=== PATIENT | male | born 1980 | race Caucasian/White ===

== ENCOUNTER 2021-08-10 03:30 | Emergency (ER) | payer OTHER, SELFPAY ==
[2021-08-10 04:04] VITALS: BP 128/78; PULSE 84; RESP 18; TEMP 37.3; O2SAT 98; BMI 24.3
[2021-08-10 04:29] LABS: MANUAL DIFF FLAG NO
[2021-08-10 04:30] LABS: Basophils Absolute Auto 0.1 X10*3/uL (0.0-0.2); Basophils Percent Auto 0.6 % (0-2); Eosinophils Absolute Auto 0.2 X10*3/uL (0.0-0.4); Eosinophils Percent Auto 2.1 % (0-4); Hematocrit 42.4 % (42.0-52.0); Hemoglobin 14.3 g/dl (14.0-18.0); Imm Gran Abs Auto 0.02 X10*3/uL (0.00-0.03); Imm Gran Pct Auto 0.2 % (0.0-0.4); Lymphocytes Absolute Auto 2.4 X10*3/uL (1.2-4.9); Lymphocytes Percent Auto 26.7 % (20-40); Mean Corpuscular HGB Conc 33.7 g/dl (31.0-36.0); Mean Corpuscular Hemoglobin 30.3 pg (27.0-33.0); Mean Corpuscular Volume 89.8 fL (80.0-98.0); Mean Platelet Volume 8.8 fL (9.4-12.4); Monocytes Absolute Auto 0.5 X10*3/uL (0.1-1.2); Monocytes Percent Auto 5.1 % (2-11); Neutrophils Absolute Auto 5.9 x10*3/uL (2.0-8.3); Neutrophils Percent Auto 65.3 % (45-73); Platelet Count 267 X10*3/uL (160-400); Red Blood Count 4.72 X10*6/uL (4.60-5.80); Red Cell Distribution Width 12.8 % (11.0-16.0)
[2021-08-10 04:46] LABS: COVID-19 Test Negative (Negative)
[2021-08-10 04:51] LABS: Ethanol < 10 mg/dL
[2021-08-10 04:53] LABS: Anion Gap 14 (12-20); Blood Urea Nitrogen 13 mg/dL (9-16); Calcium 9.6 mg/dL (8.4-10.2); Carbon Dioxide 25 mmol/L (22-29); Chloride 104 mmol/L (96-108); Creatinine Clr Calc Pharmacy 104.5; Estimated Glomerular Filt Rate > 60; Glucose Random 94 mg/dL (60-115); Potassium 4.3 mmol/L (3.3-5.1); Sodium 139 mmol/L (135-145)
--- NOTE | 2021-08-10 05:34 | ED.PSYCH ---
HPI - Psych General Chief Complaint: Psychiatric Symptoms Stated Complaint: Crisis Time Seen by Provider: 08/10/21 05:34 Source: patient Mode of arrival: ambulatory History of Present Illness HPI Narrative: 40-year-old male without significant past medical history presents with complaints of depression but denies suicidal ideation and states that he is so tired and simply wants to sleep. Patient states that he last used heroin yesterday. Otherwise, he denies any fever, chills, nausea, vomiting, GI or symptoms. Related Data Allergies Allergy/AdvReac Type Severity Reaction Status Date / Time No Known Allergies Allergy Unverified 02/05/20 16:34 Review of Systems Review of Systems: Pertinent positives and negatives as stated in HPI 10 point review of systems is otherwise negative. PMFSH Past Medical History Source: nursing notes reviewed Social History Social History Advance Directives: No Physical Exam Vital Signs: Vital Signs: Last Vital Signs Temp 99.2 F 08/10/21 04:04 Pulse 84 08/10/21 04:04 Resp 18 08/10/21 04:04 BP 128/78 08/10/21 04:04 Pulse Ox 98 08/10/21 04:04 BMI result Body Mass Index 24.3 VITAL SIGNS: Reviewed. GENERAL: Well developed, well nourished, in no acute distress. HEAD: Normocephalic/atraumatic EYES: PERRLA, EOMI OROPHARYNX: no oral lesions noted, posterior pharynx clear LUNGS: Normal breath sounds. SpO2<98> CARDIOVASCULAR: Regular rate and rhythm without noted murmurs ABDOMEN: Soft, non-tender, non-distended with bowel sounds. SKIN: Inspection of the skin reveals no rashes, but extensive tattoos NEUROLOGIC: Alert and oriented x 4. Strength and sensation to light touch were grossly intact x 4, cranial nerves 2-12 are grossly intact. Course Course Course Narrative: 40-year-old male with history of substance use, and review of all investigations other than GUDINO without acute findings. Patient reports depression but otherwise denies suicidal ideation which conflicts with history provided to triage nurse. He is otherwise medically clear for further evaluation by the crisis team. Reevaluation(s) Reevaluation #1: Patient placed in physician observation because the patient needed more time for evaluation by the crisis team. At the time observation was started the patient's vital signs were stable, patient is easily arousable and oriented, neuro: Nonfocal, CV RRR, lungs clear Time: 06:04 MDM - Psych Lab Data Result diagrams: 08/10/21 04:24 08/10/21 04:24 Labs: Lab Results 08/10/21 08/10/21 08/10/21 Range/Units 04:12 04:24 04:24 WBC 9.0 (4.8-10.8) X10*3/uL RBC 4.72 (4.60-5.80) X10*6/uL Hgb 14.3 (14.0-18.0) g/dl Hct 42.4 (42.0-52.0) % MCV 89.8 (80.0-98.0) fL MCH 30.3 (27.0-33.0) pg MCHC 33.7 (31.0-36.0) g/dl RDW 12.8 (11.0-16.0) % Plt Count 267 (160-400) X10*3/uL MPV 8.8 L (9.4-12.4) fL Immature Gran % (Auto) 0.2 (0.0-0.4) % Neut % (Auto) 65.3 (45-73) % Lymph % (Auto) 26.7 (20-40) % [place] % (Auto) 5.1 (2-11) % Eos % (Auto) 2.1 (0-4) % Baso % (Auto) 0.6 (0-2) % Lymph # (Auto) 2.4 (1.2-4.9) X10*3/uL [place] # (Auto) 0.5 (0.1-1.2) X10*3/uL Eos # (Auto) 0.2 (0.0-0.4) X10*3/uL Baso # (Auto) 0.1 (0.0-0.2) X10*3/uL Abs Immat Gran (auto) 0.02 (0.00-0.03) X10*3/uL Absolute Neuts (auto) 5.9 (2.0-8.3) x10*3/uL Absolute Nucleated RBC 0.000 (0.0-0.012) X10*3/uL Nucleated RBC % (auto) 0.0 (0.0-0.2) /100WBC Sodium (135-145) mmol/L Potassium (3.3-5.1) mmol/L Chloride (96-108) mmol/L Carbon Dioxide (22-29) mmol/L Anion Gap (12-20) BUN (9-16) mg/dL Creatinine (0.5-1.4) mg/dL Estim Creat Clear Calc Estimated GFR Random Glucose (60-115) mg/dL Calcium (8.4-10.2) mg/dL Ethyl Alcohol < 10 mg/dL COVID-19 ([facility]) Negative (Negative) COVID-19 Clin Com See Note 08/10/21 Range/Units 04:24 WBC (4.8-10.8) X10*3/uL RBC (4.60-5.80) X10*6/uL Hgb (14.0-18.0) g/dl Hct (42.0-52.0) % MCV (80.0-98.0) fL MCH (27.0-33.0) pg MCHC (31.0-36.0) g/dl RDW (11.0-16.0) % Plt Count (160-400) X10*3/uL MPV (9.4-12.4) fL Immature Gran % (Auto) (0.0-0.4) % Neut % (Auto) (45-73) % Lymph % (Auto) (20-40) % [place] % (Auto) (2-11) % Eos % (Auto) (0-4) % Baso % (Auto) (0-2) % Lymph # (Auto) (1.2-4.9) X10*3/uL [place] # (Auto) (0.1-1.2) X10*3/uL Eos # (Auto) (0.0-0.4) X10*3/uL Baso # (Auto) (0.0-0.2) X10*3/uL Abs Immat Gran (auto) (0.00-0.03) X10*3/uL Absolute Neuts (auto) (2.0-8.3) x10*3/uL Absolute Nucleated RBC (0.0-0.012) X10*3/uL Nucleated RBC % (auto) (0.0-0.2) /100WBC Sodium 139 (135-145) mmol/L Potassium 4.3 (3.3-5.1) mmol/L Chloride 104 (96-108) mmol/L Carbon Dioxide 25 (22-29) mmol/L Anion Gap 14 (12-20) BUN 13 (9-16) mg/dL Creatinine 0.96 (0.5-1.4) mg/dL Estim Creat Clear Calc 104.5 Estimated GFR > 60 Random Glucose 94 (60-115) mg/dL Calcium 9.6 (8.4-10.2) mg/dL Ethyl Alcohol mg/dL COVID-19 ([facility]) (Negative) COVID-19 Clin Com Discharge Plan Discharge Clinical Impression: Depression, Substance use disorder Patient Disposition: Still a Patient
--- NOTE | 2021-08-10 07:30 | PC.NURSE ---
patient appears to remain asleep at present respirations are even and unlabored patient appears in no distress
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
--- NOTE | 2021-08-10 14:24 | MHC.RECOVSUP ---
? Reason for consult:recovery Support o Current location:[facility] o Identified substance use concern:Crack/ETOH - Withdrawal - Seeking ATS (detox) - Support ? Intervention: o ATS bed search started/completed/in proces o Community resources provided o ? Plan: o Bed search in progress to o Patient to follow up with [facility] after discharge ? Additional information:Patient seeking detox,patient going to [facility]
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
--- NOTE | 2021-08-10 18:36 | MHC.RECOVSUP ---
? Reason for consult Recovery Support o Current location: [facility] o Identified substance use concern: Heroin - Seeking ATS (detox) - Support ? Intervention: o ATS bed search started 5pm/[id number] o Community resources provided o Harm reduction discussion ? Plan: o Patient to follow up with [facility] after discharge ? Additional information: Patient seeking help to get a bed in detox... Patient has a bed at 815pm @ [facility]... Patient has his girlfriend come pick him up to bring him clothes and give him a ride...
== END 2021-08-10 18:46 | disposition home or self-care (01) ==
PROVIDERS: Emergency Provider Student in an Organized Health Care Education/Training Program
DX: F33.1 Major depressive disorder, recurrent, moderate (principal); R45.851 Suicidal ideations; F11.19 Opioid abuse with unspecified opioid-induced disorder; Z79.899 Other long term (current) drug therapy; Z20.822 Contact with and (suspected) exposure to COVID-19
CPT/HCPCS: 36415; 80048; 82077; 85025; 87635; 99284

== ENCOUNTER 2021-09-04 02:07 | Emergency (ER) | payer OTHER, SELFPAY ==
--- NOTE | ~2021-09-04 | XR_ITS ---
EXAMINATION: XR HIP, RIGHT CLINICAL INFORMATION: Pain COMPARISON: None TECHNIQUE: Two views of the right hip. FINDINGS: No acute fracture or dislocation. Femoral heads are spherical. Small bilateral os acetabuli. Hip joint spaces preserved. Pelvic ring intact. Soft tissues unremarkable. XR/XR hip RT w [id number] IMPRESSION: No acute fracture or dislocation.
[2021-09-04 02:21] VITALS: BP 141/79; PULSE 80; RESP 14; TEMP 36.9; O2SAT 98; BMI 25.1
[2021-09-04 04:00] VITALS: RESP 18
[2021-09-04 04:39] VITALS: BP 134/84; PULSE 78; RESP 18; O2SAT 99
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
[2021-09-04 05:45] VITALS: BP 138/82; PULSE 82; RESP 18; O2SAT 98
[2021-09-04] MEDS: Ketorolac Tromethamine 15 MG/ML VIAL IM (05:59)
[2021-09-04] MEDS: Acetaminophen 325 MG TABLET 975 MG PO (05:59)
[2021-09-04 06:33] VITALS: BP 133/79; PULSE 72; RESP 16; O2SAT 100
== END 2021-09-04 06:37 | disposition home or self-care (01) ==
PROVIDERS: Emergency Provider Student in an Organized Health Care Education/Training Program
DX: M25.551 Pain in right hip (principal)
CPT/HCPCS: 73502; 96372; 99284; J1885

== ENCOUNTER 2021-09-06 00:42 | Emergency (ER) | payer OTHER, SELFPAY ==
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
[2021-09-06 00:47] VITALS: BP 139/79; PULSE 96; RESP 16; TEMP 36.4; O2SAT 96; BMI 24.3
--- NOTE | 2021-09-06 01:45 | PC.NURSE ---
PT willing to provide blood for labs. PT stated that he is unable to urinate at the time of arrival to pod.
--- NOTE | 2021-09-06 01:46 | ED_ITS ---
HPI - Psych General Chief Complaint: Psychiatric Symptoms Stated Complaint: crisis Time Seen by Provider: 09/06/21 01:06 Source: patient Mode of arrival: ambulatory History of Present Illness HPI Narrative: 40-year-old male who is requesting to speak to crisis and states ?I am not well in the head? and although does not explicitly state that he has suicidal ideation he says ?I have been thinking about?. Otherwise he denies any constitu tional symptoms. Related Data Home Medications Medication Instructions Recorded Confirmed No Known Home Meds 08/10/21 08/10/21 Allergies Allergy/AdvReac Type Severity Reaction Status Date / Time No Known Allergies Allergy Verified 09/06/21 00:49 Review of Systems Review of Systems: Pertinent positives and negatives as stated in HPI 10 point review of systems is otherwise negative. PMFSH Past Medical History Source: nursing notes reviewed Social History Social History Advance Directives: No Advance Directives Information Provided: Yes Physical Exam Vital Signs: Vital Signs: Last Vital Signs Temp 97.6 F 09/06/21 00:47 Pulse 96 09/06/21 00:47 Resp 16 09/06/21 00:47 BP 139/79 09/06/21 00:47 Pulse Ox 96 09/06/21 00:47 BMI result Body Mass Index 24.3 VITAL SIGNS: Reviewed. GENERAL: Well developed, well nourished, in no acute distress. HEAD: Normocephalic/atraumatic EYES: PERRLA, EOMI EARS: Ext canals without abnormality OROPHARYNX: no oral lesions noted, posterior pharynx clear LUNGS: Normal breath sounds. SpO2<96> CARDIOVASCULAR: Regular rate and rhythm without noted murmurs ABDOMEN: Soft, non-tender, non-distended with bowel sounds. SKIN: Inspection of the skin reveals no rashes NEUROLOGIC: Alert and oriented x 4. Strength and sensation to light touch were grossly intact x 4, cranial nerves 2-12 are grossly intact. Course Course Course Narrative: 40-year-old male with history and clinical presentation most consistent with depression, possible AVH and vague suicidal ideation. Care team evaluated the patient and recommends crisis. Reevaluation(s) Reevaluation #1: Patient placed in physician observation because the patient needed more time for crisis eval and results of GUDINO. At the time observation was started the patient's vital signs were stable, patient is alert and oriented, neuro: Nonfocal, CV RRR, lungs clear Time: 02:33 MDM - Psych Lab Data Labs: Lab Results 09/06/21 09/06/21 Range/Units 01:35 01:35 Ethyl Alcohol < 10 mg/dL COVID-19 ([facility]) Negative (Negative) COVID-19 Clin Com See Note Discharge Plan Discharge Clinical Impression: Depression, Suicidal ideation Patient Disposition: Still a Patient Prescriptions: No Action No Known Home Meds 0RF
[2021-09-06 01:54] LABS: COVID-19 Test Negative (Negative)
[2021-09-06 01:57] LABS: Ethanol < 10 mg/dL
--- NOTE | 2021-09-06 02:10 | MHC.CARE ---
CARE team consult received for 40 year old male who self presented to the ED endorsing increased depression, not feeling right in the head, and vague SI. This web content writer attempted to meet with pt. Pt was sleeping and difficult to rouse awake and provided slow, short responses. He stated that he is feeling depressed lately and asked to sleep. ED physician updated. Recommended placing consult for crisis eval in the morning.
--- NOTE | 2021-09-06 02:26 | PC.NURSE ---
PT stated that he is not on home meds at this time.
--- NOTE | 2021-09-06 02:30 | PC.NURSE ---
Pt transferred from the pod into room 22. Sitter at bedside. Pt awake and alert, ambulating with a steady gait, denies pain/discomfort. Pt resting easily in bed with sitter @ bedside.
--- NOTE | 2021-09-06 07:00 | PC.NURSE ---
Pt sleeping throughout the night in NAD with sitter @ bedside. Pt calm/cooperative with staff, denies pain/discomfort.
[2021-09-06 09:24] VITALS: BP 124/78; PULSE 85; RESP 16; TEMP 36.4; O2SAT 97
--- NOTE | 2021-09-06 09:41 | PC.NURSE ---
PT RESTING QUIETLY MOST OF THE MORNING. EATING BREAKFAST. AWAITING BHN CONSULT
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
[2021-09-06 11:45] LABS: Amphetamine Screen Urine Not Detected (Not Detect); Barbiturates, Urine Not Detected (Not Detect); Benzodiazepines Screen Urine Not Detected (Not Detect); Cannabinoid Screen Urine Not Detected (Not Detect); Cocaine Screen Urine POSITIVE (Not Detect); Fentanyl, urine Not Detected (Not Detect); Opiate Screen Urine Not Detected (Not Detect); Phencyclidine Screen Urine Not Detected (Not Detect)
--- NOTE | 2021-09-06 13:14 | MHC.RECOVRN ---
Pt accepted to [facility] for 1545 admission.
== END 2021-09-06 14:05 | disposition home or self-care (01) ==
PROVIDERS: Emergency Provider Student in an Organized Health Care Education/Training Program
DX: F33.1 Major depressive disorder, recurrent, moderate (principal); R45.851 Suicidal ideations; Z20.822 Contact with and (suspected) exposure to COVID-19; Z79.899 Other long term (current) drug therapy
CPT/HCPCS: 71045; 80307; 82077; 87635; 99284

== ENCOUNTER 2021-10-17 03:22 | Emergency (ER) | payer OTHER, SELFPAY ==
[2021-10-17 03:27] VITALS: BP 134/88; PULSE 92; RESP 18; TEMP 36.6; O2SAT 96; BMI 24.5
[2021-10-17 04:00] VITALS: BP 113/70; PULSE 84; RESP 16; O2SAT 98
--- NOTE | 2021-10-17 05:58 | ED.PSYCH ---
HPI - Psych General Chief Complaint: Psychiatric Symptoms Stated Complaint: crisis Time Seen by Provider: 10/17/21 05:58 Source: patient Mode of arrival: ambulatory History of Present Illness HPI Narrative: 41-year-old male who reports the recent loss of his mother, 10/14, and is battling his addictions and admits to using cocaine but denies alcohol use. Patient endorses ?wanting to be with his mother?. Related Data Home Medications Medication Instructions Recorded Confirmed No Known Home Meds 08/10/21 08/10/21 Allergies Allergy/AdvReac Type Severity Reaction Status Date / Time No Known Allergies Allergy Verified 10/17/21 03:27 Review of Systems Review of Systems: Pertinent positives and negatives as stated HPI 10 point review of systems is otherwise negative. PMFSH Past Medical History Source: nursing notes reviewed Social History Social History Alcohol intake: never Patient Tobacco Use Status: Never used Tobacco Use of substances other than those prescribed or required for medical reasons: Yes Substance Use Type: Crack/Cocaine Advance Directives: No Physical Exam Vital Signs: Vital Signs: Last Vital Signs Temp 97.9 F 10/17/21 03:27 Pulse 84 10/17/21 04:00 Resp 16 10/17/21 04:00 BP 113/70 10/17/21 04:00 Pulse Ox 98 10/17/21 04:00 BMI result Body Mass Index 24.5 VITAL SIGNS: Reviewed. GENERAL: Well developed, well nourished, in no acute distress. HEAD: Normocephalic/atraumatic EYES: PERRLA, EOMI LUNGS: Normal breath sounds. No adventitious sounds or accessory muscle use. SpO2<98> CARDIOVASCULAR: Regular rate and rhythm without noted murmurs ABDOMEN: Soft, non-tender, non-distended with bowel sounds. MUSCULOSKELETAL: No tenderness, deformities, or effusions noted on gross inspection. EXTREMITIES: No cyanosis, clubbing or edema. SKIN: Inspection of the skin reveals no rashes NEUROLOGIC: Alert and oriented x 4. Strength and sensation to light touch were grossly intact x 4, cranial nerves 2-12 grossly intact. Course Course Course Narrative: 41-year-old male with history and clinical presentation consistent with multiple times for depression, drug use. He is otherwise medically cleared for further evaluation by the crisis team. Reevaluation(s) Reevaluation #1: Patient placed in physician observation because the patient needed more time for evaluation by the crisis team. At the time observation was started the patient's vital signs were stable, patient is alert and oriented, neuro: Nonfocal, CV RRR, lungs clear Time: 06:10 Discharge Plan Discharge Clinical Impression: Substance use disorder, Suicidal ideation, Depression Patient Disposition: Still a Patient Prescriptions: No Action No Known Home Meds 0RF
[2021-10-17 06:00] VITALS: RESP 14
[2021-10-17 08:18] LABS: COVID-19 Test Negative (Negative)
[2021-10-17 08:22] VITALS: BP 135/78; PULSE 66; RESP 16; TEMP 36.6; O2SAT 98
[2021-10-17 09:44] LABS: MANUAL DIFF FLAG NO
[2021-10-17 09:46] LABS: Basophils Percent Auto 0.6 % (0-2); Eosinophils Absolute Auto 0.2 X10*3/uL (0.0-0.4); Eosinophils Percent Auto 3.3 % (0-4); Hematocrit 41.8 % (42.0-52.0); Hemoglobin 14.4 g/dl (14.0-18.0); Imm Gran Abs Auto 0.02 X10*3/uL (0.00-0.03); Imm Gran Pct Auto 0.3 % (0.0-0.4); Lymphocytes Absolute Auto 2.4 X10*3/uL (1.2-4.9); Lymphocytes Percent Auto 34.2 % (20-40); Mean Corpuscular HGB Conc 34.4 g/dl (31.0-36.0); Mean Corpuscular Volume 89.9 fL (80.0-98.0); Mean Platelet Volume 8.7 fL (9.4-12.4); Monocytes Absolute Auto 0.5 X10*3/uL (0.1-1.2); Neutrophils Absolute Auto 3.8 x10*3/uL (2.0-8.3); Neutrophils Percent Auto 54.6 % (45-73); Platelet Count 236 X10*3/uL (160-400); Red Blood Count 4.65 X10*6/uL (4.60-5.80); Red Cell Distribution Width 12.9 % (11.0-16.0); White Blood Count 6.9 X10*3/uL (4.8-10.8)
[2021-10-17 10:02] LABS: Alanine Aminotransferase 14 U/L (0-40); Albumin Level 3.8 g/dL (3.5-5.0); Alkaline Phosphatase 63 U/L (39-117); Anion Gap 12 (12-20); Aspartate Amino Transferase 15 U/L (5-37); Bilirubin Total 0.5 mg/dL (0.0-1.0); Blood Urea Nitrogen 11 mg/dL (9-16); Calcium 9.2 mg/dL (8.4-10.2); Carbon Dioxide 26 mmol/L (22-29); Chloride 106 mmol/L (96-108); Creatinine Clr Calc Pharmacy 118.2; Estimated Glomerular Filt Rate > 60; Glucose Random 107 mg/dL (60-115); Magnesium 2.3 mg/dL (1.6-2.6); Potassium 3.8 mmol/L (3.3-5.1); Sodium 140 mmol/L (135-145); Total Protein 6.2 g/dL (6.5-8.0)
--- NOTE | 2021-10-17 10:33 | PC.NURSE ---
pt seen by bhn, pt aware of plan of care.
--- NOTE | 2021-10-17 11:09 | PC.NURSE ---
bhn return to bedside, pt had refused visit. pt aware of plan of care.
[2021-10-17 13:51] VITALS: BP 128/76; PULSE 16; RESP 16; TEMP 36.7; O2SAT 98
== END 2021-10-17 14:26 | disposition home or self-care (01) ==
PROVIDERS: Emergency Medicine; Physician Assistant Medical; Emergency Provider Student in an Organized Health Care Education/Training Program
DX: F33.1 Major depressive disorder, recurrent, moderate (principal); R45.851 Suicidal ideations; R06.02 Shortness of breath; F14.10 Cocaine abuse, uncomplicated; Z20.822 Contact with and (suspected) exposure to COVID-19; Z79.899 Other long term (current) drug therapy
CPT/HCPCS: 36415; 80053; 83735; 85025; 87635; 99284; 99285

== ENCOUNTER 2021-12-16 03:29 | Emergency (ER) | payer OTHER, SELFPAY ==
[2021-12-16 03:45] VITALS: BP 153/93; PULSE 116; RESP 16; TEMP 36.5; O2SAT 98; BMI 26.5
[2021-12-16 04:31] LABS: COVID-19 Test Negative (Negative)
[2021-12-16] MEDS: LORazepam 1 MG TABLET PO (04:44)
[2021-12-16] MEDS: OLANZapine 10 MG TABLET PO (04:44)
--- NOTE | 2021-12-16 06:32 | PC.NURSE ---
Patient is currently in bed appears sleeping, patient reported at the time of arrival racing thought, provider notified/ordered/Ativan 1 mg po and [id number] mg po at 0444 with + effect, BHN referral completed/confirmed/pending, med rec completed/patient is currently not on any medication, VSS, will continue to monitor.
[2021-12-16 07:59] VITALS: RESP 16
--- NOTE | 2021-12-16 09:03 | PC.NURSE ---
pt is sleeping, resp even and unlabored.
--- NOTE | 2021-12-16 09:33 | PC.NURSE ---
PT REFUSED BLOOD WORK. ASKED IF WE CAN COME BACK LATER.
--- NOTE | 2021-12-16 10:11 | PC.NURSE ---
pt seen by mlp (december), pt aware of plan of care.
--- NOTE | 2021-12-16 10:40 | ED_ITS ---
HPI - Psych General Chief Complaint: Psychiatric Symptoms Stated Complaint: crisis Time Seen by Provider: 12/16/21 04:37 Source: patient Mode of arrival: ambulatory Limitations: no limitations History of Present Illness HPI Narrative: 41-year-old male presents to ED for depression. Patient states going through some things but would not specify. patient denies any suicide plan. Related Data Home Medications Medication Instructions Recorded Confirmed No Known Home Meds 12/16/21 12/16/21 Allergies Allergy/AdvReac Type Severity Reaction Status Date / Time No Known Allergies Allergy Verified 12/16/21 03:48 Review of Systems Review of Systems: Depression Yes all other systems are reviewed and are negative [facility] Social History Social History Alcohol intake: never Patient Tobacco Use Status: Never used Tobacco Substance Use Type: Crack/Cocaine Advance Directives: No Advance Directives Information Provided: Yes Physical Exam Vital Signs: Vital Signs: Last Vital Signs Temp 98.3 F 12/16/21 13:48 Pulse 85 12/16/21 13:48 Resp 16 12/16/21 13:48 BP 128/57 L 12/16/21 13:48 Pulse Ox 100 12/16/21 13:48 O2 Del Method 12/16/21 13:48 BMI result Body Mass Index 26.5 Const: General: cooperative, healthy appearing, comfortable, no acute d istress, well developed, alert, awake and Physically active Orientation/consciousness: patient oriented x3 HEENT: Head: Yes normal to inspection, Yes No palpable skull fracture present, Yes normocephalic, Yes atraumatic and No abrasion Eyes: General: appearance normal, both eyes and all related structures Neck: Neck: Yes normal visual inspection, Yes full ROM, Yes no lymphadenopathy, Yes no meningeal signs, Yes trachea midline, Yes supple, No anterior neck swelling and No tender Chest: Chest palpation & inspection: normal inspection of the chest and normal palpation of entire chest wall Resp: Effort & Inspection: normal respiratory effort and able to speak in complete sentences Auscultation: clear to auscultation bilaterally Cardio: Jugular venous distension: no JVD Heart sounds: S1 normal heart sound present and S2 normal heart sound present GI: Inspection: Yes normal to inspection and No abdominal wall ecchymosis Palpation (GI): Soft to palpation, not firm, nontender, no guarding and not rigid : General: No CVA tenderness and Yes no CVA tenderness Back/Spine/Pelvis: Back: no CVA tenderness, No CVA tenderness and No back tenderness Skin: General skin exam: no rashes or lesions noted and elasticity normal Neuro: General: patient oriented x3, gait normal and no meningeal signs Cranial nerves: Yes CN's II-XII intact bilaterally Extrem: General: Yes normal to inspection and Yes full ROM Psych: Other: depressed Appearance: grossly normal and well kempt Course Course Course Narrative: labs ordered. Crisis consult placed Reevaluation(s) Reevaluation #1: patient labs at baseline. Patient evaluated by care team consulted Chandni who states patient is safe for discharge. Patient is not suicidal homicidal. Patient will be going to detox at [facility]. Time: 15:[address] [facility] - Psych Lab Data Result diagrams: 12/16/21 10:38 12/16/21 10:38 Labs: Lab Results 12/16/21 12/16/21 12/16/21 Range/Units 03:49 10:38 10:38 WBC 7.1 (4.8-10.8) X10*3/uL RBC 4.66 (4.60-5.80) X10*6/uL Hgb 14.0 (14.0-18.0) g/dl Hct 40.3 L (42.0-52.0) % MCV 86.5 (80.0-98.0) fL MCH 30.0 (27.0-33.0) pg MCHC 34.7 (31.0-36.0) g/dl RDW 13.0 (11.0-16.0) % Plt Count 200 (160-400) X10*3/uL MPV 9.2 L (9.4-12.4) fL Immature Gran % (Auto) 0.4 (0.0-0.4) % Neut % (Auto) 53.2 (45-73) % Lymph % (Auto) 33.3 (20-40) % [place] % (Auto) 11.7 H (2-11) % Eos % (Auto) 1.0 (0-4) % Baso % (Auto) 0.4 (0-2) % Lymph # (Auto) 2.4 (1.2-4.9) X10*3/uL [place] # (Auto) 0.8 (0.1-1.2) X10*3/uL Eos # (Auto) 0.1 (0.0-0.4) X10*3/uL Baso # (Auto) 0.0 (0.0-0.2) X10*3/uL Abs Immat Gran (auto) 0.03 (0.00-0.03) X10*3/uL Absolute Neuts (auto) 3.8 (2.0-8.3) x10*3/uL Absolute Nucleated RBC 0.000 (0.0-0.012) X10*3/uL Nucleated RBC % (auto) 0.0 (0.0-0.2) /100WBC Sodium 140 (135-145) mmol/L Potassium 3.9 (3.3-5.1) mmol/L Chloride 103 (96-108) mmol/L Carbon Dioxide 29 (22-29) mmol/L Anion Gap 12 (12-20) BUN 16 (9-16) mg/dL Creatinine 0.88 (0.5-1.4) mg/dL Estim Creat Clear Calc 112.9 Estimated GFR > 60 Random Glucose 91 (60-115) mg/dL Calcium 9.6 (8.4-10.2) mg/dL Total Bilirubin 0.7 (0.0-1.0) mg/dL AST 26 D (5-37) U/L ALT 56 H (0-40) U/L Alkaline Phosphatase 58 (39-117) U/L Total Protein 6.8 (6.5-8.0) g/dL Albumin 4.4 (3.5-5.0) g/dL Salicylates (15-30) mg/dL Acetaminophen (<30) mcg/mL Ethyl Alcohol mg/dL COVID-19 ([facility]) Negative (Negative) COVID-19 Clin Com See Note 12/16/21 Range/Units 10:38 WBC (4.8-10.8) X10*3/uL RBC (4.60-5.80) X10*6/uL Hgb (14.0-18.0) g/dl Hct (42.0-52.0) % MCV (80.0-98.0) fL MCH (27.0-33.0) pg MCHC (31.0-36.0) g/dl RDW (11.0-16.0) % Plt Count (160-400) X10*3/uL MPV (9.4-12.4) fL Immature Gran % (Auto) (0.0-0.4) % Neut % (Auto) (45-73) % Lymph % (Auto) (20-40) % [place] % (Auto) (2-11) % Eos % (Auto) (0-4) % Baso % (Auto) (0-2) % Lymph # (Auto) (1.2-4.9) X10*3/uL [place] # (Auto) (0.1-1.2) X10*3/uL Eos # (Auto) (0.0-0.4) X10*3/uL Baso # (Auto) (0.0-0.2) X10*3/uL Abs Immat Gran (auto) (0.00-0.03) X10*3/uL Absolute Neuts (auto) (2.0-8.3) x10*3/uL Absolute Nucleated RBC (0.0-0.012) X10*3/uL Nucleated RBC % (auto) (0.0-0.2) /100WBC Sodium (135-145) mmol/L Potassium (3.3-5.1) mmol/L Chloride (96-108) mmol/L Carbon Dioxide (22-29) mmol/L Anion Gap (12-20) BUN (9-16) mg/dL Creatinine (0.5-1.4) mg/dL Estim Creat Clear Calc Estimated GFR Random Glucose (60-115) mg/dL Calcium (8.4-10.2) mg/dL Total Bilirubin (0.0-1.0) mg/dL AST (5-37) U/L ALT (0-40) U/L Alkaline Phosphatase (39-117) U/L Total Protein (6.5-8.0) g/dL Albumin (3.5-5.0) g/dL Salicylates < 5.0 L (15-30) mg/dL Acetaminophen < 1 (<30) mcg/mL Ethyl Alcohol < 10 mg/dL COVID-19 ([facility]) (Negative) COVID-19 Clin Com Discharge Plan Discharge Clinical Impression: Substance abuse Patient Disposition: Home, Self-Care Instructions: Polysubstance Abuse (ED) Additional Instructions: return to the ED for any suicidal / homicidal ideation, any auditory / visual hallucinations, any physical complaints, or any other concerning symptoms. Please follow-up with [facility] for detox. Please follow-up with primary care provider and therapist also Prescriptions: No Action No Known Home Meds Referrals: [facility] [Other] Interventions: ED Discharge Assessment Last Done: 12/16/21 15:41 Discharge Date/Time: 12/16/21 15:45 Print Language: Slovenian
[2021-12-16 10:44] LABS: MANUAL DIFF FLAG NO
[2021-12-16 10:45] LABS: Basophils Percent Auto 0.4 % (0-2); Eosinophils Absolute Auto 0.1 X10*3/uL (0.0-0.4); Hematocrit 40.3 % (42.0-52.0); Imm Gran Abs Auto 0.03 X10*3/uL (0.00-0.03); Imm Gran Pct Auto 0.4 % (0.0-0.4); Lymphocytes Absolute Auto 2.4 X10*3/uL (1.2-4.9); Lymphocytes Percent Auto 33.3 % (20-40); Mean Corpuscular HGB Conc 34.7 g/dl (31.0-36.0); Mean Corpuscular Volume 86.5 fL (80.0-98.0); Mean Platelet Volume 9.2 fL (9.4-12.4); Monocytes Absolute Auto 0.8 X10*3/uL (0.1-1.2); Monocytes Percent Auto 11.7 % (2-11); Neutrophils Absolute Auto 3.8 x10*3/uL (2.0-8.3); Neutrophils Percent Auto 53.2 % (45-73); Platelet Count 200 X10*3/uL (160-400); Red Blood Count 4.66 X10*6/uL (4.60-5.80); White Blood Count 7.1 X10*3/uL (4.8-10.8)
[2021-12-16 11:05] LABS: Acetaminophen LAB < 1 mcg/mL (<30); Ethanol < 10 mg/dL; Salicylate < 5.0 mg/dL (15-30)
[2021-12-16 11:06] LABS: Alanine Aminotransferase 56 U/L (0-40); Albumin Level 4.4 g/dL (3.5-5.0); Alkaline Phosphatase 58 U/L (39-117); Anion Gap 12 (12-20); Aspartate Amino Transferase 26 U/L (5-37); Bilirubin Total 0.7 mg/dL (0.0-1.0); Blood Urea Nitrogen 16 mg/dL (9-16); Calcium 9.6 mg/dL (8.4-10.2); Carbon Dioxide 29 mmol/L (22-29); Chloride 103 mmol/L (96-108); Creatinine Clr Calc Pharmacy 112.9; Estimated Glomerular Filt Rate > 60; Glucose Random 91 mg/dL (60-115); Potassium 3.9 mmol/L (3.3-5.1); Sodium 140 mmol/L (135-145); Total Protein 6.8 g/dL (6.5-8.0)
--- NOTE | 2021-12-16 11:15 | PC.NURSE ---
cesar (care team) at bedside, pt aware of plan of care.
--- NOTE | 2021-12-16 12:07 | MHC.CARE ---
CARE Team met with Pt who reported feeling tired. Pt expressed interest in going to detox. ?Pt denies current SI/HI/AH/VH. Pt reports crack cocaine use. Pt stated a recent relapse a few days ago and wants helping getting back into treatment. Plan for recovery team to work with Pt.
[2021-12-16 13:48] VITALS: BP 128/57; PULSE 85; RESP 16; TEMP 36.8; O2SAT 100
--- NOTE | 2021-12-16 14:07 | MHC.RECOVRN ---
This manual writer met w/ pt, pt sleeping, wakeful to this writers voice. Pt states had reoccurrence yesterday crack cocain. Pt states not interested in treatment facilities in this area, interested in detox in [place]. This manual writer called [facility], whom does not take ANIBAL/crack detox pts. This manual writer met w/ pt, pt states not interested in [facility] whom does take pts for ANIBAL. Pt spoke with Care Team, requested [facility], as pt had been there in the past. This manual writer has put in referral for pt to [facility], is waiting hear back from [facility].
--- NOTE | 2021-12-16 15:05 | MHC.RECOVRN ---
This science writer received notification from [facility] that they cannot admit for ANIBAL, [facility] also does not admit for ANIBAL use. This science writer discussed w/ pt outpatient as an option for treatment, pt is not interested at this time. This science writer offered information for the [facility], pt states not interested at this time. Care team aware.
--- NOTE | 2021-12-16 15:41 | MHC.CARE ---
Pt continues to deny SI/HI/VH/AH. Pt is requesting to be discharged and follow up with [facility] in the community. Pt is aware of how to utilize [facility] Crisis services.
== END 2021-12-16 15:45 | disposition home or self-care (01) ==
PROVIDERS: Emergency Provider Student in an Organized Health Care Education/Training Program
DX: F19.10 Other psychoactive substance abuse, uncomplicated (principal); F32.A Depression, unspecified; Z20.822 Contact with and (suspected) exposure to COVID-19
CPT/HCPCS: 36415; 80053; 80143; 80179; 82077; 85025; 87635; 99282; 99284

== ENCOUNTER 2021-12-22 01:15 | Emergency (ER) | payer OTHER, SELFPAY ==
--- NOTE | 2021-12-22 | ECG_ITS ---
Test Reason : CHESTPAIN Blood Pressure : / mmHG Vent. Rate : 096 BPM Atrial Rate : 096 BPM P-R Int : 154 ms QRS Dur : 092 ms QT Int : 370 ms P-R-T Axes : 073 083 040 degrees QTc Int : 467 ms Normal sinus rhythm Normal ECG When compared with ECG of 14-APR-2010 07:50, No significant change was found Referred By: Ana Rosa Lopez Electronically Signed By:JANETH FLOWERS MD
[2021-12-22 01:25] VITALS: BMI 28.7
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
[2021-12-22 01:56] LABS: MANUAL DIFF FLAG NO
[2021-12-22 01:57] LABS: Basophils Percent Auto 0.5 % (0-2); Eosinophils Absolute Auto 0.2 X10*3/uL (0.0-0.4); Eosinophils Percent Auto 2.4 % (0-4); Hematocrit 37.3 % (42.0-52.0); Hemoglobin 13.1 g/dl (14.0-18.0); Imm Gran Abs Auto 0.02 X10*3/uL (0.00-0.03); Imm Gran Pct Auto 0.3 % (0.0-0.4); Lymphocytes Absolute Auto 1.5 X10*3/uL (1.2-4.9); Lymphocytes Percent Auto 24.4 % (20-40); Mean Corpuscular HGB Conc 35.1 g/dl (31.0-36.0); Mean Corpuscular Hemoglobin 30.2 pg (27.0-33.0); Mean Corpuscular Volume 85.9 fL (80.0-98.0); Mean Platelet Volume 8.9 fL (9.4-12.4); Monocytes Absolute Auto 0.5 X10*3/uL (0.1-1.2); Monocytes Percent Auto 8.3 % (2-11); Neutrophils Percent Auto 64.1 % (45-73); Platelet Count 243 X10*3/uL (160-400); Red Blood Count 4.34 X10*6/uL (4.60-5.80); Red Cell Distribution Width 12.4 % (11.0-16.0); White Blood Count 6.2 X10*3/uL (4.8-10.8)
[2021-12-22] MEDS: 0.9 % Sodium Chloride 500 ML 999 ML IV (02:15)
[2021-12-22 02:16] VITALS: PULSE 86; RESP 18
[2021-12-22 02:17] LABS: Ethanol < 10 mg/dL
[2021-12-22 02:22] LABS: Alanine Aminotransferase 33 U/L (0-40); Albumin Level 4.2 g/dL (3.5-5.0); Alkaline Phosphatase 66 U/L (39-117); Anion Gap 16 (12-20); Aspartate Amino Transferase 40 U/L (5-37); Bilirubin Direct 0.2 mg/dL (0.0-0.5); Bilirubin Total 0.4 mg/dL (0.0-1.0); Blood Urea Nitrogen 14 mg/dL (9-16); Carbon Dioxide 23 mmol/L (22-29); Chloride 109 mmol/L (96-108); Creatinine Clr Calc Pharmacy 95.1; Estimated Glomerular Filt Rate > 60; Glucose Random 79 mg/dL (60-115); Potassium 3.6 mmol/L (3.3-5.1); Sodium 144 mmol/L (135-145); Total Protein 6.6 g/dL (6.5-8.0)
--- NOTE | 2021-12-22 02:23 | PC.NURSE ---
two attempts at collecting bloodwork unsuccessful by this nurse
--- NOTE | 2021-12-22 02:25 | PC.NURSE ---
pt asleep at this time resp effort unlabored reg no use of accessory muscles present, resting comfortably, vitals WNLs. will continue to monitor pt at this time
[2021-12-22 04:00] VITALS: BP 124/75; PULSE 72; RESP 16; TEMP 36.3; O2SAT 98
[2021-12-22 05:25] VITALS: BP 124/84; PULSE 70; RESP 16; TEMP 36.6; O2SAT 98
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
== END 2021-12-22 06:21 | disposition home or self-care (01) ==
PROVIDERS: Emergency Provider Emergency Medicine Emergency Medical Services
DX: F14.10 Cocaine abuse, uncomplicated (principal); F19.10 Other psychoactive substance abuse, uncomplicated; F17.200 Nicotine dependence, unspecified, uncomplicated
CPT/HCPCS: 36415; 80048; 80076; 82077; 82550; 85025; 93005; 96360; 99283; 99284; 99285

== ENCOUNTER 2021-12-31 01:56 | Emergency (ER) | payer OTHER, SELFPAY ==
--- NOTE | ~2021-12-31 | XR_ITS ---
EXAMINATION: XR HIP, LEFT CLINICAL INFORMATION: Pain COMPARISON: 09/04/2021 TECHNIQUE: Two views of the left hip. Frontal view of the pelvis. FINDINGS: No fracture or dislocation. Alignment is anatomic at both hips. Joint spaces are maintained. The pelvic rim is intact. The sacroiliac joints and pubic symphysis are intact. XR/XR hip LT w PEL1V IMPRESSION: No acute abnormality of the pelvis/left hip.
[2021-12-31 02:05] VITALS: BP 130/78; PULSE 82; RESP 16; TEMP 36.6; O2SAT 97; BMI 25.8
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
[2021-12-31 05:09] VITALS: BP 118/65; PULSE 64; RESP 18; O2SAT 100
== END 2021-12-31 05:12 | disposition home or self-care (01) ==
PROVIDERS: Emergency Provider Emergency Medicine
DX: G89.29 Other chronic pain (principal); M25.552 Pain in left hip
CPT/HCPCS: 73502; 99283

== ENCOUNTER 2022-01-16 01:03 | Emergency (ER) | payer OTHER, SELFPAY ==
[2022-01-16 01:11] VITALS: BP 140/88; PULSE 84; RESP 17; TEMP 36.7; O2SAT 98; BMI 25.1
--- NOTE | 2022-01-16 01:53 | ED.PSYCH ---
HPI - Psych General Chief Complaint: Psychiatric Symptoms Stated Complaint: crisis Time Seen by Provider: 01/16/22 01:46 Source: patient Mode of arrival: ambulatory Limitations: no limitations History of Present Illness HPI Narrative: Patient comes to the emergency room complaining of suicidal thoughts. Patient states that he had thoughts of killing himself but no attempts were made. Patient states that for the last 3 months, he has been having significant depression since his mother . Patient admits to using crack cocaine. Denies homicidal ideation. Related Data Previous Rx's Medication Instructions Recorded ibuprofen 600 mg tablet 600 mg PO Q8H PRN pain #20 tabs 12/31/21 Allergies Allergy/AdvReac Type Severity Reaction Status Date / Time No Known Allergies Allergy Verified 01/16/22 01:10 Review of Systems Review of Systems: Constitutional : No Weight loss, No Fever, No Chills, No Night Sweats, No Fatigue, No Malaise ENT/Mouth : No Hearing loss, No Ear Pain, No Nasal Congestion, No Sinus Pain, No Hoarseness, No sore throat, No Rhinorrhea, No Swallowing Difficulty Eyes: No Eye Pain, No Swelling, No Redness, No Foreign Body, No Discharge, No Vision Changes Cardiovascular : No Chest Pain, No SOB, No Dyspnea on Exertion, No Orthopnea, No Edema, No Palpitations Respiratory : No Cough, No Sputum, No Wheezing, No Smoke Exposure, No Dyspnea Gastrointestinal : No Nausea, No Vomiting, No Diarrhea, No Constipation, No abdominal Pain, No Hematochezia, No Melena Genitourinary : no irregular bleeding, No Dysuria, No Urinary Frequency, No Hematuria, No Urinary Incontinence, No Urgency, No Flank Pain, No Urinary Flow Changes, No Hesitancy Musculoskeletal : No joint pain, No Myalgias, No Joint Swelling Skin : No Skin Lesions, No rash Neuro : No Weakness, No Numbness, No Paresthesias, No Loss of Consciousness, No Dizziness, No Headache Psych : Complaining of depression and suicidal thoughts, no attempts, no homicidal ideation Heme/Lymph: No Bruising, No Bleeding,No Lymphadenopathy Endocrine : No Polyuria, No Polydipsia, No Temperature Intolerance PMFSH Past Medical History Medical History Substance abuse Suicidal ideation Social History Social History Alcohol intake: former Patient Tobacco Use Status: Current everyday Tobacco user Smoked in Last 30 Days: Yes Use of substances other than those prescribed or required for medical reasons: Yes Substance Use Type: Crack/Cocaine Substance Use Frequency: Chronic Longstanding Last Used Substance: Days (ago) Advance Directives: No Advance Directives Information Provided: Yes Physical Exam Vital Signs: Vital Signs: Last Vital Signs Temp 98.0 F 01/16/22 01:11 Pulse 80 01/16/22 03:57 Resp 15 01/16/22 03:57 BP 138/74 01/16/22 03:57 Pulse Ox 100 01/16/22 03:57 O2 Del Method 01/16/22 03:57 BMI result Body Mass Index 25.1 Const: Other: Appearance: Alert. Oriented X3. No acute distress. Eyes: Pupils equal, round and reactive to light. ENT: Pharynx normal. Neck: Normal inspection. Neck supple. No lymph nodes noted. No crepitus CVS: Normal heart rate and rhythm. Pulses normal. Normal S1 and S2 Respiratory: No respiratory distress. Breath sounds normal. No Wheezing. No rales Abdomen: Soft and nontender. No rigidity. No distention. Skin: Skin warm and dry. Normal skin color. Normal skin turgor. Extremities: No lower extremity edema. No Lacerations. No Rash Neuro: Oriented X 3. No motor deficit. No sensory deficit. Moving all extremities. No slurred speech. CN 2 through 12 grossly intact Psych: calm, cooperative, normal affect Course Course Course Narrative: [facility] consult pending. Patient is on a Section 12 at this time. Physician observe patient started at 01:55 Reevaluation(s) Reevaluation #1: No events overnight, are stable, patient has not provided a urine sample. Patient remains on a Section 12, waiting to be seen by [facility]. COVID negative. Time: 05:17 MDM - Psych Lab Data Labs: Lab Results 01/16/22 Range/Units 02:16 COVID-19 ([facility]) Negative (Negative) COVID-19 Clin Com See Note Discharge Plan Discharge Clinical Impression: Suicidal ideation, Depression Prescriptions: No Action ibuprofen 600 mg tablet 600 mg PO Q8H PRN (Reason: pain) Qty: 20 0RF
--- NOTE | 2022-01-16 02:12 | PC.NURSE ---
pt a&ox3, vss, pt reports increased life stressors - homeless/mother a few months ago, hx depression w SI, pt is not currently on any medication or in therapy. pt recently stopped drinking alcohol ~1w ago, denies any hx of ETOH withdrawal, pt reports smoking crack daily. pt reporting 6/10 hip pain.
[2022-01-16 02:42] LABS: COVID-19 Test Negative (Negative)
[2022-01-16 03:57] VITALS: BP 138/74; PULSE 80; RESP 15; O2SAT 100
--- NOTE | 2022-01-16 07:53 | PC.NURSE ---
pt a/o x 3 no sob;/karen noted skin pink warm dry speaks in full sentences. amb (i) gait steady. sitter at bedside.
--- NOTE | 2022-01-16 07:59 | MHC.CARE ---
CARE Team met with PT who self presented to [facility] ED reporting SI and crack coaine use. Pt is known to t/w from similar presentation, presenting to the ED in the context of SI and wanting substance use treatment. Pt currently denies SI/HI/VH/AH. Pt reports interest in going to detox. Pt reports ongoing alcohol and crack cocaine use. CARE Team spoke with Dr. Hayes who is in agreement with plan. CARE Team to be referred to the recovery team for detox bedsearch
[2022-01-16 08:21] LABS: Amphetamine Screen Urine Not Detected (Not Detect); Barbiturates, Urine Not Detected (Not Detect); Benzodiazepines Screen Urine Not Detected (Not Detect); Cannabinoid Screen Urine Not Detected (Not Detect); Cocaine Screen Urine POSITIVE (Not Detect); Fentanyl, urine Not Detected (Not Detect); Opiate Screen Urine Not Detected (Not Detect); Phencyclidine Screen Urine Not Detected (Not Detect)
--- NOTE | 2022-01-16 10:32 | MHC.RECOVRN ---
Spoke with Maryann from [facility], was informed pt needs [facility] level of care and they do not have availability.
[2022-01-16 10:51] VITALS: BP 140/74; PULSE 73; RESP 12; TEMP 36.4; O2SAT 99
== END 2022-01-16 12:00 | disposition other institution (70) ==
PROVIDERS: Emergency Provider Emergency Medicine
DX: R45.851 Suicidal ideations (principal); F32.A Depression, unspecified; Z20.822 Contact with and (suspected) exposure to COVID-19; F19.10 Other psychoactive substance abuse, uncomplicated; F17.200 Nicotine dependence, unspecified, uncomplicated; Z72.89 Other problems related to lifestyle; Z63.4 Disappearance and death of family member
CPT/HCPCS: 80307; 87635; 99284; 99285

== ENCOUNTER 2022-02-02 01:59 | Emergency (ER) | payer OTHER, SELFPAY ==
--- NOTE | ~2022-02-02 | CT_ITS ---
EXAMINATION: NONCONTRAST HEAD CT NONCONTRAST CERVICAL SPINE CT INDICATION INFORMATION: Fall. Pain. COMPARISON: None TECHNIQUE: Separate noncontrast CT examinations of the head and cervical spine were performed. Coronal and sagittal images were created for each examination at the technologist workstation. This CT examination was performed using dose optimization techniques as appropriate, variously including the following: *Automated exposure control *Adjustment of mA and/or kV according to patient size (this includes techniques or standardized protocols for targeted exams where dose is matched to indication/reason for exam; i.e. extremities or head) *Use of iterative reconstruction technique DLP: 1488 mGy-cm FINDINGS: Head: There is no evidence of acute intracranial hemorrhage or territorial infarction. No abnormal mass effect or midline shift is seen. Howe to white matter differentiation is well preserved. No extra-axial fluid collections are identified. No hydrocephalus. No significant volume loss. There is no abnormal attenuation within the brain parenchyma. No acute osseous or soft tissue abnormality. The mastoid air cells and visualized portions of the paranasal sinuses are well aerated. Cervical spine: There is anatomic alignment of the vertebral bodies and posterior elements. The atlantoaxial and atlantooccipital articulations are intact. Vertebral body heights are maintained. There is multilevel intervertebral disc space narrowing with endplate osteophyte formation and facet arthropathy. No evidence of acute fracture. No prevertebral soft tissue swelling. Mild paraseptal emphysema at the lung apices.. The thyroid gland is unremarkable. CT/CT head/brain wo IV con IMPRESSION: 1. No acute intracranial finding. 2. No acute fracture or malalignment of the cervical spine. Mild degenerative changes.
--- NOTE | ~2022-02-02 | CT_ITS ---
EXAMINATION: NONCONTRAST HEAD CT NONCONTRAST CERVICAL SPINE CT INDICATION INFORMATION: Fall. Pain. COMPARISON: None TECHNIQUE: Separate noncontrast CT examinations of the head and cervical spine were performed. Coronal and sagittal images were created for each examination at the technologist workstation. This CT examination was performed using dose optimization techniques as appropriate, variously including the following: *Automated exposure control *Adjustment of mA and/or kV according to patient size (this includes techniques or standardized protocols for targeted exams where dose is matched to indication/reason for exam; i.e. extremities or head) *Use of iterative reconstruction technique DLP: 1488 mGy-cm FINDINGS: Head: There is no evidence of acute intracranial hemorrhage or territorial infarction. No abnormal mass effect or midline shift is seen. Howe to white matter differentiation is well preserved. No extra-axial fluid collections are identified. No hydrocephalus. No significant volume loss. There is no abnormal attenuation within the brain parenchyma. No acute osseous or soft tissue abnormality. The mastoid air cells and visualized portions of the paranasal sinuses are well aerated. Cervical spine: There is anatomic alignment of the vertebral bodies and posterior elements. The atlantoaxial and atlantooccipital articulations are intact. Vertebral body heights are maintained. There is multilevel intervertebral disc space narrowing with endplate osteophyte formation and facet arthropathy. No evidence of acute fracture. No prevertebral soft tissue swelling. Mild paraseptal emphysema at the lung apices.. The thyroid gland is unremarkable. CT/CT cervical spine wo IV con IMPRESSION: 1. No acute intracranial finding. 2. No acute fracture or malalignment of the cervical spine. Mild degenerative changes.
[2022-02-02 02:26] VITALS: BP 121/92; PULSE 78; RESP 15; TEMP 36.8; O2SAT 99; BMI 24.3
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
== END 2022-02-02 06:38 | disposition home or self-care (01) ==
PROVIDERS: Emergency Provider Internal Medicine
DX: S09.90XA Unspecified injury of head, initial encounter (principal); R51.9 Headache, unspecified; M54.2 Cervicalgia; W07.XXXA Fall from chair, initial encounter; Y93.9 Activity, unspecified; Y92.009 Unspecified place in unspecified non-institutional (private) residence as the place of occurrence of the external cause; Y99.9 Unspecified external cause status
CPT/HCPCS: 70450; 72125; 99282; 99284

== ENCOUNTER 2022-02-13 01:32 | Emergency (ER) | payer OTHER, SELFPAY ==
[2022-02-13 02:08] VITALS: BP 153/94; PULSE 114; RESP 20; TEMP 36.6; O2SAT 97; BMI 24.3
[2022-02-13 04:15] VITALS: BP 150/91; PULSE 80; RESP 14; O2SAT 98
[2022-02-13 07:54] VITALS: BP 140/89; PULSE 78; RESP 20; O2SAT 98
== END 2022-02-13 12:08 | disposition left against medical advice (07) ==
PROVIDERS: Emergency Provider Emergency Medicine
DX: S01.512A Laceration without foreign body of oral cavity, initial encounter (principal); Y04.2XXA Assault by strike against or bumped into by another person, initial encounter; Y93.9 Activity, unspecified; Y92.9 Unspecified place or not applicable; Y99.9 Unspecified external cause status
CPT/HCPCS: 99281; 99283

== ENCOUNTER 2022-02-15 02:20 | Emergency (ER) | payer OTHER, SELFPAY ==
[2022-02-15 02:23] VITALS: BP 124/65; PULSE 87; RESP 18; TEMP 36.4; O2SAT 98; BMI 24.3
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
[2022-02-15 04:00] VITALS: BP 125/68; PULSE 74; RESP 16; TEMP 36.8; O2SAT 98
[2022-02-15] MEDS: Amoxicillin/Potassium Clav 875 MG TABLET PO ×2 (04:06→11:06)
[2022-02-15 04:20] LABS: COVID-19 Test Negative (Negative)
--- NOTE | 2022-02-15 06:28 | PC.NURSE ---
Patient slept through the night, no distress observed/reported, behavior calm and quiet, non concerning, [facility] referral completed/confirmed/pending ETA, care team made aware, VSS, pending urine sample for UTOX, med rec completed/patient is currently not on any medication, will continue to monitor.
--- NOTE | 2022-02-15 09:58 | PC.NURSE ---
client asks what is this pointing to breakfast, t/w responds it eggs and toast its better food in [facility] .
[2022-02-15 10:38] VITALS: BP 121/69; PULSE 62; RESP 16; TEMP 36.6; O2SAT 98
--- NOTE | 2022-02-15 10:59 | MHC.CARE ---
CARE Team met with patient in 8 for risk assessment, he requested to discharge to seek detox from the community. Patient denied suicidal ideation, plan or intention stated he want treatment for addiction. [employer] met with patient and he will follow patient in after discharge and continue the relationship after detox.
--- NOTE | 2022-02-15 11:04 | MHC.RECOVSUP ---
? Reason for consult:Support o Current location:[facility] o Identified substance use concern: - Support ? Intervention: o Community resources provided o Harm reduction discussion ? Plan:PT will go to detox on his own ? Additional information:Care Team asked me to speak to pt regarding ats bedsearch, pt asked to go home to see his family, then he'd go to detox treatment.
== END 2022-02-15 11:07 | disposition home or self-care (01) ==
PROVIDERS: Emergency Provider Internal Medicine
DX: R45.851 Suicidal ideations (principal); F32.A Depression, unspecified; L03.211 Cellulitis of face; F19.10 Other psychoactive substance abuse, uncomplicated; F17.200 Nicotine dependence, unspecified, uncomplicated; Z72.89 Other problems related to lifestyle; Z63.4 Disappearance and death of family member
CPT/HCPCS: 87635; 99283; 99284

== ENCOUNTER 2022-02-19 23:51 | Emergency (ER) | payer OTHER, SELFPAY ==
[2022-02-20 00:08] VITALS: BP 145/98; PULSE 100; RESP 18; TEMP 37.2; O2SAT 98; BMI 24.3
--- OUTSIDE RECORDS SUMMARY | 2022-02-20 01:01 | XMS_ITS | Continuity of Care Document ---
:[address] [facility] Address [address] [place] [id number]- Care Team Providers Name Role Phone Not on Staff, PCP Primary Care Physician Unavailable Encounter [facility] [place] Date(s): 02/17/21 - 03/19/[address] [id number] Attending Physician: Louie Xiong Admitting Physician: Louie Xiong Referring Physician: Louie Xiong Allergies, Adverse Reactions, Alerts No Known Medication Allergies Medications mirtazapine 15 mg oral tablet 1 tablet = 15 mg, By Mouth, Daily at bedtime, # 30 tablet, 0 Refills, Maintenance, 01/10/21 11:45:00EDT, Tablet, Partial fill upon patient request if the prescription is for a schedule II opioid drug. Start Date: 01/10/21 Status: Ordered
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
--- OUTSIDE RECORDS SUMMARY | 2022-02-20 01:01 | XMS_ITS | Continuity of Care Document ---
:1980 Author Organization [facility] Address [address] [place] [id number]- Care Team Providers Name Role Phone Not on Staff, PCP Primary Care Physician Unavailable Encounter [facility] [place] Date(s): 02/11/21 - 03/19/[address] [address] Attending Physician: Tracy Stevens Admitting Physician: Tracy Stevens Referring Physician: Tracy Stevens Allergies, Adverse Reactions, Alerts No Known Medication Allergies Medications mirtazapine 15 mg oral tablet 1 tablet = 15 mg, By Mouth, Daily at bedtime, # 30 tablet, 0 Refills, Maintenance, 01/10/21 11:45:00EDT, Tablet, Partial fill upon patient request if the prescription is for a schedule II opioid drug. Start Date: 01/10/21 Status: Ordered
--- OUTSIDE RECORDS SUMMARY | 2022-02-20 01:01 | XMS_ITS | Continuity of Care Document ---
:1980 Author Organization [facility] Address [address] [place] [address]- Care Team Providers Name Role Phone Not on Staff, PCP Primary Care Physician Unavailable Encounter [facility] [place] Date(s): 01/06/21 - 01/10/21 [facility] [address] [place], [place] [address] Discharge Disposition: A-Transfer SNF Attending Physician: Lexi Sousa MD Admitting Physician: Nieves Bal MD Referring Physician: Not on Staff, Referring [...] Exam Date Time Procedure Performing Provider Status 01/06/21 1:03 PM Chest Portable Yolanda Cardona; Auth (Verifie d) Notes:(Chest Portable) Reason For Exam: Shortness of BreathRESULT: Chest Portable Chest Portable Hx of Present Illness: Pt tested + for covid last week, c o body aches and shortness of breath, states he is homeless and was told a social work assistant would be able to place him in a hotel; Reason: Shortness of Breath; Clinical Question(s): CHF COMPARISON: 06/25/2016 FINDINGS: LINES AND TUBES: None. LUNGS AND PLEURA: Clear lungs. Normal pulmonary vascularity. No pleural effusion. No pneumothorax. HEART, MEDIASTINUM AND ABDON: Heart is normal in size. Normal upper mediastinal and hilar contour. BONES AND SOFT TISSUES: Unchanged metallic foreign bodies projecting over the left axilla. IMPRESSION: No acute abnormality. WSN: [id number] Ordering Physician: Marlene Carrillo Dictated By: Kenny Laws MD Dictated Date/Time: 01/06/21 1:08 pm Reviewed By: Kenny Laws MD Signed By: Kenny Laws MD Signed Date/Time: 01/06/21 1:08 pm Transcribed By: SHEYLA Transcribed Date/Time: 01/06/21 1:06 pm Vital Signs Most recent to oldest 1 2 3 [Reference Range]: Oxygen Saturation [94-100 %] 98 % 100 % 100 % (01/10/21 8:00 AM) (01/10/21 5:00 AM) (01/10/21 12: 00 AM) Pulse Rate [55-90 bpm] 65 bpm 60 bpm 72 bpm (01/10/21 8:00 AM) (01/10/21 5:00 AM) (01/10/21 12: 00 AM) Blood Pressure [90-138/55-84 125/70 mm Hg 121/83 mm Hg 135 /80 mm Hg mm Hg] (01/10/21 8:00 AM) (01/10/21 5:00 AM) (01/10/21 12: 00 AM) Respiratory Rate [16-30 16 br/min 16 br/min 16 br/mi n br/min] (01/10/21 8:00 AM) (01/10/21 5:00 AM) (01/10/21 12: 00 AM) Temperature [96.8-100.4 DegF] 98.2 DegF 97.8 DegF 97 .1 DegF (01/10/21 8:00 AM) (01/10/21 5:00 AM) (01/10/21 12: 00 AM) Mode of Delivery (Oxygen) Room air Room air Room a ir (01/10/21 8:00 AM) (01/10/21 5:00 AM) (01/10/21 12: 00 AM) Blood pressure sites Arm, left Arm, left Arm, right (01/10/21 8:00 AM) (01/10/21 5:00 AM) (01/10/21 12: 00 AM) Temperature Route Oral Oral Oral (01/10/21 8:00 AM) (01/10/21 5:00 AM) (01/10/21 12: 00 AM)
--- OUTSIDE RECORDS SUMMARY | 2022-02-20 01:01 | XMS_ITS | Continuity of Care Document ---
:1980 Author Organization [facility] Address [address] [place] [address]- Care Team Providers Name Role Phone Not on Staff, PCP Primary Care Physician Unavailable [place] [facility] [place] 08/[place]/21 [facility] [address] [place] [address]- Discharge Disposition: A-D/C Home Referring Physician: Not on Staff, Referring MD Allergies, Adverse Reactions, Alerts No Known Medication Allergies Medications mirtazapine 15 mg oral tablet 1 tablet = 15 mg, By Mouth, Daily at bedtime, # 30 tablet, 0 Refills, Maintenance, 01/10/21 11:45:00EDT, Tablet, Partial fill upon patient request if the prescription is for a schedule II opioid drug. Start Date: 01/10/21 Status: Ordered Vital Signs Most recent to oldest [Reference 1 2 3 Range]: Oxygen Saturation [94-100 %] 100 % 100 % 98 % (08/19/21 8:10 AM) (08/19/21 5:45 AM) (08/19/21 1:08 A M) Pulse Rate [55-90 bpm] 78 bpm 81 bpm 88 bpm (08/19/21 8:10 AM) (08/19/21 5:45 AM) (08/19/21 1:08 A M) Blood Pressure [90-138/55-84 mm 136/72 mm Hg 131/80 mm Hg 138/78 mm Hg Hg] (08/19/21 8:10 AM) (08/19/21 5:45 AM) (08/19/21 1:08 A M) Respiratory Rate [16-30 br/min] 18 br/min 20 br/min 18 br/min (08/19/21 8:10 AM) (08/19/21 5:45 AM) (08/19/21 1:08 A M) Temperature [96.8-100.4 DegF] 97.8 DegF 97.8 DegF (08/19/21 8:10 AM) (08/19/21 1:08 AM) Mode of Delivery (Oxygen) Room air Room air Room a ir (08/19/21 8:10 AM) (08/19/21 5:45 AM) (08/19/21 1:08 A M) Temperature Route Oral (08/19/21 1:08 AM)
--- OUTSIDE RECORDS SUMMARY | 2022-02-20 01:01 | XMS_ITS | Continuity of Care Document ---
:1980 Author Organization [facility] Address [address] [place] [address]- Care Team Providers Name Role Phone Not on Staff, PCP Primary Care Physician Unavailable [place] [facility] [place] [facility] [address] [place] [address]- Encounter Diagnosis COVID-19 (Final) - 11/20/21 Discharge Disposition: A-D/C Home Attending Physician: Елена Tesfaye MD Admitting Physician: Елена Tesfaye MD Referring Physician: Not on Staff, Referring MD Allergies, Adverse Reactions, Alerts No Known Medication Allergies Medications mirtazapine 15 mg oral tablet 1 tablet = 15 mg, By Mouth, Daily at bedtime, # 30 tablet, 0 Refills, Maintenance, 01/10/21 11:45:00EDT, Tablet, Partial fill upon patient request if the prescription is for a schedule II opioid drug. Start Date: 01/10/21 Status: Ordered Problem List Condition Effective Dates Status Health Status Informant COVID-19(Confirmed)1 11/23/21 Active 1Problem added by Discern Expert Vital Signs Most recent to oldest [Reference 1 2 3 Range]: Oxygen Saturation [94-100 %] 100 % 100 % 95 % (11/23/21 2:45 PM) (11/23/21 10:41 AM) (11/23/21 7:40 AM) Pulse Rate [55-90 bpm] 95 bpm 73 bpm 57 bpm *H* (11/23/21 10:41 AM) (11/23/21 7:40 A M) (11/23/21 2:45 PM) Blood Pressure [90-138/55-84 mm 167/91 mm Hg 132/82 mm Hg 152/86 mm Hg Hg] *H* (11/23/21 10:41 AM) *H* (11/23/21 2:45 PM) (11/23/21 7:40 AM ) Respiratory Rate [16-30 br/min] 14 br/min 20 br/min 20 br/min *L* (11/23/21 10:41 AM) (11/23/21 7:40 A M) (11/23/21 2:45 PM) Temperature [96.8-100.4 DegF] 98.3 DegF 99.1 DegF 97 .4 DegF (11/23/21 2:45 PM) (11/23/21 10:41 AM) (11/23/21 7:40 AM) Mode of Delivery (Oxygen) Room air Room air Room a ir (11/23/21 2:45 PM) (11/23/21 10:41 AM) (11/23/21 6:50 AM) Blood pressure sites Arm, left Arm, left Arm, left (11/23/21 2:45 PM) (11/23/21 10:41 AM) (11/23/21 7:40 AM) Temperature Route Oral Oral Oral (11/23/21 2:45 PM) (11/23/21 10:41 AM) (11/23/21 7:40 AM)
--- NOTE | 2022-02-20 01:07 | ED_ITS ---
HPI - General Adult General Chief complaint: Extremity Injury, Lower Stated complaint: Bilateral foot pain Time Seen by Provider: 02/20/22 00:45 Source: patient Mode of arrival: ambulatory Limitations: no limitations History of Present Illness HPI narrative: Patient is a 41 year old male presenting to the emergency department today with bilateral foot pain. Patient states that he is currently homeless so he is not changing his socks daily. Patient states that both of his feet hurt. Patient denies any dizziness, lightheadedness, abdominal pain, nausea, vomiting, fever, chills, blurry vision, double vision, loss of vision, chest pain, difficulty breathing, shortness of breath, back pain, night sweats, pain with urination, increased urinary frequency, increased urinary urgency, blood in his urine or stool, syncope or a near syncopal episode, recent trauma or falls, bowel incontinence, bladder incontinence, bowel retention, bladder retention, or any other complaints at this time. Onset (ago): day(s) Location: left, right and lower extremity Radiation: non-radiation Severity: mild Severity scale (1-10): 3 Quality: aching and dull Pain Consistency: constant Relieving factors: none Exacerbating factors: none Associated symptoms: denies other symptoms Treatments prior to arrival: none Related Data Previous Rx's Medication Instructions Recorded amoxicillin 875 mg-potassium 1 tab PO BID #14 tabs 02/15/22 clavulanate 125 mg tablet doxycycline hyclate 100 mg tablet 100 mg PO BID 7 days #14 tabs 02/20/22 fluconazole 150 mg tablet 150 mg PO Q3D 2 doses #2 tabs 02/20/22 (Diflucan) nystatin 100,000 unit/gram topical 1 appl topical QID #15 grams 02/20/22 powder Allergies Allergy/AdvReac Type Severity Reaction Status Date / Time No Known Allergies Allergy Verified 02/02/22 02:28 Review of Systems Constitutional: Constitutional: Reports no additional constitutional complaints, Denies chills, Denies fever(s) and Denies night sweats Eyes: Eyes: Reports no additional eye complaints, Denies blurry vision, Denies change in vision, Denies diplopia, Denies eye discharge, Denies loss of vision and Denies eye pain ENT: Denies dizziness Cardiovascular: Cardiovascular: Reports no additional cardiovascular complaints, Denies chest pain, Denies lightheadedness, Denies Loss of Consciousness and Denies dyspnea Respiratory: Respiratory: Reports no additional respiratory complaints and Denies dyspnea Gastrointestinal: Gastrointestinal: Reports no additional gastrointestinal complaints, Denies abdominal pain, Denies melena, Denies hematochezia, Denies change in bowel habits and Denies change in stool character Genitourinary: Genitourinary: Reports no additional male genitourinary complaints, Denies hematuria, Denies oliguria, Denies difficulty urinating, Denies dysuria, Denies urinary frequency, Denies urinary hesitancy, Denies urinary incontinence and Denies urinary urgency Musculoskeletal: Musculoskeletal: Reports no additional musculoskeletal com plaints, Denies numbness and Denies tingling Comments: bilateral foot pain Neurologic: Denies dizziness, Denies loss of vision, Denies numbness and Denies tingling Psychiatric: Psychiatric: Reports no additional psychiatric complaints Endocrine: Endocrine: Reports no additional endocrine complaints Hematologic/Lymphatic: Hematologic/Lymphatic: Reports no additional hematologic/lymphatic complaints Allergic/Immunologic: Allergic/Immunologic: Reports no additional allergic/immunologic complaints PMFSH Past Medical History Attestation statement: The following information was validated with the patient. Source: old records reviewed Medical History (Updated 02/20/22 @ 01:15 by TONY Baeza) COVID-19 (11/23/21) Substance abuse Suicidal ideation Social History Social History Alcohol intake: former Patient Tobacco Use Status: Current everyday Tobacco user Substance Use Type: Crack/Cocaine Advance Directives: No Physical Exam ED Vital Signs: Vital Signs - 24 hr 02/20/22 00:08 Temperature 98.9 F Pulse Rate 100 Respiratory Rate 18 Blood Pressure 145/98 H Pulse Oximetry 98 Oxygen Delivery Method Room Air BMI result Body Mass Index 24.3 Const General: cooperative, no acute distress, alert and awake Nutritional Appearance: well nourished Orientation/consciousness: patient oriented x3 Limitations: no limitations HENMT Head: Yes normal to inspection and Yes atraumatic Ears: hearing grossly normal bilaterally and external ears normal General nose exam: Normal external nose present, no nasal discharge noted and no epistaxis Face and sinus: Yes normal facial exam, No abrasion and No laceration Mouth: Normal oral and palatal mucosa present, no drooling and no muffled voice Eyes General: appearance normal, both eyes and all related structures Periorbital: periorbital findings normal Eyelids: Yes eyelids normal Conjunctivae: conjunctivae normal Pupils: Equal, round and reactive pupils present EOM: EOMs intact bilaterally Neck Neck: Yes normal visual inspection, Yes full ROM and Yes no lymphadenopathy Chest Chest palpation & inspection: normal inspection of the chest Resp Effort & Inspection: normal respiratory effort and able to speak in complete sentences Auscultation: clear to auscultation bilaterally Cardio Rate: regular rate Rhythm: regular rhythm GI Inspection: Yes normal to inspection Skin Other: mild redness to the upper aspect of the bilateral feet with obvious yeast infection present to the plantar aspects of the bilateral feet Neuro General: patient oriented x3 and moves all extremities Cranial nerves: Yes Equal, round and reactive pupils present Cognition (Neuro): normal cognition Motor exam (neuro): 5/5 motor strength present throughout Sensory Exam: Normal double simultaneous stimulation for sensation Coordination: [id number] test normal Extrem General: Yes normal to inspection, Yes full ROM and Yes capillary refill normal Psych Appearance: grossly normal Mental Status: mental status grossly normal Affect: normal affect Attitude: cooperative Thought process: Normal thought process present Thought content: Normal thought content present Insight: Good insight present (Psych) Medical Decision Making MDM Narrative Medical decision making narrative: Patient is a 41 year old male presenting to the emergency department today with bilateral foot pain. Patient's physical exam showed bilateral redness to the upper aspect of the feet and obvious yeast to the plantar aspect of both feet. I explained my physical exam findings to the patient. I answered all questions asked by the patient. Patient was given his first dose of antibiotic and anti- fungal medication here in the department. Patient was given multiple pairs of new, clean, socks. I stressed the importance of the patient taking his medication as prescribed. I stressed the importance of the patient following up with his primary care provider and a assistant floor covering printer. I stressed the importance of the patient returning to the emergency department immediately if his symptoms were to worsen or if he were to develop any dizziness, shortness of breath, difficulty breathing, chest pain, blurry vision, loss of vision, nausea, vomiting, abdominal pain, fever, chills, back pain, or any other complaints. Patient verbalized agreement and understanding with this treatment plan and discharge. Medical Records Medical records reviewed: Yes I reviewed the patient's medical records. Discharge Plan Discharge Clinical Impression: Athlete's foot, Cellulitis Patient Disposition: Home, Self-Care Instructions: Athlete's Foot (ED), Cellulitis (ED), Skin Yeast Infection (ED) Additional Instructions: KEEP YOUR FEET DRY POSSIBLE. Perform daily sock changes. Follow up with your primary care provider. Return to the emergency department immediately if your symptoms worsen or if you develop any dizziness, shortness of breath, difficulty breathing, chest pain, blurry vision, loss of vision, nausea, vomiting, abdominal pain, fever, chills, back pain, or any other complaints. Prescriptions: New fluconazole [Diflucan] 150 mg tablet 150 mg PO Q3D Qty: 2 0RF doxycycline hyclate 100 mg tablet 100 mg PO BID 7 Days Qty: 14 0RF nystatin 100,000 unit/gram powder 1 appl topical QID Qty: 15 0RF No Action amoxicillin-pot clavulanate 875-125 mg tablet 1 tab PO BID Qty: 14 0RF [place] [facility] [facility] [place] (Call to establish and follow up with a primary care provider. If you already have a primary care provider, please follow up with them. ) [facility] [place] Group] (Call to establish and follow up with a primary care provider. If you already have a primary care provider, please follow up with them. ) [facility] [place] Group] (Call to establish and follow up with a primary care provider. If you already have a primary care provider, please follow up with them. ) Pete Huynh DPM [Physician] - (Call to establish and follow up with a assistant floor covering printer. ) Print Language: Malagasy
[2022-02-20] MEDS: Fluconazole 100 MG TABLET PO (01:51)
[2022-02-20] MEDS: Acetaminophen 325 MG TABLET 650 MG PO (01:52)
== END 2022-02-20 01:54 | disposition home or self-care (01) ==
PROVIDERS: Emergency Provider Internal Medicine
DX: B35.3 Tinea pedis (principal); L03.116 Cellulitis of left lower limb; L03.115 Cellulitis of right lower limb; M79.672 Pain in left foot; M79.671 Pain in right foot
CPT/HCPCS: 99283

== ENCOUNTER 2022-03-18 20:03 | Emergency (ER) | payer OTHER, SELFPAY ==
[2022-03-18 20:09] VITALS: BP 156/98; PULSE 132; RESP 16; TEMP 36.7; O2SAT 96; BMI 27.2
--- NOTE | 2022-03-18 20:38 | PC.NURSE ---
Patient states he's going to use the restroom and then is unable to be found in either ED waiting room restroom or in waiting room. Will await to see if patient returns.
--- NOTE | 2022-03-18 20:54 | PC.NURSE ---
second attempt to locate patient for bloodwork and EKG. patient is unable to be located.
--- NOTE | 2022-03-18 21:01 | PC.NURSE ---
pt not in waiting room after 3 calls.
== END 2022-03-18 21:02 | disposition left against medical advice (07) ==
PROVIDERS: Emergency Provider Emergency Medicine
DX: R10.9 Unspecified abdominal pain (principal); R11.0 Nausea
CPT/HCPCS: 99282; 99283

== ENCOUNTER 2022-03-19 01:52 | Emergency (ER) | payer OTHER, SELFPAY ==
[2022-03-19 01:58] VITALS: BP 138/89; PULSE 117; RESP 18; TEMP 36.1; O2SAT 98; BMI 27.2
--- NOTE | 2022-03-19 02:08 | PC.NURSE ---
Patient states that while he's here for abdominal pain, he doesn't want any bloodwork or abdominal pain workup. He states he mainly presented today to see crisis.
[2022-03-19 02:25] LABS: MANUAL DIFF FLAG NO
[2022-03-19 02:26] LABS: Basophils Percent Auto 0.1 % (0-2); Eosinophils Percent Auto 0.1 % (0-4); Hematocrit 43.3 % (42.0-52.0); Hemoglobin 14.8 g/dl (14.0-18.0); Imm Gran Abs Auto 0.07 X10*3/uL (0.00-0.03); Imm Gran Pct Auto 0.5 % (0.0-0.4); Lymphocytes Absolute Auto 1.1 X10*3/uL (1.2-4.9); Mean Corpuscular HGB Conc 34.2 g/dl (31.0-36.0); Mean Corpuscular Volume 87.8 fL (80.0-98.0); Mean Platelet Volume 8.9 fL (9.4-12.4); Monocytes Absolute Auto 0.7 X10*3/uL (0.1-1.2); Monocytes Percent Auto 5.2 % (2-11); Neutrophils Absolute Auto 11.5 x10*3/uL (2.0-8.3); Neutrophils Percent Auto 86.1 % (45-73); Platelet Count 250 X10*3/uL (160-400); Red Blood Count 4.93 X10*6/uL (4.60-5.80); Red Cell Distribution Width 13.4 % (11.0-16.0); White Blood Count 13.4 X10*3/uL (4.8-10.8)
[2022-03-19 02:44] LABS: Alanine Aminotransferase 58 U/L (0-40); Albumin Level 4.9 g/dL (3.5-5.0); Alkaline Phosphatase 56 U/L (39-117); Anion Gap 20 (12-20); Aspartate Amino Transferase 34 U/L (5-37); Bilirubin Total 0.4 mg/dL (0.0-1.0); Blood Urea Nitrogen 16 mg/dL (9-16); Calcium 10.1 mg/dL (8.4-10.2); Carbon Dioxide 23 mmol/L (22-29); Chloride 103 mmol/L (96-108); Creatinine Clr Calc Pharmacy 99.3; Estimated Glomerular Filt Rate > 60; Ethanol < 10 mg/dL; Glucose Random 121 mg/dL (60-115); Lipase 9 U/L (8-78); Potassium 4.9 mmol/L (3.3-5.1); Sodium 141 mmol/L (135-145); Total Protein 7.7 g/dL (6.5-8.0)
[2022-03-19 02:59] LABS: Appearance Urine Clear; Color Urine Dark Yellow; Glucose Urine UA Negative (Negative); Leukocyte Esterase Urine Negative (Negative); Nitrite Urine Negative (Negative); Specific Gravity - Urine >= 1.030 (1.005-1.025); UMIC TRIGGER UACC YES; Urine Blood Negative (Negative); Urine Ketones Trace mg/dL (Negative); Urine Protein 30 (1+) mg/dL (Neg-Trace)
[2022-03-19 03:04] LABS: Bacteria Urine None Seen (None Seen); RBC Urine 0-2 /HPF (0-2); Squamous Epithelial Cell Urine 0-2 /HPF (0-2); WBC Urine 0-5 /HPF (0-5)
[2022-03-19 03:10] LABS: COVID-19 Test Negative (Negative)
[2022-03-19 03:13] LABS: Amphetamine Screen Urine Not Detected (Not Detect); Barbiturates, Urine Not Detected (Not Detect); Benzodiazepines Screen Urine Not Detected (Not Detect); Cannabinoid Screen Urine Not Detected (Not Detect); Cocaine Screen Urine POSITIVE (Not Detect); Fentanyl, urine POSITIVE (Not Detect); Opiate Screen Urine Not Detected (Not Detect); Phencyclidine Screen Urine Not Detected (Not Detect)
[2022-03-19] MEDS: LORazepam 1 MG TABLET 2 MG PO (03:15)
[2022-03-19] MEDS: Magnesium Hydrox/Alum Hydrox 30 ML ORAL.SUSP PO (05:23)
--- NOTE | 2022-03-19 05:43 | ED_ITS ---
HPI - Psych General Chief Complaint: Psychiatric Symptoms Stated Complaint: abd pain Time Seen by Provider: 03/19/22 05:32 Source: patient Mode of arrival: ambulatory Limitations: no limitations History of Present Illness HPI Narrative: 41-year-old male who presents emergency department for evaluation of abdominal pain and suicidal ideation. The patient presented to the emergency department earlier today but eloped prior to being seen, at that time he complained of abdominal pain. Patient return to the emergency department and complained of abdominal pain and stating that he wanted to kill himself. The patient states that he developed abdominal pain yesterday afternoon. He points to his epigastric area when asked to localize the pain. Describes the pain is a constant, pressure-like sensation which is 8/10 at its worst. He states that he had nausea and vomited 3 times yesterday. The patient states he has had similar pain in the past. States the pain feels like his heartburn pain. The patient also states that he is depressed. He states that he wants to kill himself by either overdosing on pills or taking a lot of ?dope ?. He states that he did use crack cocaine prior to coming to the emergency department. He states that he wants to so that he can join his mother who . Related Data Previous Rx's Medication Instructions Recorded amoxicillin 875 mg-potassium 1 tab PO BID #14 tabs 02/15/22 clavulanate 125 mg tablet doxycycline hyclate 100 mg tablet 100 mg PO BID 7 days #14 tabs 02/20/22 fluconazole 150 mg tablet 150 mg PO Q3D 2 doses #2 tabs 02/20/22 (Diflucan) nystatin 100,000 unit/gram topical 1 appl topical QID #15 grams 02/20/22 powder Allergies Allergy/AdvReac Type Severity Reaction Status Date / Time No Known Allergies Allergy Verified 02/02/22 02:28 Review of Systems Review of Systems: Yes all other systems are reviewed and are negative PMFSH Past Medical History PMFSH Narrative: Social history: The patient smokes 1 pack of cigarettes per day times 30 years. He states he occasionally drinks alcohol. He states that he does use crack cocaine in use crack cocaine prior to coming to the emergency department. Medical History COVID-19 (11/23/21) Substance abuse Suicidal ideation Social History Social History Alcohol intake: former Patient Tobacco Use Status: Current everyday Tobacco user Substance Use Type: Crack/Cocaine Advance Directives: No Physical Exam Vital Signs: Vital Signs: Last Vital Signs Temp 96.9 F 03/19/22 01:58 Pulse 117 H 03/19/22 01:58 Resp 18 03/19/22 01:58 BP 138/89 03/19/22 01:58 Pulse Ox 98 03/19/22 01:58 O2 Del Method 03/19/22 01:58 BMI result Body Mass Index 27.2 Const: General: cooperative and no acute distress Orientation/consciousness: oriented to person and oriented to place Limitations: no limitations HEENT: Head: Yes normal to inspection, Yes normocephalic and Yes atraumatic Ears: external ears normal General nose exam: Normal external nose present Face and sinus: Yes normal facial exam Mouth: Normal oral and palatal mucosa present Throat: Yes posterior oropharynx normal Eyes: General: appearance normal, both eyes and all related structures Pupils: Equal, round and reactive pupils present Neck: Neck: Yes normal visual inspection, Yes no lymphadenopathy, Yes trachea midline and Yes supple Chest: Chest palpation & inspection: normal inspection of the chest and normal palpation of entire chest wall Resp: Effort & Inspection: normal respiratory effort and able to speak in complete sentences Auscultation: clear to auscultation bilaterally Cardio: Rate: regular rate Rhythm: regular rhythm Heart sounds: S1 normal heart sound present, S2 normal heart sound present and no murmurs GI: Inspection: Yes normal to inspection Palpation (GI): Soft to palpation, Tenderness to palpation present (GI) in the epigastrum ([id number]) and no guarding Auscultation: normal bowel sounds : General: Yes no CVA tenderness Back/Spine/Pelvis: Back: no CVA tenderness Skin: General skin exam: no rashes or lesions noted Neuro: General: oriented to person and oriented to place Cranial nerves: Yes CN's II-XII intact bilaterally and Yes Equal, round and reactive pupils present Cognition (Neuro): normal cognition Motor exam (neuro): 5/5 motor strength present throughout Extrem: General: Yes normal to inspection Psych: Appearance: grossly normal Speech and movement: Normal speech and movement present Affect: normal affect Attitude: cooperative Thought process: Normal thought process present Thought content: Suicidality present Course Course Course Narrative: 41-year-old male who presents emergency department for evaluation of abdominal pain which began yesterday, he describes the pain is a constant pressure-like pain located in his epigastric area which was 8/10. He had nausea and 3 episodes of vomiting yesterday. Patient's physical examination did reveal epigastric tenderness. Patient's laboratory evaluation revealed an elevated WBC 56161, negative urinalysis, negative COVID-19, urine tox screen positive for cocaine and fentanyl. Patient's abdominal pain is consistent with gastritis and he was given Maalox 30 mL orally with improvement his pain. Patient was started on omeprazole 20 mg once a day. I did discuss the positive urinalysis with the patient and the fact that he was exposed to fentanyl despite thinking the only used cocaine. Patient also presented to emergency department for evaluation of suicidal ideation. Patient does have a plan to overdose on pills or to overdose on ?dope ?. The patient is medically cleared to be evaluated [facility]. Patient will be kept on one-to-one observation and placed in physician observation. Patient is awake alert, cooperative, lungs clear, heart regular rate rhythm, abdomen soft nontender, extremities normal, neurologic exam nonfocal 0549: Start physician observation: The patient was placed on a Section 12 for suicidal ideation with a plan. The patient will be kept in physician observation to the can be evaluated by [facility] to determine disposition. MDM - Psych Lab Data Result diagrams: 03/19/22 02:19 03/19/22 02:19 Labs: Lab Results 03/19/22 03/19/22 03/19/22 Range/Units 02:19 02:19 02:50 WBC 13.4 H (4.8-10.8) X10*3/uL RBC 4.93 (4.60-5.80) X10*6/uL Hgb 14.8 (14.0-18.0) g/dl Hct 43.3 (42.0-52.0) % MCV 87.8 (80.0-98.0) fL MCH 30.0 (27.0-33.0) pg MCHC 34.2 (31.0-36.0) g/dl RDW 13.4 (11.0-16.0) % Plt Count 250 (160-400) X10*3/uL MPV 8.9 L (9.4-12.4) fL Immature Gran % (Auto) 0.5 H (0.0-0.4) % Neut % (Auto) 86.1 H (45-73) % Lymph % (Auto) 8.0 L (20-40) % Stevens % (Auto) 5.2 (2-11) % Eos % (Auto) 0.1 (0-4) % Baso % (Auto) 0.1 (0-2) % Lymph # (Auto) 1.1 L (1.2-4.9) X10*3/uL Stevens # (Auto) 0.7 (0.1-1.2) X10*3/uL Eos # (Auto) 0.0 (0.0-0.4) X10*3/uL Baso # (Auto) 0.0 (0.0-0.2) X10*3/uL Abs Immat Gran (auto) 0.07 H (0.00-0.03) X10*3/uL Absolute Neuts (auto) 11.5 H (2.0-8.3) x10*3/uL Absolute Nucleated RBC 0.000 (0.0-0.012) X10*3/uL Nucleated RBC % (auto) 0.0 (0.0-0.2) /100WBC Sodium 141 (135-145) mmol/L Potassium 4.9 D (3.3-5.1) mmol/L Chloride 103 (96-108) mmol/L Carbon Dioxide 23 (22-29) mmol/L Anion Gap 20 (12-20) BUN 16 (9-16) mg/dL Creatinine 1.00 (0.5-1.4) mg/dL Estim Creat Clear Calc 99.3 Estimated GFR > 60 Random Glucose 121 H D (60-115) mg/dL Calcium 10.1 D (8.4-10.2) mg/dL Total Bilirubin 0.4 (0.0-1.0) mg/dL AST 34 (5-37) U/L ALT 58 H (0-40) U/L Alkaline Phosphatase 56 (39-117) U/L Total Protein 7.7 (6.5-8.0) g/dL Albumin 4.9 (3.5-5.0) g/dL Lipase 9 (8-78) U/L Urine Color Dark Yellow Urine Appearance Clear Urine pH 5.0 (5.0-9.0) Ur Specific [place] >= 1.030 H (1.005-1.025) Urine Protein 30 (1+) H (Neg-Trace) mg/dL Urine Glucose (UA) Negative (Negative) mg/dL Urine Ketones Trace (Negative) mg/dL Urine Blood Negative (Negative) Urine Nitrite Negative (Negative) Ur Leukocyte Esterase Negative (Negative) Urine RBC 0-2 (0-2) /HPF Urine WBC 0-5 (0-5) /HPF Ur Squamous Epith Cells 0-2 (0-2) /HPF Urine Bacteria None Seen (None Seen) Hyaline Casts 3-5 (0-2) /LPF Urine Opiates Screen (Not Detect) Urine Fentanyl Screen (Not Detect) Ur Barbiturates Screen (Not Detect) Ur Phencyclidine Scrn (Not Detect) Ur Amphetamines Screen (Not Detect) U Benzodiazepines Scrn (Not Detect) Urine Cocaine Screen (Not Detect) U Marijuana (THC) Screen (Not Detect) Ethyl Alcohol < 10 mg/dL COVID-19 ([facility]) (Negative) COVID-19 Clin Com 03/19/22 03/19/22 Range/Units 02:50 02:50 WBC (4.8-10.8) X10*3/uL RBC (4.60-5.80) X10*6/uL Hgb (14.0-18.0) g/dl Hct (42.0-52.0) % MCV (80.0-98.0) fL MCH (27.0-33.0) pg MCHC (31.0-36.0) g/dl RDW (11.0-16.0) % Plt Count (160-400) X10*3/uL MPV (9.4-12.4) fL Immature Gran % (Auto) (0.0-0.4) % Neut % (Auto) (45-73) % Lymph % (Auto) (20-40) % Stevens % (Auto) (2-11) % Eos % (Auto) (0-4) % Baso % (Auto) (0-2) % Lymph # (Auto) (1.2-4.9) X10*3/uL Stevens # (Auto) (0.1-1.2) X10*3/uL Eos # (Auto) (0.0-0.4) X10*3/uL Baso # (Auto) (0.0-0.2) X10*3/uL Abs Immat Gran (auto) (0.00-0.03) X10*3/uL Absolute Neuts (auto) (2.0-8.3) x10*3/uL Absolute Nucleated RBC (0.0-0.012) X10*3/uL Nucleated RBC % (auto) (0.0-0.2) /100WBC Sodium (135-145) mmol/L Potassium (3.3-5.1) mmol/L Chloride (96-108) mmol/L Carbon Dioxide (22-29) mmol/L Anion Gap (12-20) BUN (9-16) mg/dL Creatinine (0.5-1.4) mg/dL Estim Creat Clear Calc Estimated GFR Random Glucose (60-115) mg/dL Calcium (8.4-10.2) mg/dL Total Bilirubin (0.0-1.0) mg/dL AST (5-37) U/L ALT (0-40) U/L Alkaline Phosphatase (39-117) U/L Total Protein (6.5-8.0) g/dL Albumin (3.5-5.0) g/dL Lipase (8-78) U/L Urine Color Urine Appearance Urine pH (5.0-9.0) Ur Specific [place] (1.005-1.025) Urine Protein (Neg-Trace) mg/dL Urine Glucose (UA) (Negative) mg/dL Urine Ketones (Negative) mg/dL Urine Blood (Negative) Urine Nitrite (Negative) Ur Leukocyte Esterase (Negative) Urine RBC (0-2) /HPF Urine WBC (0-5) /HPF Ur Squamous Epith Cells (0-2) /HPF Urine Bacteria (None Seen) Hyaline Casts (0-2) /LPF Urine Opiates Screen Not Detected (Not Detect) Urine Fentanyl Screen POSITIVE H (Not Detect) Ur Barbiturates Screen Not Detected (Not Detect) Ur Phencyclidine Scrn Not Detected (Not Detect) Ur Amphetamines Screen Not Detected (Not Detect) U Benzodiazepines Scrn Not Detected (Not Detect) Urine Cocaine Screen POSITIVE H (Not Detect) U Marijuana (THC) Screen Not Detected (Not Detect) Ethyl Alcohol mg/dL COVID-19 ([facility]) Negative (Negative) COVID-19 Clin Com See Note Discharge Plan Discharge Clinical Impression: Suicidal ideation, Gastritis, Cocaine use Patient Disposition: Still a Patient Prescriptions: No Action amoxicillin-pot clavulanate 875-125 mg tablet 1 tab PO BID Qty: 14 0RF fluconazole [Diflucan] 150 mg tablet 150 mg PO Q3D Qty: 2 0RF doxycycline hyclate 100 mg tablet 100 mg PO BID 7 Days Qty: 14 0RF nystatin 100,000 unit/gram powder 1 appl topical QID Qty: 15 0RF
--- NOTE | 2022-03-19 07:19 | MHC.CARE ---
Smart sheet submitted
--- NOTE | 2022-03-19 09:30 | PC.NURSE ---
patient a/o x4 . pearrla . lungs clear . heart rat regular at 90 beats per minute . skin pink warm and dry . reports leaving detox center yesterday and using crack , previously sober for 20 days prior . reports having several SI plans but did not go into details of them . Patient remains on 1-1 sitter .
--- NOTE | 2022-03-19 09:39 | PC.NURSE ---
patient breathing even and unlabored . patient is sleeping . continues on 05-21 with sitter .
[2022-03-19] MEDS: Omeprazole 20 MG CAPSULE.DR PO (10:12)
--- NOTE | 2022-03-19 11:00 | PC.NURSE ---
patient adamantly making statements about leaving saying previous statements of SI are untrue . Notified patient he needed to talk to and be cleared by N prior to discharge . Contacted N Eloy made aware patient requesting to be seen when there is availability to be seen . Made patient available . Patient aware of conversation with N . Patient remains 1-1.
--- NOTE | 2022-03-19 13:33 | MHC.CARE ---
Pt is a 41 y/o , Vietnamese speaking, male who is previously known to the CARE Team through prior risk assessments.? Today, pt presented to the emergency department with a complaint of SI and depression with a plan to overdose.? Pt stated that he lost his mother approximately 5 months ago.? Pt stated that he was at [facility] and signed himself out yesterday.? He stated that he used after discharge.? Pt states that his relapse, loss of his Mother, and marital issues surrounding his substance use had become overwhelming.? He reports that in his sobriety, he has difficulty processing all his prior transgressions. Pt reports that his relapse was hard for him and he made statements out of frustration and being overwhelmed that he is now regretting.? Pt denies SI, HI, and self-harm urges.? He denies AVH.? His affect is broad; he smiles frequently and makes humorous statements.? He is eating cake at the time of the risk assessment.? He engages easily and is forward thinking, speaking of his son, his desire to pursue sobriety and his immediate plans to seek care at [facility] or [facility].? He declines the offer to stay in the ED while a detox bedsearch takes place. Plan is for pt to be discharged home to follow up with detox facilities and his recovery assistant.? This plan was discussed with and agreed upon by CARE Team systems integration analyst clinician Pedro HUBBARD and ED provider Dr. Bauer.
--- NOTE | 2022-03-19 14:00 | PC.NURSE ---
Patient cleared by Eloy ERICKSON . patient ready for discharge . patient stating he is no longer having SI . provider aware .
== END 2022-03-19 14:36 | disposition home or self-care (01) ==
PROVIDERS: Emergency Medicine Emergency Medical Services; Emergency Provider Emergency Medicine
DX: R45.851 Suicidal ideations (principal); F32.A Depression, unspecified; K29.70 Gastritis, unspecified, without bleeding; F19.10 Other psychoactive substance abuse, uncomplicated; F17.210 Nicotine dependence, cigarettes, uncomplicated; Z20.822 Contact with and (suspected) exposure to COVID-19; Z79.899 Other long term (current) drug therapy
CPT/HCPCS: 36415; 80053; 80307; 81001; 81003; 82077; 83690; 85025; 87635; 99284

== ENCOUNTER 2022-03-26 21:29 | Emergency (ER) | payer OTHER, SELFPAY ==
[2022-03-26 21:35] VITALS: BP 130/72; PULSE 84; RESP 14; TEMP 36.8; O2SAT 98; BMI 25.8
[2022-03-26 22:00] VITALS: RESP 16
--- NOTE | 2022-03-26 22:14 | ED.PSYCH ---
HPI - Psych General Chief Complaint: Psychiatric Symptoms Stated Complaint: crisis Time Seen by Provider: 03/26/22 21:49 Source: patient Mode of arrival: ambulatory Limitations: no limitations History of Present Illness HPI Narrative: Patient comes to emergency room complaining of depression, suicidal ideation. Patient left detox 2 days ago, relapsed using cocaine. Patient unable to sleep, crying, says that he does not want to live like this anymore. Related Data Previous Rx's Medication Instructions Recorded amoxicillin 875 mg-potassium 1 tab PO BID #14 tabs 02/15/22 clavulanate 125 mg tablet doxycycline hyclate 100 mg tablet 100 mg PO BID 7 days #14 tabs 02/20/22 fluconazole 150 mg tablet 150 mg PO Q3D 2 doses #2 tabs 02/20/22 (Diflucan) nystatin 100,000 unit/gram topical 1 appl topical QID #15 grams 02/20/22 powder Allergies Allergy/AdvReac Type Severity Reaction Status Date / Time No Known Allergies Allergy Verified 02/02/22 02:28 Review of Systems Review of Systems: Constitutional : No Weight loss, No Fever, No Chills, No Night Sweats, No Fatigue, No Malaise ENT/Mouth : No Hearing loss, No Ear Pain, No Nasal Congestion, No Sinus Pain, No Hoarseness, No sore throat, No Rhinorrhea, No Swallowing Difficulty Eyes: No Eye Pain, No Swelling, No Redness, No Foreign Body, No Discharge, No Vision Changes Cardiovascular : No Chest Pain, No SOB, No Dyspnea on Exertion, No Orthopnea, No Edema, No Palpitations Respiratory : No Cough, No Sputum, No Wheezing, No Smoke Exposure, No Dyspnea Gastrointestinal : No Nausea, No Vomiting, No Diarrhea, No Constipation, No abdominal Pain, No Hematochezia, No Melena Genitourinary : no irregular bleeding, No Dysuria, No Urinary Frequency, No Hematuria, No Urinary Incontinence, No Urgency, No Flank Pain, No Urinary Flow Changes, No Hesitancy Musculoskeletal : No joint pain, No Myalgias, No Joint Swelling Skin : No Skin Lesions, No rash Neuro : No Weakness, No Numbness, No Paresthesias, No Loss of Consciousness, No Dizziness, No Headache Psych : Complaining of anxiety, depression, suicidal ideation, relapsed using drugs Heme/Lymph: No Bruising, No Bleeding,No Lymphadenopathy Endocrine : No Polyuria, No Polydipsia, No Temperature Intolerance [facility] Past Medical History Medical History COVID-19 (11/23/21) Substance abuse Suicidal ideation Social History Social History Alcohol intake: former Patient Tobacco Use Status: Never used Tobacco Substance Use Type: Crack/Cocaine Physical Exam Vital Signs: Vital Signs: Last Vital Signs Temp 98.3 F 03/26/22 21:35 Pulse 84 03/26/22 21:35 Resp 14 03/26/22 21:35 BP 130/72 03/26/22 21:35 Pulse Ox 98 03/26/22 21:35 O2 Del Method 03/26/22 21:35 BMI result Body Mass Index 25.8 Const: Other: Appearance: Alert. Oriented X3. No acute distress. Eyes: Pupils equal, round and reactive to light. ENT: Pharynx normal. Neck: Normal inspection. Neck supple. No lymph nodes noted. No crepitus CVS: Normal heart rate and rhythm. Pulses normal. Normal S1 and S2 Respiratory: No respiratory distress. Breath sounds normal. No Wheezing. No rales Abdomen: Soft and nontender. No rigidity. No distention. Skin: Skin warm and dry. Normal skin color. Normal skin turgor. Extremities: No lower extremity edema. No Lacerations. No Rash Neuro: Oriented X 3. No motor deficit. No sensory deficit. Moving all extremities. No slurred speech. CN 2 through 12 grossly intact Psych: calm, cooperative, crying Course Course Course Narrative: U tox pending. Behavioral health network consult pending. Physician observation started at 22:20 Discharge Plan Discharge Clinical Impression: Suicidal ideation, Substance abuse Patient Disposition: Still a Patient Prescriptions: No Action amoxicillin-pot clavulanate 875-125 mg tablet 1 tab PO BID Qty: 14 0RF fluconazole [Diflucan] 150 mg tablet 150 mg PO Q3D Qty: 2 0RF doxycycline hyclate 100 mg tablet 100 mg PO BID 7 Days Qty: 14 0RF nystatin 100,000 unit/gram powder 1 appl topical QID Qty: 15 0RF
[2022-03-26 22:23] LABS: COVID-19 Test Negative (Negative)
--- OUTSIDE RECORDS SUMMARY | 2022-03-26 22:27 | XMS_ITS | Continuity of Care Document ---
:1980 Author Organization [facility] Address [address] [place] [address]- Care Team Providers Name Role Phone Not on Staff, PCP Primary Care Physician Unavailable [place] [facility] [place]): 03/20/22 - 03/20/22 [facility] [address] [place] [address]- Discharge Disposition: A-D/C Walkout Attending Physician: Not on Staff, Attending MD Admitting Physician: Not on Staff, Admitting MD Referring Physician: Not on Staff, Referring [...] Date: 01/10/21 Status: Ordered Problem List Condition Confirmation Course Effective Dates Status Health Stat us Informant COVID-191 Confirmed 11/23/21 Active 1Problem added by Discern Expert Vital Signs Most recent to oldest [Reference Range]: 1 Oxygen Saturation [94-100 %] 97 % (03/20/22 2:21 AM) Pulse Rate [55-90 bpm] 123 bpm *H* (03/20/22 2:21 AM) Blood Pressure [90-138/55-84 mm Hg] 167/96 mm Hg *H* (03/20/22 2:21 AM) Respiratory Rate [16-30 br/min] 19 br/min (03/20/22 2:21 AM) Temperature [96.8-100.4 DegF] 98.6 DegF (03/20/22 2:21 AM) Mode of Delivery (Oxygen) Room air (03/20/22 2:21 AM) Blood pressure sites Arm, left (03/20/22 2:21 AM) Temperature Route Oral (03/20/22 2:21 AM) Patient Care team information PersonnelName: Not on Staff, PCP
--- NOTE | 2022-03-27 00:16 | PC.NURSE ---
Addendum entered by Kat Geiger RN 03/27/22 06:57: report given to GHAZALA Toledo Original Note: referral submitted
--- NOTE | 2022-03-27 00:16 | MHC.CARE ---
Smart sheet submitted
[2022-03-27 07:46] VITALS: BP 129/72; PULSE 69; RESP 20; TEMP 36.5; O2SAT 99
[2022-03-27 08:35] LABS: Amphetamine Screen Urine Not Detected (Not Detect); Barbiturates, Urine Not Detected (Not Detect); Benzodiazepines Screen Urine Not Detected (Not Detect); Cannabinoid Screen Urine Not Detected (Not Detect); Cocaine Screen Urine POSITIVE (Not Detect); Fentanyl, urine Not Detected (Not Detect); Opiate Screen Urine Not Detected (Not Detect); Phencyclidine Screen Urine Not Detected (Not Detect)
--- NOTE | 2022-03-27 08:52 | MHC.CARE ---
CARE Team met with Pt who is requesting to go to [facility]. Pt is denying current SI/HI/VH/AH. Pt would like help getting into substance use treatment. Plan for Pt to be seen by the recovery team.
--- NOTE | 2022-03-27 12:30 | PC.NURSE ---
Cleared by Care team-plan for transport [facility] for 1400. Plan that route sales representative will sit with patient for ride at 1345.
--- NOTE | 2022-03-27 15:22 | MHC.RECOVRN ---
This tech writer met w/ pt. Pt reports reoccurrence with ANIBAL/ETOH, pt reports daily use of ANIBAL and 1/2 pint daily ETOH. Pt expressed interest in Detox at [facility]. This tech writer sent referral, pt completed phone intake. Pt did get bed at [facility] detox, [facility] to provide transportation to facility. This tech writer assisting with coordination of transportation currently. CM and Pod RN aware.
== END 2022-03-27 13:51 | disposition home or self-care (01) ==
PROVIDERS: Emergency Provider Emergency Medicine
DX: F33.1 Major depressive disorder, recurrent, moderate (principal); R45.851 Suicidal ideations; Z79.899 Other long term (current) drug therapy; Z20.822 Contact with and (suspected) exposure to COVID-19
CPT/HCPCS: 80307; 87635; 99285

== ENCOUNTER 2022-05-04 23:13 | Inpatient (IN) | payer OTHER, SELFPAY ==
--- NOTE | 2022-05-04 23:20 | ED.GENADULT ---
HPI - General Adult General Chief complaint: Psychiatric Symptoms Stated complaint: crisis Time Seen by Provider: 05/04/22 23:15 Source: patient and EMS Mode of arrival: EMS Limitations: no limitations History of Present Illness HPI narrative: Patient comes to the emergency room complaining of substance abuse, relapsed using cocaine yesterday, complaining of vague suicidal ideation. Patient states that he has been having problems at home with his and with his [id number]. Patient went to a police station and asked them to call EMS. Patient states that he is not homicidal, complaining of vague suicidal ideation, no plan. Patient requesting to see [facility]. Related Data Previous Rx's Medication Instructions Recorded amoxicillin 875 mg-potassium 1 tab PO BID #14 tabs 02/15/22 clavulanate 125 mg tablet doxycycline hyclate 100 mg tablet 100 mg PO BID 7 days #14 tabs 02/20/22 fluconazole 150 mg tablet 150 mg PO Q3D 2 doses #2 tabs 02/20/22 (Diflucan) nystatin 100,000 unit/gram topical 1 appl topical QID #15 grams 02/20/22 powder Allergies Allergy/AdvReac Type Severity Reaction Status Date / Time No Known Allergies Allergy Verified 02/02/22 02:28 Review of Systems Review of Systems: Constitutional : No Weight loss, No Fever, No Chills, No Night Sweats, No Fatigue, No Malaise ENT/Mouth : No Hearing loss, No Ear Pain, No Nasal Congestion, No Sinus Pain, No Hoarseness, No sore throat, No Rhinorrhea, No Swallowing Difficulty Eyes: No Eye Pain, No Swelling, No Redness, No Foreign Body, No Discharge, No Vision Changes Cardiovascular : No Chest Pain, No SOB, No Dyspnea on Exertion, No Orthopnea, No Edema, No Palpitations Respiratory : No Cough, No Sputum, No Wheezing, No Smoke Exposure, No Dyspnea Gastrointestinal : No Nausea, No Vomiting, No Diarrhea, No Constipation, No abdominal Pain, No Hematochezia, No Melena Genitourinary : no irregular bleeding, No Dysuria, No Urinary Frequency, No Hematuria, No Urinary Incontinence, No Urgency, No Flank Pain, No Urinary Flow Changes, No Hesitancy Musculoskeletal : No joint pain, No Myalgias, No Joint Swelling Skin : No Skin Lesions, No rash Neuro : No Weakness, No Numbness, No Paresthesias, No Loss of Consciousness, No Dizziness, No Headache Psych : Complaining of anxiety, depression, vague suicidal ideation, complaining of family problems at home with patient's and [id number] Heme/Lymph: No Bruising, No Bleeding,No Lymphadenopathy Endocrine : No Polyuria, No Polydipsia, No Temperature Intolerance PMFSH Past Medical History Medical History COVID-19 (11/23/21) Substance abuse Suicidal ideation Social History Social History Alcohol intake: former Patient Tobacco Use Status: Never used Tobacco Smoked in Last 30 Days: Yes Use of substances other than those prescribed or required for medical reasons: Yes Substance Use Type: Crack/Cocaine Last Used Substance: Weeks (ago) Advance Directives: No Advance Directives Information Provided: No Physical Exam ED Vital Signs: Vital Signs - 24 hr 05/04/22 23:22 05/05/22 00:07 Temperature 98.7 F Pulse Rate 113 H 95 Respiratory Rate 14 18 Blood Pressure 152/96 H 132/69 Pulse Oximetry 96 98 Oxygen Delivery Method Room Air Room Air BMI result Body Mass Index 25.8 Const Other: Appearance: Alert. Oriented X3. No acute distress. Eyes: Pupils equal, round and reactive to light. ENT: Pharynx normal. Neck: Normal inspection. Neck supple. No lymph nodes noted. No crepitus CVS: Normal heart rate and rhythm. Pulses normal. Normal S1 and S2 Respiratory: No respiratory distress. Breath sounds normal. No Wheezing. No rales Abdomen: Soft and nontender. No rigidity. No distention. Skin: Skin warm and dry. Normal skin color. Normal skin turgor. Extremities: No lower extremity edema. No Lacerations. No Rash Neuro: Oriented X 3. No motor deficit. No sensory deficit. Moving all extremities. No slurred speech. CN 2 through 12 grossly intact Psych: calm, cooperative, normal affect Course Course Course Narrative: Urine toxicology, COVID test and [facility] consult pending. Physician observation started at 23:23 03:40, [facility] evaluated the patient. Recommendations: Section 12 an inpatient bed search. Likely to be admitted here at [facility]. Medical Decision Making Medical Decision Making [facility] Narrative: Patient to be seen by [facility]. At this time, patient has a perla, he is here voluntarily. Not on a Section 12. Patient does not verbalize suicidal ideation, patient states that he is not sure, states I just do not get it , referring to his relapse Differential Diagnosis Substance abuse, social difficulty Admission/Observation Patient is on observation status. Patient does not seem to be intoxicated. [facility] consult pending per patient's request Lab Data Labs: Lab Results 05/04/22 05/05/22 05/05/22 Range/Units 23:36 00:12 00:37 Urine Opiates Screen Not Detected (Not Detect) Urine Fentanyl Screen Not Detected (Not Detect) Ur Barbiturates Screen Not Detected (Not Detect) Ur Phencyclidine Scrn Not Detected (Not Detect) Ur Amphetamines Screen Not Detected (Not Detect) U Benzodiazepines Scrn Not Detected (Not Detect) Urine Cocaine Screen POSITIVE H (Not Detect) U Marijuana (THC) Screen Not Detected (Not Detect) Ethyl Alcohol < 10 mg/dL COVID-19 ([facility]) Negative (Negative) COVID-19 Clin Com See Note Social Determinants Patient?s care significantly limited by Social Determinants of Health including: Inadequate housing (Patient lives at home with his , however, patient's [id number] lives there as well. Patient states that his [id number] does not want him at home, unclear if patient was kicked out of his house or if he left by his own means) Discharge Plan Discharge Clinical Impression: Suicidal ideation, Substance abuse Patient Disposition: Still a Patient Prescriptions: No Action amoxicillin-pot clavulanate 875-125 mg tablet 1 tab PO BID Qty: 14 0RF fluconazole [Diflucan] 150 mg tablet 150 mg PO Q3D Qty: 2 0RF doxycycline hyclate 100 mg tablet 100 mg PO BID 7 Days Qty: 14 0RF nystatin 100,000 unit/gram powder 1 appl topical QID Qty: 15 0RF Interventions: [facility]-Suicide Risk Severity Scale Last Done: 05/04/22 23:24
[2022-05-04 23:22] VITALS: BP 152/96; PULSE 113; RESP 14; O2SAT 96; BMI 25.8
--- NOTE | 2022-05-04 23:27 | PC.NURSE ---
Pt presented to ER by EMS for reports of SI. Pt has been sober from cocaine and alcohol for a month but relapsed and has been depressed since. Pt denies a plan and denies HI. Pt is A&Ox4, GCS 15. Pt has been changed over and already been seen by Dr. ERICKSON consult will be put in.
[2022-05-04 23:58] LABS: COVID-19 Test Negative (Negative); IDNOW Serial# BCCEAD1C
[2022-05-05] VITALS (8 sets, daily range): BP systolic 119–142; BP diastolic 47–77; PULSE 68–95; RESP 12–20; TEMP 36.6–37.1; O2SAT 94–98
--- NOTE | 2022-05-05 00:25 | PC.NURSE ---
Spoke with CARE Team who reported [facility] will likely have a rep visit tonight. CARE team requested a BAL done, order has been put in to be collected
[2022-05-05 00:36] LABS: Amphetamine Screen Urine Not Detected (Not Detect); Barbiturates, Urine Not Detected (Not Detect); Benzodiazepines Screen Urine Not Detected (Not Detect); Cannabinoid Screen Urine Not Detected (Not Detect); Cocaine Screen Urine POSITIVE (Not Detect); Fentanyl, urine Not Detected (Not Detect); Opiate Screen Urine Not Detected (Not Detect); Phencyclidine Screen Urine Not Detected (Not Detect)
[2022-05-05 01:04] LABS: Ethanol < 10 mg/dL
--- NOTE | 2022-05-05 01:07 | MHC.EDTECH ---
offered pt something to eat he excepted 2 turkey sandwiches and drink, he is sitting quietly
--- NOTE | 2022-05-05 03:15 | PC.NURSE ---
Spoke with Steven from CARE Team who recommends pt go to inpatient and hopefully end up in a sober living house. Decision must be cleared by CARE supervisor chassis assembly but pt will be kept in the ED.
[2022-05-05] MEDS: Acetaminophen 325 MG TABLET 975 MG PO ×2 (04:06→13:34)
--- NOTE | 2022-05-05 07:00 | PC.NURSE ---
report given to GHAZALA Marcelo
--- NOTE | 2022-05-05 08:28 | PC.NURSE ---
care team (cesar) at bedside, pt aware of plan of care.
--- NOTE | 2022-05-05 08:46 | MHC.CARE ---
CARE Team met with Pt to review plan of care.
--- NOTE | 2022-05-05 12:02 | ECG_ITS ---
Test Reason : M3 admission Blood Pressure : / mmHG Vent. Rate : 068 BPM Atrial Rate : 068 BPM P-R Int : 158 ms QRS Dur : 090 ms QT Int : 388 ms P-R-T Axes : 061 071 034 degrees QTc Int : 412 ms Normal sinus rhythm Normal ECG When compared with ECG of 22-DEC-2021 01:15, QT has shortened Referred By: Generic ED Physician Electronically Signed By:ELIZABETH GREEN
[2022-05-05 12:34] LABS: Hematocrit 41.1 % (42.0-52.0); Hemoglobin 14.3 g/dl (14.0-18.0); Mean Corpuscular HGB Conc 34.8 g/dl (31.0-36.0); Mean Corpuscular Volume 86.2 fL (80.0-98.0); Mean Platelet Volume 8.9 fL (9.4-12.4); Platelet Count 203 X10*3/uL (160-400); Red Blood Count 4.77 X10*6/uL (4.60-5.80); Red Cell Distribution Width 12.3 % (11.0-16.0); White Blood Count 5.4 X10*3/uL (4.8-10.8)
[2022-05-05 12:48] LABS: Anion Gap 12 (12-20); Blood Urea Nitrogen 15 mg/dL (9-16); Carbon Dioxide 26 mmol/L (22-29); Chloride 102 mmol/L (96-108); Creatinine Clr Calc Pharmacy 118.2; Estimated Glomerular Filt Rate > 60; Glucose Random 95 mg/dL (60-115); Potassium 3.9 mmol/L (3.3-5.1); Sodium 136 mmol/L (135-145)
--- NOTE | 2022-05-05 13:24 | PC.NURSE ---
pt aware of plan of care for admission to m3.
--- NOTE | 2022-05-05 13:45 | PC.NURSE ---
rn to rn given to ronaldo. pt aware of plan of care for admission to m3.
[2022-05-05] MEDS: Ibuprofen 600 MG TABLET PO (15:34)
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
[2022-05-05] MEDS: Acetaminophen 325 MG TABLET 650 MG PO (20:09)
[2022-05-05] MEDS: hydrOXYzine HCL 50 MG TABLET PO (20:10)
[2022-05-05] MEDS: Melatonin 3 MG TABLET 6 MG PO (20:10)
[2022-05-05] MEDS: Cyclobenzaprine HCl 10 MG TABLET PO (20:10)
[2022-05-06 08:10] VITALS: BP 120/72; PULSE 68; RESP 18; TEMP 36.5; O2SAT 96
[2022-05-06 10:38] LABS: Estimated Average Glucose 97 mg/dL
[2022-05-06 10:57] LABS: Alanine Aminotransferase 16 U/L (0-40); Albumin Level 4.2 g/dL (3.5-5.0); Alkaline Phosphatase 61 U/L (39-117); Anion Gap 12 (12-20); Aspartate Amino Transferase 17 U/L (5-37); Bilirubin Total 0.5 mg/dL (0.0-1.0); Blood Urea Nitrogen 13 mg/dL (9-16); Calcium 9.2 mg/dL (8.4-10.2); Carbon Dioxide 27 mmol/L (22-29); Chloride 104 mmol/L (96-108); Cholesterol 118 mg/dL; Creatinine Clr Calc Pharmacy 115.5; Estimated Glomerular Filt Rate > 60; Glucose Fasting 100 mg/dL (60-99); HDL Cholesterol 52 mg/dL; LDL Cholesterol Calculated 53 mg/dl; Sodium 139 mmol/L (135-145); Thyroid Stimulating Hormone 0.99 uIU/mL (0.32-4.0); Total Protein 6.4 g/dL (6.5-8.0); Triglycerides 65 mg/dL
[2022-05-06 11:04] LABS: Vitamin B12 394 pg/mL (200-900)
[2022-05-06] MEDS: Gabapentin 100 MG CAPSULE 200 MG PO ×2 (11:37→20:11)
[2022-05-06] MEDS: Ibuprofen 600 MG TABLET PO ×2 (11:46→19:14)
[2022-05-06] MEDS: Cyclobenzaprine HCl 10 MG TABLET PO ×2 (12:59→19:14)
[2022-05-06] MEDS: Acetaminophen 325 MG TABLET 650 MG PO ×2 (13:00→20:10)
--- NOTE | 2022-05-06 15:33 | HO.PSYADMNOT ---
HPI Date of Service: 05/06/22 Chief Complaint: SI Sources of Information: patient interviewed, chart reviewed and crisis/core team assessment reviewed HPI Subjective Notes: Conditional Voluntary Healthcare Proxy: No Narrative: 41 yo male with depression and SI in context of relapse on alcohol and cocaine. Pt self presented to Ed due to suicidal ideation with plan ot overdose; he r reports depression and grief especially since his mother in September 2021. Past Psychiatric History: pt has had many admissions to detox and substance recovery program in 2021. He was incarcerated at early age of 13. Has spent 16 out of the last 22 years in care home. He reports he was sober for 30 days until he relapsed on 05/04 and had suicidal ideation of overdosing. Medical Evaluation Reviewed: Yes medically cleared in ED. EKG normal sinus. QTC 412 Vitals stable; history of TBI; covid in november 2021 [facility] Medical History COVID-19 (11/23/21) Substance abuse Suicidal ideation Family History: lives with Social History: Mother September 2021 Substance History: long history of alcohol and cocaine; attended several detoox in 2021. reports one month sober until relapse 05/04 Trauma History: incarcerated age 13 Diagnostics Vital Signs (24Hr): Vital Signs - 24 hr 05/05/22 20:12 05/06/22 08:10 Temperature 98.5 F 97.7 F Pulse Rate 68 68 Respiratory Rate 16 18 Blood Pressure 119/69 120/72 Pulse Oximetry 97 96 Oxygen Delivery Method Room Air Room Air BMI result Body Mass Index 25.8 Labs Results: 05/05/22 12:28 05/06/22 10:11 Labs: Laboratory Results - last 48 hr 05/04/22 05/05/22 05/05/22 23:36 00:12 00:37 WBC RBC Hgb Hct MCV MCH MCHC RDW Plt Count MPV Absolute Nucleated RBC Nucleated RBC % (auto) Sodium Potassium Chloride Carbon Dioxide Anion Gap BUN Creatinine Estim Creat Clear Calc Estimated GFR Random Glucose Fasting Glucose Estimat Average Glucose Hemoglobin A1c % Calcium Total Bilirubin AST ALT Alkaline Phosphatase Total Protein Albumin Triglycerides Cholesterol LDL Cholesterol, Calc HDL Cholesterol Vitamin B12 TSH Urine Opiates Screen Not Detected Urine Fentanyl Screen Not Detected Ur Barbiturates Screen Not Detected Ur Phencyclidine Scrn Not Detected Ur Amphetamines Screen Not Detected U Benzodiazepines Scrn Not Detected Urine Cocaine Screen POSITIVE H U Marijuana (THC) Screen Not Detected Ethyl Alcohol < 10 COVID-19 ([facility]) Negative COVID-[employer] See Note 05/05/22 05/05/22 05/06/22 12:28 12:28 10:11 WBC 5.4 RBC 4.77 Hgb 14.3 Hct 41.1 L MCV 86.2 MCH 30.0 MCHC 34.8 RDW 12.3 Plt Count 203 MPV 8.9 L Absolute Nucleated RBC 0.000 Nucleated RBC % (auto) 0.0 Sodium 136 139 Potassium 3.9 D 4.0 Chloride 102 104 Carbon Dioxide 26 27 Anion Gap 12 12 BUN 15 13 Creatinine 0.84 0.86 Estim Creat Clear Calc 118.2 115.5 Estimated GFR > 60 > 60 Random Glucose 95 Fasting Glucose 100 H Estimat Average Glucose Hemoglobin A1c % Calcium 9.0 D 9.2 Total Bilirubin 0.5 AST 17 ALT 16 Alkaline Phosphatase 61 Total Protein 6.4 L Albumin 4.2 Triglycerides 65 Cholesterol 118 LDL Cholesterol, Calc 53 HDL Cholesterol 52 Vitamin B12 TSH 0.99 Urine Opiates Screen Urine Fentanyl Screen Ur Barbiturates Screen Ur Phencyclidine Scrn Ur Amphetamines Screen U Benzodiazepines Scrn Urine Cocaine Screen U Marijuana (THC) Screen Ethyl Alcohol COVID-19 ([facility]) COVID-19 [employer] 05/06/22 05/06/22 10:11 10:11 WBC RBC Hgb Hct MCV MCH MCHC RDW Plt Count MPV Absolute Nucleated RBC Nucleated RBC % (auto) Sodium Potassium Chloride Carbon Dioxide Anion Gap BUN Creatinine Estim Creat Clear Calc Estimated GFR Random Glucose Fasting Glucose Estimat Average Glucose 97 Hemoglobin A1c % 5.0 Calcium Total Bilirubin AST ALT Alkaline Phosphatase Total Protein Albumin Triglycerides Cholesterol LDL Cholesterol, Calc HDL Cholesterol Vitamin B12 394 TSH Urine Opiates Screen Urine Fentanyl Screen Ur Barbiturates Screen Ur Phencyclidine Scrn Ur Amphetamines Screen U Benzodiazepines Scrn Urine Cocaine Screen U Marijuana (THC) Screen Ethyl Alcohol COVID-19 ([facility]) COVID-19 [employer] EKG EKG: reviewed EKG Comment: normal sinus QTC 412 Meds/Allergies Meds Home Medications Medication Instructions Recorded Confirmed Type No Known Home Meds 05/05/22 05/05/22 History Allergies Allergies Allergy/AdvReac Type Severity Reaction Status Date / Time No Known Allergies Allergy Verified 02/02/22 02:28 Mental Status Exam Mental Status Exam Patient Appearance: Appropriate Patient Orientation: Person, Place, Time and Situation Level of Consciousness: Appropriate and Drowsy Patient Behavior: Appropriate Mood Description: Depressed and Flat Affect Description: Flat Patient Cognition Impaired: No Ability to Follow Directions: Good Speech Pattern: Impoverished and Difficulty Finding Words Memory Description: Intact Hallucinations: None Delusions: Not Present Thought Process: Distracted Thought Content: positive for Intact and positive for Suicidal Ideation Depressive Symptoms: Insomnia, Diff. Making Decisions, Difficulty Sleeping, Loss of Int. in Activity, Feelings of Worthlessness, Hopelessness, Feelings of Guilt, Unhappiness, Increased Fatigue, Thoughts of /Suicide, Loss of Energy and Difficulty Concentrating Judgement: Fair Assessment & Plan Assessment & Plan (1) Major depression: Status: Acute Code(s): F32.9 - Major depressive disorder, single episode, unspecified (2) Substance abuse: Status: Acute Code(s): F19.10 - Other psychoactive substance abuse, uncomplicated (3) Suicidal ideation: Status: Acute Code(s): R45.851 - Suicidal ideations Plan 41 year old with Major depression with SI in context of grief and substance abuse in need of inpatient level of care with step down to IOP or PHP and recovery program Plan: 1) CV 2.) 15 min checks 3) clonidine 0.1 mg bid prn opiate wd 4.) gabapentin 200mg bid prn for neuropathic pain 5) dual groups 6)collect collateral and discharge planning with team/sw Patient educated on: diagnosis and medication risk/benefits Informed Consent: further education needed Reason for continued inpatient stay Substantial Risk for: harm to self, inability to function and rapid decompensation Statement Statement: I have reviewed the history and physical and performed a pertinent examination on my patient. No changes have occurred unless specified. Time Spent With Patient Time: Total time managing care of this patient today _60___ minutes. Current Meds Current Medications Home Medications No Known Home Meds 05/05/22 [History Confirmed 05/05/22] Active Medications Acetaminophen (Acetaminophen 325 Mg Tablet) 650 mg PO Q6H PRN PRN Reason: Headache/Pain Mild Scale (1-3) Last Admin: 05/06/22 13:00 Dose: 650 mg Al Hydroxide/Mg Hydroxide (Magnesium Hydrox/Alum Hydrox 30 Ml Oral.Susp) 30 ml PO Q6H PRN PRN Reason: Heartburn/Nausea Clonidine HCl (Clonidine Hcl 0.1 Mg Tablet) 0.1 mg PO TID PRN; Protocol PRN Reason: opioid withdrawal Cyclobenzaprine HCl (Cyclobenzaprine Hcl 10 Mg Tablet) 10 mg PO TID PRN PRN Reason: Muscle Spasm Last Admin: 05/06/22 12:59 Dose: 10 mg Gabapentin (Gabapentin 100 Mg Capsule) 200 mg PO BID [facility] Last Admin: 05/06/22 11:37 Dose: 200 mg Hydroxyzine HCl (Hydroxyzine Hcl 50 Mg Tablet) 50 mg PO Q6H PRN PRN Reason: Anxiety Last Admin: 05/05/22 20:10 Dose: 50 mg Ibuprofen (Ibuprofen 600 Mg Tablet) 600 mg PO Q6H PRN PRN Reason: Pain, Moderate (Pain Scale 4-6 Last Admin: 05/06/22 11:46 Dose: 600 mg Loperamide HCl (Loperamide Hcl 2 Mg Capsule) 2 mg PO Q4H PRN PRN Reason: loose stools Magnesium Hydroxide (Milk Of Magnesia 30 Ml Oral.Susp) 30 ml PO DAILY PRN PRN Reason: Constipation Melatonin (Melatonin 3 Mg Tablet) 6 mg PO BEDTIME [facility] Last Admin: 05/05/22 20:10 Dose: 6 mg Trazodone HCl (Trazodone Hcl 50 Mg Tablet) 50 mg PO BEDTIME PRN PRN Reason: Insomnia
--- NOTE | 2022-05-06 16:29 | P.HPPS_ITS ---
HPI Date of Service: 05/06/22 Chief Complaint: SI Sources of Information: patient interviewed, chart reviewed and crisis/core team assessment reviewed HPI Subjective Notes: [place] Warning and Conditional Voluntary Healthcare Proxy: No Guardianship: No Past Psychiatric History: pt has had many admissions to detox and substance recovery program in 2021. He was incarcerated at early age of 13. Has spent 16 o ut of the last 22 years in [facility]. He reports he was sober for 30 days until he relapsed on 05/04 and had suicidal ideation of overdosing. [facility] Medical History COVID-19 (11/23/21) Substance abuse Suicidal ideation Family History: lives with Social History: Mother September 2021 Trauma History: incarcerated age 13 Diagnostics Vital Signs (24Hr): Vital Signs - 24 hr 05/05/22 20:12 05/06/22 08:10 Temperature 98.5 F 97.7 F Pulse Rate 68 68 Respiratory Rate 16 18 Blood Pressure 119/69 120/72 Pulse Oximetry 97 96 Oxygen Delivery Method Room Air Room Air BMI result Body Mass Index 25.8 Labs Results: 05/05/22 12:28 05/06/22 10:11 Labs: Laboratory Results - last 48 hr 05/04/22 05/05/22 05/05/22 23:36 00:12 00:37 WBC RBC Hgb Hct MCV MCH MCHC RDW Plt Count MPV Absolute Nucleated RBC Nucleated RBC % (auto) Sodium Potassium Chloride Carbon Dioxide Anion Gap BUN Creatinine Estim Creat Clear Calc Estimated GFR Random Glucose Fasting Glucose Estimat Average Glucose Hemoglobin A1c % Calcium Total Bilirubin AST ALT Alkaline Phosphatase Total Protein Albumin Triglycerides Cholesterol LDL Cholesterol, Calc HDL Cholesterol Vitamin B12 TSH Urine Opiates Screen Not Detected Urine Fentanyl Screen Not Detected Ur Barbiturates Screen Not Detected Ur Phencyclidine Scrn Not Detected Ur Amphetamines Screen Not Detected U Benzodiazepines Scrn Not Detected Urine Cocaine Screen POSITIVE H U Marijuana (THC) Screen Not Detected Ethyl Alcohol < 10 COVID-19 ([facility]) Negative COVID-19 [facility] See Note 05/05/22 05/05/22 05/06/22 12:28 12:28 10:11 WBC 5.4 RBC 4.77 Hgb 14.3 Hct 41.1 L MCV 86.2 MCH 30.0 MCHC 34.8 RDW 12.3 Plt Count 203 MPV 8.9 L Absolute Nucleated RBC 0.000 Nucleated RBC % (auto) 0.0 Sodium 136 139 Potassium 3.9 D 4.0 Chloride 102 104 Carbon Dioxide 26 27 Anion Gap 12 12 BUN 15 13 Creatinine 0.84 0.86 Estim Creat Clear Calc 118.2 115.5 Estimated GFR > 60 > 60 Random Glucose 95 Fasting Glucose 100 H Estimat Average Glucose Hemoglobin A1c % Calcium 9.0 D 9.2 Total Bilirubin 0.5 AST 17 ALT 16 Alkaline Phosphatase 61 Total Protein 6.4 L Albumin 4.2 Triglycerides 65 Cholesterol 118 LDL Cholesterol, Calc 53 HDL Cholesterol 52 Vitamin B12 TSH 0.99 Urine Opiates Screen Urine Fentanyl Screen Ur Barbiturates Screen Ur Phencyclidine Scrn Ur Amphetamines Screen U Benzodiazepines Scrn Urine Cocaine Screen U Marijuana (THC) Screen Ethyl Alcohol COVID-19 ([facility]) COVID-19 [facility] 05/06/22 05/06/22 10:11 10:11 WBC RBC Hgb Hct MCV MCH MCHC RDW Plt Count MPV Absolute Nucleated RBC Nucleated RBC % (auto) Sodium Potassium Chloride Carbon Dioxide Anion Gap BUN Creatinine Estim Creat Clear Calc Estimated GFR Random Glucose Fasting Glucose Estimat Average Glucose 97 Hemoglobin A1c % 5.0 Calcium Total Bilirubin AST ALT Alkaline Phosphatase Total Protein Albumin Triglycerides Cholesterol LDL Cholesterol, Calc HDL Cholesterol Vitamin B12 394 TSH Urine Opiates Screen Urine Fentanyl Screen Ur Barbiturates Screen Ur Phencyclidine Scrn Ur Amphetamines Screen U Benzodiazepines Scrn Urine Cocaine Screen U Marijuana (THC) Screen Ethyl Alcohol COVID-19 ([facility]) COVID-19 Clin Com Meds/Allergies Meds Home Medications Medication Instructions Recorded Confirmed Type No Known Home Meds 05/05/22 05/05/22 History Allergies Allergies Allergy/AdvReac Type Severity Reaction Status Date / Time No Known Allergies Allergy Verified 02/02/22 02:28 Assessment & Plan Statement Statement: I have reviewed the history and physical and performed a pertinent examination on my patient. No changes have occurred unless specified. Time Spent With Patient Time: Total time managing care of this patient today ____ minutes.
[2022-05-06 19:52] VITALS: BP 121/68; PULSE 67; RESP 16; TEMP 36.6; O2SAT 96
[2022-05-06] MEDS: hydrOXYzine HCL 50 MG TABLET PO (20:10)
[2022-05-06] MEDS: Melatonin 3 MG TABLET 6 MG PO (20:11)
[2022-05-07 06:00] VITALS: BP 113/68; PULSE 62; RESP 18; TEMP 36.2; O2SAT 98
[2022-05-07] MEDS: Gabapentin 100 MG CAPSULE 200 MG PO ×2 (08:48→20:02)
[2022-05-07] MEDS: Ibuprofen 600 MG TABLET PO ×2 (08:48→20:05)
[2022-05-07] MEDS: Cyclobenzaprine HCl 10 MG TABLET PO ×2 (08:49→20:01)
--- NOTE | 2022-05-07 10:33 | P.PNPSI_ITS ---
Subjective Subjective Date of Service: 05/07/22 Reason For Visit: SI Interim History: pt reports he's feeling better, safe and hoping to discharge. He put in a 3 day notice. Pt denies any SI or HI; he asks if he'll get scripts on discharge which telegraphic typewriter operator reviewed (vistaril, gabapentin, flexaril, melatonin, ibuprofen) and explained seems likely but he'll need to discuss w/ primary team. Jig Fitter explained no guarantee will dc tomorrow, but to discuss with primary team which pt understood Pt had good visit yesterday with ; hoping she'll let him return home. If not, asking for help getting to a nursing home Mental Status Exam Mental Status Exam Patient Appearance: Appropriate Patient Orientation: Person, Place, Time and Situation Level of Consciousness: Awake and Appropriate Patient Behavior: Appropriate Mood Description: Calm and Relaxed Affect Description: Flat (little) Patient Cognition Impaired: No Ability to Follow Directions: Good Speech Pattern: Clear and Soft-Spoken Memory Description: Intact Hallucinations: None Delusions: Not Present Thought Process: Goal Oriented Thought Content: positive for Intact, positive for Suicidal Ideation (denies) and positive for Homicidal Ideation (denies) Depressive Symptoms: Insomnia, Diff. Making Decisions, Difficulty Sleeping, Loss of Int. in Activity, Feelings of Worthlessness, Hopelessness, Feelings of Guilt, Increased Fatigue, Loss of Energy and Difficulty Concentrating Judgement: Fair Diagnostics Vital Signs (24Hr): Vital Signs - 24 hr 05/06/22 19:52 05/07/22 06:00 Temperature 98 F 97.2 F Pulse Rate 67 62 Respiratory Rate 16 18 Blood Pressure 121/68 113/68 Pulse Oximetry 96 98 Oxygen Delivery Method Room Air Room Air BMI result Body Mass Index 25.8 Labs Results: 05/05/22 12:28 05/06/22 10:11 Labs: Laboratory Results - last 48 hr 05/05/22 05/05/22 05/06/22 12:28 12:28 10:11 WBC 5.4 RBC 4.77 Hgb 14.3 Hct 41.1 L MCV 86.2 MCH 30.0 MCHC 34.8 RDW 12.3 Plt Count 203 MPV 8.9 L Absolute Nucleated RBC 0.000 Nucleated RBC % (auto) 0.0 Sodium 136 139 Potassium 3.9 D 4.0 Chloride 102 104 Carbon Dioxide 26 27 Anion Gap 12 12 BUN 15 13 Creatinine 0.84 0.86 Estim Creat Clear Calc 118.2 115.5 Estimated GFR > 60 > 60 Random Glucose 95 Fasting Glucose 100 H Estimat Average Glucose Hemoglobin A1c % Calcium 9.0 D 9.2 Total Bilirubin 0.5 AST 17 ALT 16 Alkaline Phosphatase 61 Total Protein 6.4 L Albumin 4.2 Triglycerides 65 Cholesterol 118 LDL Cholesterol, Calc 53 HDL Cholesterol 52 Vitamin B12 TSH 0.99 05/06/22 05/06/22 10:11 10:11 WBC RBC Hgb Hct MCV MCH MCHC RDW Plt Count MPV Absolute Nucleated RBC Nucleated RBC % (auto) Sodium Potassium Chloride Carbon Dioxide Anion Gap BUN Creatinine Estim Creat Clear Calc Estimated GFR Random Glucose Fasting Glucose Estimat Average Glucose 97 Hemoglobin A1c % 5.0 Calcium Total Bilirubin AST ALT Alkaline Phosphatase Total Protein Albumin Triglycerides Cholesterol LDL Cholesterol, Calc HDL Cholesterol Vitamin B12 394 TSH Medications Medications Current Medications Acetaminophen (Acetaminophen 325 Mg Tablet) 650 mg PO Q6H PRN PRN Reason: Headache/Pain Mild Scale (1-3) Last Admin: 05/06/22 20:10 Dose: 650 mg Al Hydroxide/Mg Hydroxide (Magnesium Hydrox/Alum Hydrox 30 Ml Oral.Susp) 30 ml PO Q6H PRN PRN Reason: Heartburn/Nausea Clonidine HCl (Clonidine Hcl 0.1 Mg Tablet) 0.1 mg PO TID PRN; Protocol PRN Reason: opioid withdrawal Cyclobenzaprine HCl (Cyclobenzaprine Hcl 10 Mg Tablet) 10 mg PO TID PRN PRN Reason: Muscle Spasm Last Admin: 05/07/22 08:49 Dose: 10 mg Gabapentin (Gabapentin 100 Mg Capsule) 200 mg PO BID [facility] Last Admin: 05/07/22 08:48 Dose: 200 mg Hydroxyzine HCl (Hydroxyzine Hcl 50 Mg Tablet) 50 mg PO Q6H PRN PRN Reason: Anxiety Last Admin: 05/06/22 20:10 Dose: 50 mg Ibuprofen (Ibuprofen 600 Mg Tablet) 600 mg PO Q6H PRN PRN Reason: Pain, Moderate (Pain Scale 4-6 Last Admin: 05/07/22 08:48 Dose: 600 mg Loperamide HCl (Loperamide Hcl 2 Mg Capsule) 2 mg PO Q4H PRN PRN Reason: loose stools Magnesium Hydroxide (Milk Of Magnesia 30 Ml Oral.Susp) 30 ml PO DAILY PRN PRN Reason: Constipation Melatonin (Melatonin 3 Mg Tablet) 6 mg PO BEDTIME [facility] Last Admin: 05/06/22 20:11 Dose: 6 mg Trazodone HCl (Trazodone Hcl 50 Mg Tablet) 50 mg PO BEDTIME PRN PRN Reason: Insomnia Allergies Allergies Allergy/AdvReac Type Severity Reaction Status Date / Time No Known Allergies Allergy Verified 02/02/22 02:28 Assessment & Plan Assessment & Plan (1) Major depression: Status: Acute Code(s): F32.9 - Major depressive disorder, single episode, unspecified (2) Substance abuse: Status: Acute Code(s): F19.10 - Other psychoactive substance abuse, uncomplicated (3) Suicidal ideation: Status: Acute Code(s): R45.851 - Suicidal ideations Plan 41 yo male admitted with depression 05/07 3 day notice pt reports feeling better, no SI/HI; feeling safe and hoping to dc no changes to current regimen I spent minutes with the patient and/or on the patient floor today, greater than?50% of which was spent counseling/coordinating care. Patient educated on: diagnosis and medication risk/benefits Informed Consent: understands Reason for contiued inpatient stay Substantial Risk for: other Time Spent With Patient Time: Total time managing care of this patient today ____ minutes.
[2022-05-07 18:00] VITALS: BP 130/70; PULSE 69; RESP 16; TEMP 35.6; O2SAT 99
[2022-05-07] MEDS: hydrOXYzine HCL 50 MG TABLET PO (20:01)
[2022-05-07] MEDS: Melatonin 3 MG TABLET 6 MG PO (20:02)
[2022-05-08] MEDS: Acetaminophen 325 MG TABLET 650 MG PO (08:44)
[2022-05-08] MEDS: Gabapentin 100 MG CAPSULE 200 MG PO (08:44)
[2022-05-08 08:57] VITALS: BP 119/78; PULSE 99; RESP 16; TEMP 36.1; O2SAT 99
--- NOTE | 2022-05-08 10:11 | P.DS_ITS ---
DS: Providers Provider Date of Service: 05/08/22 Date of admission: 05/05/22 14:06 Primary care physician: None Physician DS: Diagnosis Discharge Diagnosis (1) Major depression: Status: Acute (2) Substance abuse: Status: Acute (3) Suicidal ideation: Status: Acute DS: Medications Discharge Medications Home Medications: Previous Rx's Medication Instructions Recorded cyclobenzaprine 10 mg tablet 10 mg PO TID PRN Muscle Spasm 5 05/08/22 days #15 tabs gabapentin 100 mg capsule 200 mg PO BID 30 days #120 caps 05/08/22 hydroxyzine HCl 50 mg tablet 50 mg PO BEDTIME PRN Anxiety 30 05/08/22 days #30 tabs Mental Status Exam Mental Status Exam Narrative: no SI/HI/AVH Patient Appearance: Appropriate Patient Orientation: Person, Place, Time and Situation Level of Consciousness: Awake and Appropriate Patient Behavior: Appropriate Mood Description: Calm and Relaxed Affect Description: Flat (little) Patient Cognition Impaired: No Ability to Follow Directions: Good Speech Pattern: Clear and Soft-Spoken Memory Description: Intact Hallucinations: None Delusions: Not Present Thought Process: Goal Oriented Thought Content: positive for Intact Judgement: Fair Data Data Completed and Pending Completed studies during hospitalization [Text1]: 05/04/22 05/05/22 05/05/22 23:36 00:12 00:37 WBC RBC Hgb Hct MCV MCH MCHC RDW Plt Count MPV Absolute Nucleated RBC Nucleated RBC % (auto) Sodium Potassium Chloride Carbon Dioxide Anion Gap BUN Creatinine Estim Creat Clear Calc Estimated GFR Random Glucose Fasting Glucose Estimat Average Glucose Hemoglobin A1c % Calcium Total Bilirubin AST ALT Alkaline Phosphatase Total Protein Albumin Triglycerides Cholesterol LDL Cholesterol, Calc HDL Cholesterol Vitamin B12 TSH Urine Opiates Screen Not Detected Urine Fentanyl Screen Not Detected Ur Barbiturates Screen Not Detected Ur Phencyclidine Scrn Not Detected Ur Amphetamines Screen Not Detected U Benzodiazepines Scrn Not Detected Urine Cocaine Screen POSITIVE H U Marijuana (THC) Screen Not Detected Ethyl Alcohol < 10 COVID-19 ([facility]) Negative COVID-19 Clin Com See Note 05/05/22 05/05/22 05/06/22 12:28 12:28 10:11 WBC 5.4 RBC 4.77 Hgb 14.3 Hct 41.1 L MCV 86.2 MCH 30.0 MCHC 34.8 RDW 12.3 Plt Count 203 MPV 8.9 L Absolute Nucleated RBC 0.000 Nucleated RBC % (auto) 0.0 Sodium 136 139 Potassium 3.9 D 4.0 Chloride 102 104 Carbon Dioxide 26 27 Anion Gap 12 12 BUN 15 13 Creatinine 0.84 0.86 Estim Creat Clear Calc 118.2 115.5 Estimated GFR > 60 > 60 Random Glucose 95 Fasting Glucose 100 H Estimat Average Glucose Hemoglobin A1c % Calcium 9.0 D 9.2 Total Bilirubin 0.5 AST 17 ALT 16 Alkaline Phosphatase 61 Total Protein 6.4 L Albumin 4.2 Triglycerides 65 Cholesterol 118 LDL Cholesterol, Calc 53 HDL Cholesterol 52 Vitamin B12 TSH 0.99 Urine Opiates Screen Urine Fentanyl Screen Ur Barbiturates Screen Ur Phencyclidine Scrn Ur Amphetamines Screen U Benzodiazepines Scrn Urine Cocaine Screen U Marijuana (THC) Screen Ethyl Alcohol COVID-19 ([facility]) COVID-19 [employer] 05/06/22 05/06/22 10:11 10:11 WBC RBC Hgb Hct MCV MCH MCHC RDW Plt Count MPV Absolute Nucleated RBC Nucleated RBC % (auto) Sodium Potassium Chloride Carbon Dioxide Anion Gap BUN Creatinine Estim Creat Clear Calc Estimated GFR Random Glucose Fasting Glucose Estimat Average Glucose 97 Hemoglobin A1c % 5.0 Calcium Total Bilirubin AST ALT Alkaline Phosphatase Total Protein Albumin Triglycerides Cholesterol LDL Cholesterol, Calc HDL Cholesterol Vitamin B12 394 TSH Urine Opiates Screen Urine Fentanyl Screen Ur Barbiturates Screen Ur Phencyclidine Scrn Ur Amphetamines Screen U Benzodiazepines Scrn Urine Cocaine Screen U Marijuana (THC) Screen Ethyl Alcohol COVID-19 ([facility]) COVID-19 [facility] Com DS: Summary Hospital Course Hospital Course: per 05/06 admission note: 41 yo male with depression and SI in context of relapse on alcohol and cocaine. Pt self presented to Ed due to suicidal ideation with plan ot overdose; he r reports depression and grief especially since his mother in September 2021. Past Psychiatric History: pt has had many admissions to detox and substance recovery program in 2021. He was incarcerated at early age of 13. Has spent 16 out of the last 22 years in custodial.? He reports he was sober for 30 days until he relapsed on 05/04 and had suicidal ideation of overdosing. Medical Evaluation Reviewed: Yes medically cleared in ED. EKG normal sinus. QTC 412 Vitals stable; history of TBI; covid in november 2021 [facility] Medical History? COVID-19 (11/23/21) Substance abuse Suicidal ideation Family History: lives with Social History: Mother September 2021 Substance History: long history of alcohol and cocaine; attended several detoox in 2021. reports one month sober until relapse 05/04 Trauma History: incarcerated age 13 05/07: pt reports he's feeling better, safe and hoping to discharge. He put in a 3 day notice. Pt denies any SI or HI; he asks if he'll get scripts on discharge which auto service writer reviewed (vistaril, gabapentin, flexaril, melatonin, ibuprofen) and explained seems likely but he'll need to discuss w/ primary team. Certified Dialysis Technician explained no guarantee will dc tomorrow, but to discuss with primary team which pt understood. Pt had good visit yesterday with ; hoping she'll let him return home. If not, asking for help getting to a fpc 05/08: calm, cooperative. states he has a place to stay. meds reviewed, reconciled, and prescribed. SW making outpt appointments with [facility]. no safety concerns. discharged as per his request. Time Spent with Patient Time attestation: Total time managing care of this patient today ____ minutes. 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 Intake department will be reaching out to provide appointments. If you do not receive a call within a few days of discharge, please call the number above) [facility] [Other] - 1 Week (Pt hasn't signed releases. Pt will schedule his own appointment) [facility] [Physician] - 1 Week Discharge Medications: New cyclobenzaprine 10 mg Tablet 10 mg PO TID PRN (Reason: Muscle Spasm) 5 Days Qty: 15 0RF hydroxyzine HCl 50 mg Tablet 50 mg PO BEDTIME PRN (Reason: Anxiety) 30 Days Qty: 30 0RF gabapentin 100 mg Capsule 200 mg PO BID 30 Days Qty: 120 0RF Discharge Orders: Discharge Order (Routine); Ordered 05/08/22 Ordered By: Akshat Wei Diet: Advance to usual diet Activity on Discharge: As tolerated Stand Alone Forms: Patient Portal Discharge page, Community Support Care Plan Goals: remain safe and sober in the outpatient treatment setting Health Concerns: none Plan of Treatment: take medications as prescribed, attend appointments as scheduled Assessment: not at imminent risk of harm to self or others Discharge Date/Time: 05/08/22 10:55
== END 2022-05-08 10:55 | disposition home or self-care (01) | DRG 754 ==
LOC: HO.ED 23:40 → HO.PADLT16 05-05 14:14
PROVIDERS: Social Worker; Admitting Provider Psychiatry & Neurology Psychiatry; Emergency Provider Emergency Medicine; Visit Provider Psychiatry & Neurology Psychiatry
DX: F32.9 Major depressive disorder, single episode, unspecified (principal); R45.851 Suicidal ideations; F14.14 Cocaine abuse with cocaine-induced mood disorder; Z20.822 Contact with and (suspected) exposure to COVID-19; Z79.899 Other long term (current) drug therapy
CPT/HCPCS: 36415; 80048; 80053; 80061; 80307; 82077; 82607; 83036; 84443; 85027; 87635; 93005; 99285

== ENCOUNTER 2023-01-14 20:22 | Emergency (ER) | payer OTHER, SELFPAY ==
--- NOTE | 2023-01-14 | ECG_ITS ---
Test Reason : med clearance Blood Pressure : / mmHG Vent. Rate : 072 BPM Atrial Rate : 072 BPM P-R Int : 162 ms QRS Dur : 094 ms QT Int : 400 ms P-R-T Axes : 069 075 034 degrees QTc Int : 438 ms Normal sinus rhythm Normal ECG When compared with ECG of 05-MAY-2022 12:11, No significant change was found Referred By: Maria Esther Watts Electronically Signed By:CHEN SOTO
[2023-01-14 20:36] VITALS: BP 131/78; PULSE 86; RESP 14; TEMP 36.3; O2SAT 97; BMI 20.7
[2023-01-14 20:44] VITALS: BP 135/82; PULSE 82; RESP 15; O2SAT 99
[2023-01-14 20:59] LABS: MANUAL DIFF FLAG NO
--- NOTE | 2023-01-14 20:59 | PC.NURSE ---
Pt depressed due to drug use and wishes to get back on his feet. Has been to recovery at [facility] in the past with positive result. Pt is currently homeless and has no medical care outside of the hospital
[2023-01-14 21:02] LABS: Basophils Percent Auto 0.4 % (0-2); Eosinophils Absolute Auto 0.2 X10*3/uL (0.0-0.4); Eosinophils Percent Auto 2.7 % (0-4); Hematocrit 44.4 % (42.0-52.0); Hemoglobin 15.3 g/dl (14.0-18.0); Imm Gran Abs Auto 0.02 X10*3/uL (0.00-0.03); Imm Gran Pct Auto 0.3 % (0.0-0.4); Lymphocytes Absolute Auto 2.5 X10*3/uL (1.2-4.9); Lymphocytes Percent Auto 32.1 % (20-40); Mean Corpuscular HGB Conc 34.5 g/dl (31.0-36.0); Mean Corpuscular Hemoglobin 31.2 pg (27.0-33.0); Mean Corpuscular Volume 90.4 fL (80.0-98.0); Monocytes Absolute Auto 0.4 X10*3/uL (0.1-1.2); Monocytes Percent Auto 5.7 % (2-11); Neutrophils Absolute Auto 4.5 x10*3/uL (2.0-8.3); Neutrophils Percent Auto 58.8 % (45-73); Platelet Count 274 X10*3/uL (160-400); Red Blood Count 4.91 X10*6/uL (4.60-5.80); Red Cell Distribution Width 12.8 % (11.0-16.0); White Blood Count 7.7 X10*3/uL (4.8-10.8)
--- NOTE | 2023-01-14 21:15 | ED_ITS ---
HPI - Psych General Chief Complaint: Psychiatric Symptoms Stated Complaint: Crisis Time Seen by Provider: 01/14/23 21:08 Source: patient Mode of arrival: ambulatory Limitations: no limitations History of Present Illness HPI Narrative: Patient comes to the emergency room complaining of suicidal ideation without plans. Patient states he relapsed and started using cocaine again. Patient is homeless. Patient states that he would like to go to a program Related Data Previous Rx's Medication Instructions Recorded hydroxyzine HCl 50 mg tablet 50 mg PO BEDTIME PRN Anxiety 30 05/08/22 days #30 tabs Allergies Allergy/AdvReac Type Severity Reaction Status Date / Time No Known Allergies Allergy Verified 01/14/23 21:04 Review of Systems Review of Systems: Constitutional : No Weight loss, No Fever, No Chills, No Night Sweats, No Fatigue, No Malaise ENT/Mouth : No Hearing loss, No Ear Pain, No Nasal Congestion, No Sinus Pain, No Hoarseness, No sore throat, No Rhinorrhea, No Swallowing Difficulty Eyes: No Eye Pain, No Swelling, No Redness, No Foreign Body, No Discharge, No Vision Changes Cardiovascular : No Chest Pain, No SOB, No Dyspnea on Exertion, No Orthopnea, No Edema, No Palpitations Respiratory : No Cough, No Sputum, No Wheezing, No Smoke Exposure, No Dyspnea Gastrointestinal : No Nausea, No Vomiting, No Diarrhea, No Constipation, No abdominal Pain, No Hematochezia, No Melena Genitourinary : no irregular bleeding, No Dysuria, No Urinary Frequency, No Hematuria, No Urinary Incontinence, No Urgency, No Flank Pain, No Urinary Flow Changes, No Hesitancy Musculoskeletal : No joint pain, No Myalgias, No Joint Swelling Skin : No Skin Lesions, No rash Neuro : No Weakness, No Numbness, No Paresthesias, No Loss of Consciousness, No Dizziness, No Headache Psych : No anxiety, complaining of depression, vague suicidal ideation, no homicidal ideation, admits to crack cocaine use Heme/Lymph: No Bruising, No Bleeding,No Lymphadenopathy Endocrine : No Polyuria, No Polydipsia, No Temperature Intolerance PMFSH Past Medical History Medical History COVID-19 (11/23/21) Substance abuse Suicidal ideation Social History Social History (Updated 01/14/23 @ 21:07 by Eunice Peralta) Household Members: Spouse, Family and Children Housing: Homeless Do you presently have visiting nurse or other home services: No Alcohol intake: current Alcohol intake frequency: a few times a week Alcohol type: hard liquor Patient Tobacco Use Status: Never used Tobacco Smoked in Last 30 Days: Yes Second Hand Smoke Exposure: No Use of substances other than those prescribed or required for medical reasons: Yes Substance Use Type: Crack/Cocaine Substance Use Frequency: Chronic Longstanding Last Used Substance: Hours (ago) Any prior treatment program specific to substance use: Yes (was at [facility]) Advance Directives: No Advance Directives Information Provided: No service: No Sexual orientation: Straight/Heterosexual Physical Exam Vital Signs: Vital Signs: Last Vital Signs Temp 97.4 F 01/14/23 20:36 Pulse 82 01/14/23 20:44 Resp 15 01/14/23 20:44 BP 135/82 01/14/23 20:44 Pulse Ox 99 01/14/23 20:44 O2 Del Method Room Air 01/14/23 20:44 BMI result Body Mass Index 20.7 Const: Other: Appearance: Alert. Oriented X3. No acute distress. Eyes: Pupils equal, round and reactive to light. ENT: Pharynx normal. Neck: Normal inspection. Neck supple. No lymph nodes noted. No crepitus CVS: Normal heart rate and rhythm. Pulses normal. Normal S1 and S2 Respiratory: No respiratory distress. Breath sounds normal. No Wheezing. No rales Abdomen: Soft and nontender. No rigidity. No distention. Skin: Skin warm and dry. Normal skin color. Normal skin turgor. Extremities: No lower extremity edema. No Lacerations. No Rash Neuro: Oriented X 3. No motor deficit. No sensory deficit. Moving all extremities. No slurred speech. CN 2 through 12 grossly intact Psych: calm, cooperative, normal affect Course Course Course Narrative: -of patient's labs are pending -care team consult pending -physician observation started at 21:15 Medical Decision Making Lab Data 01/14/23 20:53 01/14/23 20:53 Labs: Lab Results 01/14/23 Range/Units 20:53 COVID-19 ([facility]) Negative (Negative) COVID-19 Clin Com See Note Discharge Plan Discharge Clinical Impression: Substance abuse, Major depression Patient Disposition: Still a Patient Prescriptions: No Action hydroxyzine HCl 50 mg Tablet 50 mg PO BEDTIME PRN (Reason: Anxiety) 30 Days Qty: 30 0RF Interventions: Patrick-Suicide Risk Severity Scale Last Done: 01/14/23 20:38
[2023-01-14 21:16] LABS: COVID-19 Test Negative (Negative); IDNOW Serial# 08D9AD1C
[2023-01-14 21:17] LABS: Alanine Aminotransferase 19 U/L (0-40); Albumin Level 4.7 g/dL (3.5-5.0); Alkaline Phosphatase 66 U/L (39-117); Anion Gap 15 (12-20); Aspartate Amino Transferase 21 U/L (5-37); Bilirubin Total 0.3 mg/dL (0.0-1.0); Blood Urea Nitrogen 12 mg/dL (9-16); Calcium 10.1 mg/dL (8.4-10.2); Carbon Dioxide 25 mmol/L (22-29); Chloride 107 mmol/L (96-108); Creatinine Clr Calc Pharmacy 96.1; Estimated Glomerular Filt Rate > 60; Glucose Random 104 mg/dL (60-115); Potassium 3.7 mmol/L (3.3-5.1); Sodium 143 mmol/L (135-145); Total Protein 7.6 g/dL (6.5-8.0)
[2023-01-14 21:45] LABS: Appearance Urine Clear; Color Urine Dark Yellow; Glucose Urine UA Negative (Negative); Leukocyte Esterase Urine Negative (Negative); Nitrite Urine Negative (Negative); PH 5.5 (5.0-9.0); Specific Gravity - Urine >= 1.030 (1.005-1.025); UMIC TRIGGER UACC YES; Urine Blood Negative (Negative); Urine Ketones Trace mg/dL (Negative); Urine Protein 30 (1+) mg/dL (Neg-Trace)
[2023-01-14 21:50] LABS: Bacteria Urine None Seen (None Seen); Hyaline Casts Urine 0-2 /LPF (0-2); Squamous Epithelial Cell Urine 0-2 /HPF (0-2); WBC Urine 0-5 /HPF (0-5)
[2023-01-14 21:57] LABS: Amphetamine Screen Urine Not Detected (Not Detect); Barbiturates, Urine Not Detected (Not Detect); Benzodiazepines Screen Urine Not Detected (Not Detect); Cannabinoid Screen Urine Not Detected (Not Detect); Cocaine Screen Urine POSITIVE (Not Detect); Fentanyl, urine POSITIVE (Not Detect); Opiate Screen Urine Not Detected (Not Detect); Phencyclidine Screen Urine Not Detected (Not Detect)
[2023-01-14 21:59] LABS: Ethanol < 10 mg/dL
--- NOTE | 2023-01-14 22:11 | PC.NURSE ---
Pt evaluated by CARE Team, plan for re-evaluation in the am when patient is more awake. Pt sleeping at this time, respirations even and unlabored, skin pwd, no apparent distress
[2023-01-14 22:24] LABS: RBC Urine 0-2 /HPF (0-2)
--- NOTE | 2023-01-15 04:14 | PC.NURSE ---
pt sleeping at this time, respirations even and unlabored, skin pwd, no apparent distress. Continue plan of care for CARE team to re-evaluate patient in am
[2023-01-15 05:44] VITALS: RESP 14
--- NOTE | 2023-01-15 06:44 | PC.NURSE ---
pt slept through night, no acute events overnight. Respirations even and unlabored, no apparent distress. Continue plan of care for re-evaluation by CARE team
--- NOTE | 2023-01-15 09:22 | PC.NURSE ---
patient sleeping in bed, respirations equal and unlabored.
--- NOTE | 2023-01-15 12:12 | PC.NURSE ---
patient is awake and alert, ambulates with steady gait. patient given a sandwich, has been calm and cooperative.
--- NOTE | 2023-01-15 15:04 | MHC.RECOVSUP ---
Met with pt in [facility] who is here for psychiatric and CLA[place]ETTE. Pt reports drinking about 1/2 a pint of alcohol every other day and smokes about 1oz of crack daily. Pt has no history of OD or MAT. PT is currently interested in ATS and is wanting to go to [facility]. ATS bed search in process.
--- NOTE | 2023-01-15 16:35 | PC.NURSE ---
patient meeting with recovery, has been calm and cooperative, able to make needs known.
--- NOTE | 2023-01-15 17:36 | PHA.MEDREC ---
Pharmacy Consult ? Medication Reconciliation Pharmacy has reviewed the medication reconciliation complete by Eunice.
[2023-01-15] MEDS: LORazepam 1 MG TABLET 2 MG PO (20:26)
[2023-01-16 03:47] VITALS: BP 137/80; PULSE 68; RESP 17; TEMP 36.4; O2SAT 99
--- NOTE | 2023-01-16 06:01 | PC.NURSE ---
Patient slept through the night, no distress observed/reported, Ativan 2 mg Po administered 2025 for comfort with + effect, med rec completed/currently not on any maintenance medication, recovery team coordinating detox bed search at this time, VSS, labs completed/resulted, will continue to monitor.
[2023-01-16 08:28] VITALS: BP 135/74; PULSE 70; RESP 20; TEMP 36.2; O2SAT 98
--- NOTE | 2023-01-16 09:37 | PC.NURSE ---
Ju detox program on phone talkig with pt
== END 2023-01-16 12:10 | disposition other institution (70) ==
PROVIDERS: Emergency Provider Emergency Medicine
DX: F19.10 Other psychoactive substance abuse, uncomplicated (principal); F32.9 Major depressive disorder, single episode, unspecified; R45.851 Suicidal ideations; Z20.822 Contact with and (suspected) exposure to COVID-19
CPT/HCPCS: 80053; 80307; 81001; 81003; 85025; 87635; 93005; 99285; S9485

== ENCOUNTER 2023-01-23 21:46 | Emergency (ER) | payer OTHER, SELFPAY ==
[2023-01-23 22:08] VITALS: BP 124/80; PULSE 84; RESP 20; TEMP 37; O2SAT 98; BMI 24.4
[2023-01-23 23:05] LABS: MANUAL DIFF FLAG NO
[2023-01-23 23:06] LABS: Basophils Absolute Auto 0.1 X10*3/uL (0.0-0.2); Basophils Percent Auto 0.6 % (0-2); Eosinophils Absolute Auto 0.2 X10*3/uL (0.0-0.4); Hematocrit 41.6 % (42.0-52.0); Hemoglobin 14.3 g/dl (14.0-18.0); Imm Gran Abs Auto 0.02 X10*3/uL (0.00-0.03); Imm Gran Pct Auto 0.3 % (0.0-0.4); Lymphocytes Absolute Auto 2.8 X10*3/uL (1.2-4.9); Lymphocytes Percent Auto 35.5 % (20-40); Mean Corpuscular HGB Conc 34.4 g/dl (31.0-36.0); Mean Corpuscular Hemoglobin 30.6 pg (27.0-33.0); Mean Corpuscular Volume 89.1 fL (80.0-98.0); Mean Platelet Volume 8.9 fL (9.4-12.4); Monocytes Absolute Auto 0.5 X10*3/uL (0.1-1.2); Monocytes Percent Auto 6.4 % (2-11); Neutrophils Absolute Auto 4.3 x10*3/uL (2.0-8.3); Neutrophils Percent Auto 54.2 % (45-73); Platelet Count 236 X10*3/uL (160-400); Red Blood Count 4.67 X10*6/uL (4.60-5.80); Red Cell Distribution Width 12.7 % (11.0-16.0)
--- NOTE | 2023-01-23 23:06 | ED_ITS ---
HPI - Psych General Chief Complaint: Psychiatric Symptoms Stated Complaint: Crisis Time Seen by Provider: 01/23/23 22:58 Source: patient Mode of arrival: ambulatory Limitations: no limitations History of Present Illness HPI Narrative: Patient is a 42-year-old male presents emergency department with suicidal ideations and a plan to overdose on pills. He states that he went to detox last week, he was feeling homesick so he returned home and then he ?fell into the same old thing? he endorses ETOH usage earlier today and smoking crack. He is feeling increasingly depressed lately as well. Patient states that he was seen earlier today at [facility] [place] diagnosed with a dental infection, for which he was provided with a prescription for antibiotic, advised to follow up with his dentist. He denies fevers or associated chills, difficulty swallowing, chest pain, shortness of breath, neck pain. Related Data Home Medications Medication Instructions Recorded Confirmed acetaminophen 325 mg tablet 650 mg PO TID PRN Pain (Scale 01/23/23 01/23/23 Score 4-6) amoxicillin 875 mg-potassium 1 tab PO BID 01/23/23 01/23/23 clavulanate 125 mg tablet diphenhydramine HCl 12.5 mg/5 mL 12.5 mg PO TID PRN Pain (Scale 01/23/2310/10 oral liquid (M-Dryl) Score 4-6) ibuprofen 200 mg tablet 600 mg PO TID 01/23/23 01/23/23 lidocaine HCl 2 % mucosal solution 5 ml PO TID 01/23/23 01/23/23 (Lidocaine Viscous) Allergies Allergy/AdvReac Type Severity Reaction Status Date / Time No Known Allergies Allergy Verified 01/14/23 21:04 Review of Systems Review of Systems: Yes all other systems are reviewed and are negative FORMERLY [facility], [facility] Past Medical History Attestation statement: The following information was validated with the patient. Source: old records reviewed Medical History COVID-19 (11/23/21) Substance abuse Suicidal ideation Social History Social History (Updated 01/14/23 @ 21:07 by Eunice Peralta) Household Members: Spouse, Family and Children Housing: Homeless Do you presently have visiting nurse or other home services: No Alcohol intake: current Alcohol intake frequency: a few times a week Alcohol type: hard liquor Patient Tobacco Use Status: Never used Tobacco Second Hand Smoke Exposure: No Substance Use Type: Crack/Cocaine Advance Directives: No Advance Directives Information Provided: No service: No Sexual orientation: Straight/Heterosexual Physical Exam Vital Signs: Vital Signs: Last Vital Signs Temp 98.6 F 01/23/23 22:08 Pulse 84 01/23/23 22:08 Resp 20 01/23/23 22:08 BP 124/80 01/23/23 22:08 Pulse Ox 98 01/23/23 22:08 O2 Del Method Room Air 01/23/23 22:08 BMI result Body Mass Index 24.4 Appearance: Alert.?Oriented to person, place and time. No acute distress.?Normal affect. Eyes: Pupils equal, round and reactive to light.? ENT: EAC normal. TM's Normal. Pharynx normal. Uvula midline. Moist mucous membranes.? ?No trismus noted.? No drooling noted.? No muffled voice noted. Dentition:? Patient with poor dentition throughout with multiple old fractured teeth with multiple dental caries.? Gingival within normal limits.? No fluctuance.? Not consistent with peritonsillar abscess. Not consistent with dental abscess.? No salivary duct obstruction noted. Neck: Normal inspection. Neck supple. FROM. No adenopathy. Thyroid Normal. No meningeal signs. No neck mass noted.? Trachea midline.? CVS: Heart sounds normal. Normal heart rate and rhythm.? Pulses normal.?? Respiratory: No respiratory distress.? Lung sounds clear to auscultation bilaterally?? Abdomen: Soft and non-tender. Normoactive bowel sounds. ?? Skin: Skin warm and dry.? Normal skin color.? .?? Extremities: No lower extremity edema.? Neuro: Moves all extremities spontaneously. Sensation intact bilaterally. CN II- XII intact. No focal neuro deficits. Ambulates with normal steady gait. Medical Decision Making Medical Decision Making MDM Narrative: Patient is a 42-year-old male with past medical history of depression, substance use disorder, currently on treatment with oral antibiotics for dental infection presents emergency department with reports of suicidal ideations with a plan to overdose. He endorses ETOH and crack cocaine usage earlier today. Upon examination there is no evidence of any dental abscess, he has multiple dental caries throughout compound reported pain to the right lower gums, there is no tr ismus, drooling, or difficulty swallowing, no evidence of deeper space infection at this time. Is afebrile without tachycardia. CBC is without evidence of leukocytosis. CMP is overall unremarkable. Patient is medically cleared for care team evaluation and determination as to whether inpatient psychiatric services are required; suicidal ideations, polysubstance use disorder. He is placed in physician observation so that evaluation can ensue Differential Diagnosis Differential Diagnoses: The differential diagnosis associated with the presentation includes (As noted above) Admission/Observation Consideration of admission/observation: Escalation of care including admission/observation considered (Physician observation) Consult Healthcare Provider Management of the patient was discussed with: Behavioral Health Provider Lab Data MDM Lab Attestation statement: I reviewed the patient's lab results. (As noted above) 01/23/23 23:00 01/23/23 23:00 Labs: Lab Results 01/23/23 01/23/23 01/23/23 Range/Units 23:00 23:00 23:00 WBC 8.0 (4.8-10.8) X10*3/uL RBC 4.67 (4.60-5.80) X10*6/uL Hgb 14.3 (14.0-18.0) g/dl Hct 41.6 L (42.0-52.0) % MCV 89.1 (80.0-98.0) fL MCH 30.6 (27.0-33.0) pg MCHC 34.4 (31.0-36.0) g/dl RDW 12.7 (11.0-16.0) % Plt Count 236 (160-400) X10*3/uL MPV 8.9 L (9.4-12.4) fL Immature Gran % (Auto) 0.3 (0.0-0.4) % Neut % (Auto) 54.2 (45-73) % Lymph % (Auto) 35.5 (20-40) % [place] % (Auto) 6.4 (2-11) % Eos % (Auto) 3.0 (0-4) % Baso % (Auto) 0.6 (0-2) % Lymph # (Auto) 2.8 (1.2-4.9) X10*3/uL [place] # (Auto) 0.5 (0.1-1.2) X10*3/uL Eos # (Auto) 0.2 (0.0-0.4) X10*3/uL Baso # (Auto) 0.1 (0.0-0.2) X10*3/uL Abs Immat Gran (auto) 0.02 (0.00-0.03) X10*3/uL Absolute Neuts (auto) 4.3 (2.0-8.3) x10*3/uL Absolute Nucleated RBC 0.000 (0.0-0.012) X10*3/uL Nucleated RBC % (auto) 0.0 (0.0-0.2) /100WBC Sodium 141 (135-145) mmol/L Potassium 3.8 (3.3-5.1) mmol/L Chloride 105 (96-108) mmol/L Carbon Dioxide 25 (22-29) mmol/L Anion Gap 15 (12-20) BUN 13 (9-16) mg/dL Creatinine 0.92 (0.5-1.4) mg/dL Estim Creat Clear Calc 106.8 Estimated GFR > 60 Random Glucose 81 (60-115) mg/dL Calcium 9.5 (8.4-10.2) mg/dL Total Bilirubin 0.3 (0.0-1.0) mg/dL AST 26 (5-37) U/L ALT 34 (0-40) U/L Alkaline Phosphatase 74 (39-117) U/L Total Protein 7.4 (6.5-8.0) g/dL Albumin 4.5 (3.5-5.0) g/dL Urine Color Urine Appearance Urine pH (5.0-9.0) Ur Specific [place] (1.005-1.025) Urine Protein (Neg-Trace) mg/dL Urine Glucose (UA) (Negative) mg/dL Urine Ketones (Negative) mg/dL Urine Blood (Negative) Urine Nitrite (Negative) Ur Leukocyte Esterase (Negative) Urine RBC (0-2) /HPF Urine WBC (0-5) /HPF Ur Squamous Epith Cells (0-2) /HPF Calcium Oxalate Crystal Urine Bacteria (None Seen) Hyaline Casts (0-2) /LPF Urine Opiates Screen (Not Detect) Urine Fentanyl Screen (Not Detect) Ur Barbiturates Screen (Not Detect) Ur Phencyclidine Scrn (Not Detect) Ur Amphetamines Screen (Not Detect) U Benzodiazepines Scrn (Not Detect) Urine Cocaine Screen (Not Detect) U Marijuana (THC) Screen (Not Detect) Ethyl Alcohol < 10 mg/dL 01/23/23 01/23/23 Range/Units 23:12 23:12 WBC (4.8-10.8) X10*3/uL RBC (4.60-5.80) X10*6/uL Hgb (14.0-18.0) g/dl Hct (42.0-52.0) % MCV (80.0-98.0) fL MCH (27.0-33.0) pg MCHC (31.0-36.0) g/dl RDW (11.0-16.0) % Plt Count (160-400) X10*3/uL MPV (9.4-12.4) fL Immature Gran % (Auto) (0.0-0.4) % Neut % (Auto) (45-73) % Lymph % (Auto) (20-40) % [place] % (Auto) (2-11) % Eos % (Auto) (0-4) % Baso % (Auto) (0-2) % Lymph # (Auto) (1.2-4.9) X10*3/uL [place] # (Auto) (0.1-1.2) X10*3/uL Eos # (Auto) (0.0-0.4) X10*3/uL Baso # (Auto) (0.0-0.2) X10*3/uL Abs Immat Gran (auto) (0.00-0.03) X10*3/uL Absolute Neuts (auto) (2.0-8.3) x10*3/uL Absolute Nucleated RBC (0.0-0.012) X10*3/uL Nucleated RBC % (auto) (0.0-0.2) /100WBC Sodium (135-145) mmol/L Potassium (3.3-5.1) mmol/L Chloride (96-108) mmol/L Carbon Dioxide (22-29) mmol/L Anion Gap (12-20) BUN (9-16) mg/dL Creatinine (0.5-1.4) mg/dL Estim Creat Clear Calc Estimated GFR Random Glucose (60-115) mg/dL Calcium (8.4-10.2) mg/dL Total Bilirubin (0.0-1.0) mg/dL AST (5-37) U/L ALT (0-40) U/L Alkaline Phosphatase (39-117) U/L Total Protein (6.5-8.0) g/dL Albumin (3.5-5.0) g/dL Urine Color Dark Yellow Urine Appearance Clear Urine pH 5.5 (5.0-9.0) Ur Specific [place] >= 1.030 H (1.005-1.025) Urine Protein 30 (1+) H (Neg-Trace) mg/dL Urine Glucose (UA) Negative (Negative) mg/dL Urine Ketones Negative (Negative) mg/dL Urine Blood Negative (Negative) Urine Nitrite Negative (Negative) Ur Leukocyte Esterase Negative (Negative) Urine RBC 0-2 (0-2) /HPF Urine WBC 0-5 (0-5) /HPF Ur Squamous Epith Cells 0-2 (0-2) /HPF Calcium Oxalate Crystal Present Urine Bacteria None Seen (None Seen) Hyaline Casts 6-10 (0-2) /LPF Urine Opiates Screen Not Detected (Not Detect) Urine Fentanyl Screen Not Detected (Not Detect) Ur Barbiturates Screen Not Detected (Not Detect) Ur Phencyclidine Scrn Not Detected (Not Detect) Ur Amphetamines Screen Not Detected (Not Detect) U Benzodiazepines Scrn Not Detected (Not Detect) Urine Cocaine Screen POSITIVE H (Not Detect) U Marijuana (THC) Screen Not Detected (Not Detect) Ethyl Alcohol mg/dL External Record Review External record reviewed: Outside ED record Discharge Plan Discharge Clinical Impression: Suicidal ideation, Dental infection, Substance abuse Patient Disposition: Still a Patient Prescriptions: No Action acetaminophen 325 mg tablet 650 mg PO TID PRN (Reason: Pain (Scale Score 4-6)) ibuprofen 200 mg tablet 600 mg PO TID amoxicillin-pot clavulanate 875-125 mg tablet 1 tab PO BID lidocaine HCl [Lidocaine Viscous] 2 % solution 5 ml PO TID Rx Instructions: before meal diphenhydramine HCl [M-Dryl] 12.5 mg/5 mL liquid 12.5 mg PO TID PRN (Reason: Pain (Scale Score 4-6)) Rx Instructions: mix with lidocaine swish [facility] Last Done: 01/23/23 22:30
[2023-01-23 23:20] LABS: Ethanol < 10 mg/dL
[2023-01-23 23:22] LABS: Alanine Aminotransferase 34 U/L (0-40); Albumin Level 4.5 g/dL (3.5-5.0); Alkaline Phosphatase 74 U/L (39-117); Anion Gap 15 (12-20); Aspartate Amino Transferase 26 U/L (5-37); Bilirubin Total 0.3 mg/dL (0.0-1.0); Blood Urea Nitrogen 13 mg/dL (9-16); Calcium 9.5 mg/dL (8.4-10.2); Carbon Dioxide 25 mmol/L (22-29); Chloride 105 mmol/L (96-108); Creatinine Clr Calc Pharmacy 106.8; Estimated Glomerular Filt Rate > 60; Glucose Random 81 mg/dL (60-115); Potassium 3.8 mmol/L (3.3-5.1); Sodium 141 mmol/L (135-145); Total Protein 7.4 g/dL (6.5-8.0)
[2023-01-23 23:32] LABS: Appearance Urine Clear; Color Urine Dark Yellow; Glucose Urine UA Negative (Negative); Leukocyte Esterase Urine Negative (Negative); Nitrite Urine Negative (Negative); PH 5.5 (5.0-9.0); Specific Gravity - Urine >= 1.030 (1.005-1.025); UMIC TRIGGER UA YES; Urine Blood Negative (Negative); Urine Ketones Negative (Negative); Urine Protein 30 (1+) mg/dL (Neg-Trace)
[2023-01-23 23:44] LABS: Bacteria Urine None Seen (None Seen); Calcium Oxalate Crystals Urine Present; RBC Urine 0-2 /HPF (0-2); Squamous Epithelial Cell Urine 0-2 /HPF (0-2); WBC Urine 0-5 /HPF (0-5)
[2023-01-23 23:45] LABS: Amphetamine Screen Urine Not Detected (Not Detect); Barbiturates, Urine Not Detected (Not Detect); Benzodiazepines Screen Urine Not Detected (Not Detect); Cannabinoid Screen Urine Not Detected (Not Detect); Cocaine Screen Urine POSITIVE (Not Detect); Fentanyl, urine Not Detected (Not Detect); Opiate Screen Urine Not Detected (Not Detect); Phencyclidine Screen Urine Not Detected (Not Detect)
[2023-01-24] MEDS: Amoxicillin/Potassium Clav 875 MG TABLET PO ×2 (04:59→12:22)
[2023-01-24 05:32] VITALS: BP 131/83; PULSE 78; RESP 17; TEMP 36.7; O2SAT 99
--- NOTE | 2023-01-24 05:56 | PC.NURSE ---
Patient slept through the night, no distress observed/reported, admitting using cocaine, behavior non concerning, patient has dental infection currently treated with antibiotic, medication compliant, care consult ordered for self harm ideation, pending evaluation, will continue to monitor.
--- NOTE | 2023-01-24 07:30 | PC.NURSE ---
patient appears to remain asleep at present soon after t/w's arrival evenly walked to bathroom, maintains safe behavior, appears in no distress
--- NOTE | 2023-01-24 10:34 | MHC.CARE ---
Patient to be referred to recovery, he is denying SI/ denying hx of attempts and requesting detox.
[2023-01-24] MEDS: Ibuprofen 600 MG TABLET PO (12:22)
[2023-01-24 12:23] VITALS: BP 107/71; PULSE 70; RESP 20; TEMP 36.2; O2SAT 100
--- NOTE | 2023-01-24 14:12 | MHC.RECOVSUP ---
Addendum entered by Kenny Rose 01/24/23 15:35: Pt no longer interested in ATS at this time and plans to stay with a friend in the [place] area. Original Note: Met with pt in [facility] who is here for psychiatric and CLAUDETTE. Pt reports he made it to [place] when he last left the ED but left after a few days to go stay with his partner but then realized that was a bad idea and he has been smoking crack daily. At this time pt would like to go back to ATS. ATS bed search in process.
== END 2023-01-24 16:20 | disposition home or self-care (01) ==
PROVIDERS: Emergency Provider Internal Medicine
DX: R45.851 Suicidal ideations (principal); K04.7 Periapical abscess without sinus; F14.10 Cocaine abuse, uncomplicated; Z79.899 Other long term (current) drug therapy
CPT/HCPCS: 36415; 80053; 80307; 81001; 85025; 99284; S9485

== ENCOUNTER 2023-03-18 04:20 | Emergency (ER) | payer OTHER, SELFPAY ==
[2023-03-18 04:22] VITALS: BP 153/76; PULSE 88; RESP 16; TEMP 36.8; O2SAT 97; BMI 27.5
--- NOTE | 2023-03-18 04:53 | ED_ITS ---
HPI - Psych General Chief Complaint: Psychiatric Symptoms Stated Complaint: Crisis Time Seen by Provider: 03/18/23 04:33 Source: patient Mode of arrival: ambulatory Limitations: no limitations History of Present Illness HPI Narrative: Depression with suicidal ideation secondary to fight with his and drug use. Patient feels sad and hopeless complaint: suicidal ideation and feels depressed Onset (ago): day(s) Duration: constant Related Data Allergies Allergy/AdvReac Type Severity Reaction Status Date / Time No Known Allergies Allergy Verified 03/18/23 04:59 Review of Systems 2 Review of Systems: Yes all other systems are reviewed and are negative Neurologic: Denies Sensory deficit (Neuro) PMFSH Past Medical History Medical History COVID-19 (11/23/21) Suicidal ideation Substance abuse Social History Social History Household Members: Spouse, Family and Children Housing: Homeless Do you presently have visiting nurse or other home services: No Unable to assess alcohol history related to: Unknown Alcohol intake: current Alcohol intake frequency: a few times a week Alcohol type: hard liquor Patient Tobacco Use Status: Never used Tobacco Smoked in Last 30 Days: Yes Second Hand Smoke Exposure: No Use of substances other than those prescribed or required for medical reasons: Yes Substance Use Type: Crack/Cocaine Substance Use Frequency: Chronic Longstanding Last Used Substance: Just Prior to Admission Any prior treatment program specific to substance use: Yes Advance Directives: No Advance Directives Information Provided: Yes service: No Sexual orientation: Straight/Heterosexual Physical Exam 2 Vital Signs: Vital Signs: Last Vital Signs Temp 98.2 F 03/18/23 04:22 Pulse 88 03/18/23 04:22 Resp 16 03/18/23 06:14 BP 153/76 H 03/18/23 04:22 Pulse Ox 97 03/18/23 04:22 O2 Del Method Room Air 03/18/23 04:22 BMI result Body Mass Index 27.5 Const: Other: diffuse tattoos to head and face General: healthy appearing Nutritional Appearance: average body habitus Orientation/consciousness: oriented to person and patient oriented x3 L imitations: no limitations HEENT: Head: Yes normal to inspection Ears: external ears normal General nose exam: Normal external nose present Mouth: Normal oral and palatal mucosa present and oropharynx normal Throat: Yes posterior oropharynx normal Eyes: General: appearance normal, both eyes and all related structures Neck: Other: supple Neck: Yes normal visual inspection Chest: Chest palpation & inspection: normal inspection of the chest Resp: Auscultation: clear to auscultation bilaterally Cardio: Jugular venous distension: no JVD Rate: regular rate Rhythm: r egular rhythm Heart sounds: S1 normal heart sound present and S2 normal heart sound present GI: Inspection: Yes normal to inspection Palpation (GI): Soft to palpation, nontender and No hepatosplenomegaly present Auscultation: normal bowel sounds : General: Yes no CVA tenderness Back/Spine/Pelvis: Back: no CVA tenderness Skin: General skin exam: no rashes or lesions noted Neuro: General: oriented to person and patient oriented x3 Cranial nerves: Yes CN's II-XII intact bilaterally Motor exam (neuro): 5/5 motor strength present throughout Sensory Exam: No Sensory deficit (Neuro) Extrem: General: Yes normal to inspection Psych: Appearance: grossly normal Course Reevaluation(s) Reevaluation #1: patient medically cleared for crisis Time: 07:08 Medical Decision Making Differential Diagnosis Differential Diagnoses: The differential diagnosis associated with the presentation includes (depression, suicidal ideation, polysubstance abuse) Admission/Observation Consideration of admission/observation: Escalation of care including admission/observation considered (upon arrival patient considered for admission) Consult Healthcare Provider Management of the patient was discussed with: Behavioral Health Provider Lab Data MDM Lab Attestation statement: I reviewed the patient's lab results. (urine positive for cocaine) 03/18/23 05:26 03/18/23 05:26 Labs: Lab Results 03/18/23 03/18/23 Range/Units 05:10 05:26 WBC 6.9 (4.8-10.8) X10*3/uL RBC 4.64 (4.60-5.80) X10*6/uL Hgb 14.3 (14.0-18.0) g/dl Hct 40.6 L (42.0-52.0) % MCV 87.5 (80.0-98.0) fL MCH 30.8 (27.0-33.0) pg MCHC 35.2 (31.0-36.0) g/dl RDW 13.0 (11.0-16.0) % Plt Count 219 (160-400) X10*3/uL MPV 9.0 L (9.4-12.4) fL Immature Gran % (Auto) 0.1 (0.0-0.4) % Neut % (Auto) 61.9 (45-73) % Lymph % (Auto) 26.8 (20-40) % [place] % (Auto) 9.7 (2-11) % Eos % (Auto) 0.9 (0-4) % Baso % (Auto) 0.6 (0-2) % Lymph # (Auto) 1.9 (1.2-4.9) X10*3/uL [place] # (Auto) 0.7 (0.1-1.2) X10*3/uL Eos # (Auto) 0.1 (0.0-0.4) X10*3/uL Baso # (Auto) 0.0 (0.0-0.2) X10*3/uL Abs Immat Gran (auto) 0.01 (0.00-0.03) X10*3/uL Absolute Neuts (auto) 4.3 (2.0-8.3) x10*3/uL Absolute Nucleated RBC 0.000 (0.0-0.012) X10*3/uL Nucleated RBC % (auto) 0.0 (0.0-0.2) /100WBC Sodium 140 (135-145) mmol/L Potassium 3.5 (3.3-5.1) mmol/L Chloride 105 (96-108) mmol/L Carbon Dioxide 22 (22-29) mmol/L Anion Gap 17 (12-20) BUN 18 H (9-16) mg/dL Creatinine 0.99 (0.5-1.4) mg/dL Estim Creat Clear Calc 99.3 Estimated GFR > 60 Random Glucose 131 H (60-115) mg/dL Calcium 9.6 (8.4-10.2) mg/dL Total Bilirubin 0.9 (0.0-1.0) mg/dL AST 25 (5-37) U/L ALT 18 (0-40) U/L Alkaline Phosphatase 59 (39-117) U/L Total Protein 7.5 (6.5-8.0) g/dL Albumin 4.8 (3.5-5.0) g/dL Urine Opiates Screen Not Detected (Not Detect) Urine Fentanyl Screen Not Detected (Not Detect) Ur Barbiturates Screen Not Detected (Not Detect) Ur Phencyclidine Scrn Not Detected (Not Detect) Ur Amphetamines Screen Not Detected (Not Detect) U Benzodiazepines Scrn Not Detected (Not Detect) Urine Cocaine Screen POSITIVE H (Not Detect) U Marijuana (THC) Screen Not Detected (Not Detect) Ethyl Alcohol < 10 mg/dL Chronic Conditions Patient?s care impacted by: Other (depression and polysubstance abuse) Social Determinants Patient?s care significantly limited by Social Determinants of Health including: Alcoholism and drug addiction in family Discharge Plan Discharge Clinical Impression: Substance abuse, Major depression Patient Disposition: Still a Patient Interventions: [place]-Suicide Risk Severity Scale Last Done: 03/18/23 04:57
--- NOTE | 2023-03-18 05:00 | PC.NURSE ---
pt brought into ED bed 11 from waiting room reporting vague SI and wanting to see crisis. pt reports he section [address] last Sunday [address] court, went to sober home and left the sober home on Sunday, got into an argument with his and has been on the streets since Sunday, says he immediately resorted to smoking crack and has been since. pt calm speaking clear full sentences at time of assessment, appears sad and hopeless saying what else can i do, i just want to get better and be a father to my kid pt changed into hospital attire at this time, obtaining labs and urine sample, belongings secured by security, 1:[address] plan for pt to see CARE team.
[2023-03-18 05:31] LABS: MANUAL DIFF FLAG NO
[2023-03-18 05:32] LABS: Basophils Percent Auto 0.6 % (0-2); Eosinophils Absolute Auto 0.1 X10*3/uL (0.0-0.4); Eosinophils Percent Auto 0.9 % (0-4); Hematocrit 40.6 % (42.0-52.0); Hemoglobin 14.3 g/dl (14.0-18.0); Imm Gran Abs Auto 0.01 X10*3/uL (0.00-0.03); Imm Gran Pct Auto 0.1 % (0.0-0.4); Lymphocytes Absolute Auto 1.9 X10*3/uL (1.2-4.9); Lymphocytes Percent Auto 26.8 % (20-40); Mean Corpuscular HGB Conc 35.2 g/dl (31.0-36.0); Mean Corpuscular Hemoglobin 30.8 pg (27.0-33.0); Mean Corpuscular Volume 87.5 fL (80.0-98.0); Monocytes Absolute Auto 0.7 X10*3/uL (0.1-1.2); Monocytes Percent Auto 9.7 % (2-11); Neutrophils Absolute Auto 4.3 x10*3/uL (2.0-8.3); Neutrophils Percent Auto 61.9 % (45-73); Platelet Count 219 X10*3/uL (160-400); Red Blood Count 4.64 X10*6/uL (4.60-5.80); White Blood Count 6.9 X10*3/uL (4.8-10.8)
[2023-03-18 05:50] LABS: Alanine Aminotransferase 18 U/L (0-40); Albumin Level 4.8 g/dL (3.5-5.0); Alkaline Phosphatase 59 U/L (39-117); Anion Gap 17 (12-20); Aspartate Amino Transferase 25 U/L (5-37); Bilirubin Total 0.9 mg/dL (0.0-1.0); Blood Urea Nitrogen 18 mg/dL (9-16); Calcium 9.6 mg/dL (8.4-10.2); Carbon Dioxide 22 mmol/L (22-29); Chloride 105 mmol/L (96-108); Creatinine Clr Calc Pharmacy 99.3; Estimated Glomerular Filt Rate > 60; Glucose Random 131 mg/dL (60-115); Potassium 3.5 mmol/L (3.3-5.1); Sodium 140 mmol/L (135-145); Total Protein 7.5 g/dL (6.5-8.0)
[2023-03-18 06:04] LABS: Ethanol < 10 mg/dL
[2023-03-18 06:04] LABS: Amphetamine Screen Urine Not Detected (Not Detect); Barbiturates, Urine Not Detected (Not Detect); Benzodiazepines Screen Urine Not Detected (Not Detect); Cannabinoid Screen Urine Not Detected (Not Detect); Cocaine Screen Urine POSITIVE (Not Detect); Fentanyl, urine Not Detected (Not Detect); Opiate Screen Urine Not Detected (Not Detect); Phencyclidine Screen Urine Not Detected (Not Detect)
[2023-03-18 06:14] VITALS: RESP 16
--- NOTE | 2023-03-18 07:16 | PC.NURSE ---
patient awake, eating breakfast conversing with staff. patient observer remains in place for patient safety.
--- NOTE | 2023-03-18 07:55 | MHC.CARE ---
Patient is alert, Ox3. He reports he is seeking CLAUDETTE tx help, describing feeling low/ down on himself that he relapsed. He had recently section 35'd himself and was in a sober living. He is denying SI/ HI and does not appear to be responding to internal stimuli. He is logical, goal directed with linear thought process. He does not want to be admitted psych, reporting he does not want to take psychiatric medication. T/w reached out to [facility], where he has been in the past. Patient can call them to self refer at [phone]. Recovery team alerted to his needs.
[2023-03-18 08:03] LABS: Appearance Urine Turbid; Color Urine Dark Yellow; Glucose Urine UA Negative (Negative); Leukocyte Esterase Urine Negative (Negative); Nitrite Urine Negative (Negative); PH 5.5 (5.0-9.0); Specific Gravity - Urine >= 1.030 (1.005-1.025); UMIC TRIGGER UA YES; Urine Blood Negative (Negative); Urine Ketones Trace mg/dL (Negative); Urine Protein 30 (1+) mg/dL (Neg-Trace)
[2023-03-18 08:18] LABS: Bacteria Urine None Seen (None Seen); Hyaline Casts Urine 0-2 /LPF (0-2); RBC Urine 0-2 /HPF (0-2); WBC Urine 0-5 /HPF (0-5)
--- NOTE | 2023-03-18 09:26 | MHC.CARE ---
per automatic spreader operator, patient is on a WL at [facility].
--- NOTE | 2023-03-18 10:04 | MHC.RECOVRN ---
Addendum entered and electronically signed by Kandi Swain 03/18/23 12:56: Patient's ride is scheduled to arrive at 4-4:30pm. Notified CARE Team. DC Summary faxed. Original Note: frame nailer met with patient in [facility] Bed3 for Addiction Medicine consult for CLAUDETTE. Upon entering the room, he was sleeping. Multiple attempts to wake him verbally then he awoke to touch. Once awake, he is conversing appropriately. He came into the ER originally for crisis d/t SI without a plan. Patient reports using crack IV daily- unable to specify amount. He reports I dunno it's just what I do all day every day. Patient reports his last use was yesterday but unable to recall what time. Patient reports feeling tired, otherwise asymptomatic for withdrawal symptoms. He wants to go to ATS program- has been previously. Unable to recall when. Bed secured at [facility] in [place]- patient is agreeable to this. Transportation is being scheduled by [facility]. They will need the discharge summary faxed. They will call frame nailer line if before 2pm, main ER line with tentative machine operator picker time if after. Discussed with Naye Lezama APRN.
[2023-03-18 13:49] VITALS: RESP 18
== END 2023-03-18 14:01 | disposition home or self-care (01) ==
PROVIDERS: Emergency Provider Emergency Medicine
DX: F33.1 Major depressive disorder, recurrent, moderate (principal); R45.851 Suicidal ideations; F14.10 Cocaine abuse, uncomplicated; Z79.899 Other long term (current) drug therapy; Z71.51 Drug abuse counseling and surveillance of drug abuser
CPT/HCPCS: 36415; 80053; 80307; 81001; 81003; 85025; 99285

== ENCOUNTER 2023-04-27 01:17 | Emergency (ER) | payer OTHER, SELFPAY ==
[2023-04-27 01:24] VITALS: BP 148/88; PULSE 89; RESP 18; TEMP 36.4; O2SAT 97; BMI 24.4
--- NOTE | 2023-04-27 02:10 | ED_ITS ---
HPI - Psych General Chief Complaint: Psychiatric Symptoms Stated Complaint: Crisis/Bilateral feet pain Time Seen by Provider: 04/27/23 02:05 Source: patient Mode of arrival: ambulatory Limitations: no limitations History of Present Illness HPI Narrative: Patient comes to the emergency room complaining of substance abuse, stating ?I just can not do it anymore?. Patient complaining of vague SI, no plan. Denies homicidal ideation Related Data Home Medications Medication Instructions Recorded Confirmed No Known Home Meds 03/18/23 03/18/23 Allergies Allergy/AdvReac Type Severity Reaction Status Date / Time No Known Allergies Allergy Verified 04/27/23 01:23 Review of Systems Review of Systems: Constitutional : No Weight loss, No Fever, No Chills, No Night Sweats, No Fatigue, No Malaise ENT/Mouth : No Hearing loss, No Ear Pain, No Nasal Congestion, No Sinus Pain, No Hoarseness, No sore throat, No Rhinorrhea, No Swallowing Difficulty Eyes: No Eye Pain, No Swelling, No Redness, No Foreign Body, No Discharge, No Vision Changes Cardiovascular : No Chest Pain, No SOB, No Dyspnea on Exertion, No Orthopnea, No Edema, No Palpitations Respiratory : No Cough, No Sputum, No Wheezing, No Smoke Exposure, No Dyspnea Gastrointestinal : No Nausea, No Vomiting, No Diarrhea, No Constipation, No abdominal Pain, No Hematochezia, No Melena Genitourinary : no irregular bleeding, No Dysuria, No Urinary Frequency, No Hematuria, No Urinary Incontinence, No Urgency, No Flank Pain, No Urinary Flow Changes, No Hesitancy Musculoskeletal : No joint pain, No Myalgias, No Joint Swelling Skin : No Skin Lesions, No rash Neuro : No Weakness, No Numbness, No Paresthesias, No Loss of Consciousness, No Dizziness, No Headache Psych : No Anxiety/Panic, being of depression and SI/HI/AH/VH, admits to drug abuse Heme/Lymph: No Bruising, No Bleeding,No Lymphadenopathy Endocrine : No Polyuria, No Polydipsia, No Temperature Intolerance PMFSH Past Medical History Medical History COVID-19 (11/23/21) Suicidal ideation Substance abuse Social History Social History Household Members: Spouse, Family and Children Housing: Homeless Do you presently have visiting nurse or other home services: No Unable to assess alcohol history related to: Unknown Alcohol intake: current Alcohol intake frequency: a few times a week Alcohol type: hard liquor Patient Tobacco Use Status: Never used Tobacco Second Hand Smoke Exposure: No Substance Use Type: Crack/Cocaine Advance Directives: No Advance Directives Information Provided: No service: No Sexual orientation: Straight/Heterosexual Physical Exam Vital Signs: Vital Signs: Last Vital Signs Temp 97.6 F 04/27/23 01:24 Pulse 89 04/27/23 01:24 Resp 18 04/27/23 01:24 BP 148/88 H 04/27/23 01:24 Pulse Ox 97 04/27/23 01:24 O2 Del Method Room Air 04/27/23 01:24 BMI result Body Mass Index 24.4 Const: Other: Appearance: Alert. Oriented X3. No acute distress. Eyes: Pupils equal, round and reactive to light. ENT: Pharynx normal. Neck: Normal inspection. Neck supple. No lymph nodes noted. No crepitus CVS: Normal heart rate and rhythm. Pulses normal. Normal S1 and S2 Respiratory: No respiratory distress. Breath sounds normal. No Wheezing. No rales Abdomen: Soft and nontender. No rigidity. No distention. Skin: Skin warm and dry. Normal skin color. Normal skin turgor. Extremities: No lower extremity edema. No Lacerations. No Rash Neuro: Oriented X 3. No motor deficit. No sensory deficit. Moving all extremities. No slurred speech. CN 2 through 12 grossly intact Psych: calm, cooperative, normal affect Course Course Course Narrative: -all of patient's labs pending -care team consult pending -patient has vague SI, no intention of leaving, patient came voluntarily -Physician observation started at 02:00 Medical Decision Making Differential Diagnosis Differential Diagnoses: The differential diagnosis associated with the presentation includes (Anxiety, depression, homelessness) Admission/Observation Consideration of admission/observation: Escalation of care including admission/observation considered (Patient is under physician observation, disposition pending on care team evaluation) Discharge Plan Discharge Clinical Impression: Substance abuse, Depression Patient Disposition: Still a Patient Prescriptions: No Action No Known Home Meds Interventions: [place]-Suicide Risk Severity Scale Last Done: 04/27/23 01:44
[2023-04-27 09:38] LABS: MANUAL DIFF FLAG NO
[2023-04-27 09:40] LABS: Basophils Absolute Auto 0.1 X10*3/uL (0.0-0.2); Basophils Percent Auto 0.9 % (0-2); Eosinophils Absolute Auto 0.4 X10*3/uL (0.0-0.4); Eosinophils Percent Auto 5.3 % (0-4); Hematocrit 44.9 % (42.0-52.0); Hemoglobin 15.1 g/dl (14.0-18.0); Imm Gran Abs Auto 0.01 X10*3/uL (0.00-0.03); Imm Gran Pct Auto 0.1 % (0.0-0.4); Lymphocytes Absolute Auto 2.7 X10*3/uL (1.2-4.9); Lymphocytes Percent Auto 39.7 % (20-40); Mean Corpuscular HGB Conc 33.6 g/dl (31.0-36.0); Mean Corpuscular Hemoglobin 30.4 pg (27.0-33.0); Mean Corpuscular Volume 90.3 fL (80.0-98.0); Mean Platelet Volume 8.8 fL (9.4-12.4); Monocytes Absolute Auto 0.5 X10*3/uL (0.1-1.2); Monocytes Percent Auto 6.8 % (2-11); Neutrophils Absolute Auto 3.2 x10*3/uL (2.0-8.3); Neutrophils Percent Auto 47.2 % (45-73); Platelet Count 267 X10*3/uL (160-400); Red Blood Count 4.97 X10*6/uL (4.60-5.80); Red Cell Distribution Width 12.7 % (11.0-16.0); White Blood Count 6.8 X10*3/uL (4.8-10.8)
[2023-04-27 09:57] LABS: Anion Gap 10 (12-20); Blood Urea Nitrogen 10 mg/dL (9-16); Calcium 9.2 mg/dL (8.4-10.2); Carbon Dioxide 27 mmol/L (22-29); Chloride 109 mmol/L (96-108); Creatinine Clr Calc Pharmacy 127.7; Estimated Glomerular Filt Rate > 60; Ethanol < 10 mg/dL; Glucose Random 97 mg/dL (60-115); Potassium 4.2 mmol/L (3.3-5.1); Sodium 142 mmol/L (135-145)
--- NOTE | 2023-04-27 12:14 | PC.NURSE ---
seen by care team, oob ambualting on unit gait ezequiel, good po intake for breakfast. provided with snacks and fluids
--- NOTE | 2023-04-27 12:19 | PC.NURSE ---
Patient reports bilateral foot pain, provider notified
[2023-04-27 13:01] LABS: Appearance Urine Clear; Color Urine Yellow; Glucose Urine UA Negative (Negative); Leukocyte Esterase Urine Trace (Negative); Nitrite Urine Negative (Negative); Specific Gravity - Urine 1.015 (1.005-1.025); UMIC TRIGGER UACC YES; Urine Blood Negative (Negative); Urine Ketones Negative (Negative); Urine Protein Negative (Neg-Trace)
[2023-04-27 13:03] LABS: Bacteria Urine None Seen (None Seen); Hyaline Casts Urine 0-2 /LPF (0-2); RBC Urine 0-2 /HPF (0-2); Squamous Epithelial Cell Urine 0-2 /HPF (0-2); WBC Urine 0-5 /HPF (0-5)
[2023-04-27 13:09] LABS: Amphetamine Screen Urine Not Detected (Not Detect); Barbiturates, Urine Not Detected (Not Detect); Benzodiazepines Screen Urine Not Detected (Not Detect); Cannabinoid Screen Urine Not Detected (Not Detect); Cocaine Screen Urine POSITIVE (Not Detect); Fentanyl, urine Not Detected (Not Detect); Opiate Screen Urine Not Detected (Not Detect); Phencyclidine Screen Urine Not Detected (Not Detect)
--- NOTE | 2023-04-27 16:09 | MHC.RECOVSUP ---
Met with pt in [facility] who is here for [facility]. Pt informs he has been using a lot of alcohol and cocain but is unable to provide an amount. Pt has was last in treatment several months ago but cannot remember when or where. Pt would like ATS at this time and is currently on [facility] wait list to follow up in the morning.
--- NOTE | 2023-04-27 19:21 | PC.NURSE ---
patient appears to remain at rest at present respirations are even and unlabored patient appears in no distress
[2023-04-27] MEDS: Ibuprofen 600 MG TABLET PO (19:44)
[2023-04-27] MEDS: Amoxicillin 500 MG CAPSULE PO (19:47)
[2023-04-27 22:50] VITALS: BP 130/93; PULSE 100; RESP 16; TEMP 36.7; O2SAT 97
[2023-04-28] MEDS: Ibuprofen 600 MG TABLET PO ×3 (05:57→23:22)
[2023-04-28] MEDS: hydrOXYzine HCL 50 MG TABLET PO ×3 (05:57→23:23)
--- NOTE | 2023-04-28 06:18 | PC.NURSE ---
client verbally berates staff saying hes unable to wait until 0700, uses bad language towards them.
--- NOTE | 2023-04-28 08:51 | MHC.RECOVRN ---
Addendum entered and electronically signed by Kandi Swain 04/28/23 11:44: RN met with patient in [facility] who was sleeping heavily. Woke up to touch, not sound. Patient denies s/s of withdrawal. Patient states I'm hungry. Provided update regarding wait list. Patient open to other facilities if needed. Second call to [facility], patient remains on waitlist. Call to [facility], no beds available and waitlist is lengthy at the moment. Case discussed with CAMERON Yancey. Patient will need to be discharged and wait for call from facility 'at home'. Notified Care Team. Notified ED provider. Original Note: Spoke with Carmen at [facility] [phone] for update on bed search. She confirms no bed available yet, but patient is on waitlist. Advised her to call main ER line and ask to speak w/BH pod or Care Team if/when the bed is available.
[2023-04-28] MEDS: Amoxicillin 500 MG CAPSULE PO ×3 (10:04→20:45)
[2023-04-28 15:31] VITALS: RESP 16
--- NOTE | 2023-04-28 15:32 | PC.NURSE ---
Kamran was in his room resting in bed for most of the shift. MD went in to wake him up to discuss discharge as he was wait-listed for a detox bed. Once the provider told Kamran he would be asked to discharge to wait for the bed at home he began to yell at the physician stating don't wake me up like that and verbalizing he was homeless and had nowhere to go and if they made him leave he would kill himself . Kamran will not be seen by CARE team. No other behavioral concerns. Appetite good.
--- NOTE | 2023-04-28 15:39 | PC.NURSE ---
Kamran reports 6/10 pain in his teeth. Ibuprofen given and hydroxyzine for anxiety.
--- NOTE | 2023-04-28 19:18 | PC.NURSE ---
patient appears to remain at rest at present respirations are even and unlabored patient appears in no distress
[2023-04-29] MEDS: Ibuprofen 600 MG TABLET PO (09:14)
[2023-04-29] MEDS: Amoxicillin 500 MG CAPSULE PO (09:14)
[2023-04-29] MEDS: hydrOXYzine HCL 50 MG TABLET PO (09:14)
--- NOTE | 2023-04-29 10:21 | MHC.CARE ---
This card writer hand attempts to meet with patient, inquiring into a place we can lyft him, offering [address] or the [facility] Living room He repeatedly insists that t/w needs to get him a place to stay, somewhere he can go. When informed that this request is beyong the scope of the CARE team, he makes a suicidal statement. This appears to be in the context of having no current place to go, historically he has articualted protective factors including his son, and has been motivated and self directed in his attempts to obtain detox/ [facility] LOC. He is alert, orieted x3, presents with no signs/ sx of psychosis. He is agitated and repeatedly reminds this card writer hand that whatever he does is this card writer hand's fault. He is again offered a Lyft to [facility], he does not engage and becomes more agitated. This card writer hand encourages him to continue to seek [facility] LOC on his own. Spoke with MD Lopez who agrees to discharge patient, who has been here nearly 48 hours, and has been seen eating, sleeping, hydrating.
--- NOTE | 2023-04-29 10:30 | PC.NURSE ---
Kamran in bed for most of morning. Compliant with medications and appetite good, eating breakfast and multiple snacks. Assessed by recovery team, CARE team and MD. Stated to multiple people to get out of his room or get out of my face then stated you can't discharge me I'm homeless and I have no where to go he then stated If you kick me out and I have no where to go I'll kill myself . Kamran then threw a remote control and displayed increasing agitation. Cursing, stating he would fuck people up and curse at staff when redirected. Security called. PT currently changing in bathroom. Denies any plan for SI.
--- NOTE | 2023-04-29 12:28 | MHC.RECOVRN ---
r&d engineer met with patient at bedside in [facility]. He is sleeping, easily awoken to voice. Denies any s/s of withdrawal at this time. Provided him with update that he is still on a waitlist at [facility] (confirmed this AM). RN offered to call other programs. Patient refusing [facility]. He requested [facility] or [facility]. Calls placed to both. [facility] stated they had no beds available and a really long wait . [facility] stated there is a note from senior leadership in his record there that states he will not (ever) be accepted back to their ATS program. Patient was made aware that he may need to be discharged from [facility] ER and wait for a call for an available bed elsewhere. RN offered supports such as shelters, transportation. Patient became agitated stating if I make him leave he is going to kill himself. He would not answer me when I asked if he had a plan or the means to act out his plan. He got more agitated and told me to leave his room and go find him a bed elsewhere. Case discussed with CARE Team, RN, and ER Provider. Plan to discharge however may need additional assistance from dtp operator and security as patient was adamantly refusing to leave. Discussed with Naye Lezama APRN. Later notified patient was discharged and left the ED.
== END 2023-04-29 10:35 | disposition home or self-care (01) ==
PROVIDERS: Student in an Organized Health Care Education/Training Program; Emergency Provider Emergency Medicine
DX: F33.1 Major depressive disorder, recurrent, moderate (principal); F14.10 Cocaine abuse, uncomplicated; M79.671 Pain in right foot; M79.672 Pain in left foot; Z79.899 Other long term (current) drug therapy
CPT/HCPCS: 36415; 80048; 80307; 81001; 81003; 85025; 99284; 99285; S9485

== ENCOUNTER 2023-05-13 01:00 | Emergency (ER) | payer OTHER, SELFPAY ==
[2023-05-13 01:20] VITALS: BP 144/90; PULSE 98; RESP 18; TEMP 36.4; O2SAT 95; BMI 25.3
[2023-05-13 02:05] VITALS: BP 121/59; PULSE 72; RESP 16; TEMP 37.3
[2023-05-13 02:29] VITALS: BP 130/77; PULSE 91; RESP 16; TEMP 36.6; O2SAT 98
--- NOTE | 2023-05-13 02:35 | ED.PSYCH ---
HPI - Psych General Chief Complaint: Psychiatric Symptoms Stated Complaint: foot pain Time Seen by Provider: 05/13/23 02:27 Source: patient Mode of arrival: ambulatory Limitations: no limitations History of Present Illness HPI Narrative: Patient with history of depression substance abuse homeless been to hospital multiple times last ER visit was 04/27/2023 was in detox program self checked out yesterday and started using cocaine again now feels depressed and suicidal with no plan initially came for foot pain because of standing all the time later he started complaining of depression and suicidal ideation with substance abuse Related Data Home Medications Medication Instructions Recorded Confirmed No Known Home Meds 03/18/23 04/27/23 Allergies Allergy/AdvReac Type Severity Reaction Status Date / Time No Known Allergies Allergy Verified 04/27/23 01:23 Review of Systems Review of Systems: Yes all other systems are reviewed and are negative PMFSH Past Medical History Medical History COVID-19 (11/23/21) Suicidal ideation Substance abuse Social History Social History Household Members: Spouse, Family and Children Housing: Homeless Do you presently have visiting nurse or other home services: No Unable to assess alcohol history related to: Unknown Alcohol intake: current Alcohol intake frequency: a few times a week Alcohol type: hard liquor Patient Tobacco Use Status: Never used Tobacco Smoked in Last 30 Days: Yes Second Hand Smoke Exposure: No Use of substances other than those prescribed or required for medical reasons: Yes Substance Use Type: Crack/Cocaine Advance Directives: No Advance Directives Information Provided: No service: No Sexual orientation: Straight/Heterosexual Physical Exam Vital Signs: Vital Signs: Last Vital Signs Temp 97.8 F 05/13/23 02:29 Pulse 91 05/13/23 02:29 Resp 16 05/13/23 02:29 BP 130/77 05/13/23 02:29 Pulse Ox 98 05/13/23 02:29 O2 Del Method Room Air 05/13/23 02:29 BMI result Body Mass Index 25.3 Appearance: Alert. Oriented X3. No acute distress. Eyes: PERRLA, No Nystagmus ENT: Pharynx normal. Oral Mucosa moist Neck: Normal inspection. Neck supple. CVS: Normal heart rate and rhythm. Pulses normal. Respiratory: No respiratory distress. Equal air entry bilateral, no wheezing/rales/rhonchi Abdomen: Soft and nontender. Bowel sounds are present, no mass palpable, no CVA tenderness Skin: Skin warm and dry. Normal skin color. Normal skin turgor. Extremities: No lower extremity edema. No calf tenderness calluses at the sole of the foot bilateral no open wounds psych: Feel depressed no current suicidal ideation no hallucination/ delusion Neuro: Oriented X 3. No motor deficit. No sensory deficit.No cerebellar signs , cranial nerves II-XII intact Medical Decision Making Medical Decision Making [facility] Narrative: Patient homeless With cocaine abuse with frequent detox visits feels suicidal at this time will get care team evaluation Lab Data [facility] Lab Attestation statement: I reviewed the patient's lab results. 05/13/23 03:22 05/13/23 03:22 Labs: Lab Results 05/13/23 Range/Units 03:22 WBC 8.0 (4.8-10.8) X10*3/uL RBC 4.73 (4.60-5.80) X10*6/uL Hgb 14.6 (14.0-18.0) g/dl Hct 41.9 L (42.0-52.0) % MCV 88.6 (80.0-98.0) fL MCH 30.9 (27.0-33.0) pg MCHC 34.8 (31.0-36.0) g/dl RDW 12.5 (11.0-16.0) % Plt Count 230 (160-400) X10*3/uL MPV 8.6 L (9.4-12.4) fL Immature Gran % (Auto) 0.4 (0.0-0.4) % Neut % (Auto) 62.7 (45-73) % Lymph % (Auto) 26.2 (20-40) % Kendall % (Auto) 6.8 (2-11) % Eos % (Auto) 3.3 (0-4) % Baso % (Auto) 0.6 (0-2) % Lymph # (Auto) 2.1 (1.2-4.9) X10*3/uL Kendall # (Auto) 0.5 (0.1-1.2) X10*3/uL Eos # (Auto) 0.3 (0.0-0.4) X10*3/uL Baso # (Auto) 0.1 (0.0-0.2) X10*3/uL Abs Immat Gran (auto) 0.03 (0.00-0.03) X10*3/uL Absolute Neuts (auto) 5.0 (2.0-8.3) x10*3/uL Absolute Nucleated RBC 0.000 (0.0-0.012) X10*3/uL Nucleated RBC % (auto) 0.0 (0.0-0.2) /100WBC Sodium 141 (135-145) mmol/L Potassium 3.9 (3.3-5.1) mmol/L Chloride 103 (96-108) mmol/L Carbon Dioxide 27 (22-29) mmol/L Anion Gap 15 (12-20) BUN 15 (9-16) mg/dL Creatinine 0.85 (0.5-1.4) mg/dL Estim Creat Clear Calc 115.7 Estimated GFR > 60 Random Glucose 119 H (60-115) mg/dL Calcium 9.6 (8.4-10.2) mg/dL Total Bilirubin 0.3 (0.0-1.0) mg/dL AST 36 (5-37) U/L ALT 44 H (0-40) U/L Alkaline Phosphatase 64 (39-117) U/L Total Protein 7.1 (6.5-8.0) g/dL Albumin 4.3 (3.5-5.0) g/dL Ethyl Alcohol < 10 mg/dL Discharge Plan Discharge Clinical Impression: Cocaine abuse, Suicidal ideation, Depression Patient Disposition: Still a Patient Prescriptions: No Action No Known Home Meds
[2023-05-13 03:25] LABS: MANUAL DIFF FLAG NO
[2023-05-13 03:26] LABS: Basophils Absolute Auto 0.1 X10*3/uL (0.0-0.2); Basophils Percent Auto 0.6 % (0-2); Eosinophils Absolute Auto 0.3 X10*3/uL (0.0-0.4); Eosinophils Percent Auto 3.3 % (0-4); Hematocrit 41.9 % (42.0-52.0); Hemoglobin 14.6 g/dl (14.0-18.0); Imm Gran Abs Auto 0.03 X10*3/uL (0.00-0.03); Imm Gran Pct Auto 0.4 % (0.0-0.4); Lymphocytes Absolute Auto 2.1 X10*3/uL (1.2-4.9); Lymphocytes Percent Auto 26.2 % (20-40); Mean Corpuscular HGB Conc 34.8 g/dl (31.0-36.0); Mean Corpuscular Hemoglobin 30.9 pg (27.0-33.0); Mean Corpuscular Volume 88.6 fL (80.0-98.0); Mean Platelet Volume 8.6 fL (9.4-12.4); Monocytes Absolute Auto 0.5 X10*3/uL (0.1-1.2); Monocytes Percent Auto 6.8 % (2-11); Neutrophils Percent Auto 62.7 % (45-73); Platelet Count 230 X10*3/uL (160-400); Red Blood Count 4.73 X10*6/uL (4.60-5.80); Red Cell Distribution Width 12.5 % (11.0-16.0)
[2023-05-13 03:44] LABS: Alanine Aminotransferase 44 U/L (0-40); Albumin Level 4.3 g/dL (3.5-5.0); Alkaline Phosphatase 64 U/L (39-117); Anion Gap 15 (12-20); Aspartate Amino Transferase 36 U/L (5-37); Bilirubin Total 0.3 mg/dL (0.0-1.0); Blood Urea Nitrogen 15 mg/dL (9-16); Calcium 9.6 mg/dL (8.4-10.2); Carbon Dioxide 27 mmol/L (22-29); Chloride 103 mmol/L (96-108); Creatinine Clr Calc Pharmacy 115.7; Estimated Glomerular Filt Rate > 60; Ethanol < 10 mg/dL; Glucose Random 119 mg/dL (60-115); Potassium 3.9 mmol/L (3.3-5.1); Sodium 141 mmol/L (135-145); Total Protein 7.1 g/dL (6.5-8.0)
--- NOTE | 2023-05-13 09:17 | MHC.RECOVSUP ---
Addendum entered by Kenny Rose 05/13/23 12:52: Pt informs he is not interested in ATS at this time and would like to focus on his mental health, stating he does not feel safe and that he might hurt himself but has no direct plans yet. Care team informed to see pt. Original Note: Met with pt in [facility] who is here for psychiatric needs. Pt informs he has been taking an undisclosed amount of crack and alcohol a day since he got out of ATS 3 days ago but was unsure where it was. Pt informs he is unsure what he wants at this time and would like time to think about it after making a phone call. T/W will follow up with pt.
[2023-05-13 09:41] VITALS: BP 134/86; PULSE 73; RESP 16; TEMP 36.2; O2SAT 97
[2023-05-13 09:57] LABS: Amphetamine Screen Urine Not Detected (Not Detect); Barbiturates, Urine Not Detected (Not Detect); Benzodiazepines Screen Urine Not Detected (Not Detect); Cannabinoid Screen Urine Not Detected (Not Detect); Cocaine Screen Urine POSITIVE (Not Detect); Fentanyl, urine Not Detected (Not Detect); Opiate Screen Urine Not Detected (Not Detect); Phencyclidine Screen Urine Not Detected (Not Detect)
[2023-05-13] MEDS: Ibuprofen 400 MG TABLET PO (11:49)
--- NOTE | 2023-05-13 19:12 | PC.NURSE ---
patient appears to remain at rest at present respirations are even and unlabored patient appears in no distress
--- NOTE | 2023-05-13 20:51 | MHC.CARE ---
Pt accepted to [facility] [id number] 05/14/23 [address], [place] [address] Dr[address] Rivas
[2023-05-14 06:48] VITALS: BP 128/72; PULSE 68; RESP 16; TEMP 36.6; O2SAT 94
--- NOTE | 2023-05-14 08:12 | PC.NURSE ---
verified with Yuki George regarding pts transport to their facility today 05/14. informed of delay of transport and facility requested [facility] to call them when pt is en route -
== END 2023-05-14 09:13 | disposition other institution (70) ==
PROVIDERS: Emergency Provider Internal Medicine
DX: F32.A Depression, unspecified (principal); R45.851 Suicidal ideations; F14.10 Cocaine abuse, uncomplicated; Z59.02 Unsheltered homelessness
CPT/HCPCS: 36415; 80053; 80307; 85025; 99285; S9485

== ENCOUNTER 2023-05-18 21:19 | Emergency (ER) | payer OTHER, SELFPAY ==
[2023-05-18 21:28] VITALS: BP 133/78; BP 142/82; PULSE 106; PULSE 118; RESP 14; TEMP 37.1; O2SAT 96; O2SAT 97; BMI 25.5
--- NOTE | 2023-05-18 21:33 | ECG_ITS ---
Test Reason : CP Blood Pressure : / mmHG Vent. Rate : 104 BPM Atrial Rate : 104 BPM P-R Int : 140 ms QRS Dur : 090 ms QT Int : 350 ms P-R-T Axes : 067 076 036 degrees QTc Int : 460 ms Sinus tachycardia Otherwise normal ECG When compared with ECG of 14-JAN-2023 21:45, No significant change was found Referred By: Generic ED Physician Electronically Signed By:ELIZABETH GREEN
[2023-05-18 22:01] LABS: MANUAL DIFF FLAG NO
[2023-05-18 22:10] LABS: Basophils Percent Auto 0.4 % (0-2); Eosinophils Absolute Auto 0.1 X10*3/uL (0.0-0.4); Eosinophils Percent Auto 1.2 % (0-4); Imm Gran Abs Auto 0.03 X10*3/uL (0.00-0.03); Imm Gran Pct Auto 0.3 % (0.0-0.4); Lymphocytes Absolute Auto 1.3 X10*3/uL (1.2-4.9); Lymphocytes Percent Auto 12.2 % (20-40); Mean Corpuscular Hemoglobin 30.3 pg (27.0-33.0); Mean Corpuscular Volume 86.6 fL (80.0-98.0); Mean Platelet Volume 8.7 fL (9.4-12.4); Monocytes Absolute Auto 0.7 X10*3/uL (0.1-1.2); Monocytes Percent Auto 6.4 % (2-11); Neutrophils Absolute Auto 8.6 x10*3/uL (2.0-8.3); Neutrophils Percent Auto 79.5 % (45-73); Platelet Count 265 X10*3/uL (160-400); Red Blood Count 4.62 X10*6/uL (4.60-5.80); Red Cell Distribution Width 12.7 % (11.0-16.0); White Blood Count 10.8 X10*3/uL (4.8-10.8)
[2023-05-18 22:13] LABS: Anion Gap 16 (12-20); Blood Urea Nitrogen 15 mg/dL (9-16); Calcium 10.1 mg/dL (8.4-10.2); Carbon Dioxide 26 mmol/L (22-29); Chloride 102 mmol/L (96-108); Creatinine Clr Calc Pharmacy 94.5; Estimated Glomerular Filt Rate > 60; Glucose Random 119 mg/dL (60-115); Potassium 3.8 mmol/L (3.3-5.1); Sodium 140 mmol/L (135-145)
[2023-05-18 22:21] LABS: Troponin-I High Sensitivity 5.5 ng/L (<3.5-35.0)
--- NOTE | 2023-05-18 23:36 | PC.NURSE ---
Pt no longer visualized in ED stretcher.
[2023-05-19 01:30] LABS: Ethanol < 10 mg/dL
== END 2023-05-18 23:38 | disposition left against medical advice (07) ==
PROVIDERS: Emergency Provider Emergency Medicine
DX: R07.9 Chest pain, unspecified (principal); R06.02 Shortness of breath; F41.9 Anxiety disorder, unspecified; F14.90 Cocaine use, unspecified, uncomplicated
CPT/HCPCS: 36415; 80048; 80307; 84484; 85025; 93005; 99283

== ENCOUNTER → 2023-05-18 21:33 | Outpatient (BNV) | payer OTHER, SELFPAY | PROVIDERS: Emergency Provider Emergency Medicine; Visit Provider Internal Medicine | DX: R06.02 Shortness of breath (principal) | CPT/HCPCS: 93010 ==

== ENCOUNTER 2023-05-19 00:34 | Emergency (ER) | payer OTHER, SELFPAY ==
--- NOTE | ~2023-05-19 | XR_ITS ---
EXAMINATION: XR CHEST CLINICAL INFORMATION: Fever. COMPARISON: 09/06/2021. TECHNIQUE: Frontal view of the chest was obtained. FINDINGS: No significant abnormality is noted involving the heart, lungs, mediastinum, bony thorax or soft tissues. XR/XR chest 1V IMPRESSION: Unremarkable examination.
[2023-05-19 00:37] VITALS: BP 142/87; PULSE 90; RESP 18; TEMP 36.8; O2SAT 97; BMI 25.8
--- NOTE | 2023-05-19 00:56 | MHC.EDTECH ---
patient brought into triage area, Urine,and Covid were obtained and sent to lab,
[2023-05-19 01:03] LABS: Appearance Urine Clear; Color Urine Yellow; Glucose Urine UA Negative (Negative); Leukocyte Esterase Urine Negative (Negative); Nitrite Urine Negative (Negative); PH 5.5 (5.0-9.0); Urine Blood Negative (Negative); Urine Ketones Negative (Negative); Urine Protein Negative (Neg-Trace)
[2023-05-19 01:05] LABS: Bacteria Urine None Seen (None Seen); Hyaline Casts Urine 0-2 /LPF (0-2); RBC Urine 0-2 /HPF (0-2); Squamous Epithelial Cell Urine 0-2 /HPF (0-2); WBC Urine 0-5 /HPF (0-5)
[2023-05-19 01:13] LABS: Amphetamine Screen Urine Not Detected (Not Detect); Barbiturates, Urine Not Detected (Not Detect); Benzodiazepines Screen Urine Not Detected (Not Detect); Cannabinoid Screen Urine Not Detected (Not Detect); Cocaine Screen Urine POSITIVE (Not Detect); Fentanyl, urine Not Detected (Not Detect); Opiate Screen Urine Not Detected (Not Detect); Phencyclidine Screen Urine Not Detected (Not Detect)
[2023-05-19 01:14] LABS: IDNOW Serial# 6674DD1D
[2023-05-19 01:15] LABS: COVID-19 Test Negative (Negative)
--- NOTE | 2023-05-19 01:15 | ED.GENADULT ---
HPI - General Adult General Chief complaint: Psychiatric Symptoms Stated complaint: Crisis Time Seen by Provider: 05/19/23 01:15 Source: patient and RN notes reviewed Limitations: no limitations History of Present Illness HPI narrative: 42-year-old male with a history of crack cocaine use presents to the emergency department complaining of suicidal ideation. Patient does not have a specific plan at this time. He reports that he is tired of using crack cocaine and that is taking over me?. He denies any homicidal ideation. No auditory or visual hallucinations. He currently has no physical complaints. Of note, the patient was actually presented to the emergency department early this afternoon with complaints of chest pain. Patient states that that has since resolved and he attributed it to anxiety and depression. He smokes tobacco. Denies any alcohol use. Patient is otherwise feeling well. Patient was recently at a dual diagnosis program however left early before completing. Related Data Home Medications Medication Instructions Recorded Confirmed baclofen 10 mg tablet 10 mg PO TID 05/19/23 05/19/23 diphenhydramine HCl 50 mg capsule 50 mg PO BEDTIME 05/19/23 05/19/23 (Banophen) gabapentin 300 mg capsule 300 mg PO TID 05/19/23 05/19/23 hydroxyzine pamoate 50 mg capsule 50 mg PO TID 05/19/23 05/19/23 ibuprofen 800 mg tablet 800 mg PO Q6-8H PRN pain 05/19/23 05/19/23 melatonin 3 mg tablet 3 mg PO BEDTIME 05/19/23 05/19/23 Previous Rx's Medication Instructions Recorded amoxicillin 875 mg-potassium 1 tab PO BID #12 tabs 05/20/23 clavulanate 125 mg tablet Allergies Allergy/AdvReac Type Severity Reaction Status Date / Time No Known Allergies Allergy Verified 05/19/23 00:42 Review of Systems Constitutional: Constitutional: Denies chills, Denies fever(s) and Denies headache(s) Eyes: Eyes: Denies change in vision and Denies other (No redness.) ENT: Denies headache(s), Denies nasal congestion, Denies nasal discharge, Denies neck pain and Denies sore throat Cardiovascular: Cardiovascular: Denies chest pain, Denies palpitations, Denies dyspnea, Denies dyspnea on exertion and Denies orthopnea Respiratory: Respiratory: Denies cough, Denies dyspnea and Denies dyspnea on exertion Gastrointestinal: Gastrointestinal: Denies abdominal pain, Denies melena, Denies hematochezia, Denies diarrhea, Denies nausea and Denies vomiting Genitourinary: Genitourinary: Denies difficulty urinating, Denies dysuria and Denies urinary urgency Musculoskeletal: Musculoskeletal: Denies back pain, Denies muscle weakness, Denies neck pain and Denies numbness Integumentary/Breasts: Skin/Breast: Denies rash Neurologic: Denies headache(s), Denies focal weakness and Denies numbness Psychiatric: Psychiatric: Reports anxiety, Reports depression and Reports hopelessness Endocrine: Endocrine: Denies palpitations PMFSH Past Medical History Medical History COVID-19 (11/23/21) Suicidal ideation Substance abuse Social History Social History Household Members: Spouse, Family and Children Housing: Homeless Do you presently have visiting nurse or other home services: No Unable to assess alcohol history related to: Unknown Alcohol intake: current Alcohol intake frequency: a few times a week Alcohol type: hard liquor Patient Tobacco Use Status: Never used Tobacco Second Hand Smoke Exposure: No Substance Use Type: Crack/Cocaine Advance Directives: No Advance Directives Information Provided: Yes Healthcare Proxy: No Guardian: No service: No Sexual orientation: Straight/Heterosexual Physical Exam ED Vital Signs: Vital Signs - 24 hr 05/19/23 14:45 05/19/23 21:23 05/20/23 00:00 Temperature 98.4 F 102.2 F H Pulse Rate 107 H 104 H Respiratory Rate 16 18 18 Blood Pressure 142/62 H 117/77 Pulse Oximetry 98 97 Oxygen Delivery Method Room Air Room Air 05/20/23 01:08 05/20/23 01:10 05/20/23 02:20 Temperature 102.8 F H 102.8 F H 99.7 F Pulse Rate 83 Respiratory Rate 16 Blood Pressure 118/63 Pulse Oximetry Oxygen Delivery Method Room Air 05/20/23 05:45 Temperature 98.0 F Pulse Rate 60 Respiratory Rate 16 Blood Pressure 115/67 Pulse Oximetry 98 Oxygen Delivery Method Room Air BMI result Body Mass Index 25.8 Const General: alert and awake Resp Auscultation: clear to auscultation bilaterally Cardio Rate: regular rate Rhythm: regular rhythm Psych Affect: Sad affect present Attitude: cooperative Thought content: Suicidality present, no homicidality, no delusions, no hallucinations and Depressive thoughts present Course Course Course Narrative: Physician observation continued. VS stable, no acute events pending disposition 411pm. Physician observation continued. VS stable, no acute events overnight inpatient bed search 759am 05/20/23 cleared by CARE team stable for DC 1127am 05/20/23 Reevaluation(s) Reevaluation #1: Patient resting comfortably at this time. Remains under observation until the care team evaluation. Signed out in stable condition to Dr. Watts with care team evaluation pending. Time: 01:55 Reevaluation #2: Patient developed high fever no response to Tylenol patient was given ibuprofen, ordered x-ray and labs including blood culture and lactic acid, upper respiratory virus panel is negative. Time: 01:52 Reevaluation #3: I assumed care of this patient from my colleague, Dr. Hayes at 02:00 hours. My interpretation of the patient's blood work done on 05/20/2023 is as follows: WBC is normal 6600. BUN is elevated at 20 with an increased creatinine of 1.37 above his baseline 1.04. Urinalysis was negative. Urine tox screen was positive for cocaine. COVID-19, influenza and RSV were negative. Chest x-ray revealed no acute findings. On the patient's physical examination he does have swelling along the right lower gingiva, this area is also tender to palpation. Patient states that he has been having dental pain. This could be the possible source of his fever, viral infection is also possible. Patient states he has been treated with amoxicillin in the past for dental infection therefore I ordered amoxicillin 1000 mg twice a day for 7 days. Time: 03:15 Medications Administered Generic Name Dose Route Start Last Admin Trade Name Freq PRN Reason Stop Dose Admin Amoxicillin 1,000 mg 05/20/23 09:00 05/20/23 10:32 Amoxicillin 500 Mg Capsule PO 05/27/23 08:59 1,000 mg BID ODILON Administration Baclofen 10 mg 05/19/23 09:00 05/20/23 10:32 Baclofen 10 Mg Tablet PO 10 mg TID ODILON Administration Diphenhydramine HCl 50 mg 05/19/23 21:00 05/19/23 21:18 Diphenhydramine Hcl 25 Mg Capsule PO 50 mg BEDTIME ODILON Administration Gabapentin 300 mg 05/19/23 09:00 05/20/23 10:32 Gabapentin 300 Mg Capsule PO 300 mg TID ODILON Administration Hydroxyzine HCl 50 mg 05/19/23 09:00 05/20/23 10:32 Hydroxyzine Hcl 50 Mg Tablet PO 50 mg TID ODILON Administration Ibuprofen 800 mg 05/19/23 08:18 05/20/23 01:56 Ibuprofen 800 Mg Tablet PO 800 mg Q8H PRN Administration Pain, Moderate(Pain Scale 4-6) Melatonin 3 mg 05/19/23 21:00 05/19/23 21:18 Melatonin 3 Mg Tablet PO 3 mg BEDTIME ODILON Administration Discontinued Medications Generic Name Dose Route Start Last Admin Trade Name Angeloq PRN Reason Stop Dose Admin Acetaminophen 975 mg 05/19/23 23:57 05/20/23 00:10 Acetaminophen 325 Mg Tablet PO 05/19/23 23:58 975 mg ONCE ONE Administration Acetaminophen 975 mg 05/20/23 00:07 05/20/23 00:11 Acetaminophen 325 Mg Tablet PO 05/20/23 00:08 Not Given ONCE ONE Amoxicillin 1,000 mg 05/20/23 03:25 05/20/23 03:39 Amoxicillin 500 Mg Capsule PO 05/20/23 03:26 1,000 mg ONCE STA Administration Hydroxyzine HCl 50 mg 05/19/23 01:11 05/19/23 01:16 Hydroxyzine Hcl 50 Mg Tablet PO 05/19/23 01:12 50 mg ONCE ONE Administration Medical Decision Making Medical Decision Making [facility] Narrative: 42-year-old male with a history of crack cocaine use, presents for evaluation of depression anxiety. No acute medical process, patient is medically clear. Hemodynamically stable. Awaiting care team evaluation. -the care team evaluated the patient, patient remains on a Section 12, inpatient bed search. Goal is after a few days of inpatient treatment, to Section 35 the patient. Differential Diagnosis Differential Diagnoses: The differential diagnosis associated with the presentation includes Depression Crack cocaine use PTSD Psychosis Admission/Observation Consideration of admission/observation: Escalation of care including admission/observation considered Consideration for possible psychiatric admission. Consult Healthcare Provider Management of the patient was discussed with: Behavioral Health Provider Lab Data [facility] Lab Attestation statement: I reviewed the patient's lab results. 05/20/23 02:17 05/20/23 02:17 Labs: Lab Results 05/19/23 05/20/23 05/20/23 Range/Units 00:52 00:25 02:17 WBC 6.6 (4.8-10.8) X10*3/uL RBC 4.57 L (4.60-5.80) X10*6/uL Hgb 13.8 L (14.0-18.0) g/dl Hct 40.4 L (42.0-52.0) % MCV 88.4 (80.0-98.0) fL MCH 30.2 (27.0-33.0) pg MCHC 34.2 (31.0-36.0) g/dl RDW 12.7 (11.0-16.0) % Plt Count 208 (160-400) X10*3/uL MPV 8.8 L (9.4-12.4) fL Immature Gran % (Auto) 0.2 (0.0-0.4) % Neut % (Auto) 75.5 H (45-73) % Lymph % (Auto) 11.7 L (20-40) % Clarke % (Auto) 8.4 (2-11) % Eos % (Auto) 3.7 (0-4) % Baso % (Auto) 0.5 (0-2) % Lymph # (Auto) 0.8 L (1.2-4.9) X10*3/uL Clarke # (Auto) 0.6 (0.1-1.2) X10*3/uL Eos # (Auto) 0.2 (0.0-0.4) X10*3/uL Baso # (Auto) 0.0 (0.0-0.2) X10*3/uL Abs Immat Gran (auto) 0.01 (0.00-0.03) X10*3/uL Absolute Neuts (auto) 5.0 (2.0-8.3) x10*3/uL Absolute Nucleated RBC 0.000 (0.0-0.012) X10*3/uL Nucleated RBC % (auto) 0.0 (0.0-0.2) /100WBC Sodium 137 (135-145) mmol/L Potassium 4.2 (3.3-5.1) mmol/L Chloride 105 (96-108) mmol/L Carbon Dioxide 23 (22-29) mmol/L Anion Gap 13 (12-20) BUN 20 H (9-16) mg/dL Creatinine 1.37 (0.5-1.4) mg/dL Estim Creat Clear Calc 71.7 Estimated GFR 57 Random Glucose 101 (60-115) mg/dL Lactic Acid 1.2 (0.5-2.0) mmol/L Calcium 8.9 D (8.4-10.2) mg/dL Total Bilirubin 0.4 (0.0-1.0) mg/dL Direct Bilirubin 0.2 (0.0-0.5) mg/dL AST 29 (5-37) U/L ALT 32 (0-40) U/L Alkaline Phosphatase 61 (39-117) U/L Total Protein 6.6 (6.5-8.0) g/dL Albumin 4.0 (3.5-5.0) g/dL Lipase 14 (8-78) U/L Urine Color Yellow Urine Appearance Clear Urine pH 5.5 (5.0-9.0) Ur Specific [place] 1.010 (1.005-1.025) Urine Protein Negative (Neg-Trace) mg/dL Urine Glucose (UA) Negative (Negative) mg/dL Urine Ketones Negative (Negative) mg/dL Urine Blood Negative (Negative) Urine Nitrite Negative (Negative) Ur Leukocyte Esterase Negative (Negative) Urine RBC 0-2 (0-2) /HPF Urine WBC 0-5 (0-5) /HPF Ur Squamous Epith Cells 0-2 (0-2) /HPF Urine Bacteria None Seen (None Seen) Hyaline Casts 0-2 (0-2) /LPF Urine Opiates Screen Not Detected (Not Detect) Urine Fentanyl Screen Not Detected (Not Detect) Ur Barbiturates Screen Not Detected (Not Detect) Ur Phencyclidine Scrn Not Detected (Not Detect) Ur Amphetamines Screen Not Detected (Not Detect) U Benzodiazepines Scrn Not Detected (Not Detect) Urine Cocaine Screen POSITIVE H (Not Detect) U Marijuana (THC) Screen Not Detected (Not Detect) COVID-19 ([place]) Negative (Negative) COVID-19 Clin Com See Note Influenza Type A (PCR) NEGATIVE (Negative) Influenza Type B (PCR) NEGATIVE (Negative) RSV RNA Qual (PCR) NEGATIVE (Negative) SARS-CoV-2 RNA (RT-PCR) NEGATIVE (Negative) External Record Review External record reviewed: Inpatient record Social Determinants Patient?s care significantly limited by Social Determinants of Health including: Inadequate housing, Alcoholism and drug addiction in family and Unemployment Discharge Plan Discharge Clinical Impression: Depression, Crack cocaine use, Fever, Dental infection Patient Disposition: Home, Self-Care Instructions: Depression (ED), Polysubstance Abuse (ED), Toothache (ED) Additional Instructions: please follow up with your mental health providers. finish antibiotics return for worsening symptoms, fevers, facial swelling, inability to open mouth or any other concerns. Prescriptions: New amoxicillin-pot clavulanate 875-125 mg tablet 1 tab PO BID Qty: 12 0RF No Action diphenhydramine HCl [Banophen] 50 mg capsule 50 mg PO BEDTIME ibuprofen 800 mg tablet 800 mg PO Q6-8H PRN (Reason: pain) hydroxyzine pamoate 50 mg capsule 50 mg PO TID melatonin 3 mg tablet 3 mg PO BEDTIME baclofen 10 mg tablet 10 mg PO TID gabapentin 300 mg capsule 300 mg PO TID Interventions: [place]-Suicide Risk Severity Scale Last Done: 05/20/23 07:00
[2023-05-19] MEDS: hydrOXYzine HCL 50 MG TABLET PO ×4 (01:16→21:18)
[2023-05-19 07:30] VITALS: BP 138/84; PULSE 95; RESP 18; TEMP 36.8; O2SAT 98
--- NOTE | 2023-05-19 07:48 | PC.NURSE ---
med rec verified with patient
--- NOTE | 2023-05-19 08:36 | PHA.MEDREC ---
Pharmacy Consult ? Medication Reconciliation RN has completed the medication reconciliation.Reviewed by pharmacy
[2023-05-19] MEDS: Gabapentin 300 MG CAPSULE PO ×3 (08:59→21:18)
[2023-05-19] MEDS: Ibuprofen 800 MG TABLET PO (08:59)
[2023-05-19] MEDS: Baclofen 10 MG TABLET PO ×3 (08:59→21:18)
--- NOTE | 2023-05-19 11:50 | PC.NURSE ---
Assumed care of pt at 11am. PT ambulating independently around POD, in no apparent distress, resp even and unlabored. Requested food. Continue plan of care.
[2023-05-19 14:45] VITALS: RESP 16
[2023-05-19] MEDS: Melatonin 3 MG TABLET PO (21:18)
[2023-05-19] MEDS: diphenhydrAMINE HCL 25 MG CAPSULE 50 MG PO (21:18)
[2023-05-19 21:23] VITALS: BP 142/62; PULSE 107; RESP 18; TEMP 36.9; O2SAT 98
--- NOTE | 2023-05-19 23:22 | PC.NURSE ---
Assumed care of pt. Pt lying on stretcher, eyes closed, respirations even and unlabored, no acute distress at this time. Continuing plan of care with safety measures per protocol.
--- NOTE | 2023-05-19 23:58 | PC.NURSE ---
Pt woke, presenting to this RN with generalized aches. Tylenol ordered per MD, rechecking vitals and providing PO apple juice.
[2023-05-20] VITALS: BP 117/77; PULSE 104; RESP 18; TEMP 39; O2SAT 97
[2023-05-20] MEDS: Acetaminophen 325 MG TABLET 975 MG PO (00:10)
--- NOTE | 2023-05-20 00:17 | PC.NURSE ---
MD notified of pt complaint. SARS testing ordered, Tylenol given per orders. Pt returned to room wearing mask.
[2023-05-20 01:08] VITALS: TEMP 39.3
[2023-05-20 01:10] VITALS: TEMP 39.3
[2023-05-20 01:10] LABS: Influenza A PCR NEGATIVE (Negative); Influenza B PCR NEGATIVE (Negative); Resp Syncy Virus RNA Qual PCR NEGATIVE (Negative); SARS COV2 PCR INHOUSE NEGATIVE (Negative)
--- NOTE | 2023-05-20 01:46 | PC.NURSE ---
Pt temp did not improve with Tylenol, respiratory panel negative, MD informed, no further orders at this time.
[2023-05-20] MEDS: Ibuprofen 800 MG TABLET PO (01:56)
[2023-05-20 02:20] VITALS: BP 118/63; PULSE 83; RESP 16; TEMP 37.6
[2023-05-20 02:24] LABS: MANUAL DIFF FLAG NO
[2023-05-20 02:25] LABS: Basophils Percent Auto 0.5 % (0-2); Eosinophils Absolute Auto 0.2 X10*3/uL (0.0-0.4); Eosinophils Percent Auto 3.7 % (0-4); Hematocrit 40.4 % (42.0-52.0); Hemoglobin 13.8 g/dl (14.0-18.0); Imm Gran Abs Auto 0.01 X10*3/uL (0.00-0.03); Imm Gran Pct Auto 0.2 % (0.0-0.4); Lymphocytes Absolute Auto 0.8 X10*3/uL (1.2-4.9); Lymphocytes Percent Auto 11.7 % (20-40); Mean Corpuscular HGB Conc 34.2 g/dl (31.0-36.0); Mean Corpuscular Hemoglobin 30.2 pg (27.0-33.0); Mean Corpuscular Volume 88.4 fL (80.0-98.0); Mean Platelet Volume 8.8 fL (9.4-12.4); Monocytes Absolute Auto 0.6 X10*3/uL (0.1-1.2); Monocytes Percent Auto 8.4 % (2-11); Neutrophils Percent Auto 75.5 % (45-73); Platelet Count 208 X10*3/uL (160-400); Red Blood Count 4.57 X10*6/uL (4.60-5.80); Red Cell Distribution Width 12.7 % (11.0-16.0); White Blood Count 6.6 X10*3/uL (4.8-10.8)
[2023-05-20 02:37] LABS: Lactic Acid 1.2 mmol/L (0.5-2.0)
[2023-05-20 02:42] LABS: Alanine Aminotransferase 32 U/L (0-40); Alkaline Phosphatase 61 U/L (39-117); Anion Gap 13 (12-20); Aspartate Amino Transferase 29 U/L (5-37); Bilirubin Direct 0.2 mg/dL (0.0-0.5); Bilirubin Total 0.4 mg/dL (0.0-1.0); Blood Urea Nitrogen 20 mg/dL (9-16); Calcium 8.9 mg/dL (8.4-10.2); Carbon Dioxide 23 mmol/L (22-29); Chloride 105 mmol/L (96-108); Creatinine Clr Calc Pharmacy 71.7; Estimated Glomerular Filt Rate 57; Glucose Random 101 mg/dL (60-115); Lipase 14 U/L (8-78); Potassium 4.2 mmol/L (3.3-5.1); Sodium 137 mmol/L (135-145); Total Protein 6.6 g/dL (6.5-8.0)
[2023-05-20] MEDS: Amoxicillin 500 MG CAPSULE 1000 MG PO ×2 (03:39→10:32)
--- NOTE | 2023-05-20 04:28 | PC.NURSE ---
Pt remains lying on stretcher, eyes closed, respirations even and unlabored, no acute medical or behavioral issues at this time. Continuing plan of care.
[2023-05-20 05:45] VITALS: BP 115/67; PULSE 60; RESP 16; TEMP 36.7; O2SAT 98
--- NOTE | 2023-05-20 08:27 | PC.NURSE ---
ASSUMED CARE OF THIS PT AT 0700. PT AT NURSING STATION AT THE TIME OF ASSUMING CARE. REQUESTED [facility]. PT BACK TO HIS ROOM RESTING QUIETLY AT THIS TIME. UNEVENTFUL NIGHT PER NIGHT RN. WILL CONTINUE TO OBSERVE.
[2023-05-20] MEDS: Gabapentin 300 MG CAPSULE PO (10:32)
[2023-05-20] MEDS: Baclofen 10 MG TABLET PO (10:32)
[2023-05-20] MEDS: hydrOXYzine HCL 50 MG TABLET PO (10:32)
--- NOTE | 2023-05-20 11:01 | PC.NURSE ---
PT PLEASANT, COOPERATIVE. DENIES SI/HI. MEDS GIVEN DOCUMENTED. PLAN IS FOR DISCHARGE. PT AWARE OF PLAN.
--- NOTE | 2023-05-20 11:50 | PC.NURSE ---
PT CLEARED FOR DISCHARGE, DISCHARGE SUMMARY REVIEWED WITH PT. BELONGINGS RETURNED AND HE WAS ESCORTED TO THE WAITING ROOM TO WAIT FOR LYFT. PT DENIES PAIN. STEADY GAIT ON DISCHARGE.
== END 2023-05-20 11:50 | disposition home or self-care (01) ==
PROVIDERS: Emergency Medicine; Emergency Provider Emergency Medicine Emergency Medical Services
DX: F33.1 Major depressive disorder, recurrent, moderate (principal); F14.10 Cocaine abuse, uncomplicated; R50.9 Fever, unspecified; K04.7 Periapical abscess without sinus; Z20.822 Contact with and (suspected) exposure to COVID-19; Z20.828 Contact with and (suspected) exposure to other viral communicable diseases; Z79.899 Other long term (current) drug therapy
CPT/HCPCS: 0241U; 36415; 71045; 80048; 80076; 80307; 81001; 83605; 83690; 85025; 87040; 87635; 99285; S9485

== ENCOUNTER 2023-08-09 02:21 | Emergency (ER) | payer OTHER, SELFPAY ==
[2023-08-09 02:34] VITALS: BP 140/75; PULSE 88; RESP 18; TEMP 37; O2SAT 96; BMI 26.7
--- NOTE | 2023-08-09 03:20 | PC.NURSE ---
client attempted to tell me about some meds in a pharmacy and apparently was under the impression i was trying to interrupt him, i told the client i was aware of some recent short scripts. patient raised his voice to me and used bad language. i told the client we could continue talking after his blood work then client refused blood work. patient proceeded to lay down on couch after mumbling and swearing under his breath.
--- NOTE | 2023-08-09 03:22 | MHC.EDTECH ---
Attempted to draw labs, Pt refused.
--- NOTE | 2023-08-09 04:11 | ED.PSYCH ---
HPI - Psych General Chief Complaint: Psychiatric Symptoms Stated Complaint: crisis Time Seen by Provider: 08/09/23 03:32 History of Present Illness HPI Narrative: Patient is a 42-year-old male with a history of polysubstance abuse. He has been in a sober house. Today complaining of suicidal ideation without any specific plans. History of similar episodes in the past. Patient refused to talk. Related Data Home Medications Medication Instructions Recorded Confirmed No Known Home Meds 08/09/23 08/09/23 Allergies Allergy/AdvReac Type Severity Reaction Status Date / Time No Known Allergies Allergy Verified 08/09/23 02:33 Review of Systems Review of Systems: Positive suicidal ideation. Unable to [facility] Past Medical History Medical History COVID-19 (11/23/21) Suicidal ideation Substance abuse Social History Social History Household Members: Spouse, Family and Children Housing: Homeless Do you presently have visiting nurse or other home services: No Unable to assess alcohol history related to: Unknown Alcohol intake: current Alcohol intake frequency: a few times a week Alcohol type: hard liquor Patient Tobacco Use Status: Never used Tobacco Second Hand Smoke Exposure: No Substance Use Type: Crack/Cocaine Advance Directives: No Advance Directives Information Provided: No service: No Sexual orientation: Straight/Heterosexual Physical Exam Vital Signs: Vital Signs: Last Vital Signs Temp 98.6 F 08/09/23 02:34 Pulse 88 08/09/23 02:34 Resp 18 08/09/23 02:34 BP 140/75 H 08/09/23 02:34 Pulse Ox 96 08/09/23 02:34 O2 Del Method Room Air 08/09/23 02:34 BMI result Body Mass Index 26.7 Appearance: Alert. Oriented X3. No acute distress. Eyes: Pupils equal, round and reactive to light. ENT: Pharynx normal. Neck: Normal inspection. Neck supple. No lymph nodes noted. No crepitus CVS: Normal heart rate and rhythm. Pulses normal. Normal S1 and S2 Respiratory: No respiratory distress. Breath sounds normal. No Wheezing. No rales Abdomen: Soft and nontender. No rigidity. No distention. good BS x4 Skin: Skin warm and dry. Normal skin color. Normal skin turgor. Extremities: No lower extremity edema. Neurovascular intact to all extremities. No Lacerations. No Rash Neuro: Oriented X 3. No motor deficit. No sensory deficit. Moving all extermities. No slurred speech. Cranial nerves grossly intact Medical Decision Making Medical Decision Making [facility] Narrative: Fair appearing no acute distress. Patient positive suicidal ideation. Will get crisis evaluate patient. Differential Diagnosis Differential Diagnoses: The differential diagnosis associated with the presentation includes Consult Healthcare Provider Management of the patient was discussed with: Storage Engineer (Care team) Lab Data [facility] Lab Attestation statement: I reviewed the patient's lab results. Discharge Plan Discharge Clinical Impression: Major depression, Substance abuse Patient Disposition: Still a Patient Prescriptions: No Action No Known Home Meds Interventions: [place]-Suicide Risk Severity Scale Last Done: 08/09/23 03:22
[2023-08-09 06:00] VITALS: RESP 18
--- NOTE | 2023-08-09 08:27 | MHC.CARE ---
CARE Team met with Pt this morning regarding refusal of labs. Pt states he was frustrated early in the morning regarding how he was communicated with by staff. Pt agreeable to labwork this morning.
--- NOTE | 2023-08-09 10:48 | PC.NURSE ---
attempted to complete patient's med rec, [facility] states patient has no active scripts with them at this time. patient appears to be sleeping with even and unlabored respirations.
--- NOTE | 2023-08-09 11:34 | PC.NURSE ---
spoke with [facility] to confirm patient's medications
[2023-08-09] MEDS: Gabapentin 300 MG CAPSULE PO ×3 (11:44→21:06)
[2023-08-09] MEDS: Baclofen 10 MG TABLET PO ×3 (11:44→21:06)
--- NOTE | 2023-08-09 12:47 | MHC.RECOVRN ---
Briefly met with pt to discuss ATS, pt open to [facility] and [facility]. Neither facilities have bed availability today. Discussed with CARE and RN, if pt is guaranteed a bed at [facility] for tomorrow, recovery team would advocate for additional night in the emergency room to be directly transported to [facility] tomorrow.
[2023-08-09 14:21] LABS: Amphetamine Screen Urine Not Detected (Not Detect); Barbiturates, Urine Not Detected (Not Detect); Benzodiazepines Screen Urine Not Detected (Not Detect); Cannabinoid Screen Urine Not Detected (Not Detect); Cocaine Screen Urine POSITIVE (Not Detect); Fentanyl, urine Not Detected (Not Detect); Opiate Screen Urine Not Detected (Not Detect); Phencyclidine Screen Urine Not Detected (Not Detect)
[2023-08-09 14:22] LABS: Appearance Urine Clear; Color Urine Yellow; Glucose Urine UA Negative (Negative); Leukocyte Esterase Urine Negative (Negative); Nitrite Urine Negative (Negative); PH 6.5 (5.0-9.0); Urine Blood Negative (Negative); Urine Ketones Negative (Negative); Urine Protein Negative (Neg-Trace)
[2023-08-09 14:26] LABS: Bacteria Urine None Seen (None Seen); Hyaline Casts Urine 0-2 /LPF (0-2); RBC Urine 0-2 /HPF (0-2); Squamous Epithelial Cell Urine 0-2 /HPF (0-2); WBC Urine 0-5 /HPF (0-5)
[2023-08-09] MEDS: LORazepam 1 MG TABLET PO (14:49)
[2023-08-09 14:52] VITALS: BP 135/90; PULSE 80; RESP 14; TEMP 36.4; O2SAT 80
[2023-08-09 15:09] LABS: MANUAL DIFF FLAG NO
[2023-08-09 15:12] LABS: Basophils Percent Auto 0.8 % (0-2); Eosinophils Absolute Auto 0.3 X10*3/uL (0.0-0.4); Eosinophils Percent Auto 4.7 % (0-4); Hematocrit 40.3 % (42.0-52.0); Hemoglobin 14.5 g/dl (14.0-18.0); Imm Gran Abs Auto 0.01 X10*3/uL (0.00-0.03); Imm Gran Pct Auto 0.2 % (0.0-0.4); Lymphocytes Absolute Auto 1.6 X10*3/uL (1.2-4.9); Lymphocytes Percent Auto 29.3 % (20-40); Mean Corpuscular Hemoglobin 30.7 pg (27.0-33.0); Mean Corpuscular Volume 85.4 fL (80.0-98.0); Monocytes Absolute Auto 0.6 X10*3/uL (0.1-1.2); Monocytes Percent Auto 10.7 % (2-11); Neutrophils Absolute Auto 2.9 x10*3/uL (2.0-8.3); Neutrophils Percent Auto 54.3 % (45-73); Platelet Count 228 X10*3/uL (160-400); Red Blood Count 4.72 X10*6/uL (4.60-5.80); Red Cell Distribution Width 12.2 % (11.0-16.0); White Blood Count 5.3 X10*3/uL (4.8-10.8)
--- NOTE | 2023-08-09 15:25 | PC.NURSE ---
patient had become agitated, crying on the phone in hallway. agitated w/ the care team about staying vs leaving. requesting medication for anxiety - patient provided w/ ativan as well as his scheduled medications. moved to [facility] for patient comfort and privacy. allowed pct to obtain blood work. patient now resting quietly in room with no obvious signs/symptoms of distress noted.
[2023-08-09 15:27] LABS: Salicylate < 5.0 mg/dL (15-30)
[2023-08-09 15:28] LABS: Alanine Aminotransferase 25 U/L (0-40); Albumin Level 4.2 g/dL (3.5-5.0); Alkaline Phosphatase 64 U/L (39-117); Anion Gap 14 (12-20); Aspartate Amino Transferase 34 U/L (5-37); Bilirubin Total 0.3 mg/dL (0.0-1.0); Blood Urea Nitrogen 13 mg/dL (9-16); Calcium 8.8 mg/dL (8.4-10.2); Carbon Dioxide 27 mmol/L (22-29); Chloride 104 mmol/L (96-108); Creatinine Clr Calc Pharmacy 119.9; Estimated Glomerular Filt Rate > 60; Ethanol < 10 mg/dL; Glucose Random 118 mg/dL (60-115); Potassium 3.8 mmol/L (3.3-5.1); Sodium 141 mmol/L (135-145); Total Protein 6.6 g/dL (6.5-8.0)
--- NOTE | 2023-08-09 19:21 | PC.NURSE ---
patient appears to remain at rest at present respirations are even and unlabored patient appears in no distress
--- NOTE | 2023-08-09 21:13 | PC.NURSE ---
patient very irritable and abrasive, approached in room and patient uses foul language because light turned on, (to present medication). t/w left room and turned light off. patient expressed his displeasure about light then t/w expressed to staff about needing light on to administer medications. will explain to client he can approach nurses station when medications desired since his preference for a dark relxing environment.
[2023-08-09] MEDS: hydrOXYzine HCL 50 MG TABLET PO (21:22)
[2023-08-10 04:32] VITALS: BP 115/70; PULSE 76; RESP 16; TEMP 36.6; O2SAT 97
[2023-08-10 07:25] VITALS: RESP 14
[2023-08-10] MEDS: Gabapentin 300 MG CAPSULE PO (09:38)
[2023-08-10] MEDS: Baclofen 10 MG TABLET PO (09:38)
--- NOTE | 2023-08-10 09:45 | PC.NURSE ---
PT A/O X 4 NO SOB/AMAURY NOTED SPEAKS IN FULL SENTENCES. DENIES ANY SI/HI. C/O / LOWER BACK PAIN. PT AWARE OF PLAN OF CARE. WILL CONTINUE TO MONITOR.
--- NOTE | 2023-08-10 09:50 | MHC.RECOVRN ---
No bed availability at pts preferred ATS facilities-[facility], [facility], [facility]. Pt declines other facilities. Pt aware he is on the waitlist for [facility] and to continue calling to check bed availability. Pt to dc to community. Provider and RN aware.
--- NOTE | 2023-08-10 09:56 | PC.NURSE ---
PT TOOK A SHOWER PRIOR TO BEING DD/C HOME.
[2023-08-10 10:15] VITALS: BP 00/00; PULSE 0; RESP 16; TEMP -17.7; TEMP 0
== END 2023-08-10 10:17 | disposition home or self-care (01) ==
PROVIDERS: Emergency Provider Emergency Medicine Emergency Medical Services
DX: F33.1 Major depressive disorder, recurrent, moderate (principal); R45.851 Suicidal ideations; F14.10 Cocaine abuse, uncomplicated; Z79.899 Other long term (current) drug therapy
CPT/HCPCS: 36415; 80053; 80179; 80307; 81001; 85025; 99284; S9485

== ENCOUNTER 2023-09-02 20:56 | Emergency (ER) | payer OTHER, SELFPAY ==
[2023-09-02 21:16] VITALS: BP 138/71; PULSE 80; RESP 18; O2SAT 97; BMI 26.5
[2023-09-02] MEDS: hydrOXYzine HCL 50 MG TABLET PO (21:45)
[2023-09-02 22:00] LABS: Amphetamine Screen Urine Not Detected (Not Detect); Barbiturates, Urine Not Detected (Not Detect); Benzodiazepines Screen Urine Not Detected (Not Detect); Cannabinoid Screen Urine Not Detected (Not Detect); Cocaine Screen Urine POSITIVE (Not Detect); Fentanyl, urine Not Detected (Not Detect); Opiate Screen Urine Not Detected (Not Detect); Phencyclidine Screen Urine Not Detected (Not Detect)
[2023-09-02 22:07] LABS: Appearance Urine Clear; Color Urine Yellow; Glucose Urine UA Negative (Negative); Leukocyte Esterase Urine Negative (Negative); Nitrite Urine Negative (Negative); PH 5.5 (5.0-9.0); Specific Gravity - Urine 1.025 (1.005-1.025); Urine Blood Negative (Negative); Urine Ketones Trace mg/dL (Negative); Urine Protein Trace mg/dL (Neg-Trace)
[2023-09-02 22:12] LABS: Bacteria Urine None Seen (None Seen); Hyaline Casts Urine 0-2 /LPF (0-2); RBC Urine 0-2 /HPF (0-2); Squamous Epithelial Cell Urine 0-2 /HPF (0-2); WBC Urine 0-5 /HPF (0-5)
--- NOTE | 2023-09-02 23:02 | ED.PSYCH ---
HPI - Psych General Chief Complaint: Psychiatric Symptoms Stated Complaint: crisis eval Time Seen by Provider: 09/02/23 22:19 Source: patient Mode of arrival: ambulatory Limitations: no limitations History of Present Illness HPI Narrative: 42 year old male wtih pmhx significant for MDD and substance abuse presents to the ED today for crisis evaluation. He admits to increasing anxiety, depression, paranoia and SI x3 days. He admits he has a plan to overdose and kill himself. He reports using cocaine earlier today. Denies other ilicit substance use or etoh consumption. Denies HI. Denies AH/VH/TH. Denies any physical complaints. Related Data Home Medications ?Medication ?Instructions ?Recorded ?Confirmed No Known Home Meds 08/09/23 09/03/23 Allergies Allergy/AdvReac Type Severity Reaction Status Date / Time No Known Allergies Allergy Verified 09/02/23 21:20 Review of Systems Review of Systems: Constitutional: No fever, chills, fatigue, night sweats, weight changes ENT/Mouth: No ear pain, hearing loss, nasal congestion, sinus pain, rhinorrhea, sore throat Eyes: No eye pain, swelling, redness, vision changes, discharge Cardio: No chest pain, palpitations, MALAGON, orthopnea, peripheral edema Pulm: No SOB, cough, sputum, wheezing, dyspnea, hemoptysis GI: No nausea, vomiting, hematemesis, abdominal pain, diarrhea, constipation, hematochezia, melena : No irregular bleeding, dysuria, frequency, urgency, hesitancy, hematuria, flank pain, urinary flow changes, urinary incontinence or retention MSK: No back pain, neck pain, joint pain, myalgias Skin: No lesions, rashes Neuro: No weakness, numbness, paresthesias, LOC, dizziness, headache Psych: No HI, AH/VH, +anxiety, +depression, +paranoia, +SI All other systems reviewed and are negative. [facility] Past Medical History Attestation statement: The following information was validated with the patient. Source: old records reviewed and nursing notes reviewed Medical History COVID-19 (11/23/21) Suicidal ideation Substance abuse Social History Social History Household Members: Spouse, Family and Children Housing: Homeless Do you presently have visiting nurse or other home services: No Unable to assess alcohol history related to: Unknown Alcohol intake: current Alcohol intake frequency: a few times a week Alcohol type: hard liquor Patient Tobacco Use Status: Never used Tobacco Second Hand Smoke Exposure: No Substance Use Type: Crack/Cocaine Advance Directives: No Advance Directives Information Provided: No service: No Sexual orientation: Straight/Heterosexual Physical Exam Vital Signs: Vital Signs: Last Vital Signs Temp 98.9 F 09/03/23 17:04 Pulse 68 09/03/23 17:04 Resp 20 09/03/23 17:04 BP 135/81 09/03/23 17:04 Pulse Ox 96 09/03/23 17:04 O2 Del Method Room Air 09/03/23 17:04 BMI result Body Mass Index 26.5 Vital signs stable Const: General: cooperative, healthy appearing, comfortable and no acute distress Orientation/consciousness: patient oriented x3 Limitations: no limitations HEENT: Head: Yes normal to inspection, Yes No palpable skull fracture present, Yes normocephalic and Yes atraumatic Eyes: General: appearance normal, both eyes and all related structures Conjunctivae: conjunctivae normal Sclerae: sclerae normal Pupils: Equal, round and reactive pupils present Neck: Neck: Yes normal visual inspection Resp: Effort & Inspection: normal respiratory effort and able to speak in complete sentences Cardio: Rate: regular rate Rhythm: regular rhythm Skin: General skin exam: no rashes or lesions noted Neuro: General: patient oriented x3 Cranial nerves: Yes Equal, round and reactive pupils present Course Course Course Narrative: 0156-- urine without infection. Urine toxicology positive for cocaine, otherwise negative. Physician observation initiated pending labs and care team consult. Reevaluation(s) Reevaluation #1: Physician observation continued. VS stable, CARE team recommends dual dx bed search. No acute events overnight. Time: 09:46 Medications Administered Discontinued Medications Generic Name Dose Route Start Last Admin Trade Name Freq PRN Reason Stop Dose Admin Hydroxyzine HCl 50 mg 09/02/23 21:42 09/02/23 21:45 Hydroxyzine Hcl 50 Mg Tablet PO 09/02/23 21:43 50 mg ONCE ONE Administration Medical Decision Making Medical Decision Making MDM Narrative: 42 year old male wtih pmhx significant for MDD and substance abuse presents to the ED today for crisis evaluation. He admits to increasing anxiety, depression, paranoia and SI x3 days. Vital signs stable. Nontoxic-appearing and in no acute distress. A&O x3. RRR. Lungs CTA b/l. Lying comfortably in bed. Differential diagnosis includes polysubstance use, depression, anxiety, SI Plan for medical clearance and care team consult. Differential Diagnosis Differential Diagnoses: The differential diagnosis associated with the presentation includes as above. Lab Data MDM Lab Attestation statement: I reviewed the patient's lab results. as above. 09/03/23 09:56 09/03/23 09:56 Labs: Lab Results 09/02/23 09/03/23 Range/Units 21:45 09:56 WBC 4.6 L (4.8-10.8) X10*3/uL RBC 4.76 (4.60-5.80) X10*6/uL Hgb 14.5 (14.0-18.0) g/dl Hct 41.9 L (42.0-52.0) % MCV 88.0 (80.0-98.0) fL MCH 30.5 (27.0-33.0) pg MCHC 34.6 (31.0-36.0) g/dl RDW 12.7 (11.0-16.0) % Plt Count 224 (160-400) X10*3/uL MPV 9.0 L (9.4-12.4) fL Immature Gran % (Auto) 0.2 (0.0-0.4) % Neut % (Auto) 50.5 (45-73) % Lymph % (Auto) 36.6 (20-40) % [place]aines % (Auto) 7.2 (2-11) % Eos % (Auto) 4.6 H (0-4) % Baso % (Auto) 0.9 (0-2) % Lymph # (Auto) 1.7 (1.2-4.9) X10*3/uL [place]aines # (Auto) 0.3 (0.1-1.2) X10*3/uL Eos # (Auto) 0.2 (0.0-0.4) X10*3/uL Baso # (Auto) 0.0 (0.0-0.2) X10*3/uL Abs Immat Gran (auto) 0.01 (0.00-0.03) X10*3/uL Absolute Neuts (auto) 2.3 (2.0-8.3) x10*3/uL Absolute Nucleated RBC 0.000 (0.0-0.012) X10*3/uL Nucleated RBC % (auto) 0.0 (0.0-0.2) /100WBC Sodium 140 (135-145) mmol/L Potassium 3.9 (3.3-5.1) mmol/L Chloride 107 (96-108) mmol/L Carbon Dioxide 26 (22-29) mmol/L Anion Gap 11 L (12-20) BUN 10 (9-16) mg/dL Creatinine 0.79 (0.5-1.4) mg/dL Estim Creat Clear Calc 124.4 Estimated GFR > 60 Random Glucose 85 (60-115) mg/dL Calcium 9.0 (8.4-10.2) mg/dL Total Bilirubin 0.6 (0.0-1.0) mg/dL AST 23 (5-37) U/L ALT 37 (0-40) U/L Alkaline Phosphatase 60 (39-117) U/L Total Protein 6.2 L (6.5-8.0) g/dL Albumin 3.9 (3.5-5.0) g/dL Urine Color Yellow Urine Appearance Clear Urine pH 5.5 (5.0-9.0) Ur Specific [place] 1.025 (1.005-1.025) Urine Protein Trace (Neg-Trace) mg/dL Urine Glucose (UA) Negative (Negative) mg/dL Urine Ketones Trace (Negative) mg/dL Urine Blood Negative (Negative) Urine Nitrite Negative (Negative) Ur Leukocyte Esterase Negative (Negative) Urine RBC 0-2 (0-2) /HPF Urine WBC 0-5 (0-5) /HPF Ur Squamous Epith Cells 0-2 (0-2) /HPF Urine Bacteria None Seen (None Seen) Hyaline Casts 0-2 (0-2) /LPF Salicylates < 5.0 L (15-30) mg/dL Urine Opiates Screen Not Detected (Not Detect) Urine Fentanyl Screen Not Detected (Not Detect) Acetaminophen < 3 (<30) mcg/mL Ur Barbiturates Screen Not Detected (Not Detect) Ur Phencyclidine Scrn Not Detected (Not Detect) Ur Amphetamines Screen Not Detected (Not Detect) U Benzodiazepines Scrn Not Detected (Not Detect) Urine Cocaine Screen POSITIVE H (Not Detect) U Marijuana (THC) Screen Not Detected (Not Detect) External Record Review External record reviewed: Inpatient record, Office record, Outpatient record, Prior outpatient labs, Prior outpatient radiology, Primary care record and Outside ED record Chronic Conditions Patient?s care impacted by: Other (MDD, substance use disorder) Social Determinants Patient?s care significantly limited by Social Determinants of Health including: Alcoholism and drug addiction in family and Other Social Determinant of Health Critical Care Time Critical Care Time Critical Care Time: No Discharge Plan Discharge Clinical Impression: Suicidal ideation, Anxiety, Paranoia Major depression Qualifiers: Major depression recurrence: recurrent Patient Disposition: Still a Patient Prescriptions: No Action No Known Home Meds Interventions: [place]-Suicide Risk Severity Scale Last Done: 09/02/23 23:54 Print Language: Eritrean
--- NOTE | 2023-09-03 03:58 | MHC.EDTECH ---
pt refusing lab work. rn aware.
[2023-09-03 06:29] VITALS: RESP 16
--- NOTE | 2023-09-03 06:44 | MHC.EDTECH ---
t/w attempted to obtain labs again, pt refusing stating he just wants to sleep right now. rn aware. care team aware.
--- NOTE | 2023-09-03 07:15 | PC.NURSE ---
This RN discussed with [facility] in regards to canceled labwork if they needed them. Per Odalys in [facility] they are okay with no having labs drawn at this time.
--- NOTE | 2023-09-03 08:02 | PC.NURSE ---
This RN resumed care of patient, he is currently resting. Safety measures in place, 15 minute checks remain.
[2023-09-03 08:49] VITALS: BP 140/62; PULSE 64; RESP 18; TEMP 36.3; O2SAT 98
--- NOTE | 2023-09-03 09:49 | PC.NURSE ---
Lab work orders placed as patient is going to be a dual dx bedsearch and will require lab work that initially was not obtained, provider aware, caretea, aware, patient aware and in agreement with labwork.
[2023-09-03 10:02] LABS: MANUAL DIFF FLAG NO
[2023-09-03 10:03] LABS: Basophils Percent Auto 0.9 % (0-2); Eosinophils Absolute Auto 0.2 X10*3/uL (0.0-0.4); Eosinophils Percent Auto 4.6 % (0-4); Hematocrit 41.9 % (42.0-52.0); Hemoglobin 14.5 g/dl (14.0-18.0); Imm Gran Abs Auto 0.01 X10*3/uL (0.00-0.03); Imm Gran Pct Auto 0.2 % (0.0-0.4); Lymphocytes Absolute Auto 1.7 X10*3/uL (1.2-4.9); Lymphocytes Percent Auto 36.6 % (20-40); Mean Corpuscular HGB Conc 34.6 g/dl (31.0-36.0); Mean Corpuscular Hemoglobin 30.5 pg (27.0-33.0); Monocytes Absolute Auto 0.3 X10*3/uL (0.1-1.2); Monocytes Percent Auto 7.2 % (2-11); Neutrophils Absolute Auto 2.3 x10*3/uL (2.0-8.3); Neutrophils Percent Auto 50.5 % (45-73); Platelet Count 224 X10*3/uL (160-400); Red Blood Count 4.76 X10*6/uL (4.60-5.80); Red Cell Distribution Width 12.7 % (11.0-16.0); White Blood Count 4.6 X10*3/uL (4.8-10.8)
[2023-09-03 10:19] LABS: Acetaminophen LAB < 3 mcg/mL (<30); Alanine Aminotransferase 37 U/L (0-40); Albumin Level 3.9 g/dL (3.5-5.0); Alkaline Phosphatase 60 U/L (39-117); Anion Gap 11 (12-20); Aspartate Amino Transferase 23 U/L (5-37); Bilirubin Total 0.6 mg/dL (0.0-1.0); Blood Urea Nitrogen 10 mg/dL (9-16); Carbon Dioxide 26 mmol/L (22-29); Chloride 107 mmol/L (96-108); Creatinine Clr Calc Pharmacy 124.4; Estimated Glomerular Filt Rate > 60; Glucose Random 85 mg/dL (60-115); Potassium 3.9 mmol/L (3.3-5.1); Salicylate < 5.0 mg/dL (15-30); Sodium 140 mmol/L (135-145); Total Protein 6.2 g/dL (6.5-8.0)
--- NOTE | 2023-09-03 11:34 | PC.NURSE ---
This RN called pharmacy to see if they could look into his mediations as he is going to multiple places. updated.
--- NOTE | 2023-09-03 11:38 | MHC.CARE ---
Rad Team completed a state wide Dual bed search for this individual. The bed search is exhausted due to all units being full today. Bed search will continue tomorrow if needed.
[2023-09-03 17:04] VITALS: BP 135/81; PULSE 68; RESP 20; TEMP 37.2; O2SAT 96
[2023-09-03] MEDS: Gabapentin 300 MG CAPSULE PO (23:12)
[2023-09-03] MEDS: Baclofen 10 MG TABLET PO (23:12)
[2023-09-03] MEDS: hydrOXYzine HCL 50 MG TABLET PO (23:12)
[2023-09-04 05:49] VITALS: RESP 16
--- NOTE | 2023-09-04 06:28 | PC.NURSE ---
Patient slept through the night, no distress observed/reported, disposition per care team is section 12 dual diagnosis bed search, medication compliant, behavior in good control, VSS, will continue to monitor
[2023-09-04] MEDS: Baclofen 10 MG TABLET PO (08:44)
[2023-09-04] MEDS: Gabapentin 300 MG CAPSULE PO (08:44)
[2023-09-04] MEDS: Omeprazole 20 MG CAPSULE.DR PO (08:45)
--- NOTE | 2023-09-04 11:14 | MHC.CARE ---
Pt accepted to [facility]
[2023-09-04 11:54] LABS: COVID-19 Test Negative (Negative); IDNOW Serial# 152EDE1D
[2023-09-04 12:39] VITALS: BP 140/80; PULSE 78; RESP 18; TEMP 37.1; O2SAT 97
== END 2023-09-04 12:40 | disposition home or self-care (01) ==
PROVIDERS: Emergency Medicine; Emergency Provider Emergency Medicine
DX: R45.851 Suicidal ideations (principal); F33.9 Major depressive disorder, recurrent, unspecified; F22 Delusional disorders; F41.9 Anxiety disorder, unspecified; F14.90 Cocaine use, unspecified, uncomplicated; Z11.52 Encounter for screening for COVID-19
CPT/HCPCS: 36415; 80053; 80143; 80179; 80307; 81001; 85025; 87635; 99285; S9485

== ENCOUNTER 2023-09-09 23:23 | Emergency (ER) | payer OTHER, SELFPAY ==
[2023-09-10 00:31] VITALS: BP 135/89; PULSE 92; RESP 16; TEMP 36.8; O2SAT 98; BMI 27.4
--- NOTE | 2023-09-10 01:24 | ED.PSYCH ---
HPI - Psych General Chief Complaint: Psychiatric Symptoms Stated Complaint: lower back pain/Crisis Time Seen by Provider: 09/10/23 01:13 Source: patient Mode of arrival: ambulatory Limitations: no limitations History of Present Illness HPI Narrative: Patient history of substance abuse used cocaine seen here on 09/01 sent to program ,self checked out today no feel depressed suicidal without any plan use cocaine. Patient has done like this similar multiple times. No current plan no hallucination or delusion patient is homeless or more than 1 year Related Data Home Medications ?Medication ?Instructions ?Recorded ?Confirmed baclofen 10 mg tablet 10 mg PO TID 09/03/23 09/03/23 gabapentin 300 mg capsule 300 mg PO TID 09/03/23 09/03/23 hydroxyzine pamoate 50 mg capsule 50 mg PO TID PRN Anxiety 09/03/23 09/03/23 omeprazole 20 mg tablet,delayed 20 mg PO DAILY 09/03/23 09/03/23 release Allergies Allergy/AdvReac Type Severity Reaction Status Date / Time No Known Allergies Allergy Verified 09/10/23 00:34 Review of Systems Review of Systems: Yes all other systems are reviewed and are negative PMFSH Past Medical History Medical History COVID-19 (11/23/21) Suicidal ideation Substance abuse Social History Social History Household Members: Spouse, Family and Children Housing: Homeless Do you presently have visiting nurse or other home services: No Unable to assess alcohol history related to: Unknown Alcohol intake: current Alcohol intake frequency: a few times a week Alcohol type: hard liquor Patient Tobacco Use Status: Never used Tobacco Second Hand Smoke Exposure: No Substance Use Type: Crack/Cocaine Advance Directives: No Advance Directives Information Provided: No service: No Sexual orientation: Straight/Heterosexual Physical Exam Vital Signs: Vital Signs: Last Vital Signs Temp 98.2 F 09/10/23 00:31 Pulse 92 09/10/23 00:31 Resp 16 09/10/23 00:31 BP 135/89 09/10/23 00:31 Pulse Ox 98 09/10/23 00:31 O2 Del Method Room Air 09/10/23 00:31 BMI result Body Mass Index 27.4 Appearance: Alert. Oriented X3. No acute distress. Eyes: PERRLA, No Nystagmus ENT: Pharynx normal. Oral Mucosa moist Neck: Normal inspection. Neck supple. CVS: Normal heart rate and rhythm. Pulses normal. Respiratory: No respiratory distress. Equal air entry bilateral, no wheezing/rales/rhonchi Abdomen: Soft and nontender. Bowel sounds are present, no mass palpable, no CVA tenderness Skin: Skin warm and dry. Normal skin color. Normal skin turgor. Extremities: No lower extremity edema. No calf tenderness Neuro: Oriented X 3. No motor deficit. No sensory deficit.No cerebellar signs , cranial nerves II-XII intact Medical Decision Making Medical Decision Making MDM Narrative: Patient with substance abuse with history of same in the past multiple looking for placement for detox will get care team involved Discharge Plan Discharge Clinical Impression: Substance abuse, Major depression, Suicidal ideation Patient Disposition: Still a Patient Prescriptions: No Action hydroxyzine pamoate 50 mg capsule 50 mg PO TID PRN (Reason: Anxiety) baclofen 10 mg tablet 10 mg PO TID gabapentin 300 mg capsule 300 mg PO TID omeprazole 20 mg tablet,delayed release (DR/EC) 20 mg PO DAILY Print Language: [place] Citizen
[2023-09-10 01:36] LABS: Basophils Percent Auto 0.4 % (0-2); Eosinophils Absolute Auto 0.1 X10*3/uL (0.0-0.4); Eosinophils Percent Auto 0.9 % (0-4); Hemoglobin 14.2 g/dl (14.0-18.0); Imm Gran Abs Auto 0.02 X10*3/uL (0.00-0.03); Imm Gran Pct Auto 0.3 % (0.0-0.4); Lymphocytes Absolute Auto 1.9 X10*3/uL (1.2-4.9); Lymphocytes Percent Auto 25.8 % (20-40); MANUAL DIFF FLAG NO; Mean Corpuscular HGB Conc 34.6 g/dl (31.0-36.0); Mean Corpuscular Hemoglobin 30.4 pg (27.0-33.0); Mean Corpuscular Volume 87.8 fL (80.0-98.0); Mean Platelet Volume 8.7 fL (9.4-12.4); Monocytes Absolute Auto 0.6 X10*3/uL (0.1-1.2); Monocytes Percent Auto 7.5 % (2-11); Neutrophils Absolute Auto 4.9 x10*3/uL (2.0-8.3); Neutrophils Percent Auto 65.1 % (45-73); Platelet Count 225 X10*3/uL (160-400); Red Blood Count 4.67 X10*6/uL (4.60-5.80); Red Cell Distribution Width 13.3 % (11.0-16.0); White Blood Count 7.5 X10*3/uL (4.8-10.8)
[2023-09-10 01:50] LABS: Alanine Aminotransferase 45 U/L (0-40); Albumin Level 4.2 g/dL (3.5-5.0); Alkaline Phosphatase 54 U/L (39-117); Anion Gap 13 (12-20); Aspartate Amino Transferase 31 U/L (5-37); Bilirubin Total 0.4 mg/dL (0.0-1.0); Blood Urea Nitrogen 14 mg/dL (9-16); Calcium 9.4 mg/dL (8.4-10.2); Carbon Dioxide 26 mmol/L (22-29); Chloride 104 mmol/L (96-108); Creatinine Clr Calc Pharmacy 119.9; Estimated Glomerular Filt Rate > 60; Glucose Random 115 mg/dL (60-115); Potassium 3.8 mmol/L (3.3-5.1); Sodium 139 mmol/L (135-145); Total Protein 6.7 g/dL (6.5-8.0)
[2023-09-10 01:52] LABS: Ethanol < 10 mg/dL
--- NOTE | 2023-09-10 05:00 | PC.NURSE ---
PATIENT AWAKE AND snacking periodically in his designated area.
[2023-09-10 08:03] LABS: Appearance Urine Clear; Color Urine Yellow; Glucose Urine UA Negative (Negative); Leukocyte Esterase Urine Negative (Negative); Nitrite Urine Negative (Negative); PH 7.5 (5.0-9.0); Urine Blood Negative (Negative); Urine Ketones Negative (Negative); Urine Protein Negative (Neg-Trace)
[2023-09-10 08:08] LABS: Bacteria Urine None Seen (None Seen); Hyaline Casts Urine 0-2 /LPF (0-2); RBC Urine 0-2 /HPF (0-2); Squamous Epithelial Cell Urine 0-2 /HPF (0-2); WBC Urine 0-5 /HPF (0-5)
[2023-09-10 08:11] LABS: Amphetamine Screen Urine Not Detected (Not Detect); Barbiturates, Urine Not Detected (Not Detect); Benzodiazepines Screen Urine Not Detected (Not Detect); Buprenorphine Scr Not Detected (Not Detect); Cannabinoid Screen Urine Not Detected (Not Detect); Cocaine Screen Urine POSITIVE (Not Detect); Fentanyl, urine Not Detected (Not Detect); Methadone Screen, Urine Not Detected (Not Detect); Opiate Screen Urine Not Detected (Not Detect); Oxycodone Screen Urine Not Detected (Not Detect); Phencyclidine Screen Urine Not Detected (Not Detect)
[2023-09-10] MEDS: Omeprazole 20 MG CAPSULE.DR PO (08:47)
[2023-09-10] MEDS: hydrOXYzine HCL 50 MG TABLET PO (08:47)
[2023-09-10] MEDS: Gabapentin 300 MG CAPSULE PO ×2 (08:47→14:23)
--- NOTE | 2023-09-10 09:00 | MHC.CARE ---
Pt was seen by CARE team for assessment, he denies any suicidal ideation plan or intent an disposition is for referral to hospital recovery team. Pt is requesting recovery services and wants to be refereed [facility] detox.
[2023-09-10 09:55] VITALS: RESP 18
--- NOTE | 2023-09-10 10:38 | MHC.RECOVRN ---
Pt intereted in [facility] for CLAUDETTE treatment. T/w reached out to Audra Wolfe who informed t/w stimulant use disorder is usually referred outpatient, however, they may be able to get approval for residential. Referral sent, awaiting response.
--- NOTE | 2023-09-10 14:11 | MHC.RECOVRN ---
Pt declined from [facility] due to recently being admitted on 08/22. Pt requesting [facility], no bed availability. [facility] has bed availability, referral sent, pt notified, does not want [facility]. Pt requesting to discharge to [facility]. Provider aware.
[2023-09-10] MEDS: Baclofen 10 MG TABLET PO (14:23)
[2023-09-10 15:08] VITALS: BP 130/60; PULSE 77; RESP 14; TEMP 36.8; O2SAT 98
== END 2023-09-10 15:09 | disposition home or self-care (01) ==
PROVIDERS: Emergency Provider Internal Medicine
DX: F32.A Depression, unspecified (principal); F14.10 Cocaine abuse, uncomplicated; R45.851 Suicidal ideations; Z59.02 Unsheltered homelessness
CPT/HCPCS: 36415; 80053; 80307; 81001; 85025; 99284; S9485

== ENCOUNTER 2023-09-24 23:42 | Inpatient (IN) | payer OTHER, SELFPAY ==
[2023-09-24 23:47] VITALS: BP 137/82; PULSE 78; RESP 12; TEMP 36.4; O2SAT 99; BMI 28.8
[2023-09-25 00:18] LABS: MANUAL DIFF FLAG NO
[2023-09-25 00:23] LABS: Basophils Percent Auto 0.7 % (0-2); Eosinophils Absolute Auto 0.1 X10*3/uL (0.0-0.4); Eosinophils Percent Auto 1.8 % (0-4); Hematocrit 39.8 % (42.0-52.0); Hemoglobin 14.1 g/dl (14.0-18.0); Imm Gran Abs Auto 0.01 X10*3/uL (0.00-0.03); Imm Gran Pct Auto 0.2 % (0.0-0.4); Lymphocytes Absolute Auto 2.1 X10*3/uL (1.2-4.9); Lymphocytes Percent Auto 34.4 % (20-40); Mean Corpuscular HGB Conc 35.4 g/dl (31.0-36.0); Mean Corpuscular Hemoglobin 30.9 pg (27.0-33.0); Mean Corpuscular Volume 87.3 fL (80.0-98.0); Monocytes Absolute Auto 0.4 X10*3/uL (0.1-1.2); Monocytes Percent Auto 5.7 % (2-11); Neutrophils Absolute Auto 3.5 x10*3/uL (2.0-8.3); Neutrophils Percent Auto 57.2 % (45-73); Platelet Count 245 X10*3/uL (160-400); Red Blood Count 4.56 X10*6/uL (4.60-5.80); Red Cell Distribution Width 12.7 % (11.0-16.0); White Blood Count 6.1 X10*3/uL (4.8-10.8)
[2023-09-25 00:33] LABS: Alanine Aminotransferase 22 U/L (0-40); Albumin Level 4.3 g/dL (3.5-5.0); Alkaline Phosphatase 62 U/L (39-117); Anion Gap 14 (12-20); Aspartate Amino Transferase 21 U/L (5-37); Bilirubin Total 0.4 mg/dL (0.0-1.0); Blood Urea Nitrogen 11 mg/dL (9-16); Calcium 9.5 mg/dL (8.4-10.2); Carbon Dioxide 22 mmol/L (22-29); Chloride 107 mmol/L (96-108); Creatinine Clr Calc Pharmacy 122.9; Estimated Glomerular Filt Rate > 60; Ethanol < 10 mg/dL; Glucose Random 130 mg/dL (60-115); Potassium 3.8 mmol/L (3.3-5.1); Sodium 139 mmol/L (135-145); Total Protein 6.9 g/dL (6.5-8.0)
--- NOTE | 2023-09-25 00:41 | ED_ITS ---
HPI - Psych General Chief Complaint: Psychiatric Symptoms Stated Complaint: Crisis Time Seen by Provider: 09/25/23 00:41 Source: patient and old records reviewed Mode of arrival: ambulatory Limitations: no limitations History of Present Illness HPI Narrative: 42 yo male well known to us hx of depression and substance abuse presents with plan to OD and SI. Was brought in by family tonight. MD complaint: suicidal ideation, feels depressed and substance abuse Onset (ago): day(s) Duration: constant History of same: Yes Relieving factors: none Exacerbating factors: drug use and other Context: recent drug abuse Associated psychiatric symptoms: depression and suicidal ideation Associated symptoms: denies other symptoms Treatments prior to arrival: none If self harm: admits thoughts of self harm and has plan Related Data Home Medications ?Medication ?Instructions ?Recorded ?Confirmed baclofen 10 mg tablet 10 mg PO TID 09/03/23 09/10/23 gabapentin 300 mg capsule 300 mg PO TID 09/03/23 09/10/23 hydroxyzine pamoate 50 mg capsule 50 mg PO TID PRN Anxiety 09/03/23 09/10/23 omeprazole 20 mg tablet,delayed 20 mg PO DAILY 09/03/23 09/10/23 release Allergies Allergy/AdvReac Type Severity Reaction Status Date / Time No Known Allergies Allergy Verified 09/24/23 23:48 Review of Systems 2 Review of Systems: Constitutional : No Fever, No Chills ENT/Mouth : No Ear Pain, No Nasal Congestion, No sore throat Eyes: No Eye Pain, No Swelling, No Redness Cardiovascular : No Chest Pain, No SOB Respiratory : No Cough, No Sputum, No Dyspnea Gastrointestinal : No Nausea, No Vomiting, No Diarrhea, No Hematochezia, No Melena Genitourinary : No Dysuria, No Urinary Frequency, No Hematuria Musculoskeletal : No Myalgias Skin : No Skin Lesions, No rash Neuro : No Weakness, No Numbness, No Paresthesias, No Dizziness, No Headache Psych : positive Anxiety, positive Depression, positive SI oo HI All other systems reviewed and are negative PMFSH Past Medical History Attestation statement: The following information was validated with the patient. Source: old records reviewed Medical History COVID-19 (11/23/21) Suicidal ideation Substance abuse Social History Social History (Reviewed 09/25/23 @ 00:41 by LAKIA Menchaca Household Members: Spouse, Family and Children Housing: Homeless Do you presently have visiting nurse or other home services: No Unable to assess alcohol history related to: Unknown Alcohol intake: current Alcohol intake frequency: a few times a week Alcohol type: hard liquor Patient Tobacco Use Status: Never used Tobacco Second Hand Smoke Exposure: No Substance Use Type: Crack/Cocaine Advance Directives: No Advance Directives Information Provided: No Do you have a plan to hurt others: No Plan service: No Sexual orientation: Straight/Heterosexual Physical Exam 2 Vital Signs: Vital Signs: Last Vital Signs Temp 97.6 F 09/24/23 23:47 Pulse 78 09/24/23 23:47 Resp 12 09/24/23 23:47 BP 137/82 09/24/23 23:47 Pulse Ox 99 09/24/23 23:47 O2 Del Method Room Air 09/24/23 23:47 BMI result Body Mass Index 28.8 Appearance: Alert. Oriented X3. No acute distress. Anxious appearing Eyes: Pupils equal, round and reactive to light. ENT: Pharynx normal. Neck: Normal inspection. Neck supple. CVS: Normal heart rate and rhythm. Pulses normal. Respiratory: No respiratory distress. Breath sounds normal. Abdomen: Soft and nontender. Skin: Skin warm and dry. Normal skin color. Normal skin turgor. Extremities: No lower extremity edema. No calf ttp Neuro: Oriented X 3. No motor deficit. No sensory deficit. CN2-12 intact Medical Decision Making Medical Decision Making [facility] Narrative: 42 yo male with PMH of depression and substance abuse here with c/o SI and plan to overdose at this time will obtain labs and CARE team consult Differential Diagnosis Differential Diagnoses: The differential diagnosis associated with the presentation includes substance abuse, depression Admission/Observation Consideration of admission/observation: Escalation of care including admission/observation considered physician observation started at 1244am pending CARE team Consult Healthcare Provider Management of the patient was discussed with: Behavioral Health Provider Lab Data [facility] Lab Attestation statement: I reviewed the patient's lab results. 09/25/23 00:09 09/25/23 00:09 Labs: Lab Results 09/25/23 Range/Units 00:09 WBC 6.1 (4.8-10.8) X10*3/uL RBC 4.56 L (4.60-5.80) X10*6/uL Hgb 14.1 (14.0-18.0) g/dl Hct 39.8 L (42.0-52.0) % MCV 87.3 (80.0-98.0) fL MCH 30.9 (27.0-33.0) pg MCHC 35.4 (31.0-36.0) g/dl RDW 12.7 (11.0-16.0) % Plt Count 245 (160-400) X10*3/uL MPV 9.0 L (9.4-12.4) fL Immature Gran % (Auto) 0.2 (0.0-0.4) % Neut % (Auto) 57.2 (45-73) % Lymph % (Auto) 34.4 (20-40) % [place] % (Auto) 5.7 (2-11) % Eos % (Auto) 1.8 (0-4) % Baso % (Auto) 0.7 (0-2) % Lymph # (Auto) 2.1 (1.2-4.9) X10*3/uL [place] # (Auto) 0.4 (0.1-1.2) X10*3/uL Eos # (Auto) 0.1 (0.0-0.4) X10*3/uL Baso # (Auto) 0.0 (0.0-0.2) X10*3/uL Abs Immat Gran (auto) 0.01 (0.00-0.03) X10*3/uL Absolute Neuts (auto) 3.5 (2.0-8.3) x10*3/uL Absolute Nucleated RBC 0.000 (0.0-0.012) X10*3/uL Nucleated RBC % (auto) 0.0 (0.0-0.2) /100WBC Sodium 139 (135-145) mmol/L Potassium 3.8 (3.3-5.1) mmol/L Chloride 107 (96-108) mmol/L Carbon Dioxide 22 (22-29) mmol/L Anion Gap 14 (12-20) BUN 11 (9-16) mg/dL Creatinine 0.80 (0.5-1.4) mg/dL Estim Creat Clear Calc 122.9 Estimated GFR > 60 Random Glucose 130 H (60-115) mg/dL Calcium 9.5 (8.4-10.2) mg/dL Total Bilirubin 0.4 (0.0-1.0) mg/dL AST 21 (5-37) U/L ALT 22 (0-40) U/L Alkaline Phosphatase 62 (39-117) U/L Total Protein 6.9 (6.5-8.0) g/dL Albumin 4.3 (3.5-5.0) g/dL Ethyl Alcohol < 10 mg/dL External Record Review External record reviewed: Inpatient record Discharge Plan Discharge Clinical Impression: Suicidal ideation Patient Disposition: Still a Patient Prescriptions: No Action hydroxyzine pamoate 50 mg capsule 50 mg PO TID PRN (Reason: Anxiety) baclofen 10 mg tablet 10 mg PO TID gabapentin 300 mg capsule 300 mg PO TID omeprazole 20 mg tablet,delayed release (DR/EC) 20 mg PO DAILY Print Language: Uzbek
--- NOTE | 2023-09-25 07:16 | PC.NURSE ---
Assumed care of patient at 0645. Patient is observed sleeping in there bed at this time. No signs of distress, breathing is even and unlabored at this time. Will continue plan of care.
[2023-09-25 08:34] LABS: Amphetamine Screen Urine Not Detected (Not Detect); Barbiturates, Urine Not Detected (Not Detect); Benzodiazepines Screen Urine Not Detected (Not Detect); Buprenorphine Scr Not Detected (Not Detect); Cannabinoid Screen Urine Not Detected (Not Detect); Cocaine Screen Urine POSITIVE (Not Detect); Fentanyl, urine Not Detected (Not Detect); Methadone Screen, Urine Not Detected (Not Detect); Opiate Screen Urine Not Detected (Not Detect); Oxycodone Screen Urine Not Detected (Not Detect); Phencyclidine Screen Urine Not Detected (Not Detect)
[2023-09-25] MEDS: Gabapentin 300 MG CAPSULE PO ×3 (09:33→20:43)
[2023-09-25] MEDS: Baclofen 10 MG TABLET PO ×3 (09:33→20:43)
[2023-09-25] MEDS: Omeprazole 20 MG CAPSULE.DR PO (09:33)
[2023-09-25 13:17] VITALS: BP 138/90; PULSE 80; RESP 14; TEMP 36.2; O2SAT 98
--- NOTE | 2023-09-25 19:44 | PC.NURSE ---
patient appears to remain at rest at present respirations are even and unlabored patient appears in no distress
[2023-09-25] MEDS: Melatonin 3 MG TABLET 6 MG PO (20:53)
--- NOTE | 2023-09-26 | ECG_ITS ---
Test Reason : check qt interval Blood Pressure : / mmHG Vent. Rate : 063 BPM Atrial Rate : 063 BPM P-R Int : 152 ms QRS Dur : 092 ms QT Int : 372 ms P-R-T Axes : 070 069 030 degrees QTc Int : 380 ms Normal sinus rhythm Normal ECG When compared with ECG of 18-MAY-2023 21:43, Vent. rate has decreased BY 41 BPM QT has shortened Referred By: Maurice Gonzalez Electronically Signed By:Lul Horton
--- NOTE | 2023-09-26 05:16 | PC.NURSE ---
Pt sleeping at the bedside. No apparent distress noted. Breaths are even regular and unlabored with equal chest rises. Monitoring is ongoing.
[2023-09-26] MEDS: Omeprazole 20 MG CAPSULE.DR PO (06:46)
--- NOTE | 2023-09-26 07:32 | PC.NURSE ---
Assumed care of patient at 0645. Patient is observed sleeping in their bed. No signs of distress observed. Breathing is equal and unlabored. Will continue plan of care.
[2023-09-26 07:57] VITALS: BP 146/79; PULSE 84; RESP 14; TEMP 36.3; O2SAT 97
[2023-09-26] MEDS: Baclofen 10 MG TABLET PO ×3 (08:57→20:42)
[2023-09-26] MEDS: Gabapentin 300 MG CAPSULE PO ×2 (08:57→15:45)
[2023-09-26 14:54] VITALS: BP 140/81; PULSE 97; RESP 16; TEMP 36.7; O2SAT 97
[2023-09-26 14:55] VITALS: BMI 26.4
--- NOTE | 2023-09-26 15:51 | P.HPPS_ITS ---
HPI Date of Service: 09/26/23 Chief Complaint: SI Sources of Information: patient interviewed, chart reviewed and crisis/core team assessment reviewed HPI Subjective Notes: Nance Warning and Conditional Voluntary Narrative: Mr. Sol is a 42 year-old male with hx of MDD, cocaine use disorder, alcohol use disorder who self presented with his father reporting increase depression, suicidal ideation with plan to OD on dope in context of multiple psycho social stressors including lack of stable housing, financial stress and limited social supports. In the ED, his utox was positive for cocaine. On the unit, pt presents as somewhat guarded. He reports he is no longer suicidal because he has been thinking while he was in the ED about his children. He reports he has been staying on the streets, or wherever I can for some time. He reports he recently relapsed on cocaine. He reports alcohol use as well daily but mostly cocaine. He denies using opioids. He denies hx of visual or auditory hallucinations. He reports hx of chronic lower back pain for what he takes gabapentin. He also takes baclofen for both muscle spams and cocaine cravings. He reports it has been difficult to stop using. He appears ambivalent about staying here on the unit or signing a 3 day notice. Past Psychiatric History: Inpt: M5 04/2022 pt has had many admissions to detox and substance recovery program in 2021. He was incarcerated at early age of 13. Has spent 16 out of the last 22 years in detention. He reports he was sober for 30 days until he relapsed on 05/04 and had suicidal ideation of overdosing. Past trials: melatonin, vistaril, gabapentin Hx of suicide attempts: none Medical Evaluation Reviewed: Yes [facility] Medical History COVID-19 (11/23/21) Suicidal ideation Substance abuse Family History: none Social History: Mother September 2021 Pt reports he is currently homeless. Pt reports having children ages 23, 20, 19, 15, and 4. Not working at the moment. Substance History: cocaine- daily, few months. Alcohol- 1/2 pint daily for few months. denies complications from alcohol withdrawal Opioids- none Trauma History: incarcerated age 13 Diagnostics Vital Signs (24Hr): Vital Signs - 24 hr 09/26/23 07:57 09/26/23 14:54 Temperature 97.3 F 98.1 F Pulse Rate 84 97 Respiratory Rate 14 16 Blood Pressure 146/79 H 140/81 H Pulse Oximetry 97 97 Oxygen Delivery Method Room Air Room Air BMI result Body Mass Index 26.4 Labs 09/25/23 00:09 09/25/23 00:09 Labs: Laboratory Results - last 48 hr 09/25/23 09/25/23 00:09 08:17 WBC 6.1 RBC 4.56 L Hgb 14.1 Hct 39.8 L MCV 87.3 MCH 30.9 MCHC 35.4 RDW 12.7 Plt Count 245 MPV 9.0 L Immature Gran % (Auto) 0.2 Neut % (Auto) 57.2 Lymph % (Auto) 34.4 Davidson % (Auto) 5.7 Eos % (Auto) 1.8 Baso % (Auto) 0.7 Lymph # (Auto) 2.1 [place] # (Auto) 0.4 Eos # (Auto) 0.1 Baso # (Auto) 0.0 Abs Immat Gran (auto) 0.01 Absolute Neuts (auto) 3.5 Absolute Nucleated RBC 0.000 Nucleated RBC % (auto) 0.0 Sodium 139 Potassium 3.8 Chloride 107 Carbon Dioxide 22 Anion Gap 14 BUN 11 Creatinine 0.80 Estim Creat Clear Calc 122.9 Estimated GFR > 60 Random Glucose 130 H Calcium 9.5 Total Bilirubin 0.4 AST 21 ALT 22 Alkaline Phosphatase 62 Total Protein 6.9 Albumin 4.3 Urine Opiates Screen Not Detected Ur Buprenorphine Scrn Not Detected Ur Oxycodone Screen Not Detected Urine Methadone Screen Not Detected Urine Fentanyl Screen Not Detected Ur Barbiturates Screen Not Detected Ur Phencyclidine Scrn Not Detected Ur Amphetamines Screen Not Detected U Benzodiazepines Scrn Not Detected Urine Cocaine Screen POSITIVE H U Marijuana (THC) Screen Not Detected Ethyl Alcohol < 10 Meds/Allergies Meds Home Medications ?Medication ?Instructions ?Recorded ?Confirmed ?Type baclofen 10 mg tablet 10 mg PO TID 09/03/23 09/25/23 History gabapentin 300 mg capsule 300 mg PO TID 09/03/23 09/25/23 History hydroxyzine pamoate 50 mg capsule 50 mg PO TID PRN Anxiety 09/03/23 09/25/23 History omeprazole 20 mg tablet,delayed 20 mg PO DAILY 09/03/23 09/25/23 History release Allergies Allergies Allergy/AdvReac Type Severity Reaction Status Date / Time No Known Allergies Allergy Verified 09/24/23 23:48 Mental Status Exam Mental Status Exam Narrative: Appearance:wearing hospital gown, tattoed face and arms, in NAD Behavior:guarded and somewhat irritable Psychomotor: no agitation or retardation noted Speech: clear, normal rate/rhythm/volume, spontaneous TP: linear TC: ambivalent about staying here or leaving. Mood: better Affect: irritable, guarded SI: denies HI: denies VH/AH: none Delusions: none Insight/judgement: poor x 2. Memory/cog: alert, oriented x 3. grossly intact to conversational testing. Assessment & Plan Assessment & Plan (1) MDD (major depressive disorder), recurrent episode, severe: Status: Acute Code(s): F33.2 - Major depressive disorder, recurrent severe without psychotic features (2) Cocaine use disorder, moderate, dependence: Status: Acute Code(s): F14.20 - Cocaine dependence, uncomplicated (3) Alcohol use disorder, mild, abuse: Status: Acute Code(s): F10.10 - Alcohol abuse, uncomplicated Plan Mr. Sol is a 42 year-old with hx of MDD, cocaine use who self presented with father reporting increase depression, SI with plan to OD on dope in context of ongoing substance use, lack of stable housing. His utox was positive for cocaine. He now appears ambivalent about being here on the unit and receving treatment. He denies SI and states he has been thinking about his children as protective factors. We discussed risks, benefits and alternative treatment options. PLAN 1. Admit to M3, CV, 15 minutes checks for safety. 2. Increase gabapentin from 300mg po TID to 400mg po TID. continue baclofe. we discussed adding topamax 50mg po qhs for cocaine cravings. 3. aftercare planning. Patient educated on: diagnosis, medication risk/benefits and substance abuse Reason for continued inpatient stay Substantial Risk for: harm to self Statement Statement: I have reviewed the history and physical and performed a pertinent examination on my patient. No changes have occurred unless specified. If the History and Physical was not performed prior to admission, the Hospitalist's service will be consulted for completing the admission physical. Time Spent With Patient Time: Total time managing care of this patient today ____ minutes.
--- NOTE | 2023-09-26 17:21 | PC.NURSE ---
Kamran was admitted to M3 at 1445 from [facility] Pod on CV for treatment of depression, ptsd, stimulant use disorder and suicidality. On admission to the unit he signed a 3 day notice. Precipitant of admission includes relapse on crack cocaine use and suicidal thoughts to overdose On dope. Patient has been noncompliant with meds for 5 or 6 months. On arrival to unit Kamran is alert and fully oriented with poor frustration tolerance and irritability. Specifically he is struggling with limits on what he is allowed to have on the unit and the loud noises made by his roommate. While not threatening to harm other people he did make statements about destroying property. I'm going to break that walker of his. Kamran was moved to the ante room and placed on q 5 minute checks. Mood is depressed. He denies hallucinations,. Thought Process is organized. He denies ideation, plan or intent to harm self or others at present. Appetite is good with no recent weight loss or gain. Sleep is variable and affected by cocaine use. Patient reports he is legally blind and denies other medical issues. Goal of admission is to get back on medications and off street drugs.
[2023-09-26 20:00] VITALS: BP 136/88; PULSE 59; RESP 18; TEMP 36.9; O2SAT 98
[2023-09-26] MEDS: Topiramate 25 MG TABLET 50 MG PO (20:42)
[2023-09-26] MEDS: Gabapentin 400 MG CAPSULE PO (20:42)
[2023-09-26] MEDS: hydrOXYzine HCL 50 MG TABLET PO (21:13)
[2023-09-26] MEDS: Melatonin 3 MG TABLET 6 MG PO (21:13)
[2023-09-27 07:00] VITALS: BMI 26.8
[2023-09-27] MEDS: Omeprazole 20 MG CAPSULE.DR PO (07:26)
[2023-09-27 07:31] VITALS: BP 150/85; PULSE 96; RESP 16; TEMP 36.5; O2SAT 96
--- NOTE | 2023-09-27 09:04 | P.HPPS_ITS ---
HPI Chief Complaint: SI HPI Past Psychiatric History: Inpt: M5 04/2022 pt has had many admissions to detox and substance recovery program in 2021. He was incarcerated at early age of 13. Has spent 16 out of the last 22 years in [facility]. He reports he was sober for 30 days until he relapsed on 05/04 and had suicidal ideation of overdosing. Past trials: melatonin, vistaril, gabapentin Hx of suicide attempts: none [facility] Medical History COVID-19 (11/23/21) Suicidal ideation Substance abuse Family History: none Social History: Mother September 2021 Pt reports he is currently homeless. Pt reports having children ages 23, 20, 19, 15, and 4. Not working at the moment. Trauma History: incarcerated age 13 Diagnostics Vital Signs (24Hr): Vital Signs - 24 hr 09/26/23 14:54 09/26/23 20:00 09/27/23 07:31 Temperature 98.1 F 98.4 F 97.7 F Pulse Rate 97 59 96 Respiratory Rate 16 18 16 Blood Pressure 140/81 H 136/88 150/85 H Pulse Oximetry 97 98 96 Oxygen Delivery Method Room Air Room Air Room Air BMI result Body Mass Index 26.4 Labs 09/25/23 00:09 09/25/23 00:09 Meds/Allergies Meds Home Medications ?Medication ?Instructions ?Recorded ?Confirmed ?Type baclofen 10 mg tablet 10 mg PO TID 09/03/23 09/25/23 History gabapentin 300 mg capsule 300 mg PO TID 09/03/23 09/25/23 History hydroxyzine pamoate 50 mg capsule 50 mg PO TID PRN Anxiety 09/03/23 09/25/23 History omeprazole 20 mg tablet,delayed 20 mg PO DAILY 09/03/23 09/25/23 History release Allergies Allergies Allergy/AdvReac Type Severity Reaction Status Date / Time No Known Allergies Allergy Verified 09/24/23 23:48 Assessment & Plan Statement Statement: I have reviewed the history and physical and performed a pertinent examination on my patient. No changes have occurred unless specified. If the History and Physical was not performed prior to admission, the Hospitalist's service will be consulted for completing the admission physical. Time Spent With Patient Time: Total time managing care of this patient today ____ minutes.
--- NOTE | 2023-09-27 09:04 | HO.PSYCHPN ---
Subjective Subjective Reason For Visit: SI Diagnostics Vital Signs (24Hr): Vital Signs - 24 hr 09/26/23 14:54 09/26/23 20:00 09/27/23 07:31 Temperature 98.1 F 98.4 F 97.7 F Pulse Rate 97 59 96 Respiratory Rate 16 18 16 Blood Pressure 140/81 H 136/88 150/85 H Pulse Oximetry 97 98 96 Oxygen Delivery Method Room Air Room Air Room Air BMI result Body Mass Index 26.4 Labs 09/25/23 00:09 09/25/23 00:09 Medications Medications Current Medications Acetaminophen (Acetaminophen 325 Mg Tablet) 650 mg PO Q6H PRN PRN Reason: Headache/Pain Mild Scale (1-3) Al Hydroxide/Mg Hydroxide (Magnesium Hydrox/Alum Hydrox 30 Ml Oral.Susp) 30 ml PO Q6H PRN PRN Reason: Heartburn/Nausea Baclofen (Baclofen 10 Mg Tablet) 10 mg PO TID [facility] Last Admin: 09/26/23 20:42 Dose: 10 mg Gabapentin (Gabapentin 400 Mg Capsule) 400 mg PO TID [facility] Last Admin: 09/26/23 20:42 Dose: 400 mg Hydroxyzine HCl (Hydroxyzine Hcl 50 Mg Tablet) 50 mg PO TID PRN PRN Reason: Anxiety Last Admin: 09/26/23 21:13 Dose: 50 mg Magnesium Hydroxide (Milk Of Magnesia 30 Ml Oral.Susp) 30 ml PO DAILY PRN PRN Reason: Constipation Melatonin (Melatonin 3 Mg Tablet) 6 mg PO BEDTIME PRN PRN Reason: Insomnia Last Admin: 09/26/23 21:13 Dose: 6 mg Omeprazole (Omeprazole 20 Mg Capsule.Dr) 20 mg PO DAILY@0630 [facility] Last Admin: 09/27/23 07:26 Dose: 20 mg Quetiapine Fumarate (Quetiapine Fumarate 50 Mg Tablet) 50 mg PO Q6H PRN PRN Reason: agitation Topiramate (Topiramate 25 Mg Tablet) 50 mg PO BEDTIME [facility] Last Admin: 09/26/23 20:42 Dose: 50 mg Trazodone HCl (Trazodone Hcl 50 Mg Tablet) 50 mg PO BEDTIME MRX1 PRN PRN Reason: Insomnia Allergies Allergies Allergy/AdvReac Type Severity Reaction Status Date / Time No Known Allergies Allergy Verified 09/24/23 23:48 Assessment & Plan Assessment & Plan (1) MDD (major depressive disorder), recurrent episode, severe: Status: Acute Code(s): F33.2 - Major depressive disorder, recurrent severe without psychotic features (2) Cocaine use disorder, moderate, dependence: Status: Acute Code(s): F14.20 - Cocaine dependence, uncomplicated (3) Alcohol use disorder, mild, abuse: Status: Acute Code(s): F10.10 - Alcohol abuse, uncomplicated Plan Mr. Sol is a 42 year-old with hx of MDD, cocaine use who self presented with father reporting increase depression, SI with plan to OD on dope in context of ongoing substance use, lack of stable housing. His utox was positive for cocaine. He now appears ambivalent about being here on the unit and receving treatment. He denies SI and states he has been thinking about his children as protective factors. We discussed risks, benefits and alternative treatment options. PLAN 1. Admit to M3, CV, 15 minutes checks for safety. 2. Increase gabapentin from 300mg po TID to 400mg po TID. continue baclofe. we discussed adding topamax 50mg po qhs for cocaine cravings. 3. aftercare planning. Time Spent With Patient Time: Total time managing care of this patient today ____ minutes.
[2023-09-27] MEDS: Gabapentin 400 MG CAPSULE PO ×3 (09:50→20:32)
[2023-09-27] MEDS: Baclofen 10 MG TABLET PO ×3 (09:50→20:32)
--- NOTE | 2023-09-27 13:15 | MHC.RECOVRN ---
Met with pt on M3 after consult placed to Addiction Medicine for outpatient addiction tx. Pt had presented to the ED reporting SI with plan to overdose. Upon evaluation, pt admitted for MDD, stimulant use disorder (cocaine), and AUD. Pt awake, alert, easily engages in conversation. Pt is currently taking baclofen and (newly) topiramate for stimulant cravings. Pt reports baclofen has been helpful in the past. Pt reports he is interested in outpatient treatment providers. Educated pt on available resources, including the [facility]. 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 Pt provided with written resources as well as t/w contact information if questions or concerns arise. Pt denies questions or concerns at this time. Discussed with Naye Lezama APRN.
--- NOTE | 2023-09-27 16:29 | PM.PSYDC ---
DS: Providers Provider Date of Service: 09/27/23 Date of admission: 09/26/23 14:06 Primary care physician: Unknown Physician Consults: 09/26/23 17:11 Addiction Medicine Routine Consulting Provider: Addiction Covering Reason for consultation: cocaine and alcohol use. Pt fiorella addiction medicine consult 09/27/23 11:58 Addiction Medicine Routine Consulting Provider: Addiction Covering Reason for consultation: cocaine/alcohol use disorder, looking for outpt addictions Tx. D/C tomorro Has provider been notified: No DS: Diagnosis Discharge Diagnosis (1) MDD (major depressive disorder), recurrent episode, severe: Status: Acute (2) Cocaine use disorder, moderate, dependence: Status: Acute (3) Alcohol use disorder, mild, abuse: Status: Acute DS: Medications Discharge Medications Home Medications: Home Medications ?Medication ?Instructions ?Recorded ?Confirmed gabapentin 300 mg capsule 300 mg PO TID 09/03/23 09/25/23 hydroxyzine pamoate 50 mg capsule 50 mg PO TID PRN Anxiety 09/03/23 09/25/23 Previous Rx's ?Medication ?Instructions ?Recorded baclofen 10 mg tablet 10 mg PO TID 30 days #90 tabs 09/27/23 gabapentin 400 mg capsule 400 mg PO TID 30 days #90 caps 09/27/23 hydroxyzine HCl 50 mg tablet 100 mg (2 x 50 mg) PO BEDTIME PRN 09/27/23 Anxiety 30 days #60 tabs melatonin 3 mg tablet 9 mg (3 x 3 mg) PO BEDTIME PRN 09/27/23 Insomnia 30 days #90 tabs omeprazole 20 mg tablet,delayed 20 mg PO DAILY 30 days #30 tabs 09/27/23 release topiramate 25 mg tablet 50 mg (2 x 25 mg) PO BEDTIME 30 09/27/23 days #60 tabs Mental Status Exam Mental Status Exam Narrative: Appearance:wearing hospital gown, tattoed face and arms, in NAD Behavior:guarded and somewhat irritable Psychomotor: no agitation or retardation noted Speech: clear, normal rate/rhythm/volume, spontaneous TP: linear TC: requesting discharge Mood: i'm good Affect: irritable, guarded SI: denies HI: denies VH/AH: none Delusions: none Insight/judgement: poor x 2. Memory/cog: alert, oriented x 3. grossly intact to conversational testing. Data Data Completed and Pending Completed studies during hospitalization [Text1]: 09/25/23 09/25/23 00:09 08:17 WBC 6.1 RBC 4.56 L Hgb 14.1 Hct 39.8 L MCV 87.3 MCH 30.9 MCHC 35.4 RDW 12.7 Plt Count 245 MPV 9.0 L Immature Gran % (Auto) 0.2 Neut % (Auto) 57.2 Lymph % (Auto) 34.4 [place] % (Auto) 5.7 Eos % (Auto) 1.8 Baso % (Auto) 0.7 Lymph # (Auto) 2.1 [place] # (Auto) 0.4 Eos # (Auto) 0.1 Baso # (Auto) 0.0 Abs Immat Gran (auto) 0.01 Absolute Neuts (auto) 3.5 Absolute Nucleated RBC 0.000 Nucleated RBC % (auto) 0.0 Sodium 139 Potassium 3.8 Chloride 107 Carbon Dioxide 22 Anion Gap 14 BUN 11 Creatinine 0.80 Estim Creat Clear Calc 122.9 Estimated GFR > 60 Random Glucose 130 H Calcium 9.5 Total Bilirubin 0.4 AST 21 ALT 22 Alkaline Phosphatase 62 Total Protein 6.9 Albumin 4.3 Urine Opiates Screen Not Detected Ur Buprenorphine Scrn Not Detected Ur Oxycodone Screen Not Detected Urine Methadone Screen Not Detected Urine Fentanyl Screen Not Detected Ur Barbiturates Screen Not Detected Ur Phencyclidine Scrn Not Detected Ur Amphetamines Screen Not Detected U Benzodiazepines Scrn Not Detected Urine Cocaine Screen POSITIVE H U Marijuana (THC) Screen Not Detected Ethyl Alcohol < 10 DS: Summary Hospital Course Hospital Course: per 09/25 admission note: Mr. Sol is a 42 year-old male with hx of MDD, cocaine use disorder, alcohol use disorder who self presented with his father reporting increase depression, suicidal ideation with plan to OD on dope in context of multiple psycho social stressors including lack of stable housing, financial stress and limited social supports. In the ED, his utox was positive for cocaine. On the unit, pt presents as somewhat guarded. He reports he is no longer suicidal because he has been thinking while he was in the ED about his children. He reports he has been staying on the streets, or wherever I can for some time. He reports he recently relapsed on cocaine. He reports alcohol use as well daily but mostly cocaine. He denies using opioids. He denies hx of visual or auditory hallucinations. He reports hx of chronic lower back pain for what he takes gabapentin. He also takes baclofen for both muscle spams and cocaine cravings. He reports it has been difficult to stop using. He appears ambivalent about staying here on the unit or signing a 3 day notice. Past Psychiatric History: Inpt: M5 04/2022 pt has had many admissions to detox and substance recovery program in 2021. He was incarcerated at early age of 13. Has spent 16 out of the last 22 years in skilled nursing. He reports he was sober for 30 days until he relapsed on 05/04 and had suicidal ideation of overdosing. Past trials: melatonin, vistaril, gabapentin Hx of suicide attempts: none Medical Evaluation Reviewed: Yes [facility] Medical History COVID-19 (11/23/21) Suicidal ideation Substance abuse Family History: none Social History: Mother September 2021 Pt reports he is currently homeless. Pt reports having children ages 23, 20, 19, 15, and 4. Not working at the moment. Substance History: cocaine- daily, few months. Alcohol- 1/2 pint daily for few months. denies complications from alcohol withdrawal Opioids- none Trauma History: incarcerated age 13 Precis: Mr. Sol is a 42 year-old with hx of MDD, cocaine use who self presented with father reporting increase depression, SI with plan to OD on dope in context of ongoing substance use, lack of stable housing. His utox was positive for cocaine. He now appears ambivalent about being here on the unit and receving treatment. He denies SI and states he has been thinking about his children as protective factors. We discussed risks, benefits and alternative treatment options. 09/25: Admit to M3, CV, 15 minutes checks for safety. Increase gabapentin from 300mg po TID to 400mg po TID. continue baclofen. we discussed adding topamax 50mg po qhs for cocaine cravings. aftercare planning. 09/26: no notable events, requesting discharge. meds reviewed, reconciled, prescribed. plan for discharge tomorrow to pt's brother's home. 09/27: stable, no safety concerns. discharged as per plan. Time Spent with Patient Time attestation: Total time managing care of this patient today _35___ minutes. Discharge Plan Discharge Anticipated Discharge Date/Time: 09/28/23 11:00 Patient Disposition: Home, Self-Care Discharge Diagnosis: Major Depressive Disorder Cocaine Use Disorder Alcohol Use Disorder Referrals: Therapy & Psychiatry [Other] - 1 Week (*Please present to the agency above, Sunday through Sunday, during the hours of 8am and 8pm in order to obtain outpatient mental health providers. Please bring your photo ID and insurance card with you. ) [facility] [Provider Group] - 1 Week Discharge Medications: New topiramate 25 mg Tablet 50 mg PO BEDTIME 30 Days Qty: 60 1RF melatonin 3 mg Tablet 9 mg PO BEDTIME PRN (Reason: Insomnia) 30 Days Qty: 90 1RF Discontinued hydroxyzine pamoate 50 mg capsule 50 mg PO TID PRN (Reason: Anxiety) baclofen 10 mg tablet 10 mg PO TID gabapentin 300 mg capsule 300 mg PO TID omeprazole 20 mg tablet,delayed release (DR/EC) 20 mg PO DAILY No Action gabapentin 600 mg tablet 600 mg PO TID baclofen 20 mg tablet 20 mg PO TID risperidone 1 mg tablet 1 mg PO BEDTIME Discharge Orders: Discharge Order (Routine); Ordered 09/28/23 Ordered By: Akshat Wei Diet: Advance to usual diet Activity on Discharge: As tolerated Stand Alone Forms: Patient Portal Discharge page, Community Support Print Language: Jordanian Care Plan Goals: remain safe, stable, and sober in the outpatient treatment setting Health Concerns: none Plan of Treatment: take medications as prescribed, attend appointments as scheduled, make appointments as directed Assessment: not at imminent risk of harm to self or others Discharge Date/Time: 09/28/23 11:13
[2023-09-27 19:50] VITALS: BP 140/88; PULSE 100; RESP 18; TEMP 36.1; O2SAT 100
[2023-09-27] MEDS: Topiramate 25 MG TABLET 50 MG PO (20:32)
[2023-09-27] MEDS: Melatonin 3 MG TABLET 6 MG PO (20:32)
[2023-09-28] MEDS: hydrOXYzine HCL 50 MG TABLET PO (05:11)
[2023-09-28] MEDS: Omeprazole 20 MG CAPSULE.DR PO (07:11)
[2023-09-28 07:44] VITALS: BP 135/72; PULSE 96; RESP 14; TEMP 35.5; O2SAT 99
[2023-09-28] MEDS: Gabapentin 400 MG CAPSULE PO (09:18)
[2023-09-28] MEDS: Baclofen 10 MG TABLET PO (09:18)
== END 2023-09-28 11:13 | disposition home or self-care (01) | DRG 751 ==
LOC: HO.ED 09-25 00:45 → HO.PADLT16 09-26 14:28
PROVIDERS: Admitting Provider Social Worker; Emergency Provider Emergency Medicine; Visit Provider Psychiatry & Neurology Psychiatry
DX: F33.2 Major depressive disorder, recurrent severe without psychotic features (principal); R45.851 Suicidal ideations; F17.210 Nicotine dependence, cigarettes, uncomplicated; F10.10 Alcohol abuse, uncomplicated; F14.20 Cocaine dependence, uncomplicated; Z71.6 Tobacco abuse counseling; Z59.02 Unsheltered homelessness; Z79.899 Other long term (current) drug therapy
CPT/HCPCS: 36415; 80053; 80307; 85025; 93005; 99285; S9485

== ENCOUNTER → 2023-09-26 08:54 | Outpatient (BNV) | payer MEDICAID, SELFPAY | PROVIDERS: Admitting Provider Social Worker; Emergency Provider Emergency Medicine; Visit Provider Internal Medicine Cardiovascular Disease | DX: R45.851 Suicidal ideations (principal); F14.90 Cocaine use, unspecified, uncomplicated | CPT/HCPCS: 93010 ==

== ENCOUNTER → 2023-09-26 14:06 | Outpatient (BNV) | payer MEDICAID, SELFPAY | PROVIDERS: Admitting Provider Social Worker; Emergency Provider Emergency Medicine; Visit Provider Social Worker | DX: F33.2 Major depressive disorder, recurrent severe without psychotic features (principal); F14.20 Cocaine dependence, uncomplicated; F10.10 Alcohol abuse, uncomplicated | CPT/HCPCS: 90792; 99231; 99239 ==

== ENCOUNTER 2023-10-30 00:13 | Emergency (ER) | payer OTHER, SELFPAY ==
[2023-10-30 00:39] VITALS: BP 161/98; PULSE 109; RESP 14; TEMP 37.4; O2SAT 98; BMI 28.6
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
[2023-10-30 01:32] LABS: Hematocrit 39.1 % (42.0-52.0); Hemoglobin 13.5 g/dl (14.0-18.0); Mean Corpuscular HGB Conc 34.5 g/dl (31.0-36.0); Mean Corpuscular Hemoglobin 30.4 pg (27.0-33.0); Mean Corpuscular Volume 88.1 fL (80.0-98.0); Platelet Count 208 X10*3/uL (160-400); Red Blood Count 4.44 X10*6/uL (4.60-5.80); Red Cell Distribution Width 13.6 % (11.0-16.0)
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
[2023-10-30 01:41] LABS: Alanine Aminotransferase 60 U/L (0-40); Albumin Level 4.6 g/dL (3.5-5.0); Alkaline Phosphatase 51 U/L (39-117); Anion Gap 13 (12-20); Aspartate Amino Transferase 37 U/L (5-37); Bilirubin Total 0.5 mg/dL (0.0-1.0); Blood Urea Nitrogen 14 mg/dL (9-16); Calcium 9.8 mg/dL (8.4-10.2); Carbon Dioxide 27 mmol/L (22-29); Chloride 106 mmol/L (96-108); Creatinine Clr Calc Pharmacy 131.6; Estimated Glomerular Filt Rate > 60; Glucose Random 86 mg/dL (60-115); Potassium 3.5 mmol/L (3.3-5.1); Sodium 142 mmol/L (135-145); Total Protein 7.3 g/dL (6.5-8.0)
[2023-10-30 01:42] LABS: Appearance Urine Cloudy; Color Urine Dark Yellow; Glucose Urine UA Negative (Negative); Leukocyte Esterase Urine Negative (Negative); Nitrite Urine Negative (Negative); PH 5.5 (5.0-9.0); Specific Gravity - Urine >= 1.030 (1.005-1.025); Urine Blood Negative (Negative); Urine Ketones Trace mg/dL (Negative); Urine Protein Trace mg/dL (Neg-Trace)
--- NOTE | 2023-10-30 01:42 | MHC.EDTECH ---
pt belongings in the POD laundry closet
[2023-10-30 01:59] LABS: Amphetamine Screen Urine Not Detected (Not Detect); Barbiturates, Urine Not Detected (Not Detect); Benzodiazepines Screen Urine Not Detected (Not Detect); Buprenorphine Scr Not Detected (Not Detect); Cannabinoid Screen Urine Not Detected (Not Detect); Cocaine Screen Urine POSITIVE (Not Detect); Fentanyl, urine Not Detected (Not Detect); Methadone Screen, Urine Not Detected (Not Detect); Opiate Screen Urine Not Detected (Not Detect); Oxycodone Screen Urine Not Detected (Not Detect); Phencyclidine Screen Urine Not Detected (Not Detect)
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
--- NOTE | 2023-10-30 02:31 | ED.PSYCH ---
HPI - Psych General Chief Complaint: Psychiatric Symptoms Stated Complaint: chronic low back pain Time Seen by Provider: 10/30/23 01:29 Source: patient Mode of arrival: ambulatory History of Present Illness ED Provider: Dr Ambriz HPI Narrative: 43-year-old male who is endorsing suicidal ideation as it is the anniversary of his mother's and states that yesterday he lapsed and use crack cocaine. He is requesting evaluation. Related Data Previous Rx's ?Medication ?Instructions ?Recorded baclofen 10 mg tablet 10 mg PO TID 30 days #90 tabs 09/27/23 gabapentin 400 mg capsule 400 mg PO TID 30 days #90 caps 09/27/23 hydroxyzine HCl 50 mg tablet 100 mg (2 x 50 mg) PO BEDTIME PRN 09/27/23 Anxiety 30 days #60 tabs melatonin 3 mg tablet 9 mg (3 x 3 mg) PO BEDTIME PRN 09/27/23 Insomnia 30 days #90 tabs omeprazole 20 mg tablet,delayed 20 mg PO DAILY 30 days #30 tabs 09/27/23 release topiramate 25 mg tablet 50 mg (2 x 25 mg) PO BEDTIME 30 09/27/23 days #60 tabs Allergies Allergy/AdvReac Type Severity Reaction Status Date / Time No Known Allergies Allergy Verified 10/30/23 00:43 Review of Systems Review of Systems: Pertinent positives and negatives as stated in HPI [facility] Past Medical History Source: nursing notes reviewed Medical History COVID-19 (11/23/21) Suicidal ideation Substance abuse Social History Social History Household Members: Spouse, Family and Children Housing: Homeless Do you presently have visiting nurse or other home services: No Unable to assess alcohol history related to: Unknown Alcohol intake: current Alcohol intake frequency: a few times a week Alcohol type: hard liquor Patient Tobacco Use Status: Current everyday Tobacco user Cigarettes Per Day: 20 Smoked in Last 30 Days: Yes Second Hand Smoke Exposure: No Use of substances other than those prescribed or required for medical reasons: Yes Substance Use Type: Crack/Cocaine Advance Directives: No Advance Directives Information Provided: Yes Do you have a plan to hurt others: No Plan service: No Sexual orientation: Straight/Heterosexual Physical Exam Vital Signs: Vital Signs: Last Vital Signs Temp 99.4 F 10/30/23 00:39 Pulse 109 H 10/30/23 00:39 Resp 14 10/30/23 00:39 BP 161/98 H 10/30/23 00:39 Pulse Ox 98 10/30/23 00:39 O2 Del Method Room Air 10/30/23 00:39 BMI result Body Mass Index 28.6 VITAL SIGNS: Reviewed. GENERAL: Well developed, well nourished, in no acute distress. HEAD: Normocephalic/atraumatic, EYES: PERRLA, EOMI EARS: Ext canals without abnormality NOSE: Nares patent bilateral OROPHARYNX: no oral lesions noted, posterior pharynx clear NECK: Supple, no adenopathy LUNGS: Normal breath sounds. No adventitious sounds or accessory muscle use. SpO2<98> CARDIOVASCULAR: Regular rate and rhythm without noted murmurs ABDOMEN: Soft, non-tender, non-distended with bowel sounds. MUSCULOSKELETAL: No tenderness, deformities, or effusions noted on gross inspection. EXTREMITIES: No cyanosis, clubbing or edema. SKIN: Inspection of the skin reveals no rashes NEUROLOGIC: Alert and oriented x 4. Strength and sensation to light touch were grossly intact x 4, cranial nerves 2-12 are grossly intact. Medical Decision Making Medical Decision Making [facility] Narrative: 43-year-old male with history and clinical presentation, DDX: Suicidal ideation, drug use, depression I reviewed all investigations and hematologic indices are negative for leukocytosis and a subtle normocytic anemia but no thrombocytopenia. Chemistry indices negative for ESVIN/electrolyte or liver enzyme derangements. Urinalysis negative for UTI or hematuria. UDS only significant for cocaine as endorsed. Patient is otherwise medically cleared for further evaluation by the crisis team. Patient placed in physician observation because the patient needed more time for crisis eval. At the time observation was started the patient's vital signs were stable, patient is alert and oriented, neuro: Nonfocal, CV RRR, lungs clear Differential Diagnosis Differential Diagnoses: The differential diagnosis associated with the presentation includes Please see the discussion above Admission/Observation Consideration of admission/observation: Escalation of care including admission/observation considered Please see the discussion above Consult Healthcare Provider Management of the patient was discussed with: Surveyor'S Assistant Please see the discussion above Lab Data [facility] Lab Attestation statement: I reviewed the patient's lab results. Please see the discussion above 10/30/23 01:19 10/30/23 01:19 Labs: Lab Results 10/30/23 10/30/23 Range/Units 01:19 01:35 WBC 7.0 (4.8-10.8) X10*3/uL RBC 4.44 L (4.60-5.80) X10*6/uL Hgb 13.5 L (14.0-18.0) g/dl Hct 39.1 L (42.0-52.0) % MCV 88.1 (80.0-98.0) fL MCH 30.4 (27.0-33.0) pg MCHC 34.5 (31.0-36.0) g/dl RDW 13.6 (11.0-16.0) % Plt Count 208 (160-400) X10*3/uL MPV 9.0 L (9.4-12.4) fL Absolute Nucleated RBC 0.000 (0.0-0.012) X10*3/uL Nucleated RBC % (auto) 0.0 (0.0-0.2) /100WBC Sodium 142 (135-145) mmol/L Potassium 3.5 (3.3-5.1) mmol/L Chloride 106 (96-108) mmol/L Carbon Dioxide 27 (22-29) mmol/L Anion Gap 13 (12-20) BUN 14 (9-16) mg/dL Creatinine 0.81 (0.5-1.4) mg/dL Estim Creat Clear Calc 131.6 Estimated GFR > 60 Random Glucose 86 (60-115) mg/dL Calcium 9.8 (8.4-10.2) mg/dL Total Bilirubin 0.5 (0.0-1.0) mg/dL AST 37 (5-37) U/L ALT 60 H (0-40) U/L Alkaline Phosphatase 51 (39-117) U/L Total Protein 7.3 (6.5-8.0) g/dL Albumin 4.6 (3.5-5.0) g/dL Urine Color Dark Yellow Urine Appearance Cloudy Urine pH 5.5 (5.0-9.0) Ur Specific Kidder >= 1.030 H (1.005-1.025) Urine Protein Trace (Neg-Trace) mg/dL Urine Glucose (UA) Negative (Negative) mg/dL Urine Ketones Trace (Negative) mg/dL Urine Blood Negative (Negative) Urine Nitrite Negative (Negative) Ur Leukocyte Esterase Negative (Negative) Urine Opiates Screen Not Detected (Not Detect) Ur Buprenorphine Scrn Not Detected (Not Detect) ng/mL Ur Oxycodone Screen Not Detected (Not Detect) ng/mL Urine Methadone Screen Not Detected (Not Detect) ng/mL Urine Fentanyl Screen Not Detected (Not Detect) Ur Barbiturates Screen Not Detected (Not Detect) Ur Phencyclidine Scrn Not Detected (Not Detect) Ur Amphetamines Screen Not Detected (Not Detect) U Benzodiazepines Scrn Not Detected (Not Detect) Urine Cocaine Screen POSITIVE H (Not Detect) U Marijuana (THC) Screen Not Detected (Not Detect) External Record Review External record reviewed: Outpatient record and Prior outpatient labs Social Determinants Patient?s care significantly limited by Social Determinants of Health including: Alcoholism and drug addiction in family Critical Care Time Critical Care Time Critical Care Time: Yes Total Critical Care Time: 45 Attestation: I personally attest to this time spent taking care of the patient. Discharge Plan Discharge Clinical Impression: Substance abuse, Cocaine use disorder, moderate, dependence Patient Disposition: Still a Patient Prescriptions: No Action gabapentin 400 mg Capsule 400 mg PO TID 30 Days Qty: 90 1RF hydroxyzine HCl 50 mg Tablet 100 mg PO BEDTIME PRN (Reason: Anxiety) 30 Days Qty: 60 1RF topiramate 25 mg Tablet 50 mg PO BEDTIME 30 Days Qty: 60 1RF melatonin 3 mg Tablet 9 mg PO BEDTIME PRN (Reason: Insomnia) 30 Days Qty: 90 1RF baclofen 10 mg tablet 10 mg PO TID 30 Days Qty: 90 1RF omeprazole 20 mg tablet,delayed release (DR/EC) 20 mg PO DAILY 30 Days Qty: 30 1RF Interventions: [place]-Suicide Risk Severity Scale Last Done: 10/30/23 01:38 Print Language: Uzbek
--- NOTE | 2023-10-30 04:00 | PC.NURSE ---
Patient moved to bed 7 to alleviate his anxiety and PTSD s/p verbal dispute with another connelly patient. Patient provided with water and crackers, 1:1 sitter at bedside.
[2023-10-30 06:00] VITALS: BP 114/65; PULSE 90; RESP 16; O2SAT 90
--- NOTE | 2023-10-30 06:02 | PC.NURSE ---
Patient calm and cooperative, resting in a stretcher bed, even chest wall rise and fall, RR 16. 1:1 sitter at bedside.
--- NOTE | 2023-10-30 11:15 | PC.NURSE ---
Report given to Alejandra VIVAR in the POD, plan for pt transfer there.
--- NOTE | 2023-10-30 12:14 | PC.NURSE ---
Patient is ambulating around BH pod without issue, offering no complaints to this RN. Patient did appear to be agitated while on phone but has since self-redirected. Patient is now in the pod, no apparent distress noted. Continue plan of care for detox bedsearch, follow up with recovery
--- NOTE | 2023-10-30 12:20 | MHC.RECOVRN ---
Met with pt after cleared by CARE Team. Pt awake, alert, easily engages in conversation. Pt reports alcohol use, 1/2 pint daily x a few months as well as cocaine, 7 grams daily, INH. Pt reports he was recently at a [facility] and recurrence occurred after the conclusion of that program. Pt is interested in ATS, specifically [place]. Pt is not interested in ATS out of the area. Plan to refer to [facility]. RN aware.
--- NOTE | 2023-10-30 12:38 | MHC.EDTECH ---
belongings in locker 1
--- NOTE | 2023-10-30 12:49 | PHA.MEDREC ---
Pharmacy Consult ? Medication Reconciliation Pharmacy has completed the medication reconciliation. Reviewed med rec done by nursing
[2023-10-30 13:08] VITALS: BP 108/76; PULSE 92; RESP 14; TEMP 36.6; O2SAT 99
--- NOTE | 2023-10-30 13:16 | MHC.RECOVRN ---
[facility] has bed availability, pt would like to present as walk in. Plan to dc to [place], transport via [employer].
== END 2023-10-30 13:12 | disposition home or self-care (01) ==
PROVIDERS: Student in an Organized Health Care Education/Training Program; Emergency Provider Emergency Medicine
DX: M54.50 Low back pain, unspecified (principal); F14.20 Cocaine dependence, uncomplicated; Z79.899 Other long term (current) drug therapy; Z63.4 Disappearance and death of family member; Z71.51 Drug abuse counseling and surveillance of drug abuser
CPT/HCPCS: 36415; 80053; 80307; 81003; 85027; 99285; S9485

== ENCOUNTER 2024-01-28 05:29 | Emergency (ER) | payer OTHER, SELFPAY ==
--- NOTE | ~2024-01-28 | XR_ITS ---
EXAMINATION: XR KNEE, LEFT CLINICAL INFORMATION: Left knee pain COMPARISON: None available. TECHNIQUE: Four views of the left knee. FINDINGS: Osseous alignment is anatomic. Joint spaces are relatively well preserved. No acute fracture is seen. Small effusion suspected. XR/XR knee LT 4V IMPRESSION: Suspect small effusion without acute osseous findings. Electronically signed by: Kofi Lopez MD 01/28/2024 06:26 AM EDT
[2024-01-28 05:30] VITALS: BP 154/94; PULSE 89; RESP 16; TEMP 36.3; O2SAT 97; BMI 26.5
[2024-01-28 05:41] VITALS: BP 159/97; PULSE 82; RESP 17; TEMP 36.8; O2SAT 97
--- NOTE | 2024-01-28 05:54 | ED_ITS ---
HPI - Extremity Problem General Chief complaint: Extremity Injury, Upper Stated complaint: knee Time Seen by Provider: 01/28/24 05:36 Source: patient Mode of arrival: ambulatory Limitations: no limitations History of Present Illness ED Provider: Christian DUFF HPI Narrative: This is a 43-year-old male history of alcohol use disorder, major depression, polysubstance abuse, presenting to the emergency department with complaints of left knee pain for the past day without any associated trauma. Patient reports it started suddenly worse with movement better at rest. Denies associated swe lling, numbness, tingling, chest pain, shortness of breath, nausea, vomiting fevers, chills, headache, vision changes, dizziness and weakness. Related Data Home Medications ?Medication ?Instructions ?Recorded ?Confirmed baclofen 20 mg tablet 20 mg PO TID muscle relaxation 10/30/23 10/30/23 gabapentin 600 mg tablet 600 mg PO TID depressive disorder 10/30/23 10/30/23 risperidone 1 mg tablet 1 mg PO BEDTIME depressive disorder 10/30/23 10/30/23 Previous Rx's ?Medication ?Instructions ?Recorded melatonin 3 mg tablet 9 mg (3 x 3 mg) PO BEDTIME PRN 09/27/23 Insomnia 30 days #90 tabs topiramate 25 mg tablet 50 mg (2 x 25 mg) PO BEDTIME 30 09/27/23 days #60 tabs amoxicillin 875 mg-potassium 1 tab PO BID 7 days #14 tabs 01/28/24 clavulanate 125 mg tablet ketorolac 10 mg tablet 10 mg PO TID PRN pain 5 days #15 01/28/24 tabs Allergies Allergy/AdvReac Type Severity Reaction Status Date / Time No Known Allergies Allergy Verified 01/28/24 05:33 Review of Systems Review of Systems: Yes all other systems are reviewed and are negative PMFSH Past Medical History Attestation statement: The following information was validated with the patient. Source: old records reviewed and nursing notes reviewed Medical History COVID-19 (11/23/21) Suicidal ideation Substance abuse Social History Social History Household Members: Spouse, Family and Children Housing: Homeless Do you presently have visiting nurse or other home services: No Unable to assess alcohol history related to: Unknown Alcohol intake: current Alcohol intake frequency: a few times a week Alcohol type: hard liquor Patient Tobacco Use Status: Current everyday Tobacco user Cigarettes Per Day: 20 Smoked in Last 30 Days: Yes Second Hand Smoke Exposure: No Use of substances other than those prescribed or required for medical reasons: No Substance Use Type: Crack/Cocaine Advance Directives: No Advance Directives Information Provided: Yes Do you have a plan to hurt others: No Plan service: No Sexual orientation: Straight/Heterosexual Physical Exam Vital Signs: Vital Signs: Last Vital Signs Temp 98.2 F 01/28/24 05:41 Pulse 82 01/28/24 05:41 Resp 17 01/28/24 05:41 BP 159/97 H 01/28/24 05:41 Pulse Ox 97 01/28/24 05:41 O2 Del Method Room Air 01/28/24 05:41 BMI result Body Mass Index 26.5 vss Appearance: Alert.? Oriented X3.? No acute distress.? Head: Normocephalic, atraumatic, no step-offs or deformities Eyes: Pupils equal, round and reactive to light.? ENT: Pharynx normal.? Neck: Normal inspection.? Neck supple.? CVS: Pulses normal.? Respiratory: No respiratory distress. Abdomen: Soft and nontender.? Skin: Skin warm and dry.? Normal skin color.? Normal skin turgor.? Extremities: No lower extremity edema.? No calf ttp. 5/5 strength to bilateral upper and lower extremities + slight discomfort with range of motion of left knee, normal distal sensation bilaterally, normal range of motion on the right. 2+ dorsalis pedis, anterior tibialis, posterior tibialis pulses equal bilateral. Capillary refill less than 2 seconds equal bilateral. No footdrop. No overlying skin changes to knee no effusions, edema, ecchymosis. No laxity. Negative anterior, posterior drawer. Neuro: Oriented X 3.? No motor deficit.? No sensory deficit. CN 2-12 intact Medications Administered Discontinued Medications Generic Name Dose Route Start Last Admin Trade Name Freq PRN Reason Stop Dose Admin Ketorolac Tromethamine 30 mg 01/28/24 05:58 01/28/24 06:09 Ketorolac Tromethamine 15 Mg/Ml Vial IM 01/28/24 05:59 30 mg ONCE ONE Administration Medical Decision Making Medical Decision Making [facility] Narrative: 43-year-old male presents with left-sided knee pain for the past day. Atraumatic. + slight discomfort with range of motion of left knee, normal distal sensation bilaterally, normal range of motion on the right. 2+ dorsalis pedis, anterior tibialis, posterior tibialis pulses equal bilateral. Capillary refill less than 2 seconds equal bilateral. No footdrop. No overlying skin changes to knee no effusions, edema, ecchymosis. No laxity. Negative anterior, posterior drawer. History and physical exam concerning for sprain or strain versus inflammatory arthritis which is most likely. Unlikely fracture, dislocation. No signs of neurovascular compromise, acute threat to [place], septic joint, arterial or venous occlusion. Plan x-ray. Differential Diagnosis Differential Diagnoses: The differential diagnosis associated with the presentation includes History and physical exam concerning for sprain or strain versus inflammatory arthritis which is most likely. . Unlikely fracture, dislocation. No signs of neurovascular compromise, acute threat to [place], septic joint, arterial or venous occlusion. Admission/Observation Consideration of admission/observation: Escalation of care including admission/observation considered No indication Independent Interpretation I performed an independent interpretation of an: Plain X-Ray Radiology Impression Discussion of test interpretation with radiology: I have reviewed the radiologist's reading. External Record Review External record reviewed: Office record, Outpatient record, Prior outpatient labs, Prior outpatient radiology, Primary care record and Outside ED record Chronic Conditions Patient?s care impacted by: Other (polysubstance abuse ) Discharge Plan Discharge Clinical Impression: Acute pain of left knee, Effusion, left knee, Pain in tooth Patient Disposition: Home, Self-Care Instructions: Knee Pain (ED) Additional Instructions: Take your medications as prescribed. If you were prescribed antibiotics today, it is important that you take your medication to their entirety, do not skip any doses, do not finish them early. Follow-up with your primary care provider this week. Return to the emergency department with new or worsening symptoms. Such as fevers, chills, chest pain, shortness of breath, nausea, vomiting, dizziness, headache, vision changes, lethargy In case of emergency call 911 Toradol has been sent to your pharmacy, you tolerated this well in the department. Please take this as prescribed do not take this with ibuprofen, or other NSAIDs, do not mix this with alcohol. Side effects of this medication including increased risk for bleeding and possible kidney injury. Follow up with a dentist. If you do not have one you can call [phone] ( [facility]) Apply fiordaliza wrap daily X 7 days. Take it off at night. Do not wrap it to tight. Elevate extremity and ice it. FINDINGS: Osseous alignment is anatomic. Joint spaces are relatively well preserved. No acute fracture is seen. Small effusion suspected. XR/XR knee LT 4V IMPRESSION: Suspect small effusion without acute osseous findings. Prescriptions: New ketorolac 10 mg tablet 10 mg PO TID PRN (Reason: pain) 5 Days Qty: 15 0RF Rx Instructions: Tolerated IM or IV in department amoxicillin-pot clavulanate 875-125 mg tablet 1 tab PO BID 7 Days Qty: 14 0RF No Action gabapentin 600 mg tablet 600 mg PO TID baclofen 20 mg tablet 20 mg PO TID risperidone 1 mg tablet 1 mg PO BEDTIME topiramate 25 mg Tablet 50 mg PO BEDTIME 30 Days Qty: 60 1RF melatonin 3 mg Tablet 9 mg PO BEDTIME PRN (Reason: Insomnia) 30 Days Qty: 90 1RF Referrals: [facility] [Provider Group] - 3 days Physician,Unknown J [Physician] - 2 days Print Language: [place]
[2024-01-28] MEDS: Ketorolac Tromethamine 15 MG/ML VIAL 30 MG IM (06:09)
--- NOTE | 2024-01-28 06:37 | PC.NURSE ---
left knee fiordaliza wrap applied and crutch training complete
[2024-01-28 06:48] VITALS: BP 159/97; PULSE 82; RESP 17; TEMP 36.8; O2SAT 97
== END 2024-01-28 06:57 | disposition home or self-care (01) ==
PROVIDERS: Emergency Provider Emergency Medicine; PCP Internal Medicine
DX: M25.462 Effusion, left knee (principal); K08.89 Other specified disorders of teeth and supporting structures; M25.562 Pain in left knee
CPT/HCPCS: 73564; 96372; 99284; J1885

== ENCOUNTER 2024-01-30 21:01 | Emergency (ER) | payer OTHER, SELFPAY ==
--- NOTE | 2024-01-30 21:12 | MHC.EDTECH ---
Patient brought into triage area Labs/Urine obtained and sent to lab
[2024-01-30 21:16] VITALS: BP 140/90; PULSE 95; RESP 18; TEMP 37.2; O2SAT 98; BMI 26.5
[2024-01-30 21:17] LABS: MANUAL DIFF FLAG NO
[2024-01-30 21:23] LABS: Basophils Absolute Auto 0.1 X10*3/uL (0.0-0.2); Basophils Percent Auto 0.8 % (0-2); Eosinophils Absolute Auto 0.2 X10*3/uL (0.0-0.4); Eosinophils Percent Auto 2.4 % (0-4); Hematocrit 41.2 % (42.0-52.0); Hemoglobin 14.5 g/dl (14.0-18.0); Imm Gran Abs Auto 0.01 X10*3/uL (0.00-0.03); Imm Gran Pct Auto 0.2 % (0.0-0.4); Lymphocytes Absolute Auto 2.2 X10*3/uL (1.2-4.9); Lymphocytes Percent Auto 34.9 % (20-40); Mean Corpuscular HGB Conc 35.2 g/dl (31.0-36.0); Mean Corpuscular Hemoglobin 30.3 pg (27.0-33.0); Mean Corpuscular Volume 86.2 fL (80.0-98.0); Mean Platelet Volume 8.6 fL (9.4-12.4); Monocytes Absolute Auto 0.5 X10*3/uL (0.1-1.2); Neutrophils Absolute Auto 3.4 x10*3/uL (2.0-8.3); Neutrophils Percent Auto 53.7 % (45-73); Platelet Count 305 X10*3/uL (160-400); Red Blood Count 4.78 X10*6/uL (4.60-5.80); Red Cell Distribution Width 12.8 % (11.0-16.0); White Blood Count 6.3 X10*3/uL (4.8-10.8)
[2024-01-30 21:25] LABS: Appearance Urine Clear; Color Urine Dark Yellow; Glucose Urine UA Negative (Negative); Leukocyte Esterase Urine Negative (Negative); Nitrite Urine Negative (Negative); PH 5.5 (5.0-9.0); Specific Gravity - Urine 1.025 (1.005-1.025); UMIC TRIGGER UACC YES; Urine Blood Negative (Negative); Urine Ketones Trace mg/dL (Negative); Urine Protein 30 (1+) mg/dL (Neg-Trace)
[2024-01-30 21:30] LABS: Bacteria Urine None Seen (None Seen); Hyaline Casts Urine 0-2 /LPF (0-2); RBC Urine 0-2 /HPF (0-2); Squamous Epithelial Cell Urine 0-2 /HPF (0-2); WBC Urine 0-5 /HPF (0-5)
[2024-01-30 21:33] LABS: Alanine Aminotransferase 19 U/L (0-40); Albumin Level 4.6 g/dL (3.5-5.0); Alkaline Phosphatase 78 U/L (39-117); Anion Gap 14 (12-20); Aspartate Amino Transferase 22 U/L (5-37); Bilirubin Total 0.5 mg/dL (0.0-1.0); Blood Urea Nitrogen 12 mg/dL (9-16); Calcium 9.5 mg/dL (8.4-10.2); Carbon Dioxide 26 mmol/L (22-29); Chloride 108 mmol/L (96-108); Creatinine Clr Calc Pharmacy 79.1; Estimated Glomerular Filt Rate > 60; Ethanol < 10 mg/dL; Glucose Random 98 mg/dL (60-115); Potassium 3.8 mmol/L (3.3-5.1); Sodium 144 mmol/L (135-145); Total Protein 7.3 g/dL (6.5-8.0)
[2024-01-30 21:34] LABS: Amphetamine Screen Urine Not Detected (Not Detect); Barbiturates, Urine Not Detected (Not Detect); Benzodiazepines Screen Urine Not Detected (Not Detect); Buprenorphine Scr Not Detected (Not Detect); Cannabinoid Screen Urine Not Detected (Not Detect); Cocaine Screen Urine POSITIVE (Not Detect); Fentanyl, urine Not Detected (Not Detect); Methadone Screen, Urine Not Detected (Not Detect); Opiate Screen Urine Not Detected (Not Detect); Oxycodone Screen Urine Not Detected (Not Detect); Phencyclidine Screen Urine Not Detected (Not Detect)
--- NOTE | 2024-01-30 22:06 | ED_ITS ---
HPI - Psych General Chief Complaint: Psychiatric Symptoms Stated Complaint: crisis Time Seen by Provider: 01/30/24 22:01 Source: patient Mode of arrival: ambulatory Limitations: no limitations History of Present Illness ED Provider: Dr. Maria Esther Watts HPI Narrative: Patient comes to the Emergency room complaining of suicidal ideation, plan to overdose with fentanyl or opiates. Patient states that he is tired of feeling tired of living. Patient admits that he used alcohol and crack cocaine 30 minutes prior to arrival. Also, patient complaining of dental pain, patient states that he was seen here yesterday, prescribed antibiotics but he was unable to pick them up. Patient denies HI Related Data Home Medications ?Medication ?Instructions ?Recorded ?Confirmed baclofen 20 mg tablet 20 mg PO TID muscle relaxation 10/30/23 10/30/23 gabapentin 600 mg tablet 600 mg PO TID depressive disorder 10/30/23 10/30/23 risperidone 1 mg tablet 1 mg PO BEDTIME depressive disorder 10/30/23 10/30/23 hydroxyzine HCl 25 mg tablet 50 mg PO NEEDED PRN Anxiety 01/30/24 01/30/24 Previous Rx's ?Medication ?Instructions ?Recorded melatonin 3 mg tablet 9 mg (3 x 3 mg) PO BEDTIME PRN 09/27/23 Insomnia 30 days #90 tabs amoxicillin 875 mg-potassium 1 tab PO BID 7 days #14 tabs 01/28/24 clavulanate 125 mg tablet Allergies Allergy/AdvReac Type Severity Reaction Status Date / Time No Known Allergies Allergy Verified 01/30/24 21:19 Review of Systems 2 Review of Systems: Constitutional : No Weight loss, No Fever, No Chills, No Night Sweats, No Fatigue, No Malaise ENT/Mouth : No Hearing loss, No Ear Pain, No Nasal Congestion, No Sinus Pain, No Hoarseness, complaining of dental pain, No sore throat, No Rhinorrhea, No Swallowing Difficulty Eyes: No Eye Pain, No Swelling, No Redness, No Foreign Body, No Discharge, No Vision Changes Cardiovascular : No Chest Pain, No SOB, No Dyspnea on Exertion, No Orthopnea, No Edema, No Palpitations Respiratory : No Cough, No Sputum, No Wheezing, No Smoke Exposure, No Dyspnea Gastrointestinal : No Nausea, No Vomiting, No Diarrhea, No Constipation, No abdominal Pain, No Hematochezia, No Melena Genitourinary : no irregular bleeding, No Dysuria, No Urinary Frequency, No Hematuria, No Urinary Incontinence, No Urgency, No Flank Pain, No Urinary Flow Changes, No Hesitancy Musculoskeletal : No joint pain, No Myalgias, No Joint Swelling Skin : No Skin Lesions, No rash Neuro : No Weakness, No Numbness, No Paresthesias, No Loss of Consciousness, No Dizziness, No Headache Psych : Complaining of anxiety, depression, SI, no HI Heme/Lymph: No Bruising, No Bleeding,No Lymphadenopathy Endocrine : No Polyuria, No Polydipsia, No Temperature Intolerance [facility] Past Medical History Medical History COVID-19 (11/23/21) Suicidal ideation Substance abuse Social History Social History Household Members: Spouse, Family and Children Housing: Homeless Do you presently have visiting nurse or other home services: No Unable to assess alcohol history related to: Unknown Alcohol intake: current Alcohol intake frequency: a few times a week Alcohol type: hard liquor Patient Tobacco Use Status: Current everyday Tobacco user Cigarettes Per Day: 20 Second Hand Smoke Exposure: No Substance Use Type: Crack/Cocaine Advance Directives: No Advance Directives Information Provided: No service: No Sexual orientation: Straight/Heterosexual Physical Exam 2 Vital Signs: Vital Signs: Last Vital Signs Temp 98.9 F 01/30/24 21:16 Pulse 95 01/30/24 21:16 Resp 18 01/30/24 21:16 BP 140/90 H 01/30/24 21:16 Pulse Ox 98 01/30/24 21:16 O2 Del Method Room Air 01/30/24 21:16 BMI result Body Mass Index 26.5 Const: Other: Appearance: Alert. Oriented X3. No acute distress. Eyes: Pupils equal, round and reactive to light. ENT: Pharynx normal. Chronic presentation Neck: Normal inspection. Neck supple. No lymph nodes noted. No crepitus CVS: Normal heart rate and rhythm. Pulses normal. Normal S1 and S2 Respiratory: No respiratory distress. Breath sounds normal. No Wheezing. No rales Abdomen: Soft and nontender. No rigidity. No distention. Skin: Skin warm and dry. Normal skin color. Normal skin turgor. Extremities: No lower extremity edema. No Lacerations. No Rash Neuro: Oriented X 3. No motor deficit. No sensory deficit. Moving all extremities. No slurred speech. CN 2 through 12 grossly intact Psych: calm, cooperative, normal affect Course Course Course Narrative: -patient's labs spent -patient receiving the 1st dose of Augmentin for dental pain, patient knows he needs to follow-up with his dentist Medical Decision Making Medical Decision Making MDM Narrative: -my interpretation of labs, normal hematology, normal chemistry, urine negative for UTI, toxicology positive for cocaine, negative for alcohol -patient physician observation waiting for the care team Differential Diagnosis Differential Diagnoses: The differential diagnosis associated with the presentation includes (Anxiety, depression, polysubstance abuse) Admission/Observation Consideration of admission/observation: Escalation of care including admission/observation considered (Patient is under physician observation, waiting to be seen by the care team) Lab Data 01/30/24 21:11 01/30/24 21:11 Labs: Lab Results 01/30/24 Range/Units 21:11 WBC 6.3 (4.8-10.8) X10*3/uL RBC 4.78 (4.60-5.80) X10*6/uL Hgb 14.5 (14.0-18.0) g/dl Hct 41.2 L (42.0-52.0) % MCV 86.2 (80.0-98.0) fL MCH 30.3 (27.0-33.0) pg MCHC 35.2 (31.0-36.0) g/dl RDW 12.8 (11.0-16.0) % Plt Count 305 D (160-400) X10*3/uL MPV 8.6 L (9.4-12.4) fL Immature Gran % (Auto) 0.2 (0.0-0.4) % Neut % (Auto) 53.7 (45-73) % Lymph % (Auto) 34.9 (20-40) % [place] % (Auto) 8.0 (2-11) % Eos % (Auto) 2.4 (0-4) % Baso % (Auto) 0.8 (0-2) % Lymph # (Auto) 2.2 (1.2-4.9) X10*3/uL [place] # (Auto) 0.5 (0.1-1.2) X10*3/uL Eos # (Auto) 0.2 (0.0-0.4) X10*3/uL Baso # (Auto) 0.1 (0.0-0.2) X10*3/uL Abs Immat Gran (auto) 0.01 (0.00-0.03) X10*3/uL Absolute Neuts (auto) 3.4 (2.0-8.3) x10*3/uL Absolute Nucleated RBC 0.000 (0.0-0.012) X10*3/uL Nucleated RBC % (auto) 0.0 (0.0-0.2) /100WBC Sodium 144 (135-145) mmol/L Potassium 3.8 (3.3-5.1) mmol/L Chloride 108 (96-108) mmol/L Carbon Dioxide 26 (22-29) mmol/L Anion Gap 14 (12-20) BUN 12 (9-16) mg/dL Creatinine 1.23 (0.5-1.4) mg/dL Estim Creat Clear Calc 79.1 Estimated GFR > 60 Random Glucose 98 (60-115) mg/dL Calcium 9.5 (8.4-10.2) mg/dL Total Bilirubin 0.5 (0.0-1.0) mg/dL AST 22 (5-37) U/L ALT 19 (0-40) U/L Alkaline Phosphatase 78 (39-117) U/L Total Protein 7.3 (6.5-8.0) g/dL Albumin 4.6 (3.5-5.0) g/dL Urine Color Dark Yellow Urine Appearance Clear Urine pH 5.5 (5.0-9.0) Ur Specific [place] 1.025 (1.005-1.025) Urine Protein 30 (1+) H (Neg-Trace) mg/dL Urine Glucose (UA) Negative (Negative) mg/dL Urine Ketones Trace (Negative) mg/dL Urine Blood Negative (Negative) Urine Nitrite Negative (Negative) Ur Leukocyte Esterase Negative (Negative) Urine RBC 0-2 (0-2) /HPF Urine WBC 0-5 (0-5) /HPF Ur Squamous Epith Cells 0-2 (0-2) /HPF Urine Bacteria None Seen (None Seen) Hyaline Casts 0-2 (0-2) /LPF Urine Opiates Screen Not Detected (Not Detect) Ur Buprenorphine Scrn Not Detected (Not Detect) ng/mL Ur Oxycodone Screen Not Detected (Not Detect) ng/mL Urine Methadone Screen Not Detected (Not Detect) ng/mL Urine Fentanyl Screen Not Detected (Not Detect) Ur Barbiturates Screen Not Detected (Not Detect) Ur Phencyclidine Scrn Not Detected (Not Detect) Ur Amphetamines Screen Not Detected (Not Detect) U Benzodiazepines Scrn Not Detected (Not Detect) Urine Cocaine Screen POSITIVE H (Not Detect) U Marijuana (THC) Screen Not Detected (Not Detect) Ethyl Alcohol < 10 mg/dL Discharge Plan Discharge Clinical Impression: Substance abuse, Major depression Patient Disposition: Still a Patient Prescriptions: No Action gabapentin 600 mg tablet 600 mg PO TID baclofen 20 mg tablet 20 mg PO TID risperidone 1 mg tablet 1 mg PO BEDTIME topiramate 25 mg Tablet 50 mg PO BEDTIME 30 Days Qty: 60 1RF melatonin 3 mg Tablet 9 mg PO BEDTIME PRN (Reason: Insomnia) 30 Days Qty: 90 1RF ketorolac 10 mg tablet 10 mg PO TID PRN (Reason: pain) 5 Days Qty: 15 0RF Rx Instructions: Tolerated IM or IV in department amoxicillin-pot clavulanate 875-125 mg tablet 1 tab PO BID 7 Days Qty: 14 0RF Print Language: Estonian
[2024-01-30] MEDS: Ibuprofen 600 MG TABLET PO (22:19)
[2024-01-30] MEDS: Amoxicillin/Potassium Clav 875 MG TABLET PO (22:24)
[2024-01-31] MEDS: Baclofen 20 MG TABLET PO ×3 (00:36→15:24)
[2024-01-31] MEDS: Gabapentin 600 MG TABLET PO ×3 (00:36→15:24)
[2024-01-31] MEDS: risperiDONE 1 MG TABLET PO (00:37)
[2024-01-31] MEDS: Melatonin 3 MG TABLET 9 MG PO (00:39)
[2024-01-31] MEDS: hydrOXYzine HCL 50 MG TABLET PO (00:39)
[2024-01-31 06:00] VITALS: PULSE 16
--- NOTE | 2024-01-31 07:21 | PC.NURSE ---
Assumed care of patient at 0645, patient appears to be sleeping, respirations even and unlabored, no apparent distress noted. Continue plan of care for CARE team eval this am
--- NOTE | 2024-01-31 13:50 | MHC.RECOVRN ---
Met with pt who reported he has been using daily 7-10 grams of cocaine. He also reported EtOH use of about half a pint of Altagracia per day. Pt was at [facility] ([facility]) about a week ago before he left and restarted his use. He is treatment-seeking, requesting detox at [facility] again. [facility] was contacted and waiting to hear back.
--- NOTE | 2024-01-31 14:21 | MHC.RECOVRN ---
Addendum entered by Chriss Pedersen RN 01/31/24 14:39: [facility] [employer] Original Note: Spoke with pt about how [facility] has no bed availability today. Discussed alternative option of going to [facility] until a bed becomes available however pt declined this option. Pt requested that tw looks into [facility] and [facility]. Called [facility] and was told that pt is not allowed there till February 12 as 2 weeks have not passed yet since his last admission there. [facility] called and was told that there is no bed availability for today.
[2024-01-31 15:36] VITALS: BP 148/88; PULSE 87; RESP 16; TEMP 36.6; O2SAT 97
== END 2024-01-31 15:38 | disposition home or self-care (01) ==
PROVIDERS: Emergency Provider Emergency Medicine; PCP Internal Medicine
DX: F19.10 Other psychoactive substance abuse, uncomplicated (principal); F32.9 Major depressive disorder, single episode, unspecified; R45.851 Suicidal ideations; K08.89 Other specified disorders of teeth and supporting structures; Z79.899 Other long term (current) drug therapy
CPT/HCPCS: 36415; 80053; 80307; 81001; 85025; 99285; S9485

== ENCOUNTER 2024-02-29 01:03 | Emergency (ER) | payer OTHER, SELFPAY ==
[2024-02-29 01:22] VITALS: BP 147/89; PULSE 84; RESP 18; TEMP 36.9; O2SAT 97; BMI 25.8
--- NOTE | 2024-02-29 02:35 | ED_ITS ---
HPI - Psych General Chief Complaint: Psychiatric Symptoms Stated Complaint: crisis Time Seen by Provider: 02/29/24 02:24 Source: patient Mode of arrival: ambulatory Limitations: no limitations History of Present Illness ED Provider: Dr. Maria Esther Watts HPI Narrative: Patient comes to the emergency room stating that he feels suicidal, states he has no place to go, admits to drinking alcohol and using crack prior to arrival. Patient denies any falls or injuries, denies HI Related Data Home Medications ?Medication ?Instructions ?Recorded ?Confirmed baclofen 20 mg tablet 20 mg PO TID muscle relaxation 10/30/23 01/30/24 gabapentin 600 mg tablet 600 mg PO TID depressive disorder 10/30/23 01/30/24 risperidone 1 mg tablet 1 mg PO BEDTIME depressive disorder 10/30/23 01/30/24 hydroxyzine HCl 25 mg tablet 50 mg PO NEEDED PRN Anxiety 01/30/24 01/30/24 Previous Rx's ?Medication ?Instructions ?Recorded melatonin 3 mg tablet 9 mg (3 x 3 mg) PO BEDTIME PRN 09/27/23 Insomnia 30 days #90 tabs amoxicillin 875 mg-potassium 1 tab PO BID 7 days #14 tabs 01/28/24 clavulanate 125 mg tablet Allergies Allergy/AdvReac Type Severity Reaction Status Date / Time No Known Allergies Allergy Verified 02/29/24 01:24 Review of Systems Review of Systems: Constitutional : No Weight loss, No Fever, No Chills, No Night Sweats, No Fatigue, No Malaise ENT/Mouth : No Hearing loss, No Ear Pain, No Nasal Congestion, No Sinus Pain, No Hoarseness, No sore throat, No Rhinorrhea, No Swallowing Difficulty Eyes: No Eye Pain, No Swelling, No Redness, No Foreign Body, No Discharge, No Vision Changes Cardiovascular : No Chest Pain, No SOB, No Dyspnea on Exertion, No Orthopnea, No Edema, No Palpitations Respiratory : No Cough, No Sputum, No Wheezing, No Smoke Exposure, No Dyspnea Gastrointestinal : No Nausea, No Vomiting, No Diarrhea, No Constipation, No abdominal Pain, No Hematochezia, No Melena Genitourinary : no irregular bleeding, No Dysuria, No Urinary Frequency, No H ematuria, No Urinary Incontinence, No Urgency, No Flank Pain, No Urinary Flow Changes, No Hesitancy Musculoskeletal : No joint pain, No Myalgias, No Joint Swelling Skin : No Skin Lesions, No rash Neuro : No Weakness, No Numbness, No Paresthesias, No Loss of Consciousness, No Dizziness, No Headache Psych : Complaining of depression, vague SI, polysubstance abuse and alcohol abuse Heme/Lymph: No Bruising, No Bleeding,No Lymphadenopathy Endocrine : No Polyuria, No Polydipsia, No Temperature Intolerance [facility] Past Medical History Medical History COVID-19 (11/23/21) Suicidal ideation Substance abuse Social History Social History Household Members: Spouse, Family and Children Housing: Homeless Do you presently have visiting nurse or other home services: No Unable to assess alcohol history related to: Unknown Alcohol intake: current Alcohol intake frequency: 3 or more drinks per day Alcohol type: hard liquor Patient Tobacco Use Status: Current everyday Tobacco user Cigarettes Per Day: 20 Second Hand Smoke Exposure: No Substance Use Type: Crack/Cocaine Advance Directives: No Advance Directives Information Provided: No service: No Sexual orientation: Straight/Heterosexual Physical Exam Vital Signs: Vital Signs: Last Vital Signs Temp 98.4 F 02/29/24 01:22 Pulse 84 02/29/24 01:22 Resp 18 02/29/24 01:22 BP 147/89 H 02/29/24 01:22 Pulse Ox 97 02/29/24 01:22 O2 Del Method Room Air 02/29/24 01:22 BMI result Body Mass Index 25.8 Const: Other: Appearance: Alert. Oriented X3. No acute distress. Eyes: Pupils equal, round and reactive to light. ENT: Pharynx normal. Neck: Normal inspection. Neck supple. No lymph nodes noted. No crepitus CVS: Normal heart rate and rhythm. Pulses normal. Normal S1 and S2 Respiratory: No respiratory distress. Breath sounds normal. No Wheezing. No rales Abdomen: Soft and nontender. No rigidity. No distention. Skin: Skin warm and dry. Normal skin color. Normal skin turgor. Extremities: No lower extremity edema. No Lacerations. No Rash Neuro: Oriented X 3. No motor deficit. No sensory deficit. Moving all extremities. No slurred speech. CN 2 through 12 grossly intact Psych: calm, cooperative, normal affect Course Course Course Narrative: -care team consult pending -all labs pending -physician observation started at 02:35 Medical Decision Making Differential Diagnosis Differential Diagnoses: The differential diagnosis associated with the presentation includes (Anxiety, depression, suicidal ideation, polysubstance abuse) Admission/Observation Consideration of admission/observation: Escalation of care including admission/observation considered (Patient is under physician observation waiting to be seen by the care team) Critical Care Time Critical Care Time Critical Care Time: Yes Total Critical Care Time: 35 Attestation: I have personally provided critical care time. Time includes review of lab data, radiology results, discussion with consultants, and monitoring for potential decompensation. Intervention performed as documented. Discharge Plan Discharge Clinical Impression: Substance abuse, Depression Patient Disposition: Still a Patient Prescriptions: No Action gabapentin 600 mg tablet 600 mg PO TID baclofen 20 mg tablet 20 mg PO TID risperidone 1 mg tablet 1 mg PO BEDTIME melatonin 3 mg Tablet 9 mg PO BEDTIME PRN (Reason: Insomnia) 30 Days Qty: 90 1RF amoxicillin-pot clavulanate 875-125 mg tablet 1 tab PO BID 7 Days Qty: 14 0RF hydroxyzine HCl 25 mg tablet 50 mg PO NEEDED PRN (Reason: Anxiety) Print Language: Azeri
--- NOTE | 2024-02-29 03:18 | MHC.EDTECH ---
Patient refused lab work
--- NOTE | 2024-02-29 03:24 | PC.NURSE ---
Pt refusing labs, aware.
--- NOTE | 2024-02-29 05:19 | MHC.EDTECH ---
Patient refused vital signs
--- NOTE | 2024-02-29 09:23 | MHC.CARE ---
Pt does not meet criteria for IPLOC and will be referred to the recovery team for detox options.
[2024-02-29 09:38] VITALS: BP 138/93; PULSE 83; RESP 18; TEMP 36.5; O2SAT 99
--- NOTE | 2024-02-29 09:38 | MHC.RECOVRN ---
Met with pt in [id number], along with investment recovery technician Blayne, after cleared by CARE Team. Pt interested in ATS, however, was informed bedsearch will not be conducted from the ED. Pt agreeable to [facility] to conduct bedsearch outpatient. Provider and RN aware. To be dc and transported to [facility].
--- NOTE | 2024-02-29 09:40 | PC.NURSE ---
This RN resumed care of pt at 0700, he was sleeping at this time, pt given breakfast tray, recovery at bedside as pt is still refusing labs/urine. Pt to be d/c to [facility] at this time
[2024-02-29 09:42] VITALS: BP 138/93; PULSE 83; RESP 18; TEMP 36.5; O2SAT 99
== END 2024-02-29 09:44 | disposition home or self-care (01) ==
PROVIDERS: Emergency Provider Emergency Medicine
DX: F32.A Depression, unspecified (principal); F19.10 Other psychoactive substance abuse, uncomplicated; R45.851 Suicidal ideations; F14.20 Cocaine dependence, uncomplicated; F10.10 Alcohol abuse, uncomplicated; Y90.9 Presence of alcohol in blood, level not specified; Z79.899 Other long term (current) drug therapy
CPT/HCPCS: 99283; 99284; S9485

== ENCOUNTER 2024-05-16 23:54 | Emergency (ER) | payer OTHER, SELFPAY ==
[2024-05-16 23:58] VITALS: BP 152/92; PULSE 78; RESP 18; TEMP 36.8; O2SAT 100; BMI 24.4
[2024-05-17 00:16] LABS: MANUAL DIFF FLAG NO
[2024-05-17 00:20] LABS: Basophils Absolute Auto 0.1 X10*3/uL (0.0-0.2); Basophils Percent Auto 0.7 % (0-2); Eosinophils Absolute Auto 0.2 X10*3/uL (0.0-0.4); Eosinophils Percent Auto 3.3 % (0-4); Hematocrit 40.5 % (42.0-52.0); Imm Gran Abs Auto 0.01 X10*3/uL (0.00-0.03); Imm Gran Pct Auto 0.1 % (0.0-0.4); Lymphocytes Absolute Auto 2.4 X10*3/uL (1.2-4.9); Lymphocytes Percent Auto 32.7 % (20-40); Mean Corpuscular HGB Conc 34.6 g/dl (31.0-36.0); Mean Corpuscular Hemoglobin 30.3 pg (27.0-33.0); Mean Corpuscular Volume 87.7 fL (80.0-98.0); Mean Platelet Volume 8.9 fL (9.4-12.4); Monocytes Absolute Auto 0.5 X10*3/uL (0.1-1.2); Monocytes Percent Auto 7.2 % (2-11); Neutrophils Absolute Auto 4.1 x10*3/uL (2.0-8.3); Platelet Count 226 X10*3/uL (160-400); Red Blood Count 4.62 X10*6/uL (4.60-5.80); Red Cell Distribution Width 12.8 % (11.0-16.0); White Blood Count 7.4 X10*3/uL (4.8-10.8)
[2024-05-17 00:39] LABS: Acetaminophen LAB < 3 mcg/mL (<30); Alanine Aminotransferase 18 U/L (0-40); Albumin Level 4.3 g/dL (3.5-5.0); Alkaline Phosphatase 66 U/L (39-117); Anion Gap 16 (12-20); Aspartate Amino Transferase 21 U/L (5-37); Bilirubin Total 0.2 mg/dL (0.0-1.0); Blood Urea Nitrogen 12 mg/dL (9-16); Carbon Dioxide 24 mmol/L (22-29); Chloride 104 mmol/L (96-108); Creatinine Clr Calc Pharmacy 135.1; Estimated Glomerular Filt Rate > 60; Ethanol < 10 mg/dL; Glucose Random 95 mg/dL (60-115); Potassium 4.1 mmol/L (3.3-5.1); Salicylate < 5.0 mg/dL (15-30); Sodium 140 mmol/L (135-145)
[2024-05-17 00:52] LABS: Amphetamine Screen Urine Not Detected (Not Detect); Barbiturates, Urine Not Detected (Not Detect); Benzodiazepines Screen Urine Not Detected (Not Detect); Buprenorphine Scr Not Detected (Not Detect); Cannabinoid Screen Urine Not Detected (Not Detect); Cocaine Screen Urine POSITIVE (Not Detect); Fentanyl, urine Not Detected (Not Detect); Methadone Screen, Urine Not Detected (Not Detect); Opiate Screen Urine Not Detected (Not Detect); Oxycodone Screen Urine Not Detected (Not Detect); Phencyclidine Screen Urine Not Detected (Not Detect)
--- NOTE | 2024-05-17 01:17 | ED.GENADULT ---
HPI - General Adult General Chief complaint: Psychiatric Symptoms Stated complaint: crisis Time Seen by Provider: 05/17/24 01:17 History of Present Illness ED Provider: Carlos DUARTE narrative: The patient is a 43-year-old male with a history of depression and alcohol abuse. He brought himself voluntarily to the hospital today because he has been feeling depressed and has had thoughts about hurting himself although he does not have any specific plan. He has not done anything to harm himself. He says that he is feeling more depressed because he has been thinking about his kids any feels bad about himself because of his homelessness. No fever, sweats, chills. The patient says that he is normally prescribed gabapentin and baclofen but he has not had these medications prescribed recently. Related Data Home Medications ?Medication ?Instructions ?Recorded ?Confirmed baclofen 20 mg tablet 20 mg PO TID muscle relaxation 10/30/23 01/30/24 gabapentin 600 mg tablet 600 mg PO TID depressive disorder 10/30/23 01/30/24 risperidone 1 mg tablet 1 mg PO BEDTIME depressive disorder 10/30/23 01/30/24 hydroxyzine HCl 25 mg tablet 50 mg PO NEEDED PRN Anxiety 01/30/24 01/30/24 Previous Rx's ?Medication ?Instructions ?Recorded melatonin 3 mg tablet 9 mg (3 x 3 mg) PO BEDTIME PRN 09/27/23 Insomnia 30 days #90 tabs amoxicillin 875 mg-potassium 1 tab PO BID 7 days #14 tabs 01/28/24 clavulanate 125 mg tablet Allergies Allergy/AdvReac Type Severity Reaction Status Date / Time No Known Allergies Allergy Verified 05/17/24 00:00 Review of Systems Review of Systems: Yes all other systems are reviewed and are negative [facility] Past Medical History Medical History COVID-19 (11/23/21) Suicidal ideation Substance abuse Social History Social History Household Members: Spouse, Family and Children Housing: Homeless Do you presently have visiting nurse or other home services: No Unable to assess alcohol history related to: Unknown Alcohol intake: current Alcohol intake frequency: 3 or more drinks per day Alcohol type: hard liquor Patient Tobacco Use Status: Current everyday Tobacco user Cigarettes Per Day: 20 Second Hand Smoke Exposure: No Substance Use Type: Crack/Cocaine Advance Directives: No Advance Directives Information Provided: Yes Do you have a plan to hurt others: No Plan service: No Sexual orientation: Straight/Heterosexual Physical Exam ED Vital Signs: Vital Signs - 24 hr 05/16/24 23:58 Temperature 98.3 F Pulse Rate 78 Respiratory Rate 18 Blood Pressure 152/92 H Pulse Oximetry 100 Oxygen Delivery Method Room Air BMI result Body Mass Index 24.4 Const Other: The patient was sleeping but awoke to verbal stimulation. He was then awake but seemed sleepy and did not seem in acute distress. HENMT Other: Face is symmetrical. Mucous membranes moist. Eyes General: appearance normal, both eyes and all related structures Neck Other: Moving his neck easily. No neck swelling. Resp Effort & Inspection: normal respiratory effort Auscultation: clear to auscultation bilaterally Cardio Rate: regular rate Rhythm: regular rhythm Heart sounds: S1 normal heart sound present and S2 normal heart sound present GI Other: Abdomen is soft and nontender Skin Other: The patient is extensively tattooed. Skin is otherwise dry and unremarkable. Neuro Other: The patient was sleeping but awoke easily to a normal mental status. Cranial nerves 2-12 are grossly intact. He moves his extremities symmetrically and appropriately. He seems neurologically intact Extrem Other: No peripheral edema Medical Decision Making Medical Decision Making MDM Narrative: The patient is a 43-year-old male with a history of depression and substance use disorder who presents voluntarily because of his depression. He also reports that he is homeless and this contributes to his depression. He denies any medical complaints. His vital signs are unremarkable. His labs are unremarkable although he is testing positive for cocaine in his urine. I believe the patient is medically clear and stable for evaluation by the care team for a behavioral health evaluation and recommendations for disposition. The patient will be placed in physician observation. Lab Data 05/17/24 00:10 05/17/24 00:10 Labs: Lab Results 05/17/24 05/17/24 Range/Units 00:10 00:31 WBC 7.4 (4.8-10.8) X10*3/uL RBC 4.62 (4.60-5.80) X10*6/uL Hgb 14.0 (14.0-18.0) g/dl Hct 40.5 L (42.0-52.0) % MCV 87.7 (80.0-98.0) fL MCH 30.3 (27.0-33.0) pg MCHC 34.6 (31.0-36.0) g/dl RDW 12.8 (11.0-16.0) % Plt Count 226 D (160-400) X10*3/uL MPV 8.9 L (9.4-12.4) fL Immature Gran % (Auto) 0.1 (0.0-0.4) % Neut % (Auto) 56.0 (45-73) % Lymph % (Auto) 32.7 (20-40) % [place] % (Auto) 7.2 (2-11) % Eos % (Auto) 3.3 (0-4) % Baso % (Auto) 0.7 (0-2) % Lymph # (Auto) 2.4 (1.2-4.9) X10*3/uL [place] # (Auto) 0.5 (0.1-1.2) X10*3/uL Eos # (Auto) 0.2 (0.0-0.4) X10*3/uL Baso # (Auto) 0.1 (0.0-0.2) X10*3/uL Abs Immat Gran (auto) 0.01 (0.00-0.03) X10*3/uL Absolute Neuts (auto) 4.1 (2.0-8.3) x10*3/uL Absolute Nucleated RBC 0.000 (0.0-0.012) X10*3/uL Nucleated RBC % (auto) 0.0 (0.0-0.2) /100WBC Sodium 140 (135-145) mmol/L Potassium 4.1 (3.3-5.1) mmol/L Chloride 104 (96-108) mmol/L Carbon Dioxide 24 (22-29) mmol/L Anion Gap 16 (12-20) BUN 12 (9-16) mg/dL Creatinine 0.72 (0.5-1.4) mg/dL Estim Creat Clear Calc 135.1 Estimated GFR > 60 Random Glucose 95 (60-115) mg/dL Calcium 9.0 (8.4-10.2) mg/dL Total Bilirubin 0.2 (0.0-1.0) mg/dL AST 21 (5-37) U/L ALT 18 (0-40) U/L Alkaline Phosphatase 66 (39-117) U/L Total Protein 7.0 (6.5-8.0) g/dL Albumin 4.3 (3.5-5.0) g/dL Salicylates < 5.0 L (15-30) mg/dL Urine Opiates Screen Not Detected (Not Detect) Ur Buprenorphine Scrn Not Detected (Not Detect) ng/mL Ur Oxycodone Screen Not Detected (Not Detect) ng/mL Urine Methadone Screen Not Detected (Not Detect) ng/mL Urine Fentanyl Screen Not Detected (Not Detect) Acetaminophen < 3 (<30) mcg/mL Ur Barbiturates Screen Not Detected (Not Detect) Ur Phencyclidine Scrn Not Detected (Not Detect) Ur Amphetamines Screen Not Detected (Not Detect) U Benzodiazepines Scrn Not Detected (Not Detect) Urine Cocaine Screen POSITIVE H (Not Detect) U Marijuana (THC) Screen Not Detected (Not Detect) Ethyl Alcohol < 10 mg/dL Discharge Plan Discharge Clinical Impression: Depression Patient Disposition: Still a Patient Prescriptions: No Action gabapentin 600 mg tablet 600 mg PO TID baclofen 20 mg tablet 20 mg PO TID risperidone 1 mg tablet 1 mg PO BEDTIME melatonin 3 mg Tablet 9 mg PO BEDTIME PRN (Reason: Insomnia) 30 Days Qty: 90 1RF amoxicillin-pot clavulanate 875-125 mg tablet 1 tab PO BID 7 Days Qty: 14 0RF hydroxyzine HCl 25 mg tablet 50 mg PO NEEDED PRN (Reason: Anxiety) Print Language: Emirati
--- NOTE | 2024-05-17 03:33 | PC.NURSE ---
Took over care from RN Vita at 3:00am, pt sleeping at this time, no sign of distress.
--- NOTE | 2024-05-17 07:28 | PC.NURSE ---
Assumed care of patient at 0645, patient appears to be sleeping, respirations even and unlabored, no apparent distress noted. Continue plan of care for CARE team juan david
[2024-05-17 07:29] VITALS: RESP 16
--- NOTE | 2024-05-17 11:24 | MHC.RECOVRN ---
Met with pt in [facility] for a [facility]. Pt has been drinking alcohol daily 1/2 pint of Altagracia and smoking crack daily. At the time of assessment pt is in and out of sleep and is not interested in discussing trauma history or going into details. He reports he wants to go to ATS. He denies SI/HI (no plan or intent). He denies AH/VH. He reports drinking & using just prior to admission. See Recovery/MH Assessment for more info.
--- NOTE | 2024-05-17 11:25 | MHC.RECOVRN ---
Per Kamran's request, referrals sent for review to the following ATS facilities: [facility] ([facility]), [facility], [facility], [facility], and [facility]. No referrals sent to [facility] as pt does not wish to go there.
--- NOTE | 2024-05-17 11:44 | PC.NURSE ---
per [facility] staff there are no male beds available today for [facility]. Pt on a waitlist. per staff at [facility], no available beds today. There is an 8-week waitlist. per staff at [facility] insurance no longer accepted at [facility] there. Still waiting to here back from: [place], [place], and [place].
--- NOTE | 2024-05-17 13:10 | MHC.RECOVRN ---
per [facility] staff there are no male beds available today for ATS. Pt on a waitlist. per staff at [facility], no available beds today. There is an 8-week waitlist. per staff at [facility] insurance no longer accepted at [facility] there. Per staff at [facility] no beds available per staff at [place], no beds as of right now - pt placed on waitlist. per staff at [facility], no beds today - sharon call CARE team is a bed becomes available. Will discuss bed unavailability with patient.
--- NOTE | 2024-05-17 13:11 | PHA.MEDREC ---
Pharmacy Consult ? Medication Reconciliation Pharmacy has completed the medication reconciliation. Reviewed med rec done by nursing. Per GHAZALA Peralta, pt has been med non-compliant for a while and reports no meds at this time.
[2024-05-17 14:08] VITALS: BP 143/77; PULSE 72; RESP 14; TEMP 36.4; O2SAT 97
== END 2024-05-17 14:11 | disposition home or self-care (01) ==
PROVIDERS: Emergency Provider Emergency Medicine
DX: F32.A Depression, unspecified (principal); R45.851 Suicidal ideations; F10.10 Alcohol abuse, uncomplicated; Y90.0 Blood alcohol level of less than 20 mg/100 ml; F14.20 Cocaine dependence, uncomplicated; F19.10 Other psychoactive substance abuse, uncomplicated; F17.210 Nicotine dependence, cigarettes, uncomplicated; Z59.00 Homelessness unspecified; Z79.899 Other long term (current) drug therapy
CPT/HCPCS: 36415; 80053; 80143; 80179; 80307; 85025; 99285; S9485

== ENCOUNTER 2024-06-17 11:55 | Inpatient (IN) | payer OTHER, SELFPAY ==
--- NOTE | 2024-06-17 | ECG_ITS ---
Test Reason : PROLONGED QTC Blood Pressure : */* mmHG Vent. Rate : 82 BPM Atrial Rate : 82 BPM P-R Int : 146 ms QRS Dur : 92 ms QT Int : 358 ms P-R-T Axes : 69 70 36 degrees QTcB Int : 418 ms Normal sinus rhythm Normal ECG When compared with ECG of 26-Sep-2023 08:54, No significant change was found Referred By: Maria Esther Watts Electronically Signed By: ELIZABETH GREEN
[2024-06-17 11:57] VITALS: BP 147/79; PULSE 77; RESP 20; TEMP 36.6; O2SAT 98; BMI 25.8
--- NOTE | 2024-06-17 12:33 | ED.PSYCH ---
HPI - Psych General Chief Complaint: Psychiatric Symptoms Stated Complaint: Crisis,SI Time Seen by Provider: 06/17/24 12:17 Source: patient Mode of arrival: ambulatory Limitations: no limitations History of Present Illness ED Provider: Dr. Maria Esther Watts HPI Narrative: Patient comes to emergency room complaining of suicidal thoughts. Patient denies HI. Patient states that since he was discharged from the hospital, he has not been able to follow-up with his PCP or Psychiatry and he has been out of medications for several months. Patient requesting to be admitted to the hospital Related Data Home Medications ?Medication ?Instructions ?Recorded ?Confirmed No Known Home Meds 05/17/24 05/17/24 Allergies Allergy/AdvReac Type Severity Reaction Status Date / Time No Known Allergies Allergy Verified 06/17/24 11:59 Review of Systems Review of Systems: Constitutional : No Weight loss, No Fever, No Chills, No Night Sweats, No Fatigue, No Malaise ENT/Mouth : No Hearing loss, No Ear Pain, No Nasal Congestion, No Sinus Pain, No Hoarseness, No sore throat, No Rhinorrhea, No Swallowing Difficulty Eyes: No Eye Pain, No Swelling, No Redness, No Foreign Body, No Discharge, No Vision Changes Cardiovascular : No Chest Pain, No SOB, No Dyspnea on Exertion, No Orthopnea, No Edema, No Palpitations Respiratory : No Cough, No Sputum, No Wheezing, No Smoke Exposure, No Dyspnea Gastrointestinal : No Nausea, No Vomiting, No Diarrhea, No Constipation, No abdominal Pain, No Hematochezia, No Melena Genitourinary : no irregular bleeding, No Dysuria, No Urinary Frequency, No Hematuria, No Urinary Incontinence, No Urgency, No Flank Pain, No Urinary Flow Changes, No Hesitancy Musculoskeletal : No joint pain, No Myalgias, No Joint Swelling Skin : No Skin Lesions, No rash Neuro : No Weakness, No Numbness, No Paresthesias, No Loss of Consciousness, No Dizziness, No Headache Psych : Complaining of anxiety and depression, suicidal ideation, no HI Heme/Lymph: No Bruising, No Bleeding,No Lymphadenopathy Endocrine : No Polyuria, No Polydipsia, No Temperature Intolerance PMFSH Past Medical History Medical History COVID-19 (11/23/21) Suicidal ideation Substance abuse Social History Social History Household Members: Spouse, Family and Children Housing: Homeless Do you presently have visiting nurse or other home services: No Unable to assess alcohol history related to: Unknown Alcohol intake: current Alcohol intake frequency: 3 or more drinks per day Alcohol type: hard liquor Patient Tobacco Use Status: Current everyday Tobacco user Cigarettes Per Day: 20 Second Hand Smoke Exposure: No Substance Use Type: Crack/Cocaine Do you have a plan to hurt others: No Plan service: No Sexual orientation: Straight/Heterosexual Physical Exam Vital Signs: Vital Signs: Last Vital Signs Temp 97.9 F 06/17/24 11:57 Pulse 77 06/17/24 11:57 Resp 20 06/17/24 11:57 BP 147/79 H 06/17/24 11:57 Pulse Ox 98 06/17/24 11:57 O2 Del Method Room Air 06/17/24 11:57 BMI result Body Mass Index 25.8 Const: Other: Appearance: Alert. Oriented X3. No acute distress. Eyes: Pupils equal, round and reactive to light. ENT: Pharynx normal. Neck: Normal inspection. Neck supple. No lymph nodes noted. No crepitus CVS: Normal heart rate and rhythm. Pulses normal. Normal S1 and S2 Respiratory: No respiratory distress. Breath sounds normal. No Wheezing. No rales Abdomen: Soft and nontender. No rigidity. No distention. Skin: Skin warm and dry. Normal skin color. Normal skin turgor. Extremities: No lower extremity edema. No Lacerations. No Rash Neuro: Oriented X 3. No motor deficit. No sensory deficit. Moving all extremities. No slurred speech. CN 2 through 12 grossly intact Psych: calm, cooperative, normal affect Course Course Course Narrative: -all of patient's labs pending -care team consult pending Medical Decision Making Differential Diagnosis Differential Diagnoses: The differential diagnosis associated with the presentation includes (Anxiety, depression, polysubstance abuse) Discharge Plan Discharge Clinical Impression: Depression Patient Disposition: Still a Patient Prescriptions: No Action No Known Home Meds Print Language: Macedonian
--- NOTE | 2024-06-17 13:17 | MHC.CARE ---
Pt meets the criteria for DUAL DX TX secondary to endorsing SI, increased, depression, anxiety, hopelessness, and ongoing cocaine use. Section 12a in chart.
[2024-06-17 13:52] LABS: MANUAL DIFF FLAG NO
[2024-06-17 13:59] LABS: Basophils Absolute Auto 0.1 X10*3/uL (0.0-0.2); Basophils Percent Auto 0.9 % (0-2); Eosinophils Absolute Auto 0.3 X10*3/uL (0.0-0.4); Eosinophils Percent Auto 4.8 % (0-4); Hematocrit 39.8 % (42.0-52.0); Hemoglobin 13.3 g/dl (14.0-18.0); Imm Gran Abs Auto 0.01 X10*3/uL (0.00-0.03); Imm Gran Pct Auto 0.2 % (0.0-0.4); Lymphocytes Absolute Auto 1.7 X10*3/uL (1.2-4.9); Lymphocytes Percent Auto 29.9 % (20-40); Mean Corpuscular HGB Conc 33.4 g/dl (31.0-36.0); Mean Corpuscular Volume 89.6 fL (80.0-98.0); Mean Platelet Volume 9.1 fL (9.4-12.4); Monocytes Absolute Auto 0.3 X10*3/uL (0.1-1.2); Monocytes Percent Auto 5.9 % (2-11); Neutrophils Absolute Auto 3.4 x10*3/uL (2.0-8.3); Neutrophils Percent Auto 58.3 % (45-73); Platelet Count 216 X10*3/uL (160-400); Red Blood Count 4.44 X10*6/uL (4.60-5.80); Red Cell Distribution Width 12.7 % (11.0-16.0); White Blood Count 5.8 X10*3/uL (4.8-10.8)
[2024-06-17 14:00] VITALS: BP 147/79; PULSE 77; RESP 20; TEMP 36.6; O2SAT 98
[2024-06-17] MEDS: Baclofen 10 MG TABLET PO ×2 (14:05→21:46)
[2024-06-17] MEDS: Gabapentin 300 MG CAPSULE PO ×2 (14:05→21:03)
[2024-06-17 14:10] LABS: Alanine Aminotransferase 43 U/L (0-40); Albumin Level 3.9 g/dL (3.5-5.0); Alkaline Phosphatase 63 U/L (39-117); Anion Gap 9 (12-20); Aspartate Amino Transferase 32 U/L (5-37); Bilirubin Total 0.5 mg/dL (0.0-1.0); Blood Urea Nitrogen 12 mg/dL (9-16); Calcium 8.4 mg/dL (8.4-10.2); Carbon Dioxide 28 mmol/L (22-29); Chloride 107 mmol/L (96-108); Creatinine Clr Calc Pharmacy 131.5; Estimated Glomerular Filt Rate > 60; Ethanol < 10 mg/dL; Glucose Random 100 mg/dL (60-115); Potassium 4.4 mmol/L (3.3-5.1); Sodium 140 mmol/L (135-145); Total Protein 6.7 g/dL (6.5-8.0)
--- OUTSIDE RECORDS SUMMARY | 2024-06-17 14:40 | XMS_ITS | Patient Health Record ---
Author Organization [facility] Address [address], [place] [id number] Care Team Providers Care Dirt Bike Racer Name Role Phone No, PCP Primary Care Provider Ludwin Nino Unavailable [phone] Reason For Referral No Information Plan Of Treatment No Information Insurance Providers Payer Name Payer Address Payer Phone Subscriber Number Group Number Insured Name Patient Relationship to Insured Coverage Start Date Coverage End Date [place] Standard [address] [place] [address] [id number] Kamran Sol Self - patient is the insured
[2024-06-17 16:00] VITALS: BP 147/79; PULSE 77; RESP 20; TEMP 36.6; O2SAT 98
[2024-06-17] MEDS: Ibuprofen 800 MG TABLET PO (21:48)
[2024-06-17] MEDS: Ketorolac Tromethamine 60 MG/2 ML VIAL 30 MG IM (22:58)
[2024-06-17] MEDS: Amoxicillin 500 MG CAPSULE PO (22:58)
[2024-06-18 05:09] VITALS: BP 151/94; PULSE 80; RESP 17; TEMP 36.9; O2SAT 98
[2024-06-18 05:24] LABS: Appearance Urine Clear; Color Urine Yellow; Glucose Urine UA Negative (Negative); Leukocyte Esterase Urine Negative (Negative); Nitrite Urine Negative (Negative); PH 5.5 (5.0-9.0); Urine Blood Negative (Negative); Urine Ketones Negative (Negative); Urine Protein Negative (Neg-Trace)
[2024-06-18] MEDS: Acetaminophen 325 MG TABLET 975 MG PO (05:27)
[2024-06-18] MEDS: Ketorolac Tromethamine 30 MG/ML VIAL IM ×2 (05:27→21:19)
[2024-06-18 05:40] LABS: Amphetamine Screen Urine Not Detected (Not Detect); Barbiturates, Urine Not Detected (Not Detect); Benzodiazepines Screen Urine Not Detected (Not Detect); Buprenorphine Scr Not Detected (Not Detect); Cannabinoid Screen Urine Not Detected (Not Detect); Cocaine Screen Urine POSITIVE (Not Detect); Fentanyl, urine Not Detected (Not Detect); Methadone Screen, Urine Not Detected (Not Detect); Opiate Screen Urine Not Detected (Not Detect); Oxycodone Screen Urine Not Detected (Not Detect); Phencyclidine Screen Urine Not Detected (Not Detect)
[2024-06-18] MEDS: Amoxicillin 500 MG CAPSULE PO ×3 (08:40→21:32)
[2024-06-18] MEDS: Baclofen 10 MG TABLET PO ×3 (08:40→21:33)
[2024-06-18] MEDS: Gabapentin 300 MG CAPSULE PO ×3 (08:40→21:41)
--- NOTE | 2024-06-18 09:26 | PHA.MEDREC ---
Addendum entered by Sallie Martinez RPh 06/18/24 10:29: reviewed by [facility]. Original Note: Pharmacy Consult ? Medication Reconciliation Pharmacy reviewed med rec done by nursing. Gabapentin 300mg tabs 1 TID and Baclofen 10mg tabs 1 TID were confirmed on the med rec and looking in claims Gabapentin 300mg tabs were last filled 04/19 for a 14 day supply and Baclofen 10mg tabs was last filled 01/16 for 30 days. I spoke with the patients nurse in [facility] and she stated he wanted to be restarted so I think the doc restarted them .
--- NOTE | 2024-06-18 10:08 | PC.NURSE ---
Assumed care of patient at 0645, patient is calm and cooperative, offering no complaints, requesting food/drink. patient aware of plan of care for iploc
[2024-06-18 11:19] VITALS: RESP 16
[2024-06-18] MEDS: Acetaminophen 325 MG TABLET 650 MG PO (11:43)
--- NOTE | 2024-06-18 11:53 | P.HPPS_ITS ---
HPI Date of Service: 06/18/24 Chief Complaint: crisis Sources of Information: patient interviewed, chart reviewed and crisis/core team assessment reviewed HPI Subjective Notes: Nance Warning and Conditional Voluntary Narrative: Patient is a 43-year-old male with history of MDD, PTSD and cocaine use disorder who self presented to [facility] [place] [place] [facility] due to suicidal ideation secondary to increased depression and wanting to be restarted on psychiatric medications. Per crisis report, patient reported suicidal ideation with numerous plans to end his life. He reports grieving the of his mother, increased depression and hopelessness. Denies HI/VH/AH. History of cocaine use and presenting to the ED endorsing SI in the context of homelessness and substance use. History of not following up with treatment recommendations. History of multiple inpatient psychiatric hospitalizations. No history of CCS or PHP. History of admissions to detox. Patient reports using 3-4 g of cocaine daily. Denies any other substance use. No history of SA/SIB. During admission assessment, patient presents alert and oriented x3. Cooperative. Irritable. Patient reports feeling depressed; patient stated, I do not want to live anymore that is why I am here. I am depressed because I am homeless, using drugs, I lost my family. I am alone. Patient reports passive suicidal ideation with no plan. Patient would like to be restarted on psychiatric medications he has taken in the past and a referral to a substance treatment program. Patient reports that he obtains his psychiatric medications from various programs and does not follow up with his referrals. Patient denies HI/VH/AH. Patient kept interview short due to pain in his tooth; utilized p.r.n. Past Psychiatric History: pt has had many admissions to detox and substance recovery program. He was incarcerated at early age of 13. Has spent 16 out of the last 22 years in half-way. No outpatient psychiatric providers. Denies history of SA/SIB. Medical Evaluation Reviewed: Yes [facility] Medical History COVID-19 (11/23/21) Suicidal ideation Substance abuse Family History: Unknown Social History: Homeless. . Child with mother. Unemployed. Substance History: Patient reports using cocaine daily. U tox positive for cocaine. Denies any other substance use Trauma History: Yes Diagnostics Vital Signs (24Hr): Vital Signs - 24 hr 06/17/24 11:57 06/17/24 14:00 06/17/24 16:00 Temperature 97.9 F 97.9 F 97.9 F Pulse Rate 77 77 77 Respiratory Rate 20 20 20 Blood Pressure 147/79 H 147/79 H 147/79 H Pulse Oximetry 98 98 98 Oxygen Delivery Method Room Air Room Air Room Air 06/18/24 05:09 06/18/24 11:19 Temperature 98.5 F Pulse Rate 80 Respiratory Rate 17 16 Blood Pressure 151/94 H Pulse Oximetry 98 Oxygen Delivery Method Room Air BMI result Body Mass Index 25.8 Labs 06/17/24 13:48 06/17/24 13:48 Labs: Laboratory Results - last 48 hr 06/17/24 06/18/24 13:48 05:16 WBC 5.8 RBC 4.44 L Hgb 13.3 L Hct 39.8 L MCV 89.6 MCH 30.0 MCHC 33.4 RDW 12.7 Plt Count 216 MPV 9.1 L Immature Gran % (Auto) 0.2 Neut % (Auto) 58.3 Lymph % (Auto) 29.9 [place] % (Auto) 5.9 Eos % (Auto) 4.8 H Baso % (Auto) 0.9 Lymph # (Auto) 1.7 [place] # (Auto) 0.3 Eos # (Auto) 0.3 Baso # (Auto) 0.1 Abs Immat Gran (auto) 0.01 Absolute Neuts (auto) 3.4 Absolute Nucleated RBC 0.000 Nucleated RBC % (auto) 0.0 Sodium 140 Potassium 4.4 Chloride 107 Carbon Dioxide 28 Anion Gap 9 L BUN 12 Creatinine 0.74 Estim Creat Clear Calc 131.5 Estimated GFR > 60 Random Glucose 100 Calcium 8.4 D Total Bilirubin 0.5 AST 32 ALT 43 H Alkaline Phosphatase 63 Total Protein 6.7 Albumin 3.9 Urine Color Yellow Urine Appearance Clear Urine pH 5.5 Ur Specific [place] 1.020 Urine Protein Negative Urine Glucose (UA) Negative Urine Ketones Negative Urine Blood Negative Urine Nitrite Negative Ur Leukocyte Esterase Negative Urine Opiates Screen Not Detected Ur Buprenorphine Scrn Not Detected Ur Oxycodone Screen Not Detected Urine Methadone Screen Not Detected Urine Fentanyl Screen Not Detected Ur Barbiturates Screen Not Detected Ur Phencyclidine Scrn Not Detected Ur Amphetamines Screen Not Detected U Benzodiazepines Scrn Not Detected Urine Cocaine Screen POSITIVE H U Marijuana (THC) Screen Not Detected Ethyl Alcohol < 10 Meds/Allergies Meds Home Medications ?Medication ?Instructions ?Recorded ?Confirmed ?Type baclofen 10 mg tablet 10 mg 3XD 06/17/24 06/17/24 History gabapentin 300 mg capsule 300 mg PO TID 06/17/24 06/17/24 History Allergies Allergies Allergy/AdvReac Type Severity Reaction Status Date / Time No Known Allergies Allergy Verified 06/17/24 11:59 Mental Status Exam Mental Status Exam Narrative: Pt is alert and oriented; behavior is cooperative. Irritable; dressed in casual attire; mood is described as depressed ; eye contact appropriate; Speech is normal rate, volume and not pressured; thought process is organized and goal directed; Thought content is on tx; denies HI/VH/AH. Patient reports passive suicidal ideation with no plan. Assessment & Plan Assessment & Plan (1) MDD (major depressive disorder), recurrent episode, severe: Status: Acute Code(s): F33.2 - Major depressive disorder, recurrent severe without psychotic features (2) PTSD (post-traumatic stress disorder): Status: Acute Code(s): F43.10 - Post-traumatic stress disorder, unspecified (3) Cocaine use disorder, moderate, dependence: Status: Acute Code(s): F14.20 - Cocaine dependence, uncomplicated Plan Patient is a 43-year-old male with history of MDD, PTSD and cocaine use disorder who self presented to [facility] [place] [place] [facility] due to suicidal ideation secondary to increased depression and wanting to be restarted on psychiatric medications. Plan: CV 15 minute safety checks Review medication history/restart home medications. Start: Tramadol 100mg PO Q6hr PRN pain. Hospitalist consult for severe tooth pain. Encourage groups Referral to outpatient psychiatric providers Referral to substance abuse program Discharge planning Patient educated on: diagnosis and medication risk/benefits Reason for continued inpatient stay Substantial Risk for: med/psych decompensation Statement Statement: I have reviewed the history and physical and performed a pertinent examination on my patient. No changes have occurred unless specified. If the History and Physical was not performed prior to admission, the Hospitalist's service will be consulted for completing the admission physical. Time Spent With Patient Time: Total time managing care of this patient today _60___ minutes.
[2024-06-18 13:14] VITALS: BP 170/84; PULSE 92; RESP 16; TEMP 36.4; O2SAT 95
[2024-06-18 13:15] VITALS: BMI 25.5
[2024-06-18] MEDS: traMADoL HCL 50 MG TABLET 100 MG PO ×2 (13:35→19:33)
[2024-06-18] MEDS: Benzocaine 20 % Oral Gel 9 GM TUBE 1 APPL MUCOUS MEM (14:20)
--- NOTE | 2024-06-18 15:22 | PM.EVENT ---
Event Note Date of Service: 06/18/24 Event Note: Pt c/o tooth pain, need o/p dental visit. For now continue abx. can use IBU TID and prilosec as well as oragel. Ice as needed. Time Spent With Patient Time: Total time managing care of this patient today ____ minutes.
--- NOTE | 2024-06-18 15:58 | PC.NURSE ---
Offered pt flu vaccine. Pt refused.
[2024-06-18] MEDS: Ibuprofen 800 MG TABLET PO (16:14)
[2024-06-18] MEDS: Omeprazole 20 MG CAPSULE.DR PO (16:14)
--- NOTE | 2024-06-18 16:47 | PC.NURSE ---
Kamran is a 43 year old male admitted to [facility] at 11:35 from [facility] on CV for treatment of unspecified depressive disorder and substance use disorder. Tox screen positive for cocaine. Last use 06/16. Pt presented to the ED due to feelings of increased depression and anxiety with vague SI in the context of homelessness. Pt has been non-compliant with medications and has requested to be restarted on them. Upon arrival to [facility], pt was irritable and agitated due to pain from a tooth infection. Pt is on antibiotics and PO tramadol, however, pt reports it is ineffective and is requesting IM Toradol. Pt declined to participate in the remainder of admission. Affect is irritable. Thought process is linear. Pt has hx of incarceration for drug offenses, assault. Pt currently denies SI/HI, will reach out to staff if thoughts occur. Pt placed on 15 minute safety checks.
[2024-06-18 20:00] VITALS: BP 142/86; PULSE 82; RESP 16; TEMP 36.6; O2SAT 98
[2024-06-18] MEDS: Melatonin 3 MG TABLET PO (21:33)
[2024-06-18] MEDS: Mirtazapine 15 MG TABLET PO (21:33)
[2024-06-18] MEDS: hydrOXYzine HCL 25 MG TABLET PO (21:33)
[2024-06-19] MEDS: Acetaminophen 325 MG TABLET 650 MG PO ×2 (04:27→21:36)
[2024-06-19] MEDS: traMADoL HCL 50 MG TABLET 100 MG PO ×3 (04:27→17:08)
[2024-06-19 07:00] VITALS: BMI 26.7
[2024-06-19 07:40] VITALS: BP 156/84; PULSE 74; RESP 16; TEMP 36.9; O2SAT 97
[2024-06-19] MEDS: Gabapentin 300 MG CAPSULE PO ×3 (08:15→21:35)
[2024-06-19] MEDS: Amoxicillin 500 MG CAPSULE PO ×3 (08:15→21:35)
[2024-06-19] MEDS: Ibuprofen 800 MG TABLET PO ×3 (08:15→17:09)
[2024-06-19] MEDS: Baclofen 10 MG TABLET PO ×3 (08:16→21:35)
[2024-06-19] MEDS: Omeprazole 20 MG CAPSULE.DR PO ×2 (08:16→16:20)
--- NOTE | 2024-06-19 09:19 | P.PNPSI_ITS ---
Subjective Subjective Date of Service: 06/19/24 Reason For Visit: crisis Subjective Notes: 3 Day Interim History: 3 day up on 06/23/24; pt reports he signed a 3 day notice d/t wanting to go to a dentist to have his tooth removed. Pt stated, I'm feeling better today. I just want to leave here on Sunday and go straight to someone who can remove my tooth . denies SI/HI/VH/AH. Keeping to self. Medication Compliance: Yes Side effects from medications: No Attending Groups: No Mental Status Exam Mental Status Exam Narrative: Pt is alert and oriented; behavior is cooperative, calm; dressed in casual attire; mood is described as better ; eye contact appropriate; Speech is normal rate, volume and not pressured; thought process is organized and goal directed; Thought content is on tx; denies SI/HI/VH/AH. Diagnostics Vital Signs (24Hr): Vital Signs - 24 hr 06/18/24 11:19 06/18/24 13:14 06/18/24 20:00 Temperature 97.6 F 97.8 F Pulse Rate 92 82 Respiratory Rate 16 16 16 Blood Pressure 170/84 H 142/86 H Pulse Oximetry 95 98 Oxygen Delivery Method Room Air Room Air 06/19/24 07:40 Temperature 98.4 F Pulse Rate 74 Respiratory Rate 16 Blood Pressure 156/84 H Pulse Oximetry 97 Oxygen Delivery Method Room Air BMI result Body Mass Index 25.5 Labs 06/17/24 13:48 06/17/24 13:48 Labs: Laboratory Results - last 48 hr 06/17/24 06/18/24 13:48 05:16 WBC 5.8 RBC 4.44 L Hgb 13.3 L Hct 39.8 L MCV 89.6 MCH 30.0 MCHC 33.4 RDW 12.7 Plt Count 216 MPV 9.1 L Immature Gran % (Auto) 0.2 Neut % (Auto) 58.3 Lymph % (Auto) 29.9 [place] % (Auto) 5.9 Eos % (Auto) 4.8 H Baso % (Auto) 0.9 Lymph # (Auto) 1.7 [place] # (Auto) 0.3 Eos # (Auto) 0.3 Baso # (Auto) 0.1 Abs Immat Gran (auto) 0.01 Absolute Neuts (auto) 3.4 Absolute Nucleated RBC 0.000 Nucleated RBC % (auto) 0.0 Sodium 140 Potassium 4.4 Chloride 107 Carbon Dioxide 28 Anion Gap 9 L BUN 12 Creatinine 0.74 Estim Creat Clear Calc 131.5 Estimated GFR > 60 Random Glucose 100 Calcium 8.4 D Total Bilirubin 0.5 AST 32 ALT 43 H Alkaline Phosphatase 63 Total Protein 6.7 Albumin 3.9 Urine Color Yellow Urine Appearance Clear Urine pH 5.5 Ur Specific [place] 1.020 Urine Protein Negative Urine Glucose (UA) Negative Urine Ketones Negative Urine Blood Negative Urine Nitrite Negative Ur Leukocyte Esterase Negative Urine Opiates Screen Not Detected Ur Buprenorphine Scrn Not Detected Ur Oxycodone Screen Not Detected Urine Methadone Screen Not Detected Urine Fentanyl Screen Not Detected Ur Barbiturates Screen Not Detected Ur Phencyclidine Scrn Not Detected Ur Amphetamines Screen Not Detected U Benzodiazepines Scrn Not Detected Urine Cocaine Screen POSITIVE H U Marijuana (THC) Screen Not Detected Ethyl Alcohol < 10 Medications Medications Current Medications Acetaminophen (Acetaminophen 325 Mg Tablet) 650 mg PO Q6H PRN PRN Reason: Headache/Pain Mild Scale (1-3) Last Admin: 06/19/24 04:27 Dose: 650 mg Al Hydroxide/Mg Hydroxide (Magnesium Hydrox/Alum Hydrox 30 Ml Oral.Susp) 30 ml PO Q6H PRN PRN Reason: Heartburn/Nausea Amoxicillin (Amoxicillin 500 Mg Capsule) 500 mg PO TID [facility] Last Admin: 06/19/24 08:15 Dose: 500 mg Baclofen (Baclofen 10 Mg Tablet) 10 mg PO TID [facility] Last Admin: 06/19/24 08:16 Dose: 10 mg Benzocaine (Benzocaine 20 % Oral Gel 9 Gm Tube) 1 appl MUCOUS MEM QID PRN; Protocol PRN Reason: tooth pain Last Admin: 06/18/24 14:20 Dose: 1 appl Gabapentin (Gabapentin 300 Mg Capsule) 300 mg PO TID [facility] Last Admin: 06/19/24 08:15 Dose: 300 mg Hydroxyzine HCl (Hydroxyzine Hcl 25 Mg Tablet) 25 mg PO Q6H PRN PRN Reason: Anxiety Last Admin: 06/18/24 21:33 Dose: 25 mg Ibuprofen (Ibuprofen 800 Mg Tablet) [facility] [place] [facility] Last Admin: 06/19/24 08:15 Dose: 800 mg Magnesium Hydroxide (Milk Of Magnesia 30 Ml Oral.Susp) 30 ml PO DAILY PRN PRN Reason: Constipation Melatonin (Melatonin 3 Mg Tablet) 3 mg PO BEDTIME [facility] Last Admin: 06/18/24 21:33 Dose: 3 mg Mirtazapine (Mirtazapine 15 Mg Tablet) 15 mg PO BEDTIME [facility] Last Admin: 06/18/24 21:33 Dose: 15 mg Nicotine (Nicotine 21 Mg Patch.Td24) 21 mg TRANSDERMA DAILY [facility] Nicotine Polacrilex (Nicotine Polacrilex 2 Mg Gum) 4 mg BUCCAL Q2H PRN PRN Reason: Nicotine Cravings Omeprazole (Omeprazole 20 Mg Capsule.Dr) 20 mg PO BID@0630,1630 [facility] Last Admin: 06/19/24 08:16 Dose: 20 mg Simethicone (Simethicone 80 Mg Tab.Chew) 80 mg PO QIDWMHS PRN PRN Reason: Gas Tramadol HCl (Tramadol Hcl 50 Mg Tablet) 100 mg PO Q6H PRN PRN Reason: severe tooth pain Last Admin: 06/19/24 04:27 Dose: 100 mg Trazodone HCl (Trazodone Hcl 50 Mg Tablet) 50 mg PO BEDTIME MRX1 PRN PRN Reason: Insomnia Allergies Allergies Allergy/AdvReac Type Severity Reaction Status Date / Time No Known Allergies Allergy Verified 06/17/24 11:59 Assessment & Plan Assessment & Plan (1) MDD (major depressive disorder), recurrent episode, severe: Status: Acute Code(s): F33.2 - Major depressive disorder, recurrent severe without psychotic features (2) PTSD (post-traumatic stress disorder): Status: Acute Code(s): F43.10 - Post-traumatic stress disorder, unspecified (3) Cocaine use disorder, moderate, dependence: Status: Acute Code(s): F14.20 - Cocaine dependence, uncomplicated Plan Patient is a 43-year-old male with history of MDD, PTSD and cocaine use disorder who self presented to [facility] due to suicidal ideation secondary to increased depression and wanting to be restarted on psychiatric medications. Plan: CV 15 minute safety checks Review medication history/restart home medications. Start: Tramadol 100mg PO Q6hr PRN pain. Hospitalist consult for severe tooth pain. Encourage groups Referral to outpatient psychiatric providers Referral to substance abuse program Discharge planning 06/19: 3 day up on 06/23/24; pt reports he signed a 3 day notice d/t wanting to go to a dentist to have his tooth removed. Pt stated, I'm feeling better today. I just want to leave here on Sunday and go straight to someone who can remove my tooth . denies SI/HI/VH/AH. Keeping to self. pt seen by hospitalist;please see note. Continue current tx plan. Patient educated on: diagnosis, medication risk/benefits and therapeutic strategies Reason for continued inpatient stay Substantial Risk for: med/psych decompensation Time Spent With Patient Time: Total time managing care of this patient today _20___ minutes.
[2024-06-19 20:00] VITALS: BP 163/87; PULSE 77; RESP 18; TEMP 37.2; O2SAT 95
[2024-06-19] MEDS: Melatonin 3 MG TABLET PO (21:35)
[2024-06-19] MEDS: Mirtazapine 15 MG TABLET PO (21:35)
[2024-06-19] MEDS: hydrOXYzine HCL 25 MG TABLET PO (21:43)
[2024-06-20] MEDS: Ketorolac Tromethamine 30 MG/ML VIAL IM (02:59)
[2024-06-20] MEDS: traMADoL HCL 50 MG TABLET 100 MG PO (07:40)
[2024-06-20] MEDS: Gabapentin 300 MG CAPSULE PO (08:37)
[2024-06-20] MEDS: Amoxicillin 500 MG CAPSULE PO (08:37)
[2024-06-20] MEDS: Ibuprofen 800 MG TABLET PO (08:37)
[2024-06-20] MEDS: Baclofen 10 MG TABLET PO (08:37)
[2024-06-20] MEDS: Naloxone HCl Nasal TAKE HOME 4 MG SPRAY 8 MG NOSTRILALT (08:45)
--- NOTE | 2024-06-20 09:29 | PM.PSYDC ---
DS: Providers Provider Date of Service: 06/20/24 Date of admission: 06/18/24 10:48 Date of discharge: 06/20/24 Primary care physician: Linda Physician Admitting clinician: Cinthia Savage Attending physician on admission: Roberto Christopher Consults: 06/18/24 15:07 Consult to Hospitalist Routine Comment: Consulting Provider: [facility] Hospitalists Reason For Exam: severe pain in tooth;no relief w/tylenol/tramadol Attending physician on discharge: Roberto Christopher Discharging clinician: Cinthia Savage DS: Diagnosis Discharge Diagnosis (1) MDD (major depressive disorder), recurrent episode, severe: Status: Acute (2) PTSD (post-traumatic stress disorder): Status: Acute (3) Cocaine use disorder, moderate, dependence: Status: Acute DS: Medications Discharge Medications Home Medications: Previous Rx's ?Medication ?Instructions ?Recorded amoxicillin 500 mg capsule 500 mg PO TID 7 days #21 caps 06/19/24 baclofen 10 mg tablet 10 mg PO TID 30 days #90 tabs 06/19/24 gabapentin 300 mg capsule 300 mg PO TID 30 days #90 caps 06/19/24 melatonin 3 mg tablet 3 mg PO BEDTIME 30 days #30 tabs 06/19/24 mirtazapine 15 mg tablet 15 mg PO BEDTIME 30 days #30 tabs 06/19/24 omeprazole 20 mg capsule,delayed 20 mg PO BID@0630,1630 30 days #60 06/19/24 release caps Mental Status Exam Mental Status Exam Narrative: Pt is alert and oriented; behavior is cooperative, calm; dressed in casual attire; mood is described as good ; eye contact appropriate; Speech is normal rate, volume and not pressured; thought process is organized and goal directed; Thought content is on discharge; denies SI/HI/VH/AH. Data Data Completed and Pending Completed studies during hospitalization [Text1]: 06/17/24 06/18/24 13:48 05:16 WBC 5.8 RBC 4.44 L Hgb 13.3 L Hct 39.8 L MCV 89.6 MCH 30.0 MCHC 33.4 RDW 12.7 Plt Count 216 MPV 9.1 L Immature Gran % (Auto) 0.2 Neut % (Auto) 58.3 Lymph % (Auto) 29.9 [place] % (Auto) 5.9 Eos % (Auto) 4.8 H Baso % (Auto) 0.9 Lymph # (Auto) 1.7 [place] # (Auto) 0.3 Eos # (Auto) 0.3 Baso # (Auto) 0.1 Abs Immat Gran (auto) 0.01 Absolute Neuts (auto) 3.4 Absolute Nucleated RBC 0.000 Nucleated RBC % (auto) 0.0 Sodium 140 Potassium 4.4 Chloride 107 Carbon Dioxide 28 Anion Gap 9 L BUN 12 Creatinine 0.74 Estim Creat Clear Calc 131.5 Estimated GFR > 60 Random Glucose 100 Calcium 8.4 D Total Bilirubin 0.5 AST 32 ALT 43 H Alkaline Phosphatase 63 Total Protein 6.7 Albumin 3.9 Urine Color Yellow Urine Appearance Clear Urine pH 5.5 Ur Specific [place] 1.020 Urine Protein Negative Urine Glucose (UA) Negative Urine Ketones Negative Urine Blood Negative Urine Nitrite Negative Ur Leukocyte Esterase Negative Urine Opiates Screen Not Detected Ur Buprenorphine Scrn Not Detected Ur Oxycodone Screen Not Detected Urine Methadone Screen Not Detected Urine Fentanyl Screen Not Detected Ur Barbiturates Screen Not Detected Ur Phencyclidine Scrn Not Detected Ur Amphetamines Screen Not Detected U Benzodiazepines Scrn Not Detected Urine Cocaine Screen POSITIVE H U Marijuana (THC) Screen Not Detected Ethyl Alcohol < 10 DS: Summary Hospital Course Hospital Course: Patient is a 43-year-old male with history of MDD, PTSD and cocaine use disorder who self presented to [facility] ER due to suicidal ideation secondary to increased depression and wanting to be restarted on psychiatric medications. Per crisis report, patient reported suicidal ideation with numerous plans to end his life. He reports grieving the of his mother, increased depression and hopelessness. Denies HI/VH/AH. History of cocaine use and presenting to the ED endorsing SI in the context of homelessness and substance use. History of not following up with treatment recommendations. History of multiple inpatient psychiatric hospitalizations. No history of CCS or PHP. History of admissions to detox. Patient reports using 3-4 g of cocaine daily. Denies any other substance use. No history of SA/SIB. During admission assessment, patient presents alert and oriented x3. Cooperative. Irritable. Patient reports feeling depressed; patient stated, I do not want to live anymore that is why I am here. I am depressed because I am homeless, using drugs, I lost my family. I am alone. Patient reports passive suicidal ideation with no plan. Patient would like to be restarted on psychiatric medications he has taken in the past and a referral to a substance treatment program. Patient reports that he obtains his psychiatric medications from various programs and does not follow up with his referrals. Patient denies HI/VH/AH. Patient kept interview short due to pain in his tooth; utilized p.r.n. Plan: CV 15 minute safety checks Review medication history/restart home medications. Start: Tramadol 100mg PO Q6hr PRN pain. Hospitalist consult for severe tooth pain. Encourage groups Referral to outpatient psychiatric providers Referral to substance abuse program Discharge planning 3 day up on 06/23/24; pt reports he signed a 3 day notice d/t wanting to go to a dentist to have his tooth removed. Pt stated, I'm feeling better today. I just want to leave here on Sunday and go straight to someone who can remove my tooth . denies SI/HI/VH/AH. Keeping to self. pt seen by hospitalist;please see note. Continue current tx plan. Patient reports feeling good '; requesting to be discharged to go to walk in dentist to have tooth extracted. He denies SI/HI/VH/AH. pt plans on following up with his outpatient providers. Status at Discharge Cognitive/behavioral status at discharge: Patient has insight and demonstrates good judgment in terms of wanting to pursue treatment. Patient has a safety plan that includes presenting to the closest ER or calling 911 if feeling unsafe. Functional status at discharge: independent ambulation Overall status at discharge: patient is back to baseline Time Spent with Patient Time attestation: Total time managing care of this patient today _20___ minutes. Time spent: Less than 30 minutes Discharge Plan Discharge Anticipated Discharge Date/Time: 06/20/24 10:30 Patient Disposition: Home, Self-Care Discharge Diagnosis: MDD, PTSD, Alcohol use d/o, cocaine use d/o Referrals: Therapy & Psychiatry [Other] - 1 Week (You can present to the clinic above, Sunday through Sunday during the hours of 10am and 12pm, in order to obtain outpatient mental health providers. ) [facility] [Provider Group] - 1 Week (06-19-24 [facility] was added to patients chart. Please call [phone] to schedule your follow up appt within 7-10 days of your discharge.) Discharge Medications: New amoxicillin 500 mg Capsule 500 mg PO TID 7 Days Qty: 21 0RF baclofen 10 mg Tablet 10 mg PO TID 30 Days Qty: 90 0RF gabapentin 300 mg Capsule 300 mg PO TID 30 Days Qty: 90 0RF mirtazapine 15 mg Tablet 15 mg PO BEDTIME 30 Days Qty: 30 0RF melatonin 3 mg Tablet 3 mg PO BEDTIME 30 Days Qty: 30 0RF omeprazole 20 mg Capsule,Delayed Release(Dr/Ec) 20 mg PO BID@0630,1630 30 Days Qty: 60 0RF Discontinued baclofen 10 mg tablet 10 mg 3XD Rx Instructions: patient [facility] 21 2024 for a 14 day supply. hasn't picked up since. gabapentin 300 mg capsule 300 mg PO TID Rx Instructions: Pt last filled december 2023 for 30day supply. hasn't picked up anymore since. Discharge Orders: Discharge Order (Routine); Ordered 06/20/24 Ordered By: Cinthia Savage Diet: Regular diet Activity on Discharge: As tolerated Stand Alone Forms: Patient Portal Discharge page, Community Support Print Language: Hebrew Care Plan Goals: Maintain mood and safe behaviors Take medications as prescribed Continue to pursue sobriety Practice coping skills Continue with outpatient providers and reach out to them as needed Health Concerns: Mood stability and behaviors Sobriety Plan of Treatment: Follow up with your PCP, psychiatric provider and other outpatient providers regarding above concerns Take medications as prescribed Assessment: Patient has insight and demonstrates good judgment in terms of wanting to pursue treatment. Patient has a safety plan that includes presenting to the closest ER or calling 911 if feeling unsafe. Discharge Date/Time: 06/20/24 10:16
--- NOTE | 2024-06-20 10:06 | PC.NURSE ---
Reviewed discharge instructions with pt. Pt received copy of discharge instructions and verbalized understanding. Pt will continue taking his meds and attending follow-ups. Denies SI/HI. AH/VH
== END 2024-06-20 10:16 | disposition home or self-care (01) | DRG 751 ==
LOC: HO.ED 06-18 10:53 → HO.PADLT16 06-18 10:56
PROVIDERS: Emergency Medicine; Admitting Provider Registered Nurse; Emergency Provider Emergency Medicine; Responsible Provider Registered Nurse; Visit Provider Psychiatry & Neurology Psychiatry
DX: F33.2 Major depressive disorder, recurrent severe without psychotic features (principal); R45.851 Suicidal ideations; K08.89 Other specified disorders of teeth and supporting structures; F14.20 Cocaine dependence, uncomplicated; F10.90 Alcohol use, unspecified, uncomplicated; F43.10 Post-traumatic stress disorder, unspecified; Z63.4 Disappearance and death of family member; Z59.02 Unsheltered homelessness; Z79.899 Other long term (current) drug therapy
CPT/HCPCS: 36415; 80053; 80307; 81003; 85025; 93005; 99285; J1885; S9485

== ENCOUNTER → 2024-06-18 10:48 | Outpatient (BNV) | payer OTHER, SELFPAY | PROVIDERS: Admitting Provider Registered Nurse; Emergency Provider Emergency Medicine; Responsible Provider Registered Nurse; Visit Provider Registered Nurse | DX: F33.2 Major depressive disorder, recurrent severe without psychotic features (principal); F43.10 Post-traumatic stress disorder, unspecified; F14.20 Cocaine dependence, uncomplicated | CPT/HCPCS: 90792 ==

== ENCOUNTER 2024-07-18 23:41 | Emergency (ER) | payer OTHER, SELFPAY ==
--- NOTE | ~2024-07-18 | XR_ITS ---
CLINICAL HISTORY: cp 2 view chest x-ray Comparison: 05/20/2023 Findings: Lungs are clear without acute infiltrates. No pneumothorax. Heart size normal. No acute bony abnormalities. Impression: No acute processes This document has been electronically signed by: Kofi Aiken MD on 07/19/2024 00:57:45
[2024-07-18 23:52] VITALS: BP 160/90; PULSE 110; O2SAT 98
--- NOTE | 2024-07-19 00:05 | PC.NURSE ---
pt getting changed over with security. at this time.
--- NOTE | 2024-07-19 00:08 | ECG_ITS ---
Test Reason : CHEST PAIN Blood Pressure : */* mmHG Vent. Rate : 77 BPM Atrial Rate : 77 BPM P-R Int : 170 ms QRS Dur : 92 ms QT Int : 380 ms P-R-T Axes : 68 70 33 degrees QTcB Int : 430 ms Normal sinus rhythm Normal ECG When compared with ECG of 17-Jun-2024 18:31, No significant change was found Referred By: Vlad Hatfield Electronically Signed By: Lul Horton
[2024-07-19 00:34] VITALS: BP 149/80; PULSE 86; RESP 16; TEMP 35.9; O2SAT 99; BMI 26.5
--- NOTE | 2024-07-19 01:29 | ED.GENADULT ---
HPI - General Adult General Chief complaint: Overdose Stated complaint: CHEST PAIN/ SMOKING CRACK/SI STATEMENTS Time Seen by Provider: 07/18/24 23:49 Source: patient Mode of arrival: EMS Limitations: no limitations History of Present Illness ED Provider: Liu DUARTE narrative: 43-year-old male with past medical history of polysubstance abuse presenting for chest pain. Patient states that he was smoking crack earlier in the evening and just prior to the arrival he was experiencing sharp substernal chest pain. He states that his pain has subsided however he still feels it on inhalation. He denies shortness of breath, diaphoresis, nausea, vomiting, abdominal pain. Related Data Previous Rx's ?Medication ?Instructions ?Recorded amoxicillin 500 mg capsule 500 mg PO TID 7 days #21 caps 06/19/24 baclofen 10 mg tablet 10 mg PO TID 30 days #90 tabs 06/19/24 gabapentin 300 mg capsule 300 mg PO TID 30 days #90 caps 06/19/24 melatonin 3 mg tablet 3 mg PO BEDTIME 30 days #30 tabs 06/19/24 mirtazapine 15 mg tablet 15 mg PO BEDTIME 30 days #30 tabs 06/19/24 omeprazole 20 mg capsule,delayed 20 mg PO BID@0630,1630 30 days #60 06/19/24 release caps Allergies Allergy/AdvReac Type Severity Reaction Status Date / Time No Known Allergies Allergy Verified 07/19/24 00:38 Review of Systems Review of Systems: Yes all other systems are reviewed and are negative PMFSH Past Medical History Medical History Depression COVID-19 (11/23/21) Suicidal ideation Substance abuse Social History Social History Household Members: None Housing: Homeless Do you presently have visiting nurse or other home services: No Unable to assess alcohol history related to: Unknown Alcohol intake: current Alcohol intake frequency: 3 or more drinks per day Alcohol type: hard liquor Patient Tobacco Use Status: Refuse Tobacco use screen Cigarettes Per Day: 20 Second Hand Smoke Exposure: No Substance Use Type: Crack/Cocaine Do you have a plan to hurt others: No Plan service: No Sexual orientation: Straight/Heterosexual Physical Exam ED Vital Signs: Vital Signs - 24 hr 07/19/24 00:34 Temperature 96.7 F L Pulse Rate 86 Respiratory Rate 16 Blood Pressure 149/80 H Pulse Oximetry 99 Oxygen Delivery Method Room Air BMI result Body Mass Index 26.5 Well-appearing male in no acute distress A&O x4; normal speech and cognition Lungs clear to auscultation bilaterally Normal S1-S2 regular rate and rhythm Medical Decision Making Medical Decision Making [facility] Narrative: 43-year-old male presents for chest pain I am concerned for the following; cocaine associated chest pain, costochondritis, acid reflux, pleuritis I have low suspicion for ACS/PE given reassuring physical exam and HPI Labs and imaging studies ordered Lab and imaging interpretation: 1:31am Fariba VIVAR notified that pt still needs labwork and ecg Patient's hCG was obtained and I do not appreciate any signs of ischemia Patient is signed out to overnight attending Lab Data 07/19/24 02:04 07/19/24 01:39 Labs: Lab Results 07/19/24 07/19/24 Range/Units 01:39 02:04 WBC 7.5 (4.8-10.8) X10*3/uL RBC 4.09 L (4.60-5.80) X10*6/uL Hgb 12.7 L (14.0-18.0) g/dl Hct 35.6 L (42.0-52.0) % MCV 87.0 (80.0-98.0) fL MCH 31.1 (27.0-33.0) pg MCHC 35.7 (31.0-36.0) g/dl RDW 12.9 (11.0-16.0) % Plt Count 227 (160-400) X10*3/uL MPV 8.9 L (9.4-12.4) fL Immature Gran % (Auto) 0.3 (0.0-0.4) % Neut % (Auto) 61.0 (45-73) % Lymph % (Auto) 29.0 (20-40) % [place] % (Auto) 6.8 (2-11) % Eos % (Auto) 2.1 (0-4) % Baso % (Auto) 0.8 (0-2) % Lymph # (Auto) 2.2 (1.2-4.9) X10*3/uL [place] # (Auto) 0.5 (0.1-1.2) X10*3/uL Eos # (Auto) 0.2 (0.0-0.4) X10*3/uL Baso # (Auto) 0.1 (0.0-0.2) X10*3/uL Abs Immat Gran (auto) 0.02 (0.00-0.03) X10*3/uL Absolute Neuts (auto) 4.6 (2.0-8.3) x10*3/uL Absolute Nucleated RBC 0.000 (0.0-0.012) X10*3/uL Nucleated RBC % (auto) 0.0 (0.0-0.2) /100WBC Sodium 142 (135-145) mmol/L Potassium 3.3 D (3.3-5.1) mmol/L Chloride 109 H (96-108) mmol/L Carbon Dioxide 23 (22-29) mmol/L Anion Gap 13 (12-20) BUN 9 (9-16) mg/dL Creatinine 0.78 (0.5-1.4) mg/dL Estim Creat Clear Calc 124.7 Estimated GFR > 60 Random Glucose 93 (60-115) mg/dL Calcium 9.2 D (8.4-10.2) mg/dL Troponin I High Sens < 2.7 D (<3.5-35.0) ng/L B-Natriuretic Peptide 19 (<100) pg/mL Discharge Plan Discharge Clinical Impression: Chest pain Qualifiers: Chest pain type: chest pain on breathing Qualified Code(s): R07.1 - Chest pain on breathing Patient Disposition: Still a Patient Prescriptions: No Action amoxicillin 500 mg Capsule 500 mg PO TID 7 Days Qty: 21 0RF baclofen 10 mg Tablet 10 mg PO TID 30 Days Qty: 90 0RF gabapentin 300 mg Capsule 300 mg PO TID 30 Days Qty: 90 0RF mirtazapine 15 mg Tablet 15 mg PO BEDTIME 30 Days Qty: 30 0RF melatonin 3 mg Tablet 3 mg PO BEDTIME 30 Days Qty: 30 0RF omeprazole 20 mg Capsule,Delayed Release(Dr/Ec) 20 mg PO BID@0630,1630 30 Days Qty: 60 0RF Print Language: Polish
[2024-07-19 01:59] LABS: Anion Gap 13 (12-20); Blood Urea Nitrogen 9 mg/dL (9-16); Calcium 9.2 mg/dL (8.4-10.2); Carbon Dioxide 23 mmol/L (22-29); Chloride 109 mmol/L (96-108); Creatinine Clr Calc Pharmacy 124.7; Estimated Glomerular Filt Rate > 60; Glucose Random 93 mg/dL (60-115); Potassium 3.3 mmol/L (3.3-5.1); Sodium 142 mmol/L (135-145)
[2024-07-19 02:08] LABS: Troponin-I High Sensitivity < 2.7 ng/L (<3.5-35.0)
[2024-07-19 02:10] LABS: Basophils Absolute Auto 0.1 X10*3/uL (0.0-0.2); Basophils Percent Auto 0.8 % (0-2); Eosinophils Absolute Auto 0.2 X10*3/uL (0.0-0.4); Eosinophils Percent Auto 2.1 % (0-4); Hematocrit 35.6 % (42.0-52.0); Hemoglobin 12.7 g/dl (14.0-18.0); Imm Gran Abs Auto 0.02 X10*3/uL (0.00-0.03); Imm Gran Pct Auto 0.3 % (0.0-0.4); Lymphocytes Absolute Auto 2.2 X10*3/uL (1.2-4.9); Mean Corpuscular HGB Conc 35.7 g/dl (31.0-36.0); Mean Corpuscular Hemoglobin 31.1 pg (27.0-33.0); Mean Platelet Volume 8.9 fL (9.4-12.4); Monocytes Absolute Auto 0.5 X10*3/uL (0.1-1.2); Monocytes Percent Auto 6.8 % (2-11); Neutrophils Absolute Auto 4.6 x10*3/uL (2.0-8.3); Platelet Count 227 X10*3/uL (160-400); Red Blood Count 4.09 X10*6/uL (4.60-5.80); Red Cell Distribution Width 12.9 % (11.0-16.0); White Blood Count 7.5 X10*3/uL (4.8-10.8)
[2024-07-19 02:22] LABS: B Type Natriuretic Peptide 19 pg/mL (<100)
[2024-07-19 03:29] LABS: MANUAL DIFF FLAG NO
--- NOTE | 2024-07-19 06:46 | PC.NURSE ---
pt refuses to be discharge states he want to hurt himself and states he will show me how serious he is. sitter still at bedside pt is not d/c at this time.
[2024-07-19 08:08] VITALS: BP 125/68; PULSE 76; RESP 14; TEMP 36.6; O2SAT 96
[2024-07-19 11:26] LABS: Appearance Urine Clear; Color Urine Yellow; Glucose Urine UA Negative (Negative); Leukocyte Esterase Urine Negative (Negative); Nitrite Urine Negative (Negative); UMIC TRIGGER UACC YES; Urine Blood Negative (Negative); Urine Ketones Negative (Negative); Urine Protein 30 (1+) mg/dL (Neg-Trace)
[2024-07-19 11:31] LABS: Bacteria Urine None Seen (None Seen); Hyaline Casts Urine 0-2 /LPF (0-2); RBC Urine 0-2 /HPF (0-2); Squamous Epithelial Cell Urine 0-2 /HPF (0-2); WBC Urine 0-5 /HPF (0-5)
[2024-07-19 11:59] LABS: Amphetamine Screen Urine Not Detected (Not Detect); Barbiturates, Urine Not Detected (Not Detect); Benzodiazepines Screen Urine Not Detected (Not Detect); Buprenorphine Scr Not Detected (Not Detect); Cannabinoid Screen Urine Not Detected (Not Detect); Cocaine Screen Urine POSITIVE (Not Detect); Fentanyl, urine Not Detected (Not Detect); Methadone Screen, Urine Not Detected (Not Detect); Opiate Screen Urine Not Detected (Not Detect); Oxycodone Screen Urine Not Detected (Not Detect); Phencyclidine Screen Urine POSITIVE (Not Detect)
--- NOTE | 2024-07-19 15:42 | PHA.MEDREC ---
Pharmacy Consult ? Medication Reconciliation Pharmacy has completed the medication reconciliation.Meds confirmed with GHAZALA Finney, but I put them in the computer for her. Patient states he takes the risperdal when needed, but it is ordered as a daily medication.
--- NOTE | 2024-07-19 15:55 | MHC.RECOVRN ---
Met with pt in [facility] to discuss ongoing substance use disorder. He reportedly has been smoking crack cocaine and wants to get sober again via attending an ATS or CSS program. He is not able to identify recent stressors. He has also been drinking alcohol 1/2 pint of Vodka every other day. He denies SI/HI (no ideation, plan, or intent) and denies AH/VH. He is a well known patient to [facility] as patient frequently presents secondary to substance use and homelessness. He is willing to go anywhere for ATS except [facility] per patient. He reports some anxiety and depression due to his situation. He denies physical and/or psychiatric concerns at this time. Per patient's request, ATS and CSS referrals will be sent on his behalf. ATS and CSS referrals have been sent to: 1. [facility] 2. [facility] 3. [facility] 4. [facility]
--- NOTE | 2024-07-19 16:01 | PC.NURSE ---
Pt states he had 3 backpacks full of his belongings ; no belongings list in computer and no note stating where pt's belongings are located; no belongings found in [place] at this time; drop man made aware
--- NOTE | 2024-07-19 16:23 | MHC.EDTECH ---
Patients belongings located in [facility] Three backpacks. Belongings itemized by this tech. No phone was found in any of the belongings. See belongings list for full list of itemized possessions.
[2024-07-19] MEDS: Omeprazole 20 MG CAPSULE.DR PO (16:49)
[2024-07-19] MEDS: risperiDONE 1 MG TABLET PO (16:49)
[2024-07-19] MEDS: Gabapentin 300 MG CAPSULE PO ×2 (16:49→20:54)
[2024-07-19] MEDS: Baclofen 10 MG TABLET PO (18:57)
--- NOTE | 2024-07-19 19:11 | PC.NURSE ---
patient appear to remain at rest presently respirations are even and unlabored appears in no distress asking for snacks periodically
[2024-07-19] MEDS: Melatonin 3 MG TABLET PO (20:54)
[2024-07-19] MEDS: Mirtazapine 15 MG TABLET PO (20:54)
--- NOTE | 2024-07-20 07:07 | PC.NURSE ---
Assumed care of patient at 0645, patient appears to be sleeping, respirations even and unlabored, no apparent distress noted. Continue plan of care for detox bedsearch
[2024-07-20 07:56] VITALS: BP 118/72; PULSE 75; RESP 18; TEMP 36.7; O2SAT 100
[2024-07-20] MEDS: Omeprazole 20 MG CAPSULE.DR PO (08:45)
[2024-07-20] MEDS: risperiDONE 1 MG TABLET PO (08:45)
[2024-07-20] MEDS: Gabapentin 300 MG CAPSULE PO (08:45)
[2024-07-20] MEDS: Baclofen 10 MG TABLET PO (08:45)
[2024-07-20 12:03] VITALS: BP 126/87; PULSE 74; RESP 16; TEMP 36.7; O2SAT 98
== END 2024-07-20 12:06 | disposition home or self-care (01) ==
PROVIDERS: Nurse Practitioner Family; Emergency Provider Student in an Organized Health Care Education/Training Program; PCP Nurse Practitioner
DX: F19.10 Other psychoactive substance abuse, uncomplicated (principal); F32.A Depression, unspecified; R07.1 Chest pain on breathing
CPT/HCPCS: 36415; 71046; 80048; 80307; 81001; 83880; 84484; 85025; 93005; 99285; S9485

== ENCOUNTER → 2024-07-19 00:08 | Outpatient (BNV) | payer OTHER, SELFPAY | PROVIDERS: Emergency Provider Student in an Organized Health Care Education/Training Program; PCP Nurse Practitioner; Visit Provider Internal Medicine Cardiovascular Disease | DX: R07.9 Chest pain, unspecified (principal) | CPT/HCPCS: 93010 ==

== ENCOUNTER → 2024-07-19 00:08 | Outpatient (BNV) | payer OTHER, SELFPAY | PROVIDERS: Emergency Provider Student in an Organized Health Care Education/Training Program; PCP Nurse Practitioner; Visit Provider Radiology Diagnostic Radiology | DX: R07.9 Chest pain, unspecified (principal) | CPT/HCPCS: 71046 ==

== ENCOUNTER 2024-10-28 03:09 | Emergency (ER) | payer OTHER, SELFPAY ==
--- NOTE | 2024-10-28 | ECG_ITS ---
Test Reason : tachycardia Blood Pressure : */* mmHG Vent. Rate : 114 BPM Atrial Rate : 114 BPM P-R Int : 144 ms QRS Dur : 86 ms QT Int : 324 ms P-R-T Axes : 72 82 20 degrees QTcB Int : 446 ms Sinus tachycardia Nonspecific ST depression When compared with ECG of 19-Jul-2024 02:09, No significant change was found Referred By: Generic ED Physician Electronically Signed By: JANETH FLOWERS MD
[2024-10-28 03:10] VITALS: BP 139/93; PULSE 118; RESP 20; TEMP 36.5; O2SAT 97; BMI 25.8
--- OUTSIDE RECORDS SUMMARY | 2024-10-28 03:36 | XMS_ITS | Clinical Summary ---
Author Organization [facility] Address [address] [place] [address] Phone Care Team Providers Care Gas Producer Name Role Phone Physician, No Pcp Primary Care Provider Unavaila ble Allergies No known active allergies Medications gabapentin (NEURONTIN) 300 mg capsule Take 1 capsule (300 mg total) by mouth 3 (three) times a day. 09/14/19 24 Active cyclobenzaprin e (FLEXERIL) 10 mg tablet Take 1 tablet (10 mg total) by mouth 3 (three) times a day if needed for muscle spasms for up to 10 days. 15 tablet 05/06/20 24 Active Additional Information Patient not taking.Reported on 07/03/2024 mirtazapine (REMERON) 15 mg tablet Take 1 tablet (15 mg total) by mouth at bedtime. at bedtime. Active melatonin 3 mg tablet Take 1 tablet (3 mg total) by mouth at bedtime. at bedtime for 30 days 06/19/19 25 Active risperiDONE (RisperDAL) 1 mg tablet Take 1 tablet (1 mg total) by mouth 1 (one) time each day. 06/26/19 25 Active omeprazole (PriLOSEC) [address] capsule Take 1 capsule (20 mg total) by mouth 2 (two) times a day. 06/19/19 25 Active baclofen (LIORESAL) 10 mg tablet Take 1 tablet (10 mg total) by mouth 3 (three) times a day. 06/19/19 25 Active lidocaine (LIDODERM) 5 % patch Apply 1 patch topically 1 (one) time each day. Remove & discard patch within 12 hours or as directed by . Active traZODone (DESYREL) 50 mg tablet Take 1 tablet (50 mg total) by mouth at bedtime. Active baclofen (LIORESAL) 10 mg tablet Take 1 tablet (10 mg total) by mouth 3 (three) times a day. 10/03/19 24 Active gabapentin (NEURONTIN) 600 mg tablet Take 0.5 tablets (300 mg total) by mouth 3 (three) times a day. 10/24/19 24 Active acetaminophen (TYLENOL) 500 mg tablet Take 2 tablets (1,000 mg total) by mouth every 8 (eight) hours. 30 tablet 10/21/19 25 Active ibuprofen (ADVIL,MOTRIN) 600 mg tablet Take 1 tablet (600 mg total) by mouth every 8 (eight) hours if needed for moderate pain. 30 tablet 10/21/19 25 Active ibuprofen (ADVIL,MOTRIN) 600 mg tablet Take 1 tablet (600 mg total) by mouth 4 (four) times a day. 025 Discontinued acetaminophen (TYLENOL) 500 mg tablet Take 1 tablet (500 mg total) by mouth every 6 (six) hours if needed for mild pain. 025 Discontinued Encounters Date Type Department Care Team Description 10/21/2024 9:57 PM EDT - 10/22/2024 9:55 AM EDT Emergency [facility] [address] [place] [id number] Fermin Ackerman MD Substance abuse ([facility] V24, [facility] V28) (Primary Dx); Depression, unspecified depression type Discharge Disposition: Home or Self Care 10/20/2024 4:10 AM EDT - 10/20/2024 5:43 AM EDT Emergency [facility] [address] [place] [id number] Contusion of left hand including fingers, initial encounter (Primary Dx) Discharge Disposition: Home or Self Care from Last 3 Months Immunizations Name Administration Dates Next Due Tdap Tetanus diptheria acell ular pertussis (Boostrix; Adacel) 7yo and older 10/20/2024 Medical History Medical History Date Comments Anxiety Depression Bipolar 1 disorder ([facility] V24, [facility] V28) per EMR Boxers fracture 12/2018 per EMR, right h and Social History Tobacco Use Types Packs/Day Years Used Date Smoking Tobacco: Every Day Cigarettes Tobacco Cessation:Ready to Q uit: Not Asked; Counseling Given: Not Answered Alcohol Use Standard Drinks/Week Comments Yes 0 (1 standard drink = 0.6 oz pur e alcohol) Sex and Gender Information Value Date Recorded Sex Assigned at Male 07/15/2024 10:22 PM EST Legal Sex Male 10:21 AM EST Gender Identity Male 07/15/2024 10:22 PM EST Sexual Orientation Straight 07/15/2024 10 :22 PM EST Obstetrics History Last Filed Vital Signs Vital Sign Reading Time Taken Comments Blood Pressure 134/74 10/22/2024 8:52 AM EDT Pulse 75 10/22/2024 8:52 AM EDT Temperature 36.7 ??C (98.1 ??F) 10/22/2024 8:52 AM ED T Respiratory Rate 16 10/22/2024 8:52 AM EDT Oxygen Saturation 100% 10/22/2024 8:52 AM EDT Inhaled Oxygen Concentration - - Weight 36.3 kg (80 lb) 10/21/2024 9:55 PM EDT Height 177.8 cm (5' 10 ) 10/21/2024 9:55 PM EDT Body Mass Index 11.48 10/21/2024 9:55 PM EDT Plan of Treatment Health Maintenance Due Date Last Done Comments Hepatitis B Vaccines (1 of 3 - 19+ 3-dose series) 09/29/1998 Pneumococcal Vaccine: Pediatrics (0 to 5 Years) and At-Risk Patients (6 to 64 Years) (1 of 2 - PCV) 09/29/1998 Hepatitis A Vaccines (2 of 2 - Risk 2-dose series) 09/03/2018 03/05/2018 Colorectal Cancer Screening: Colonoscopy 04/18/2022 Hepatitis C Screening 04/18/2022 Social Influencers of Health Screening 04/18/2022 Depression Screening 05/09/2023 05/09/2022 Cholesterol Screening (Lipid Panel) 11/19/2023 11/18/2018, 11/18/2018 COVID-19 Vaccine ( - 2023-2 5 season) 2024 Influenza Vaccine (Season Ended) 2025 DTaP,Tdap,and Td Vaccines (2 - Td or Tdap) 10/20/2034 10/20/2024 HIV Screening Completed 11/18/2018 HIB Vaccines Aged Out No longer eligi ble based on patient's age to complete this topic HPV Vaccines Aged Out No longer eligi ble based on patient's age to complete this topic IPV Vaccines Aged Out No longer eligi ble based on patient's age to complete this topic MMR Vaccines Aged Out No longer eligi ble based on patient's age to complete this topic Meningococcal ACWY Vaccine Aged Out N o longer eligible based on patient's age to complete this topic Meningococcal B Vaccine Aged Out No l onger eligible based on patient's age to complete this topic RSV Immunization Patients Under 20 months Aged Out No longer eligible b ased on patient's age to complete this topic Varicella Vaccines Aged Out No longer eligible based on patient's age to complete this topic Procedures Procedure Name Priority Date/Time Associated Diagnosis Comments CBC WITH AUTO DIFFERENTIAL STAT 10/21/2024 10:23 PM EDT SALICYLATE LEVEL STAT 10/21/2024 10:2 3 PM EDT ACETAMINOPHEN LEVEL STAT 10/21/2024 1 0:23 PM EDT ETHANOL STAT 10/21/2024 10:23 PM EDT COMPREHENSIVE METABOLIC PANEL STAT 10/21/2024 10:23 PM EDT CBC AND DIFFERENTIAL STAT 10/21/2024 10:23 PM EDT XR HAND 3+ VIEWS LEFT STAT 10/20/2024 4:12 AM EDT from Last 3 Months Results * (ABNORMAL) CBC auto differential (10/21/2024 10:23 PM EDT) WBC 8.2 4.8 - 10.8 K/[facility] LAB HEMETOLOGY METHOD 10/21/2024 10:58 PM EDT [facility] RBC 4.40(L) 4.50 - 5.50 M/[facility] LAB HEMETOLOGY METHOD 10/21/2024 10:58 PM EDT [facility] Hemoglobin 13.1(L) 13.5 - 17.5 g/dL LAB HEMETOLOGY METHOD [facility] Hematocrit 38.8(L) 42.0 - 54.0 % LAB HEMETOLOGY METHOD [facility]2024 [facility] MCV 89.0 79.0 - 98.0 FL LAB HEMETOLOGY METHOD 10/21/2024 10:58 PM EDT [facility] MCH 30.0 27.0 - 32.0 pcg LAB HEMETOLOGY METHOD 10/[facility]2024 [facility] MCHC 33.8 32.0 - 37.0 g/dL LAB HEMETOLOGY METHOD 10/21/2024 10:[address] [facility] RDW 13.0 11.0 - 15.0 % LAB HEMETOLOGY METHOD 10/21/2024 10:[facility] Platelets 236 130 - 400 K/mcL LAB HEMETOLOGY METHOD 10/21/2024 10:[facility] MPV 9.3 7.0 - 11.0 FL LAB HEMETOLOGY METHOD 10/21/2024 10:[address] [facility] NRBC 0.0 <1.0 % LAB HEMETOLOGY METHOD 10/21[facility]2024 [facility] NRBC Absolute 0.00 <0.10 K/mcL LAB HEMETOLOGY METHOD 10/21/2024 10:58 [facility] Neutrophils Relative 73.3 % LAB HEMETOLOGY METHOD 10/21/2024 10:58 [facility] Lymphocytes Relative 15.8 % LAB HEMETOLOGY METHOD 10/21[facility]2024 10:58 [facility] Monocytes Relative 9.1 % LAB HEMETOLOGY METHOD 10/21/2024 10:58 PM EDT [facility] Eosinophils Relative 1.1 % LAB HEMETOLOGY METHOD 10/21/2024 10:58 PM EDT [facility] Basophils Relative 0.5 % LAB HEMETOLOGY METHOD 10/21/2024 10:58 PM EDT [facility] Immature Granulocytes Relative 0.2 % LAB HEMETOLOGY METHOD 10/21/2024 10:58 PM EDT [facility] Neutrophils Absolute 6.04 1.50 - 7.00 K/mcL LAB HEMETOLOGY METHOD 10/21/2024 10:58 PM EDT [facility] Lymphocytes Absolute 1.30 1.00 - 5.00 K/mcL LAB HEMETOLOGY METHOD 10/21/2024 10:58 PM EDT [facility] Monocytes Absolute 0.75 0.20 - 1.00 K/mcL LAB HEMETOLOGY METHOD 10/21/2024 10:58 PM EDT [facility] Eosinophils Absolute 0.09 0.00 - 0.50 K/mcL LAB HEMETOLOGY METHOD 10/21/2024 10:58 PM EDT [facility] Basophils Absolute 0.04 0.00 - 0.20 K/mcL LAB HEMETOLOGY METHOD 10/21/2024 10:58 PM EDT [facility] Immature Granulocytes Absolute 0.02 0.00 - 0.03 K/mcL LAB HEMETOLOGY METHOD 10/21/2024 10:58 PM EDT [facility] Blood Venous blood specimen / Unknown Venipuncture / Unknown 10/21/2024 10:23 PM EDT 10/21/2024 10:51 PM EDT us Fermin Ackerman MD LAB BLOOD ORDERABLES Final Resu lt [facility] [address] [place] [address], [place] [phone] * Ethanol (10/21/2024 10:23 PM EDT) Ethanol Level 7 0 - 10 mg/dL LAB CHEMISTRY METHOD 10/21/2024 11:30 PM EDT [facility] Blood Venous blood specimen / Unknown Venipuncture / Unknown 10/21/2024 10:23 PM EDT 10/21/2024 10:51 PM EDT us Fermin Ackerman MD LAB BLOOD ORDERABLES Final Resu lt Performing Organization Address [facility]/ZIP Co de Phone Number [facility] [address] [place] [address], [place] [phone] * (ABNORMAL) Acetaminophen level (10/21/2024 10:23 PM EDT) Acetaminophen Level <2.0(L) 10.0 - 30.0 mcg/mL LAB CHEMISTRY METHOD 10/21/2024 11:30 PM EDT [facility] Blood Venous blood specimen / Unknown Venipuncture / Unknown 10/21/2024 10:23 PM EDT 10/21/2024 10:51 PM EDT us Fermin Ackerman MD LAB BLOOD ORDERABLES Final Resu lt Performing Organization Address City/[facility]/ZIP Co de Phone Number [facility] [address] [place] [address], [place] [phone] * (ABNORMAL) Salicylate level (10/21/2024 10:23 PM EDT) Salicylate Level <1.7(L) 2.0 - 29.0 mg/dL LAB CHEMISTRY METHOD 10/21/2024 11:29 PM EDT [facility] Blood Venous blood specimen / Unknown Venipuncture / Unknown 10/21/2024 10:23 PM EDT 10/21/2024 10:51 PM EDT us Fermin Ackerman MD LAB BLOOD ORDERABLES Final Resu lt [facility] [address] [place] [address], [place] [phone] * Comprehensive metabolic panel (10/21/2024 10:23 PM EDT) Sodium 142 133 - 145 mmol/L LAB CHEMISTRY METHOD 10/21/2024 11:[address] [facility] Potassium 3.5 3.5 - 5.5 mmol/L LAB CHEMISTRY METHOD 10/21/2024 11:[address] [facility] Chloride 107 96 - 110 mmol/L LAB CHEMISTRY METHOD 10/21/2024 11:[address] [facility] CO2 28 21 - 32 mmol/L LAB CHEMISTRY METHOD 10/21/2024 11:[address] [facility] Anion Gap 7 3 - 11 LAB CHEMISTRY METHOD 10/21/2024 11:[address] [facility] Glucose 87 70 - 100 mg/dL LAB CHEMISTRY METHOD 10/21/2024 11:[address] [facility] BUN 10 5 - 25 mg/dL LAB CHEMISTRY METHOD 10/21/2024 11:[address] [facility] Creatinine 0.73 0.70 - 1.30 mg/dL LAB CHEMISTRY METHOD 10/21/2024 11:[address] [facility] eGFR 114 >=60 mL/min/1. 73m2 LAB CHEMISTRY METHOD 10/21/2024 11:[address] [facility] Comment:Calculation based on the Chronic Kidney Disease Epidemiology Collaboration (CKD-EPI) equation refit without adjustment for race. BUN/Creatinine Ratio 13.7 LAB CHEMISTRY METHOD 10/21/2024 11:[address] [facility] Calcium 8.5 8.5 - 10.5 mg/dL LAB CHEMISTRY METHOD 10/21/2024 11:29 PM EDT [facility] AST (SGOT) 18 10 - 42 unit/L LAB CHEMISTRY METHOD 10/21/2024 11:29 PM EDT [facility] ALT (SGPT) 21 10 - 60 unit/L LAB CHEMISTRY METHOD 10/21/2024 11:29 PM EDT [facility] Alkaline Phosphatase 70 42 - 121 unit/L LAB CHEMISTRY METHOD 10/21/2024 11:29 PM EDT [facility] Total Protein 6.4 6.0 - 8.0 g/dL LAB CHEMISTRY METHOD 10/21/2024 11:29 PM EDT [facility] Albumin 3.6 3.2 - 5.0 g/dL LAB CHEMISTRY METHOD 10/21/2024 11:29 PM EDT [facility] Total Bilirubin 0.3 0.0 - 1.4 mg/dL LAB CHEMISTRY METHOD 10/21/2024 11:29 PM EDT [facility] Blood Venous blood specimen / Unknown Venipuncture / Unknown 10/21/2024 10:23 PM EDT 10/21/2024 10:51 PM EDT us Fermin Ackerman MD LAB BLOOD ORDERABLES Final Resu lt [facility] [address] [place] [address], * XR Hand 3+ Views Left (10/20/2024 4:12 AM EDT) Anatomical Region Laterality Modality Upper Extremities, Hand Left Radiogra phic Imaging 10/20/2024 8:56 AM EDT Impressions 10/20/2024 8:57 AM EDT No acute bony findings. -------- FINAL REPORT -------- Dictated By: Brett Olivas Dictated Date: 10/20/2024 08:56 ET Assigned Physician: Brett Olivas Reviewed and Electronically Signed By: Brett Olivas Signed Date: 10/20/2024 08:57 ET Workstation ID: [id number] Transcribed By: Self Edit Transcribed Date: 10/20/2024 08:56 ET Narrative 10/20/2024 8:57 AM EDT PROCEDURE: Radiographs of the left hand. HISTORY: pain. COMPARISON: None. FINDINGS: Bony mineralization is normal. ??No fracture or malalignment. ??No erosion or significant degenerative change. ??Soft tissue swelling over the dorsal aspect of the hand at the level of the metacarpal heads. Procedure Note Brett Olivas MD - 10/20/2024 PROCEDURE: Radiographs of the left hand. HISTORY: pain. COMPARISON: None. FINDINGS: Bony mineralization is normal. No fracture or malalignment. No erosionor significant degenerative change. Soft tissue swelling over the dorsalaspect of the hand at the level of the metacarpal heads. IMPRESSION: No acute bony findings. -------- FINAL REPORT -------- Dictated By: Brett Olivas Dictated Date: 10/20/2024 08:56 ET Assigned Physician: Brett Olivas Reviewed and Electronically Signed By: Brett Olivas Signed Date: 10/20/2024 08:57 ET Workstation ID: [id number] Transcribed By: Self Edit Transcribed Date: 10/20/2024 08:56 ET John JIMENEZ IMG XR PROCEDURES Final Result from Last 3 Months Care Teams Gas Producer Relationship Specialty Start Date End Date Physician, No Pcp PCP - General 04/20/24
[2024-10-28 03:40] LABS: Basophils Percent Auto 0.4 % (0-2); Eosinophils Percent Auto 0.4 % (0-4); Hematocrit 42.5 % (42.0-52.0); Hemoglobin 14.9 g/dl (14.0-18.0); Imm Gran Abs Auto 0.04 X10*3/uL (0.00-0.03); Imm Gran Pct Auto 0.4 % (0.0-0.4); Lymphocytes Absolute Auto 1.4 X10*3/uL (1.2-4.9); Lymphocytes Percent Auto 14.7 % (20-40); MANUAL DIFF FLAG NO; Mean Corpuscular HGB Conc 35.1 g/dl (31.0-36.0); Mean Corpuscular Hemoglobin 30.3 pg (27.0-33.0); Mean Corpuscular Volume 86.4 fL (80.0-98.0); Mean Platelet Volume 8.6 fL (9.4-12.4); Monocytes Absolute Auto 0.5 X10*3/uL (0.1-1.2); Monocytes Percent Auto 5.2 % (2-11); Neutrophils Absolute Auto 7.7 x10*3/uL (2.0-8.3); Neutrophils Percent Auto 78.9 % (45-73); Platelet Count 319 X10*3/uL (160-400); Red Blood Count 4.92 X10*6/uL (4.60-5.80); Red Cell Distribution Width 12.8 % (11.0-16.0); White Blood Count 9.7 X10*3/uL (4.8-10.8)
[2024-10-28 04:05] LABS: Acetaminophen LAB < 3 mcg/mL (<30); Salicylate < 5.0 mg/dL (15-30)
[2024-10-28 04:08] LABS: Alanine Aminotransferase 25 U/L (0-40); Albumin Level 4.8 g/dL (3.5-5.0); Alkaline Phosphatase 74 U/L (39-117); Anion Gap 17 (12-20); Aspartate Amino Transferase 27 U/L (5-37); Bilirubin Total 0.3 mg/dL (0.0-1.0); Blood Urea Nitrogen 17 mg/dL (9-16); Calcium 10.2 mg/dL (8.4-10.2); Carbon Dioxide 24 mmol/L (22-29); Chloride 102 mmol/L (96-108); Creatinine Clr Calc Pharmacy 126.7; Estimated Glomerular Filt Rate > 60; Ethanol < 10 mg/dL; Glucose Random 147 mg/dL (60-115); Potassium 4.4 mmol/L (3.3-5.1); Sodium 139 mmol/L (135-145); Total Protein 7.7 g/dL (6.5-8.0)
--- NOTE | 2024-10-28 04:22 | ED.PSYCH ---
HPI - Psych General Chief Complaint: Psychiatric Symptoms Stated Complaint: SI Time Seen by Provider: 10/28/24 03:52 Source: patient and old records reviewed Mode of arrival: ambulatory Limitations: no limitations History of Present Illness ED Provider: NASIMA HPI Narrative: 44 yo male with PMH of depression, substance abuse, ETOH use disorder states he just left [facility] after a 5 day stay for L hand infection (bedside I+D) - improving he notes but still on augmentin and doxy. He comes in with c/o SI, no AH/VH, no HI. He has not been taking his medications. He has no fevers. He is homeless. He has no ingestions or new rash/infections. MD complaint: suicidal ideation and feels depressed Onset (ago): day(s) (few) Duration: getting worse History of same: Yes Relieving factors: none Exacerbating factors: drug use and other Context: recent drug abuse and significant life stressor Associated psychiatric symptoms: depression and suicidal ideation Associated symptoms: denies other symptoms Treatments prior to arrival: none If self harm: admits thoughts of self harm and has plan Related Data Home Medications ?Medication ?Instructions ?Recorded ?Confirmed amoxicillin 875 mg-potassium 1 tab PO BID 10/28/24 10/28/24 clavulanate 125 mg tablet baclofen 10 mg tablet 10 mg PO BID 10/28/24 10/28/24 doxycycline hyclate 100 mg capsule 100 mg PO BID 10/28/24 10/28/24 gabapentin 300 mg capsule 300 mg PO TID 10/28/24 10/28/24 oxycodone 10 mg tablet 10 mg PO Q4H PRN Pain (Scale Score 10/28/24 10/28/24 7-10) Previous Rx's ?Medication ?Instructions ?Recorded melatonin 3 mg tablet 3 mg PO BEDTIME 30 days #30 tabs 06/19/24 mirtazapine 15 mg tablet 15 mg PO BEDTIME 30 days #30 tabs 06/19/24 omeprazole 20 mg capsule,delayed 20 mg PO BID@0630,1630 30 days #60 06/19/24 release caps Allergies Allergy/AdvReac Type Severity Reaction Status Date / Time No Known Allergies Allergy Verified 10/28/24 03:14 Review of Systems Review of Systems: Constitutional : No Fever, No Chills ENT/Mouth : No Ear Pain, No Nasal Congestion, No sore throat Eyes: No Eye Pain, No Swelling, No Redness Cardiovascular : No Chest Pain, No SOB Respiratory : No Cough, No Sputum, No Dyspnea Gastrointestinal : No Nausea, No Vomiting, No Diarrhea, No Hematochezia, No Melena Genitourinary : No Dysuria, No Urinary Frequency, No Hematuria Musculoskeletal : No Myalgias Skin : No Skin Lesions, No rash Neuro : No Weakness, No Numbness, No Paresthesias, No Dizziness, No Headache Psych : positive Anxiety, positive Depression, positive SI no HI All other systems reviewed and are negative [facility] Past Medical History Attestation statement: The following information was validated with the patient. Source: old records reviewed Medical History Depression COVID-19 (11/23/21) Suicidal ideation Substance abuse Social History Social History Household Members: None Housing: Homeless Do you presently have visiting nurse or other home services: No Unable to assess alcohol history related to: Unknown Alcohol intake: current Alcohol intake frequency: 3 or more drinks per day Alcohol type: hard liquor Patient Tobacco Use Status: Refuse Tobacco use screen Cigarettes Per Day: 20 Smoked in Last 30 Days: No Second Hand Smoke Exposure: No Substance Use Type: Crack/Cocaine Advance Directives: No Advance Directives Information Provided: No service: No Sexual orientation: Straight/Heterosexual Physical Exam Vital Signs: Vital Signs: Last Vital Signs Temp 98.2 F 10/29/24 07:40 Pulse 76 10/29/24 07:40 Resp 16 10/29/24 07:40 BP 158/95 H 10/29/24 07:40 Pulse Ox 100 10/29/24 07:40 O2 Del Method Room Air 10/29/24 07:40 BMI result Body Mass Index 25.8 Appearance: Alert. Oriented X3. No acute distress. Eyes: Pupils equal, round and reactive to light. ENT: Pharynx normal. Neck: Normal inspection. Neck supple. CVS: Normal heart rate and rhythm. Pulses normal. Respiratory: No respiratory distress. Breath sounds normal. Abdomen: Soft and nontender. Skin: Skin warm and dry. Normal skin color. Normal skin turgor. Extremities: No lower extremity edema. No calf ttp L hand in clean dressing no swelling distal or proximal and NV intact, no erythema distal or prox to dressing Neuro: Oriented X 3. No motor deficit. No sensory deficit. CN2-12 intact Course Course Course Narrative: Time: 06:32 Date: 10/29/24 Provider: César Barnett MD Patient in physician observation for psychiatric evaluation.? Patient has been in the emergency department for 27 hours. Patient has been accepted at [facility] [place] [address], for today at 10/29/24, accepting is Dr. Yusuf, HERNANDEZ 11am. No acute events reported overnight. No current complaints. VS stable.Will continue to monitor. Reevaluation(s) Reevaluation #1: Dr. Gonzalez: The patient is a 44-year-old male who was kept in the emergency room department overnight with the plan for psychiatric hospitalization at [facility]. The patient has been discharged from [facility] 2 days ago after treatment for a left hand infection. He was discharged on doxycycline and Augmentin. He presented here yesterday morning. This morning the patient states that he does not wish to go to [facility]. He was re-evaluated by the care team. They do not feel that he is at high-risk and therefore feel he may be discharged if he does not wish to be at [facility]. I spoke to the patient. He says that his female partner has his Augmentin and doxycycline that he has been prescribed. He is advised to continue the Augmentin and doxycycline he has been previously prescribed. He is given contact information for several local primary care practices in order to get a primary care doctor. Medications Administered Generic Name Dose Route Start Last Admin Trade Name Freq PRN Reason Stop Dose Admin Amoxicillin/Clavulanate Potassium 875 mg 10/28/24 09:00 10/28/24 20:47 Amoxicillin/Potassium Clav 875 Mg Tablet PO 11/02/24 08:59 875 mg BID ODILON Administration Baclofen 10 mg 10/28/24 09:00 10/28/24 20:47 Baclofen 10 Mg Tablet PO 10 mg BID ODILON Administration Doxycycline Monohydrate 100 mg 10/28/24 09:00 10/28/24 20:47 Doxycycline Monohydrate 100 Mg Capsule PO 100 mg BID ODILON Administration Gabapentin 300 mg 10/28/24 09:00 10/28/24 20:47 Gabapentin 300 Mg Capsule PO 300 mg TID ODILON Administration Melatonin 3 mg 10/28/24 21:00 10/28/24 20:47 Melatonin 3 Mg Tablet PO 3 mg BEDTIME ODILON Administration Mirtazapine 15 mg 10/28/24 21:00 10/28/24 20:47 Mirtazapine 15 Mg Tablet PO 15 mg BEDTIME ODILON Administration Omeprazole 20 mg 10/28/24 06:30 10/28/24 14:58 Omeprazole 20 Mg Capsule. PO 20 mg BID@0630,1630 ODILON Administration Oxycodone HCl 10 mg 10/29/24 00:11 10/29/24 04:50 Oxycodone Hcl Immed Release 5 Mg Tablet PO 10/29/24 21:00 10 mg Q4H PRN Administration Pain, Severe (Pain Scale 7-10) Discontinued Medications Generic Name Dose Route Start Last Admin Trade Name Freq PRN Reason Stop Dose Admin Oxycodone HCl 10 mg 10/28/24 04:13 10/28/24 18:34 Oxycodone Hcl Immed Release 5 Mg Tablet PO 10 mg Q4H PRN Administration Pain (Scale Score 7-10) Medical Decision Making Medical Decision Making [facility] Narrative: 44 yo male with PMH of depression, substance abuse, ETOH use disorder now here with SI at this time his L hand looks to be well healing will obtain labs, restart on medications and refer to CARE team. Differential Diagnosis Differential Diagnoses: The differential diagnosis associated with the presentation includes substance abuse, SI Admission/Observation Consideration of admission/observation: Escalation of care including admission/observation considered physician observation started at 425am Consult Healthcare Provider Management of the patient was discussed with: Behavioral Health Provider Lab Data [facility] Lab Attestation statement: I reviewed the patient's lab results. 10/28/24 03:33 10/28/24 03:33 Labs: Lab Results 10/28/24 10/28/24 Range/Units 03:33 06:11 WBC 9.7 (4.8-10.8) X10*3/uL RBC 4.92 D (4.60-5.80) X10*6/uL Hgb 14.9 (14.0-18.0) g/dl Hct 42.5 (42.0-52.0) % MCV 86.4 (80.0-98.0) fL MCH 30.3 (27.0-33.0) pg MCHC 35.1 (31.0-36.0) g/dl RDW 12.8 (11.0-16.0) % Plt Count 319 D (160-400) X10*3/uL MPV 8.6 L (9.4-12.4) fL Immature Gran % (Auto) 0.4 (0.0-0.4) % Neut % (Auto) 78.9 H (45-73) % Lymph % (Auto) 14.7 L (20-40) % [place] % (Auto) 5.2 (2-11) % Eos % (Auto) 0.4 (0-4) % Baso % (Auto) 0.4 (0-2) % Lymph # (Auto) 1.4 (1.2-4.9) X10*3/uL [place] # (Auto) 0.5 (0.1-1.2) X10*3/uL Eos # (Auto) 0.0 (0.0-0.4) X10*3/uL Baso # (Auto) 0.0 (0.0-0.2) X10*3/uL Abs Immat Gran (auto) 0.04 H (0.00-0.03) X10*3/uL Absolute Neuts (auto) 7.7 (2.0-8.3) x10*3/uL Absolute Nucleated RBC 0.000 (0.0-0.012) X10*3/uL Nucleated RBC % (auto) 0.0 (0.0-0.2) /100WBC Sodium 139 (135-145) mmol/L Potassium 4.4 D (3.3-5.1) mmol/L Chloride 102 (96-108) mmol/L Carbon Dioxide 24 (22-29) mmol/L Anion Gap 17 (12-20) BUN 17 H (9-16) mg/dL Creatinine 0.76 (0.5-1.4) mg/dL Estim Creat Clear Calc 126.7 Estimated GFR > 60 Random Glucose 147 H (60-115) mg/dL Calcium 10.2 D (8.4-10.2) mg/dL Total Bilirubin 0.3 (0.0-1.0) mg/dL AST 27 (5-37) U/L ALT 25 (0-40) U/L Alkaline Phosphatase 74 (39-117) U/L Total Protein 7.7 (6.5-8.0) g/dL Albumin 4.8 (3.5-5.0) g/dL Urine Color Yellow Urine Appearance Clear Urine pH 7.0 (5.0-9.0) Ur Specific [place] 1.025 (1.005-1.025) Urine Protein 30 (1+) H (Neg-Trace) mg/dL Urine Glucose (UA) Negative (Negative) mg/dL Urine Ketones Trace (Negative) mg/dL Urine Blood Negative (Negative) Urine Nitrite Negative (Negative) Ur Leukocyte Esterase Negative (Negative) Urine RBC 0-2 (0-2) /HPF Urine WBC 0-5 (0-5) /HPF Ur Squamous Epith Cells 0-2 (0-2) /HPF Urine Bacteria None Seen (None Seen) Hyaline Casts 0-2 (0-2) /LPF Salicylates < 5.0 L (15-30) mg/dL Urine Opiates Screen POSITIVE H (Not Detect) Ur Buprenorphine Scrn Not Detected (Not Detect) ng/mL Ur Oxycodone Screen Positive H (Not Detect) ng/mL Urine Methadone Screen Not Detected (Not Detect) ng/mL Urine Fentanyl Screen Not Detected (Not Detect) Acetaminophen < 3 (<30) mcg/mL Ur Barbiturates Screen Not Detected (Not Detect) Ur Phencyclidine Scrn Not Detected (Not Detect) Ur Amphetamines Screen Not Detected (Not Detect) U Benzodiazepines Scrn Not Detected (Not Detect) Urine Cocaine Screen POSITIVE H (Not Detect) U Marijuana (THC) Screen Not Detected (Not Detect) Ethyl Alcohol < 10 mg/dL External Record Review External record reviewed: Inpatient record and Outpatient record Social Determinants Patient?s care significantly limited by Social Determinants of Health including: Inadequate housing and Problems related to primary support group Discharge Plan Discharge Clinical Impression: Substance abuse, Depression Patient Disposition: Home, Self-Care Additional Instructions: Please resume the antibiotics you were prescribed at [facility], this includes amoxicillin/clavulanate, and doxycycline. Please try to get a new primary care provider. You has been provided with contact information for a number of local practices. Please contact these practices to see if they are taking new patients. Return to the emergency room if you feel significantly worse. Prescriptions: No Action mirtazapine 15 mg Tablet 15 mg PO BEDTIME 30 Days Qty: 30 0RF melatonin 3 mg Tablet 3 mg PO BEDTIME 30 Days Qty: 30 0RF omeprazole 20 mg Capsule,Delayed Release(Dr/Ec) 20 mg PO BID@0630,1630 30 Days Qty: 60 0RF baclofen 10 mg tablet 10 mg PO BID gabapentin 300 mg capsule 300 mg PO TID doxycycline hyclate 100 mg capsule 100 mg PO BID oxycodone 10 mg tablet 10 mg PO Q4H PRN (Reason: Pain (Scale Score 7-10)) amoxicillin-pot clavulanate 875-125 mg tablet 1 tab PO BID Referrals: [facility] [Provider Group] [facility] [Provider Group] [facility] [Provider Group] [facility] [Provider Group] [facility] Primary Care, [facility] [Provider Group] Interventions: Offerman-Suicide Risk Severity Scale Last Done: 10/28/24 04:01 Print Language: Maori
[2024-10-28] MEDS: Omeprazole 20 MG CAPSULE.DR PO ×2 (05:43→14:58)
[2024-10-28] MEDS: oxyCODONE HCl Immed Release 5 MG TABLET 10 MG PO ×3 (05:45→18:34)
[2024-10-28 06:29] LABS: Amphetamine Screen Urine Not Detected (Not Detect); Barbiturates, Urine Not Detected (Not Detect); Benzodiazepines Screen Urine Not Detected (Not Detect); Buprenorphine Scr Not Detected (Not Detect); Cannabinoid Screen Urine Not Detected (Not Detect); Cocaine Screen Urine POSITIVE (Not Detect); Fentanyl, urine Not Detected (Not Detect); Methadone Screen, Urine Not Detected (Not Detect); Opiate Screen Urine POSITIVE (Not Detect); Oxycodone Screen Urine Positive (Not Detect); Phencyclidine Screen Urine Not Detected (Not Detect)
--- NOTE | 2024-10-28 07:20 | PC.NURSE ---
Addendum entered by Sharlene Mortensen RN 10/28/24 07:24: Patient is a 44 yo male with PMH of depression, substance abuse, ETOH use disorder states he just left [facility] after a 5 day stay for L hand infection (bedside I+D) - improving he notes but still on augmentin and doxy. He comes in with c/o SI, no AH/VH, no HI. He has not been taking his medications. He has no fevers. He is homeless. He has no ingestions or new rash/infections. c/o suicidal ideation and feels depressed. No distress noted at this time. Respirations even and non-labored. Plan pending. Original Note: PMH: Major depressive disorder, recurrent severe without psychotic features Post-traumatic stress disorder, unspecified Cocaine use disorder, moderate, dependence: Cocaine dependence, uncomplicated
--- NOTE | 2024-10-28 08:23 | PC.NURSE ---
Care team at the bedside
[2024-10-28] MEDS: Baclofen 10 MG TABLET PO ×2 (08:30→20:47)
[2024-10-28] MEDS: Gabapentin 300 MG CAPSULE PO ×3 (08:30→20:47)
[2024-10-28] MEDS: Amoxicillin/Potassium Clav 875 MG TABLET PO ×2 (08:30→20:47)
[2024-10-28] MEDS: Doxycycline Monohydrate 100 MG CAPSULE PO ×2 (08:30→20:47)
[2024-10-28 12:29] LABS: Appearance Urine Clear; Color Urine Yellow; Glucose Urine UA Negative (Negative); Leukocyte Esterase Urine Negative (Negative); Nitrite Urine Negative (Negative); Specific Gravity - Urine 1.025 (1.005-1.025); UMIC TRIGGER UA YES; Urine Blood Negative (Negative); Urine Ketones Trace mg/dL (Negative); Urine Protein 30 (1+) mg/dL (Neg-Trace)
[2024-10-28 12:31] LABS: Bacteria Urine None Seen (None Seen); Hyaline Casts Urine 0-2 /LPF (0-2); RBC Urine 0-2 /HPF (0-2); Squamous Epithelial Cell Urine 0-2 /HPF (0-2); WBC Urine 0-5 /HPF (0-5)
--- NOTE | 2024-10-28 13:36 | MHC.EDTECH ---
pt's third finger knuckle was unwrapped, clean with saline and betadine solution, and rewrapped with nonstick and gauze bandage. lac looks clean, dry, light pink in color, healthy looking. RN made aware
--- NOTE | 2024-10-28 16:12 | MHC.CARE ---
[facility] Kamran Sol accepted to [facility]: [address] [place] [address], for tomorrow 10/29/24, accepting is Dr. Yusuf, ETA 11am
[2024-10-28] MEDS: Mirtazapine 15 MG TABLET PO (20:47)
[2024-10-28] MEDS: Melatonin 3 MG TABLET PO (20:47)
[2024-10-28 20:52] VITALS: BP 150/76; PULSE 77; RESP 20; TEMP 36.3; O2SAT 100
--- NOTE | 2024-10-28 21:26 | PC.NURSE ---
PT requesting prn pain medication. T/W informed PT that it is ordered q4 but I could request alternate pain meds. PT became upset stating can you just call the doctor and ask? Im in pain PT unable t provider tw with pain scale rating, went to room yelling and cursing at tw. PT sleeping shortly after interaction. Respirations even and unlabored. 15 minutes safety checks remain. Plan of care ongoing
--- NOTE | 2024-10-29 00:16 | PC.NURSE ---
PER [facility] RECORDS, PT ORDERED PRN OXYCODONE FOR 3 DAYS POST D/C (10/27), AND ABX TREATMENT X7 DAYS. PER [facility] READBACK ORDER OXYCODONE PRN EDITED TO END ON 10/29/24 PER D/C PAPERWORK
--- NOTE | 2024-10-29 00:20 | PC.NURSE ---
PER [facility] RECORDS, RADHA STEVENSON
[2024-10-29] MEDS: oxyCODONE HCl Immed Release 5 MG TABLET 10 MG PO (04:50)
[2024-10-29 07:40] VITALS: BP 158/95; PULSE 76; RESP 16; TEMP 36.8; O2SAT 100
[2024-10-29 08:29] VITALS: BP 158/95; PULSE 76; RESP 16; TEMP 36.8; O2SAT 100
[2024-10-29] MEDS: Gabapentin 300 MG CAPSULE PO (08:50)
[2024-10-29] MEDS: Omeprazole 20 MG CAPSULE.DR PO (08:50)
== END 2024-10-29 08:52 | disposition home or self-care (01) ==
PROVIDERS: Emergency Medicine; Emergency Provider Emergency Medicine; PCP Nurse Practitioner
DX: F32.A Depression, unspecified (principal); F19.10 Other psychoactive substance abuse, uncomplicated; R45.851 Suicidal ideations; F41.9 Anxiety disorder, unspecified; F43.10 Post-traumatic stress disorder, unspecified; F10.10 Alcohol abuse, uncomplicated; F14.20 Cocaine dependence, uncomplicated; F17.210 Nicotine dependence, cigarettes, uncomplicated; Z91.148 Patient's other noncompliance with medication regimen for other reason; Z59.00 Homelessness unspecified
CPT/HCPCS: 36415; 80053; 80143; 80179; 80307; 81001; 85025; 93005; 99285; S9485

== ENCOUNTER → 2024-10-28 03:21 | Outpatient (BNV) | payer OTHER, SELFPAY | PROVIDERS: Emergency Provider Emergency Medicine; PCP Nurse Practitioner; Visit Provider Internal Medicine Cardiovascular Disease | DX: R00.0 Tachycardia, unspecified (principal) | CPT/HCPCS: 93010 ==